=== PATIENT | female | born 1940 ===

== ENCOUNTER 2017-04-25 12:31 | Inpatient (IN) | payer MEDICAID, SELFPAY ==
[2017-04-25 12:32] VITALS: BMI 37.2
[2017-04-25] MEDS ORDERED: Albuterol-Ipratrop 3 mg / 0.5 (3 ml) UD ONE ×3 (13:27→16:13)
[2017-04-25] MEDS ORDERED: Albuterol-Ipratrop 3 mg / 0.5 (3 ml) UD INH STA (13:32)
--- NOTE | 2017-04-25 14:56 | C.PDOC ---
History Of Present Illness 76yo female, with history of COPD presents to ED with complaints of cough and shortness of breath, progressively worsening over the past 2 days. She denies any associated fever or chest pain. Time Seen by Provider: 04/25/17 14:51 Chief Complaint (Nursing): Shortness Of Breath History Per: Patient, Family History/Exam Limitations: no limitations Onset/Duration Of Symptoms: Days (2) Current Symptoms Are (Timing): Still Present Associated Symptoms: denies: Fever, Productive Cough Past Medical History Reviewed: Historical Data, Nursing Documentation, Vital Signs Vital Signs: Last Vital Signs Temp 98.4 F 04/25/17 13:26 Pulse 86 04/25/17 13:26 Resp 20 04/25/17 13:26 BP 132/81 04/25/17 13:26 Pulse Ox 95 04/25/17 18:50 - Medical History PMH: Arthritis (KNEES), COPD, Fractures (6 years ago. fx keft arm, and spine), Gastritis, HTN, Hypothyroidism, Osteoporosis, Peripheral Edema, Pneumonia Denies: Chronic Kidney Disease Surgical History: No Surg Hx - [facility] Procedures INSERTION OF INFUSION DEV INTO SUP VENA CAVA, PERC APPROACH (04/12/15) ULTRASONOGRAPHY OF RIGHT AND LEFT HEART, TRANSESOPHAGEAL (07/27/15) Family History: States: Unknown Family Hx - Social History Hx Tobacco Use: No Hx Alcohol Use: No Hx Substance Use: No - Immunization History Hx Tetanus Toxoid Vaccination: No Hx Influenza Vaccination: Yes Hx Pneumococcal Vaccination: Yes Review Of Systems Except As Marked, All Systems Reviewed And Found Negative. Constitutional: Negative for: Fever, Chills Cardiovascular: Negative for: Chest Pain Respiratory: Positive for: Shortness of Breath. Negative for: Cough, Sputum Skin: Negative for: Rash Neurological: Negative for: Weakness, Headache, Dizziness Physical Exam - Physical Exam Appears: Non-toxic Skin: Normal Color, Warm, Dry Head: Atraumatic, Normacephalic Eye(s): bilateral: Normal Inspection, PERRL, EOMI Ear(s): Bilateral: Normal Nose: Normal Oral Mucosa: Moist Throat: Normal, No Erythema, No Exudate Neck: Normal ROM, Supple Chest: Symmetrical Cardiovascular: Rhythm Regular Respiratory: No Accessory Muscle Use, No Rales, No Rhonchi, Wheezing (diffuse wheezing) Extremity: Normal ROM, No Tenderness, No Pedal Edema, No Deformity, No Swelling Neurological/Psych: Oriented x3, Normal Speech ED Course And Treatment - Laboratory Results Result Diagrams: 04/25/17 15:10 04/25/17 15:10 Lab Interpretation: Abnormal O2 Sat by Pulse Oximetry: 95 (RA) Pulse Ox Interpretation: Normal Medical Decision Making Medical Decision Making: Impression: Shortness of breath in setting of COPD Plan: -- EKG -- Labs -- Rapid Flu -- Duoneb 3ml INH -- Solumedrol 125mg IVP Re-eval: Patient continued to feel the same, wheezing mildly improved. Labs reviewed shows hyponatremia. Discussed case with attending recommends Iv fluids and admission spoke with hospitalist Dr Sagar Borja and discussed case recommended additional labs and will admit. Patient to be next for service Dr Espitia Disposition - Disposition Disposition: HOSPITALIZED Disposition Time: 18:00 Condition: STABLE - POA Present On Arrival: None - Clinical Impression Clinical Impression: COPD exacerbation, Hyponatremia - PA / [employer] / Resident Statement MD/DO has reviewed & agrees with the documentation as recorded. - Scribe Statement The provider has reviewed the documentation as recorded by the Scribe (Hannah Friend) Provider Scribe Attestation: All medical record entries made by the Scribe were at my direction and personally dictated by me. I have reviewed the chart and agree that the record accurately reflects my personal performance of the history, physical exam, medical decision making, and the department course for this patient. I have also personally directed, reviewed, and agree with the discharge instructions and disposition. Decision To Admit - Pt Status Changed To: Hospital Disposition Of: Observation - . Bed Request Type: Regular Admitting Physician: Kumar Espitia Patient Diagnosis: COPD exacerbation, Hyponatremia
[2017-04-25 15:12] LABS: BASO # 0.1 K/uL (0.0-0.2); BASO % 0.9 % (0.0-2.0); EOS % 0.6 % (0.0-4.0); LYMPH # 1.7 K/uL (1.0-4.3); LYMPH % 21.7 % (20.0-40.0); MEAN CELL VOLUME 81.6 fL (81.0-99.0); MEAN CORPUSCULAR HEMOGLOBIN 26.5 pg (27.0-31.0); MEAN CORPUSCULAR HGB CONC 32.4 g/dL (33.0-37.0); MEAN PLATELET VOLUME 8.8 fL (7.2-11.7); MONO # 1.2 K/uL (0.0-0.8); MONO % 16.3 % (0.0-10.0); NEUT # 4.7 K/uL (1.8-7.0); NEUT % 60.5 % (50.0-75.0); RBC 4.54 Mil/uL (3.80-5.20); RED CELL DISTRIBUTION WIDTH 15.4 % (11.5-14.5); WHITE BLOOD COUNT 7.7 K/uL (4.8-10.8)
[2017-04-25 15:29] LABS: ALB/GLOB RATIO 1.1 (1.0-2.1); ALBUMIN 3.6 g/dL (3.5-5.0); ALT/SGPT 39 U/L (9-52); AST/SGOT 26 U/L (14-36); BLOOD UREA NITROGEN 13 mg/dL (7-17); CALCIUM 8.1 mg/dl (8.6-10.4); GFR AFRICAN-AMERICAN > 60; GFR NON-AFRICAN AMERICAN > 60
[2017-04-25 15:36] LABS: B-TYPE NATRIURETIC PEPTIDE 586 pg/mL (0-900)
[2017-04-25] MEDS: Albuterol-Ipratrop 3 mg / 0.5 (3 ml) UD IH SCH ×3 (15:40→16:10)
--- NOTE | 2017-04-25 17:04 | RAD ---
HISTORY: SOB COMPARISON: Chest x-ray performed 10/05/15 TECHNIQUE: Chest PA and lateral FINDINGS: Examination limited by habitus. LUNGS: No focal consolidation. Please note that chest x-ray has limited sensitivity for the detection of pulmonary masses. PLEURA: No significant pleural effusion identified. No definite pneumothorax . CARDIOVASCULAR: Cardiomegaly. Ectatic aorta. OSSEOUS STRUCTURES: Osseous demineralization. Degenerative changes. Mild kyphosis. VISUALIZED UPPER ABDOMEN: Unremarkable. OTHER FINDINGS: None. IMPRESSION: No focal consolidation, significant pleural effusion, or definite pneumothorax identified. Cardiomegaly. Ectatic aorta.
[2017-04-25] MEDS ORDERED: Sodium Chloride 0.9% 1,000 ML IV ONE (17:23)
[2017-04-25] MEDS ORDERED: Sodium Chloride 0.9% 1,000 ML ONE (18:08)
--- NOTE | 2017-04-25 19:25 | CP.PCM.HP ---
<Margaux Villasenor - Last Filed: 04/26/17 06:54> History of Present Illness - History of Present Illness History of Present Illness: Medicine Note for Hospitalist Service CC: SOB HPI: 76 Female with PMHx of COPD, HTN, DM, Hypothyroid presented to the ED due to shortness of breath. History retrieved from both patient and her daughter. She started to experience coughing and wheezing for the past 2 days. Denied any fever, chills, productive cough, sore throat, body ache. Patient is compliant with her medications but she ran out of the nebulizer treatments x 1 week. Denied any sick contacts. She received duonebs x3 in the ED with solumedrol and reported much improvement. Denied fever, chills, headache, chest pain, SOB, abdominal pain, n/v/d/c, or urinary symptoms. PMH: COPD, HTN, Type 2 DM, Hypothyrodism, Arthritis, Gastritis, Osteoporosis, Peripheral Edema, Pneumonia PSHx: Right TKA (2006),Left TKA (2011), Liposuction Meds: Ventolin, Fluticasone, Metformin, Losartan, Levothyroxine, Aspirin, Calcium, Famotidine. Will obtain dosage from pharmacy. Allergies: NKDA Social Hx: Denies tobacco, alcohol, and illegal drug use. Patient currently lives with her daughter. 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 Reports large presence of second hand smoke when living in [facility]. FMHx: Noncontributory PMD: [place] Present on Admission - Present on Admission Any Indicators Present on Admission: No Past Patient History - Infectious Disease Hx of Infectious Diseases: None - Tetanus Immunizations Tetanus Immunization: Unknown - Past Medical History & Family History Past Medical History?: Yes - Past Social History Smoking Status: Never Smoked - CARDIAC Hx Hypertension: Yes Hx Peripheral Edema: Yes - PULMONARY Hx Chronic Obstructive Pulmonary Disease (COPD): Yes Hx Pneumonia: Yes - NEUROLOGICAL Hx Neurological Disorder: Yes Other/Comment: cerebral lesion after gastic surgery 'lipectomy ' many years ago in [place] - HEENT Hx HEENT Problems: Yes Hx Difficulty Chewing: Yes (tardive dyskinesia X 4 years) Other/Comment: wears glasses to read - RENAL Hx Chronic Kidney Disease: No - ENDOCRINE/METABOLIC Hx Hypothyroidism: Yes - HEMATOLOGICAL/ONCOLOGICAL Hx Blood Disorders: No Hx Blood Transfusions: No - INTEGUMENTARY Hx Dermatological Problems: No Other/Comment: surgical remaoval of subcutaneous fat after extreme weight loss - MUSCULOSKELETAL/RHEUMATOLOGICAL Hx Arthritis: Yes (KNEES) Hx Fractures: Yes (6 years ago. fx keft arm, and spine) Hx Osteoporosis: Yes - GASTROINTESTINAL Hx Gastritis: Yes - GENITOURINARY/GYNECOLOGICAL Hx Genitourinary Disorders: Yes Hx Urinary Tract Infection: Yes Other/Comment: incontinent - PSYCHIATRIC Hx Substance Use: No - SURGICAL HISTORY Hx Surgeries: Yes Hx Herniorrhaphy: Yes Hx Musculoskeletal Surgery: Yes (bilateral knee replacement) Other/Comment: renal calculi removed surgically about 8 years ago. Thyroidectomy about 5 years ago. - ANESTHESIA Hx Anesthesia: Yes Hx Anesthesia Reactions: Yes (neuro symptoms. 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.) Meds Allergies/Adverse Reactions: Allergies Allergy/AdvReac Type Severity Reaction Status Date / Time No Known Allergies Allergy Verified 04/11/15 15:28 Physical Exam - Constitutional Appears: No Acute Distress - Head Exam Head Exam: NORMAL INSPECTION, NORMOCEPHALIC - Eye Exam Eye Exam: EOMI, Normal appearance, PERRL Pupil Exam: NORMAL ACCOMODATION - ENT Exam ENT Exam: Mucous Membranes Moist, Normal Exam - Respiratory Exam Respiratory Exam: Decreased Breath Sounds, Wheezes - Cardiovascular Exam Cardiovascular Exam: Tachycardia - GI/Abdominal Exam GI & Abdominal Exam: Normal Bowel Sounds, Soft. absent: Distended, Tenderness - Extremities Exam Extremities exam: Positive for: normal inspection, pedal pulses present. Negative for: pedal edema, tenderness - Neurological Exam Neurological exam: Alert, CN II-XII Intact, Oriented x3 - Psychiatric Exam Psychiatric exam: Normal Affect, Normal Mood - Skin Skin Exam: Dry, Intact, Normal Color, Warm Results - Vital Signs Recent Vital Signs: Last Vital Signs Temp 98.4 F 04/25/17 13:26 Pulse 86 04/25/17 13:26 Resp 20 04/25/17 13:26 BP 132/81 04/25/17 13:26 Pulse Ox 95 04/25/17 18:52 - Labs Result Diagrams: 04/25/17 15:10 04/25/17 15:10 Labs: Laboratory Results - last 24 hr 04/25/17 04/25/17 04/25/17 15:10 15:10 15:14 WBC 7.7 RBC 4.54 Hgb 12.0 Hct 37.1 MCV 81.6 MCH 26.5 L MCHC 32.4 L RDW 15.4 H Plt Count 292 MPV 8.8 Neut % (Auto) 60.5 Lymph % (Auto) 21.7 [place] % (Auto) 16.3 H Eos % (Auto) 0.6 Baso % (Auto) 0.9 Neut # 4.7 Lymph # 1.7 [place] # 1.2 H Eos # 0.0 Baso # 0.1 Sodium 123 L Potassium 4.1 Chloride 86 L Carbon Dioxide 29 Anion Gap 12 BUN 13 Creatinine 0.7 Est GFR ( Amer) > 60 Est GFR (Non-Af Amer) > 60 Random Glucose 181 H Calcium 8.1 L Total Bilirubin 0.4 AST 26 ALT 39 Alkaline Phosphatase 62 NT-Pro-B Natriuret Pep 586 Total Protein 6.8 Albumin 3.6 Globulin 3.2 Albumin/Globulin Ratio 1.1 Influenza Typ A,B (EIA) Negative for flu a/b Assessment & Plan - Assessment and Plan (Free Text) Assessment: 76 Female with PMHx of COPD, HTN, DM, Hypothyroid presented to the ED due to shortness of breath. Plan: COPD Exacerbation CXR: no infiltrate, consolidation noted Negative Flu Meds: Solumedrol 40mg Q12H (will taper based on clinical exam) Duonebs Q6H PEPE, Albuterol QR3 prn Pulmicort Q12, Spiriva Q24H Hyponatremia F/U urine osm, serum osm, Na urine osm Hx DM Continue home meds: Metformin 500mg PO BID HgA1C: 7.4 Accuchecks Hx HTN Continue home meds: Cozaar 50mg PO daily Hx Hypothyroidism Continue home medications: Synthroid 125mcg PO daily TSH, T4 WNL GERD Protonix 40mg PO daily Will need to be discharged with PPI, as this can be exacerbating her COPD Prophylactic Measures GI PPX: Protonix 40mg PO daily DVT PPX: SCDs, Lovenox 40mg SC daily DW Margaux Wasserman DO, PGY-1 <Kumar Espitia P - Last Filed: 04/26/17 07:39> Results - Vital Signs Recent Vital Signs: Last Vital Signs Temp 98.5 F 04/25/17 23:15 Pulse 114 H 04/25/17 23:15 Resp 20 04/25/17 23:15 BP 113/64 04/25/17 23:15 Pulse Ox 95 04/25/17 23:15 - Labs Result Diagrams: 04/25/17 15:10 04/25/17 15:10 Labs: Laboratory Results - last 24 hr 04/25/17 04/25/17 04/25/17 15:10 15:10 15:14 WBC 7.7 RBC 4.54 Hgb 12.0 Hct 37.1 MCV 81.6 MCH 26.5 L MCHC 32.4 L RDW 15.4 H Plt Count 292 MPV 8.8 Neut % (Auto) 60.5 Lymph % (Auto) 21.7 [place] % (Auto) 16.3 H Eos % (Auto) 0.6 Baso % (Auto) 0.9 Neut # 4.7 Lymph # 1.7 [place] # 1.2 H Eos # 0.0 Baso # 0.1 Sodium 123 L Potassium 4.1 Chloride 86 L Carbon Dioxide 29 Anion Gap 12 BUN 13 Creatinine 0.7 Est GFR ( Amer) > 60 Est GFR (Non-Af Amer) > 60 Random Glucose 181 H Hemoglobin A1c Serum Osmolality Calcium 8.1 L Total Bilirubin 0.4 AST 26 ALT 39 Alkaline Phosphatase 62 NT-Pro-B Natriuret Pep 586 Total Protein 6.8 Albumin 3.6 Globulin 3.2 Albumin/Globulin Ratio 1.1 Free T4 TSH 3rd Generation Urine Osmolality Ur Random Sodium Influenza Typ A,B (EIA) Negative for flu a/b 04/25/17 04/25/17 04/25/17 20:09 20:09 20:09 WBC RBC Hgb Hct MCV MCH MCHC RDW Plt Count MPV Neut % (Auto) Lymph % (Auto) [place] % (Auto) Eos % (Auto) Baso % (Auto) Neut # Lymph # [place] # Eos # Baso # Sodium Potassium Chloride Carbon Dioxide Anion Gap BUN Creatinine Est GFR ( Amer) Est GFR (Non-Af Amer) Random Glucose Hemoglobin A1c 7.4 H Serum Osmolality Calcium Total Bilirubin AST ALT Alkaline Phosphatase NT-Pro-B Natriuret Pep Total Protein Albumin Globulin Albumin/Globulin Ratio Free T4 1.46 TSH 3rd Generation 0.49 Urine Osmolality Ur Random Sodium Influenza Typ A,B (EIA) 04/25/17 04/26/17 22:57 06:18 WBC RBC Hgb Hct MCV MCH MCHC RDW Plt Count MPV Neut % (Auto) Lymph % (Auto) [place] % (Auto) Eos % (Auto) Baso % (Auto) Neut # Lymph # [place] # Eos # Baso # Sodium Potassium Chloride Carbon Dioxide Anion Gap BUN Creatinine Est GFR ( Amer) Est GFR (Non-Af Amer) Random Glucose Hemoglobin A1c Serum Osmolality 292 Calcium Total Bilirubin AST ALT Alkaline Phosphatase NT-Pro-B Natriuret Pep Total Protein Albumin Globulin Albumin/Globulin Ratio Free T4 TSH 3rd Generation Urine Osmolality 331 Ur Random Sodium 43 Influenza Typ A,B (EIA) Attending/Attestation - Attestation I have personally seen and examined this patient.: Yes I have fully participated in the care of the patient.: Yes I have reviewed all pertinent clinical information: Yes Notes (Text): Assessment * Wheezing, reactive air way, ? etiology, no h/o smoking but secondary smoking present, also suspect acid reflex * Hyponatremia noticed with relatively higher urine osm, euvolemic suspicious of siadh again etiology not clear * TD kind of facial movements * NIDDM * Physical deconditioning due to obesity, arthritis, age, comorbidities Plan Oral, and inhaled steroids, albuterol nebs PPI, zofran Repeat sodium, tsh/cortisol level if repeat sodium still low can fluid restrict / give loop diuretic continue home meds, none suspected for siadh GI/DVT prophylaxis Confirm if patient is on any antipsycotics See orders for detail.
[2017-04-25] MEDS: Albuterol-Ipratrop 3 mg / 0.5 (3 ml) UD INH SCH (21:41)
[2017-04-25] MEDS ORDERED: Albuterol 0.042% Inhal Sol (1.25 mg/3 mL) UD INH PRN (21:50)
[2017-04-25 22:35] VITALS: RESP 20
[2017-04-26] MEDS: Albuterol-Ipratrop 3 mg / 0.5 (3 ml) UD INH SCH ×5 (02:00→19:51)
[2017-04-26] MEDS: Levothyroxine 125 MCG TAB PO SCH (06:35)
[2017-04-26 07:14] LABS: OSMOLALITY,URINE 331 mosm/kg (300-1000)
[2017-04-26] MEDS ORDERED: Fluticasone-Salmeterol 250-50mcg Diskus INH SCH (08:00)
[2017-04-26] MEDS ORDERED: Tiotropium 18 mcg Cap For Inhalation INH SCH (08:00)
[2017-04-26 08:02] LABS: BASO % 0.2 % (0.0-2.0); HEMOGLOBIN 11.7 g/dL (11.0-16.0); LYMPH # 1.1 K/uL (1.0-4.3); LYMPH % 13.8 % (20.0-40.0); MEAN CELL VOLUME 81.4 fL (81.0-99.0); MEAN CORPUSCULAR HEMOGLOBIN 27.3 pg (27.0-31.0); MEAN CORPUSCULAR HGB CONC 33.5 g/dL (33.0-37.0); MONO # 0.5 K/uL (0.0-0.8); MONO % 7.1 % (0.0-10.0); NEUT % 78.9 % (50.0-75.0); NRBC % 0.1 % (0.0-2.0); RBC 4.28 Mil/uL (3.80-5.20); RED CELL DISTRIBUTION WIDTH 15.8 % (11.5-14.5); WHITE BLOOD COUNT 7.6 K/uL (4.8-10.8)
[2017-04-26 08:22] LABS: LDL CHOLESTEROL 49 mg/dL (0-129)
[2017-04-26 08:23] LABS: ALB/GLOB RATIO 1.1 (1.0-2.1); ALBUMIN 3.5 g/dL (3.5-5.0); ALT/SGPT 28 U/L (9-52); AST/SGOT 19 U/L (14-36); BLOOD UREA NITROGEN 13 mg/dL (7-17); CALCIUM 8.4 mg/dl (8.6-10.4); GFR AFRICAN-AMERICAN > 60; GFR NON-AFRICAN AMERICAN > 60; HDL CHOLESTEROL 38 mg/dL (30-70); MAGNESIUM 1.7 mg/dL (1.6-2.3)
[2017-04-26] MEDS: MethylPREDNISolone 40 mg Vial IVP SCH ×4 (08:23→16:59)
[2017-04-26] MEDS: Pantoprazole 40 mg EC Tab PO SCH (11:11)
[2017-04-26] MEDS: Enoxaparin 40 mg Syringe SC SCH (11:12)
--- NOTE | 2017-04-26 12:00 | CP.PCM.PN ---
<Manuela Tavares OtonielNithin - Last Filed: 04/26/17 17:10> Subjective - Date & Time of Evaluation Date of Evaluation: 04/26/17 Time of Evaluation: 07:00 - Subjective Subjective: Medicine Progress Note: Patient was seen and examined at bedside in the AM. Patient stated she her breathing has improved slight. She denies chest pain, palpitations, nausea, vomiting, diarrhea or constipation. Objective - Vital Signs/Intake and Output Vital Signs (last 24 hours): Temp Pulse Resp BP Pulse Ox 98.4 F 111 H 20 105/60 95 04/26/17 07:36 04/26/17 07:36 04/26/17 07:36 04/26/17 07:36 04/26/17 07:36 Intake and Output: 04/26/17 04/26/17 06:59 18:59 Intake Total 500 Balance 500 - Medications Medications: Current Medications Albuterol Sulfate (Albuterol 0.042% Inhal Barbara (1.25mg/3ml) Ud) 1.25 mg INH RQ3 PRN PRN Reason: Wheezing Albuterol/Ipratropium (Duoneb 3 Mg/0.5 Mg (3 Ml) Ud) 3 ml INH RQ4 [facility] Aspirin (Aspirin Chewable) 81 mg PO DAILY [facility] Last Admin: 04/26/17 11:11 Dose: 81 mg Budesonide (Pulmicort Respules) 0.5 mg INH RQ12 [facility] Enoxaparin Sodium (Lovenox) 40 mg SC DAILY [facility] Last Admin: 04/26/17 11:12 Dose: 40 mg Levothyroxine Sodium (Synthroid) 125 mcg PO DAILY@0630 [facility] Last Admin: 04/26/17 06:35 Dose: 125 mcg Losartan Potassium (Cozaar) 50 mg PO DAILY [facility] Last Admin: 04/26/17 11:13 Dose: 50 mg Metformin HCl (Glucophage) 500 mg PO BID [facility] Last Admin: 04/26/17 11:11 Dose: 500 mg Methylprednisolone (Solu-Medrol) 40 mg IVP TID [facility] Pantoprazole Sodium (Protonix Ec Tab) 40 mg PO DAILY [facility] Last Admin: 04/26/17 11:11 Dose: 40 mg Tiotropium [place] (Spiriva) 18 mcg INH RQ24 [facility] - Labs Labs: 04/26/17 07:45 04/26/17 07:45 - Constitutional Appears: No Acute Distress, Chronically Ill - Head Exam Head Exam: ATRAUMATIC, NORMAL INSPECTION - Eye Exam Eye Exam: EOMI, Normal appearance - ENT Exam ENT Exam: Mucous Membranes Moist - Respiratory Exam Respiratory Exam: Clear to Ausculation Bilateral, NORMAL BREATHING PATTERN - Cardiovascular Exam Cardiovascular Exam: Tachycardia, REGULAR RHYTHM, +S1, +S2 - GI/Abdominal Exam GI & Abdominal Exam: Soft, Normal Bowel Sounds. absent: Tenderness Additional comments: obese - Extremities Exam Extremities Exam: Normal Inspection - Neurological Exam Neurological Exam: Alert, Awake, Oriented x3 - Psychiatric Exam Psychiatric exam: Normal Affect, Normal Mood - Skin Skin Exam: Normal Color, Warm Assessment and Plan - Assessment and Plan (Free Text) Assessment: 1.) COPD Exacerbation - Images * CXR: no infiltrate, consolidation noted - Negative Flu - Medications: * Solumedrol 40mg TID * Duonebs Q4H PEPE * Albuterol QR3 prn * Pulmicort Q12 * Spiriva Q24H 2.) Hyponatremia - Ns on admission 123 - (04/26/17) Na 130 - urine osm: 331; Serum osm 292, Na urine osm: 43 3.) History of DM type II - Metformin 500mg PO BID - hold - ISS - high - Hypoglycemia protocol - HgA1C: 7.4 - Accuchecks 4.) History of HTN - Continue home meds: Cozaar 50mg PO daily 5.) History of Hypothyroidism - Continue home medications: Synthroid 125mcg PO daily - TSH 0.49, T4 1.46 WNL 6.) History of GERD - Protonix 40mg PO daily - Will need to be discharged with PPI, as this can be exacerbating her COPD 7.) Prophylactic Measures - GI PPX: Protonix 40mg PO daily - DVT PPX: SCDs, Lovenox 40mg SC daily Case discussed with Dr. Danielle Tavares PGY-1 <Taco Santos - Last Filed: 04/26/17 18:33> Objective - Vital Signs/Intake and Output Vital Signs (last 24 hours): Temp Pulse Resp BP Pulse Ox 98.2 F 85 20 130/80 94 L 04/26/17 16:00 04/26/17 16:00 04/26/17 16:00 04/26/17 16:00 04/26/17 16:00 Intake and Output: 04/26/17 04/26/17 06:59 18:59 Intake Total 500 Balance 500 - Medications Medications: Current Medications Albuterol Sulfate (Albuterol 0.042% Inhal Barbara (1.25mg/3ml) Ud) 1.25 mg INH RQ3 PRN PRN Reason: Wheezing Albuterol/Ipratropium (Duoneb 3 Mg/0.5 Mg (3 Ml) Ud) 3 ml INH RQ4 [facility] Last Admin: 04/26/17 18:17 Dose: Not Given Aspirin (Aspirin Chewable) 81 mg PO DAILY [facility] Last Admin: 04/26/17 11:11 Dose: 81 mg Budesonide (Pulmicort Respules) 0.5 mg INH RQ12 [facility] Last Admin: 04/26/17 13:58 Dose: Not Given Dextrose (Glutose 15) 0 gm PO ONCE PRN; Protocol PRN Reason: Hypoglycemia Protocol Dextrose (Dextrose 50% Inj) 0 ml IV STAT PRN; Protocol PRN Reason: Hypoglycemia Protocol Enoxaparin Sodium (Lovenox) 40 mg SC DAILY [facility] Last Admin: 04/26/17 11:12 Dose: 40 mg Glucagon (Glucagen Diagnostic Kit) 0 mg IM STAT PRN; Protocol PRN Reason: Hypoglycemia Protocol Dextrose (Dextrose 5% In Water 1000 Ml) 1,000 mls @ 0 mls/hr IV .Q0M PRN; Protocol; Per Protocol PRN Reason: Hypoglycemia Protocol Insulin Human Regular (Novolin R) 0 unit SC ACHS [facility] PRN Reason: Protocol Levothyroxine Sodium (Synthroid) 125 mcg PO DAILY@0630 [facility] Last Admin: 04/26/17 06:35 Dose: 125 mcg Losartan Potassium (Cozaar) 50 mg PO DAILY [facility] Last Admin: 04/26/17 11:13 Dose: 50 mg Methylprednisolone (Solu-Medrol) 40 mg IVP TID [facility] Last Admin: 04/26/17 16:59 Dose: 40 mg Pantoprazole Sodium (Protonix Ec Tab) 40 mg PO DAILY [facility] Last Admin: 04/26/17 11:11 Dose: 40 mg Tiotropium [place] (Spiriva) 18 mcg INH RQ24 [facility] - Labs Labs: 04/26/17 07:45 04/26/17 07:45 Attending/Attestation - Attestation I have personally seen and examined this patient.: Yes I have fully participated in the care of the patient.: Yes I have reviewed all pertinent clinical information, including history, physical exam and plan: Yes Notes (Text): 04/26/17 18:33 Medical attending: Patient was seen and examined by me, reviewed the above note by center medical specialist and agree This is a patient that's known to the hospitalist service from previous admissions. She was able to stand and walk however needed assistance. At this time were to continue with Solu-Medrol as before. There was some concern from the admitting team that the patient might have SIADH given that her sodium was low initially however this morning sodium was 130. So at this time will continue to monitor the patient's Na. He also added on sliding scale insulin due to patient's history of diabetes and currently being on IV Solu-Medrol for her breathing Thank you very much, Taco Santos
[2017-04-26] MEDS: Budesonide 0.5 mg/2 ml Inhal Susp UD INH SCH ×2 (13:58→19:44)
[2017-04-26] MEDS ORDERED: Dextrose 50% SYRINGE Inj (50 ml) IV PRN (17:12)
[2017-04-26] MEDS ORDERED: Glucagon Recombinant 1 mg Inj IM PRN (17:12)
[2017-04-26] MEDS ORDERED: (Novolin R) Insulin Human Regular 100 units/ml vial SC SCH (22:00)
--- NOTE | 2017-04-26 23:06 | CARD ---
APPROVED REPORT EKG Measurement Heart [id number] <Conclusion> Sinus tachycardia Otherwise normal ECG
[2017-04-27] MEDS: Albuterol-Ipratrop 3 mg / 0.5 (3 ml) UD INH SCH ×7 (00:02→23:55)
[2017-04-27] MEDS: Levothyroxine 125 MCG TAB PO SCH (06:45)
[2017-04-27] MEDS: Budesonide 0.5 mg/2 ml Inhal Susp UD INH SCH (08:04)
[2017-04-27 08:25] LABS: BASO % 0.1 % (0.0-2.0); HEMOGLOBIN 11.8 g/dL (11.0-16.0); LYMPH # 1.3 K/uL (1.0-4.3); LYMPH % 9.9 % (20.0-40.0); MEAN CELL VOLUME 81.6 fL (81.0-99.0); MEAN CORPUSCULAR HEMOGLOBIN 26.6 pg (27.0-31.0); MEAN CORPUSCULAR HGB CONC 32.6 g/dL (33.0-37.0); MEAN PLATELET VOLUME 8.9 fL (7.2-11.7); MONO # 1.3 K/uL (0.0-0.8); MONO % 9.2 % (0.0-10.0); NEUT % 80.8 % (50.0-75.0); PLATELET COUNT 333 K/uL (130-400); RBC 4.43 Mil/uL (3.80-5.20); RED CELL DISTRIBUTION WIDTH 15.8 % (11.5-14.5)
[2017-04-27 08:37] LABS: WHITE BLOOD COUNT 13.7 K/uL (4.8-10.8)
[2017-04-27] MEDS: (Novolin R) Insulin Human Regular 100 units/ml vial SC SCH ×4 (08:49→21:43)
[2017-04-27 09:03] LABS: ALB/GLOB RATIO 1.2 (1.0-2.1); ALBUMIN 3.8 g/dL (3.5-5.0); ALT/SGPT 26 U/L (9-52); AST/SGOT 22 U/L (14-36); BLOOD UREA NITROGEN 18 mg/dL (7-17); CALCIUM 8.7 mg/dl (8.6-10.4); GFR AFRICAN-AMERICAN > 60; GFR NON-AFRICAN AMERICAN > 60; MAGNESIUM 1.7 mg/dL (1.6-2.3)
[2017-04-27] MEDS ORDERED: Influenza Vaccine 60 mcg/0.5 mL SYR (4YR UP) IM ONE (10:00)
--- NOTE | 2017-04-27 10:26 | CP.PCM.PN ---
<Manuela Tavares OtonielNithin - Last Filed: 04/27/17 10:24> Subjective - Date & Time of Evaluation Date of Evaluation: 04/27/17 Time of Evaluation: 07:00 - Subjective Subjective: Medicine Progress Note: Patient was seen and examined at bedside in the AM. Patient states she feels like her breathing has improved slightly. However patient still feels short of breath. Patient states she is eating well and denies nausea, vomiting, diarrhea or constipation. Objective - Vital Signs/Intake and Output Vital Signs (last 24 hours): Temp Pulse Resp BP Pulse Ox 98.2 F 82 20 126/79 95 04/27/17 08:40 04/27/17 08:40 04/27/17 08:40 04/27/17 08:40 04/27/17 08:40 Intake and Output: 04/27/17 04/27/17 06:59 18:59 Intake Total 120 Balance 120 - Medications Medications: Current Medications Albuterol Sulfate (Albuterol 0.042% Inhal Barbara (1.25mg/3ml) Ud) 1.25 mg INH RQ3 PRN PRN Reason: Wheezing Albuterol/Ipratropium (Duoneb 3 Mg/0.5 Mg (3 Ml) Ud) 3 ml INH RQ4 [facility] Last Admin: 04/27/17 08:04 Dose: 3 ml Aspirin (Aspirin Chewable) 81 mg PO DAILY [facility] Last Admin: 04/26/17 11:11 Dose: 81 mg Dextrose (Glutose 15) 0 gm PO ONCE PRN; Protocol PRN Reason: Hypoglycemia Protocol Dextrose (Dextrose 50% Inj) 0 ml IV STAT PRN; Protocol PRN Reason: Hypoglycemia Protocol Enoxaparin Sodium (Lovenox) 40 mg SC DAILY [facility] Last Admin: 04/26/17 11:12 Dose: 40 mg Glucagon (Glucagen Diagnostic Kit) 0 mg IM STAT PRN; Protocol PRN Reason: Hypoglycemia Protocol Dextrose (Dextrose 5% In Water 1000 Ml) 1,000 mls @ 0 mls/hr IV .Q0M PRN; Protocol; Per Protocol PRN Reason: Hypoglycemia Protocol Insulin Human Regular (Novolin R) 0 unit SC ACHS [facility] PRN Reason: Protocol Last Admin: 04/27/17 08:49 Dose: 4 unit Levothyroxine Sodium (Synthroid) 125 mcg PO DAILY@0630 [facility] Last Admin: 04/27/17 06:45 Dose: 125 mcg Losartan Potassium (Cozaar) 50 mg PO DAILY [facility] Last Admin: 04/26/17 11:13 Dose: 50 mg Methylprednisolone (Solu-Medrol) 40 mg IVP TID [facility] Last Admin: 04/26/17 16:59 Dose: 40 mg Pantoprazole Sodium (Protonix Ec Tab) 40 mg PO DAILY [facility] Last Admin: 04/26/17 11:11 Dose: 40 mg Fluticasone/Salmeterol (Advair Diskus 500/50) 1 puff INH RQ12 [facility] Tiotropium [place] (Spiriva) 18 mcg INH RQ24 [facility] - Labs Labs: 04/27/17 08:02 04/27/17 08:02 - Constitutional Appears: In Acute Distress - Head Exam Head Exam: ATRAUMATIC, NORMAL INSPECTION - Eye Exam Eye Exam: EOMI, Normal appearance - ENT Exam ENT Exam: Mucous Membranes Moist - Respiratory Exam Respiratory Exam: Wheezes, NORMAL BREATHING PATTERN. absent: Clear to Ausculation Bilateral - Cardiovascular Exam Cardiovascular Exam: REGULAR RHYTHM, +S1, +S2 - GI/Abdominal Exam GI & Abdominal Exam: Soft, Normal Bowel Sounds. absent: Tenderness Additional comments: obese - Extremities Exam Extremities Exam: absent: Pedal Edema, Tenderness - Neurological Exam Neurological Exam: Alert, Awake, Oriented x3 - Psychiatric Exam Psychiatric exam: Normal Mood Assessment and Plan - Assessment and Plan (Free Text) Assessment: 1.) COPD Exacerbation - Images * CXR: no infiltrate, consolidation noted * f/u Chest CT w/o contrast - Negative Flu - Medications: * Solumedrol 40mg TID * Duonebs Q4H [facility] * Albuterol QR3 prn * Pulmicort Q12 discontinued * Advair Q12 started 04/27/17 * Spiriva Q24H 2.) Hyponatremia - Na on admission 123 - (04/26/17) Na 130 - (04/27/17) Na 126 - urine osm: 331; Serum osm 292, Na urine osm: 43 3.) History of DM type II - Metformin 500mg PO BID - hold - ISS - high - Hypoglycemia protocol - HgA1C: 7.4 - Accuchecks 4.) History of HTN - Continue home meds: Cozaar 50mg PO daily 5.) History of Hypothyroidism - Continue home medications: Synthroid 125mcg PO daily - TSH 0.49, T4 1.46 WNL 6.) History of GERD - Protonix 40mg PO daily - Will need to be discharged with PPI, as this can be exacerbating her COPD 7.) Prophylactic Measures - GI PPX: Protonix 40mg PO daily - DVT PPX: SCDs, Lovenox 40mg SC daily - Physical Therapy Case discussed with Dr. Danielle Tavares PGY-1 <Taco Santos - Last Filed: 04/27/17 14:34> Objective - Vital Signs/Intake and Output Vital Signs (last 24 hours): Temp Pulse Resp BP Pulse Ox 98.2 F 82 20 126/79 95 04/27/17 08:40 04/27/17 08:40 04/27/17 08:40 04/27/17 08:40 04/27/17 08:40 Intake and Output: 04/27/17 04/27/17 06:59 18:59 Intake Total 120 Balance 120 - Medications Medications: Current Medications Albuterol Sulfate (Albuterol 0.042% Inhal Barbara (1.25mg/3ml) Ud) 1.25 mg INH RQ3 PRN PRN Reason: Wheezing Albuterol/Ipratropium (Duoneb 3 Mg/0.5 Mg (3 Ml) Ud) 3 ml INH RQ4 [facility] Last Admin: 04/27/17 11:15 Dose: 3 ml Aspirin (Aspirin Chewable) 81 mg PO DAILY [facility] Last Admin: 04/27/17 10:57 Dose: 81 mg Dextrose (Glutose 15) 0 gm PO ONCE PRN; Protocol PRN Reason: Hypoglycemia Protocol Dextrose (Dextrose 50% Inj) 0 ml IV STAT PRN; Protocol PRN Reason: Hypoglycemia Protocol Enoxaparin Sodium (Lovenox) 40 mg SC DAILY [facility] Last Admin: 04/27/17 10:58 Dose: 40 mg Glucagon (Glucagen Diagnostic Kit) 0 mg IM STAT PRN; Protocol PRN Reason: Hypoglycemia Protocol Dextrose (Dextrose 5% In Water 1000 Ml) 1,000 mls @ 0 mls/hr IV .Q0M PRN; Protocol; Per Protocol PRN Reason: Hypoglycemia Protocol Insulin Human Regular (Novolin R) 0 unit SC ACHS [facility] PRN Reason: Protocol Last Admin: 04/27/17 12:22 Dose: 1 unit Levothyroxine Sodium (Synthroid) 125 mcg PO DAILY@0630 [facility] Last Admin: 04/27/17 06:45 Dose: 125 mcg Losartan Potassium (Cozaar) 50 mg PO DAILY [facility] Last Admin: 04/27/17 10:57 Dose: 50 mg Methylprednisolone (Solu-Medrol) 40 mg IVP TID [facility] Last Admin: 04/27/17 14:20 Dose: 40 mg Pantoprazole Sodium (Protonix Ec Tab) 40 mg PO DAILY [facility] Last Admin: 04/27/17 10:57 Dose: 40 mg Fluticasone/Salmeterol (Advair Diskus 500/50) 1 puff INH RQ12 [facility] Tiotropium [place] (Spiriva) 18 mcg INH RQ24 [facility] - Labs Labs: 04/27/17 08:02 04/27/17 08:02 Attending/Attestation - Attestation I have personally seen and examined this patient.: Yes I have fully participated in the care of the patient.: Yes I have reviewed all pertinent clinical information, including history, physical exam and plan: Yes Notes (Text): 04/27/17 14:34 Medical attending: Patient was seen and examined by me, agrees the above note by medical sonographer. With the help of clinical nutritionist the patient was able to tell us that she only felt minimally improved and she was still having some shortness of breath as well as coughing. As mentioned before yesterday we changed her IV Solu-Medrol to be given 3 times a day instead of being twice. Were also stop the Pulmicort switch over to Advair to be given twice a day Today were negative CT scan of the chest without contrast Thank you very much, Taco Santos
[2017-04-27 10:39] LABS: ANISOCYTOSIS SLIGHT; BANDS 20 % (0-2); GIANT PLATELETS PRESENT; LARGE PLATELETS PRESENT; LYMPHOCYTE 13 % (20-40); MONOCYTE 6 % (0-10); NEUTROPHIL 59 % (50-75); PLATELET ESTIMATE NORMAL (NORMAL); REACTIVE LYMPHOCYTES 2 % (0-0); TOTAL CELLS COUNTED 100
[2017-04-27] MEDS: Pantoprazole 40 mg EC Tab PO SCH (10:57)
[2017-04-27] MEDS: MethylPREDNISolone 40 mg Vial IVP SCH ×3 (10:57→17:23)
[2017-04-27] MEDS: Enoxaparin 40 mg Syringe SC SCH (10:58)
--- NOTE | 2017-04-27 17:28 | CT ---
PROCEDURE: CT Chest without contrast HISTORY: shortness of breath and wheezing COMPARISON: None. TECHNIQUE: Contiguous axial images were obtained through the chest without intravenous contrast enhancement. Sagittal and coronal reconstructions were performed. Radiation dose (DLP): 833.15 mGy-cm. This CT exam was performed using one or more of the following dose reduction techniques: Automated exposure control, adjustment of the mA and/or kV according to patient size, and/or use of iterative reconstruction technique. FINDINGS: LUNGS: No pulmonary infiltrate. Linear scar/ atelectasis anterior right upper lobe. Minimal pleural thickening medial left lung base. No pulmonary mass identified. 5 mm calcified granuloma in the lingular segment of the left upper lobe. MEDIASTINUM: Unremarkable thoracic aorta. No aneurysm. Normal heart size. Coronary arterial calcification. Main pulmonary artery unremarkable. No vascular congestion. No lymphadenopathy. PLEURA: No pleural fluid. No pneumothorax. BONES: Stable compression deformity of the T12 and L1 vertebrae compared to 10/04/2015. UPPER ABDOMEN: Stable 3.4 cm left upper pole renal cortical cyst. Surgical clips in gallbladder fossa. . OTHER FINDINGS: None. IMPRESSION: No acute infiltrate. Minor findings as above.
[2017-04-27] MEDS: Fluticasone-Salmeterol 500-50mcg Diskus INH SCH (19:54)
[2017-04-28] MEDS: Albuterol-Ipratrop 3 mg / 0.5 (3 ml) UD INH SCH ×5 (03:20→19:21)
[2017-04-28] MEDS: Levothyroxine 125 MCG TAB PO SCH (06:28)
[2017-04-28 07:53] LABS: BASO % 0.1 % (0.0-2.0); HEMOGLOBIN 11.9 g/dL (11.0-16.0); LYMPH # 0.9 K/uL (1.0-4.3); MEAN CELL VOLUME 80.2 fL (81.0-99.0); MEAN CORPUSCULAR HEMOGLOBIN 27.6 pg (27.0-31.0); MEAN CORPUSCULAR HGB CONC 34.4 g/dL (33.0-37.0); MONO % 10.8 % (0.0-10.0); NEUT # 7.7 K/uL (1.8-7.0); NEUT % 80.1 % (50.0-75.0); PLATELET COUNT 282 K/uL (130-400); RED CELL DISTRIBUTION WIDTH 15.6 % (11.5-14.5); WHITE BLOOD COUNT 9.6 K/uL (4.8-10.8)
[2017-04-28 08:13] LABS: ALB/GLOB RATIO 1.1 (1.0-2.1); ALBUMIN 3.4 g/dL (3.5-5.0); ALT/SGPT 61 U/L (9-52); AST/SGOT 47 U/L (14-36); BLOOD UREA NITROGEN 19 mg/dL (7-17); CALCIUM 8.6 mg/dl (8.6-10.4); GFR AFRICAN-AMERICAN > 60; GFR NON-AFRICAN AMERICAN > 60; MAGNESIUM 1.8 mg/dL (1.6-2.3)
[2017-04-28] MEDS: (Novolin R) Insulin Human Regular 100 units/ml vial SC SCH ×4 (08:30→21:38)
[2017-04-28] MEDS: Fluticasone-Salmeterol 500-50mcg Diskus INH SCH ×2 (09:30→19:20)
[2017-04-28] MEDS: Pantoprazole 40 mg EC Tab PO SCH (10:36)
[2017-04-28] MEDS: MethylPREDNISolone 40 mg Vial IVP SCH ×3 (10:36→18:50)
[2017-04-28] MEDS: Enoxaparin 40 mg Syringe SC SCH (10:36)
[2017-04-28 11:29] LABS: ANISOCYTOSIS SLIGHT; BANDS 5 % (0-2); GIANT PLATELETS PRESENT; LARGE PLATELETS PRESENT; LYMPHOCYTE 8 % (20-40); MONOCYTE 8 % (0-10); NEUTROPHIL 77 % (50-75); PLATELET ESTIMATE NORMAL (NORMAL); REACTIVE LYMPHOCYTES 2 % (0-0); TOTAL CELLS COUNTED 100
[2017-04-28 11:30] LABS: HYPOCHROMIC SLIGHT; POLYCHROMIC SLIGHT; TOXIC GRANULATION PRESENT
--- NOTE | 2017-04-28 14:39 | CP.PCM.PN ---
<Manuela Tavares OtonielNithin - Last Filed: 04/28/17 14:33> Subjective - Date & Time of Evaluation Date of Evaluation: 04/28/17 Time of Evaluation: 07:00 - Subjective Subjective: Medicine Progress Note: Patient was seen and examined at bedside in the AM. Patient states she is feeling slightly better. Daughter at bedside and states she did walk on the floor with her mother. The patient states she still is coughing and feeling short of breath. Objective - Vital Signs/Intake and Output Vital Signs (last 24 hours): Temp Pulse Resp BP Pulse Ox 98 F 88 20 133/73 95 04/28/17 08:05 04/28/17 08:05 04/28/17 08:05 04/28/17 08:05 04/28/17 08:05 Intake and Output: 04/28/17 04/28/17 06:59 18:59 Intake Total 680 500 Balance 680 500 - Medications Medications: Current Medications Albuterol Sulfate (Albuterol 0.042% Inhal Barbara (1.25mg/3ml) Ud) 1.25 mg INH RQ3 PRN PRN Reason: Wheezing Albuterol/Ipratropium (Duoneb 3 Mg/0.5 Mg (3 Ml) Ud) 3 ml INH RQ4 [facility] Last Admin: 04/28/17 11:25 Dose: 3 ml Aspirin (Aspirin Chewable) 81 mg PO DAILY [facility] Last Admin: 04/28/17 10:36 Dose: 81 mg Dextrose (Glutose 15) 0 gm PO ONCE PRN; Protocol PRN Reason: Hypoglycemia Protocol Dextrose (Dextrose 50% Inj) 0 ml IV STAT PRN; Protocol PRN Reason: Hypoglycemia Protocol Enoxaparin Sodium (Lovenox) 40 mg SC DAILY [facility] Last Admin: 04/28/17 10:36 Dose: 40 mg Glucagon (Glucagen Diagnostic Kit) 0 mg IM STAT PRN; Protocol PRN Reason: Hypoglycemia Protocol Guaifenesin (Mucinex La) 600 mg PO BID [facility] Dextrose (Dextrose 5% In Water 1000 Ml) 1,000 mls @ 0 mls/hr IV .Q0M PRN; Protocol; Per Protocol PRN Reason: Hypoglycemia Protocol Insulin Human Regular (Novolin R) 0 unit SC ACHS [facility] PRN Reason: Protocol Last Admin: 04/28/17 12:15 Dose: 2 unit Levothyroxine Sodium (Synthroid) 125 mcg PO DAILY@0630 [facility] Last Admin: 04/28/17 06:28 Dose: 125 mcg Losartan Potassium (Cozaar) 50 mg PO DAILY [facility] Last Admin: 04/28/17 10:36 Dose: 50 mg Methylprednisolone (Solu-Medrol) 40 mg IVP TID [facility] Last Admin: 04/28/17 10:36 Dose: 40 mg Pantoprazole Sodium (Protonix Ec Tab) 40 mg PO DAILY [facility] Last Admin: 04/28/17 10:36 Dose: 40 mg Fluticasone/Salmeterol (Advair Diskus 500/50) 1 puff INH RQ12 [facility] Last Admin: 04/28/17 09:30 Dose: Not Given Tiotropium [place] (Spiriva) 18 mcg INH RQ24 [facility] - Labs Labs: 04/28/17 07:34 04/28/17 07:34 - Constitutional Appears: No Acute Distress - Head Exam Head Exam: ATRAUMATIC, NORMAL INSPECTION - Eye Exam Eye Exam: EOMI, Normal appearance - ENT Exam ENT Exam: Mucous Membranes Moist - Respiratory Exam Respiratory Exam: Wheezes, NORMAL BREATHING PATTERN - Cardiovascular Exam Cardiovascular Exam: REGULAR RHYTHM, +S1, +S2 - GI/Abdominal Exam GI & Abdominal Exam: Soft, Normal Bowel Sounds. absent: Tenderness - Extremities Exam Extremities Exam: Normal Inspection - Neurological Exam Neurological Exam: Alert, Awake, Oriented x3 - Psychiatric Exam Psychiatric exam: Normal Affect, Normal Mood - Skin Skin Exam: Normal Color, Warm Assessment and Plan - Assessment and Plan (Free Text) Assessment: 1.) COPD Exacerbation - Images * CXR: no infiltrate, consolidation noted * Chest CT w/o contrast: No acute infiltrate. Minor findings as above. - Negative Flu - Medications: * Solumedrol 40mg TID * Duonebs Q4H [facility] * Albuterol QR3 prn * Pulmicort Q12 discontinued * Advair Q12 started 04/27/17 * Spiriva Q24H * Mucinex 600mg po bid [facility] 2.) Hyponatremia - Na on admission 123 - (04/26/17) Na 130 - (04/27/17) Na 126 - urine osm: 331; Serum osm 292, Na urine osm: 43 3.) History of DM type II - Metformin 500mg PO BID - hold - ISS - high - Hypoglycemia protocol - HgA1C: 7.4 - Accuchecks 4.) History of HTN - Continue home meds: Cozaar 50mg PO daily 5.) History of Hypothyroidism - Continue home medications: Synthroid 125mcg PO daily - TSH 0.49, T4 1.46 WNL 6.) History of GERD - Protonix 40mg PO daily - Will need to be discharged with PPI, as this can be exacerbating her COPD 7.) Prophylactic Measures - GI PPX: Protonix 40mg PO daily - DVT PPX: SCDs, Lovenox 40mg SC daily - Physical Therapy Case discussed with Dr. Danielle Tavares PGY-1 <Taco Santos - Last Filed: 04/28/17 17:58> Objective - Vital Signs/Intake and Output Vital Signs (last 24 hours): Temp Pulse Resp BP Pulse Ox 98.4 F 87 20 113/72 97 04/28/17 16:00 04/28/17 16:34 04/28/17 16:00 04/28/17 16:00 04/28/17 16:34 Intake and Output: 04/28/17 04/28/17 06:59 18:59 Intake Total 680 500 Balance 680 500 - Medications Medications: Current Medications Albuterol Sulfate (Albuterol 0.042% Inhal Barbara (1.25mg/3ml) Ud) 1.25 mg INH RQ3 PRN PRN Reason: Wheezing Albuterol/Ipratropium (Duoneb 3 Mg/0.5 Mg (3 Ml) Ud) 3 ml INH RQ4 [facility] Last Admin: 04/28/17 16:50 Dose: 3 ml Aspirin (Aspirin Chewable) 81 mg PO DAILY [facility] Last Admin: 04/28/17 10:36 Dose: 81 mg Dextrose (Glutose 15) 0 gm PO ONCE PRN; Protocol PRN Reason: Hypoglycemia Protocol Dextrose (Dextrose 50% Inj) 0 ml IV STAT PRN; Protocol PRN Reason: Hypoglycemia Protocol Enoxaparin Sodium (Lovenox) 40 mg SC DAILY [facility] Last Admin: 04/28/17 10:36 Dose: 40 mg Glucagon (Glucagen Diagnostic Kit) 0 mg IM STAT PRN; Protocol PRN Reason: Hypoglycemia Protocol Guaifenesin (Mucinex La) 600 mg PO BID [facility] Dextrose (Dextrose 5% In Water 1000 Ml) 1,000 mls @ 0 mls/hr IV .Q0M PRN; Protocol; Per Protocol PRN Reason: Hypoglycemia Protocol Insulin Human Regular (Novolin R) 0 unit SC ACHS [facility] PRN Reason: Protocol Last Admin: 04/28/17 12:15 Dose: 2 unit Levothyroxine Sodium (Synthroid) 125 mcg PO DAILY@0630 [facility] Last Admin: 04/28/17 06:28 Dose: 125 mcg Losartan Potassium (Cozaar) 50 mg PO DAILY [facility] Last Admin: 04/28/17 10:36 Dose: 50 mg Methylprednisolone (Solu-Medrol) 40 mg IVP TID [facility] Last Admin: 04/28/17 14:00 Dose: 40 mg Pantoprazole Sodium (Protonix Ec Tab) 40 mg PO DAILY [facility] Last Admin: 04/28/17 10:36 Dose: 40 mg Fluticasone/Salmeterol (Advair Diskus 500/50) 1 puff INH RQ12 [facility] Last Admin: 04/28/17 09:30 Dose: Not Given Tiotropium [place] (Spiriva) 18 mcg INH RQ24 [facility] - Labs Labs: 04/28/17 07:34 04/28/17 07:34 Attending/Attestation - Attestation I have personally seen and examined this patient.: Yes I have fully participated in the care of the patient.: Yes I have reviewed all pertinent clinical information, including history, physical exam and plan: Yes Notes (Text): 04/28/17 17:58 Medical attending: Patient was seen and examined by me with the medical administrator. I reviewed the above note by medical administrator and agree. We member was present at bedside. The patient was okay with this and the family member also participated with the discussion and examination of the patient. The family member report that the patient does look much better than when she came in. The patient also remarks that her breathing is better as well. This being said she still has a fairly impressive cough on examination. There is also some Rales and rhonchi as well. Yesterday afternoon we got a CT scan without contrast of the lungs and this did not show any acute findings She's been able to walk and ambulate with assistance in the hallway. It's possible we could discharge the patient tomorrow depending on how the patient is feeling. thank you, Taco Santos
[2017-04-28] MEDS: guaiFENesin 600 mg ER Tab PO SCH (18:50)
[2017-04-29] MEDS: Albuterol-Ipratrop 3 mg / 0.5 (3 ml) UD INH SCH ×4 (00:05→12:31)
[2017-04-29] MEDS: Levothyroxine 125 MCG TAB PO SCH (06:01)
[2017-04-29 07:46] LABS: BASO % 0.1 % (0.0-2.0); HEMOGLOBIN 11.9 g/dL (11.0-16.0); LYMPH # 0.9 K/uL (1.0-4.3); LYMPH % 9.7 % (20.0-40.0); MEAN CELL VOLUME 80.5 fL (81.0-99.0); MEAN CORPUSCULAR HEMOGLOBIN 27.7 pg (27.0-31.0); MEAN CORPUSCULAR HGB CONC 34.4 g/dL (33.0-37.0); MEAN PLATELET VOLUME 9.2 fL (7.2-11.7); MONO # 0.9 K/uL (0.0-0.8); MONO % 10.1 % (0.0-10.0); NEUT # 7.5 K/uL (1.8-7.0); NEUT % 80.1 % (50.0-75.0); NRBC % 0.1 % (0.0-2.0); PLATELET COUNT 269 K/uL (130-400); RBC 4.28 Mil/uL (3.80-5.20); RED CELL DISTRIBUTION WIDTH 15.3 % (11.5-14.5); WHITE BLOOD COUNT 9.3 K/uL (4.8-10.8)
[2017-04-29 08:09] LABS: ALB/GLOB RATIO 1.2 (1.0-2.1); ALBUMIN 3.4 g/dL (3.5-5.0); ALT/SGPT 119 U/L (9-52); AST/SGOT 49 U/L (14-36); BLOOD UREA NITROGEN 20 mg/dL (7-17); CALCIUM 8.6 mg/dl (8.6-10.4); GFR AFRICAN-AMERICAN > 60; GFR NON-AFRICAN AMERICAN > 60; MAGNESIUM 1.8 mg/dL (1.6-2.3)
[2017-04-29] MEDS: (Novolin R) Insulin Human Regular 100 units/ml vial SC SCH ×2 (08:17→12:13)
[2017-04-29] MEDS: Fluticasone-Salmeterol 500-50mcg Diskus INH SCH (08:44)
[2017-04-29 08:47] VITALS: TEMP 97.8
[2017-04-29] MEDS: MethylPREDNISolone 40 mg Vial IVP SCH ×2 (09:51→14:05)
[2017-04-29] MEDS: Pantoprazole 40 mg EC Tab PO SCH (09:51)
[2017-04-29] MEDS: guaiFENesin 600 mg ER Tab PO SCH (09:51)
[2017-04-29] MEDS: Enoxaparin 40 mg Syringe SC SCH (09:51)
--- NOTE | 2017-04-29 11:56 | RAD ---
HISTORY: wheezing COMPARISON: 04/25/2017 FINDINGS: LUNGS: No active pulmonary disease. PLEURA: No significant pleural effusion identified, no pneumothorax apparent. CARDIOVASCULAR: Normal. OSSEOUS STRUCTURES: No significant abnormalities. VISUALIZED UPPER ABDOMEN: Normal. OTHER FINDINGS: None. IMPRESSION: No active disease.
[2017-04-29 12:56] LABS: BANDS 2 % (0-2); LYMPHOCYTE 7 % (20-40); MONOCYTE 10 % (0-10); NEUTROPHIL 81 % (50-75); PLATELET ESTIMATE NORMAL (NORMAL); TOTAL CELLS COUNTED 100
[2017-04-29 12:57] LABS: ANISOCYTOSIS SLIGHT; LARGE PLATELETS PRESENT; TOXIC GRANULATION PRESENT
--- NOTE | 2017-04-29 14:19 | CP.PCM.DIS ---
Provider - Provider Date of Admission: 04/25/17 17:59 Attending physician: Taco Santos DO Time Spent in preparation of Discharge (in minutes): 40 Hospital Course - Lab Results Lab Results: Most Recent Lab Values WBC 9.3 K/uL (4.8-10.8) 04/29/17 07:14 RBC 4.28 Mil/uL (3.80-5.20) 04/29/17 07:14 Hgb 11.9 g/dL (11.0-16.0) 04/29/17 07:14 Hct 34.5 % (34.0-47.0) 04/29/17 07:14 MCV 80.5 fL (81.0-99.0) L 04/29/17 07:14 MCH 27.7 pg (27.0-31.0) 04/29/17 07:14 MCHC 34.4 g/dL (33.0-37.0) 04/29/17 07:14 RDW 15.3 % (11.5-14.5) H 04/29/17 07:14 Plt Count 269 K/uL (130-400) 04/29/17 07:14 MPV 9.2 fL (7.2-11.7) 04/29/17 07:14 Neut % (Auto) 80.1 % (50.0-75.0) H 04/29/17 07:14 Lymph % (Auto) 9.7 % (20.0-40.0) L 04/29/17 07:14 [place] % (Auto) 10.1 % (0.0-10.0) H 04/29/17 07:14 Eos % (Auto) 0.0 % (0.0-4.0) 04/29/17 07:14 Baso % (Auto) 0.1 % (0.0-2.0) 04/29/17 07:14 Neut # 7.5 K/uL (1.8-7.0) H 04/29/17 07:14 Lymph # 0.9 K/uL (1.0-4.3) L 04/29/17 07:14 [place] # 0.9 K/uL (0.0-0.8) H 04/29/17 07:14 Eos # 0.0 K/uL (0.0-0.7) 04/29/17 07:14 Baso # 0.0 K/uL (0.0-0.2) 04/29/17 07:14 Neutrophils % (Manual) 81 % (50-75) H 04/29/17 07:14 Band Neutrophils % 2 % (0-2) 04/29/17 07:14 Lymphocytes % (Manual) 7 % (20-40) L 04/29/17 07:14 Reactive Lymphs % 2 % (0-0) H 04/28/17 07:34 Monocytes % (Manual) 10 % (0-10) 04/29/17 07:14 Toxic Granulation Present 04/29/17 07:14 Platelet Estimate Normal (NORMAL) 04/29/17 07:14 Large Platelets Present 04/29/17 07:14 Giant Platelets Present 04/28/17 07:34 Polychromasia Slight 04/28/17 07:34 Hypochromasia (manual) Slight 04/28/17 07:34 Anisocytosis (manual) Slight 04/29/17 07:14 Sodium 125 mmol/L (132-148) L 04/29/17 07:14 Potassium 4.9 mmol/L (3.6-5.2) 04/29/17 07:14 Chloride 87 mmol/L (98-107) L 04/29/17 07:14 Carbon Dioxide 30 mmol/L (22-30) 04/29/17 07:14 Anion Gap 12 (10-20) 04/29/17 07:14 BUN 20 mg/dL (7-17) H 04/29/17 07:14 Creatinine 0.8 mg/dL (0.7-1.2) 04/29/17 07:14 Est GFR ( Amer) > 60 04/29/17 07:14 Est GFR (Non-Af Amer) > 60 04/29/17 07:14 POC Glucose (mg/dL) 219 mg/dL (65-110) H 04/29/17 11:43 Random Glucose 251 mg/dL (65-105) H 04/29/17 07:14 Hemoglobin A1c 7.4 % (4.2-6.5) H 04/25/17 20:09 Serum Osmolality 292 mosm/kg (272-300) 04/25/17 22:57 Calcium 8.6 mg/dl (8.6-10.4) 04/29/17 07:14 Phosphorus 3.0 mg/dL (2.5-4.5) 04/29/17 07:14 Magnesium 1.8 mg/dL (1.6-2.3) 04/29/17 07:14 Total Bilirubin 0.3 mg/dL (0.2-1.3) 04/29/17 07:14 AST 49 U/L (14-36) H 04/29/17 07:14 ALT 119 U/L (9-52) H D 04/29/17 07:14 Alkaline Phosphatase 63 U/L (38-126) 04/29/17 07:14 NT-Pro-B Natriuret Pep 586 pg/mL (0-900) 04/25/17 15:10 Total Protein 6.2 g/dL (6.3-8.3) L 04/29/17 07:14 Albumin 3.4 g/dL (3.5-5.0) L 04/29/17 07:14 Globulin 2.8 gm/dL (2.2-3.9) 04/29/17 07:14 Albumin/Globulin Ratio 1.2 (1.0-2.1) 04/29/17 07:14 Triglycerides 55 mg/dL (0-149) D 04/26/17 07:45 Cholesterol 107 mg/dL (0-199) 04/26/17 07:45 LDL Cholesterol Direct 49 mg/dL (0-129) 04/26/17 07:45 HDL Cholesterol 38 mg/dL (30-70) 04/26/17 07:45 Free T4 1.46 ng/dL (0.78-2.19) 04/25/17 20:09 TSH 3rd Generation 0.49 mIU/L (0.46-4.68) 04/25/17 20:09 Urine Osmolality 331 mosm/kg (300-1000) 04/26/17 06:18 Ur Random Sodium 43 mmol/L 04/26/17 06:18 Influenza Typ A,B (EIA) Negative for flu a/b (NEGATIVE) 04/25/17 15:14 - Hospital Course Hospital Course: HPI: 76 Female with PMHx of COPD, HTN, DM, Hypothyroid presented to the ED due to shortness of breath. History retrieved from both patient and her daughter. She started to experience coughing and wheezing for the past 2 days. Denied any fever, chills, productive cough, sore throat, body ache. Patient is compliant with her medications but she ran out of the nebulizer treatments x 1 week. Denied any sick contacts. She received duonebs x3 in the ED with solumedrol and reported much improvement. Denied fever, chills, headache, chest pain, SOB, abdominal pain, n/v/d/c, or urinary symptoms. PMD: [place] PMH: COPD, HTN, Type 2 DM, Hypothyrodism, Arthritis, Gastritis, Osteoporosis, Peripheral Edema, Pneumonia PSHx: Right TKA (2006),Left TKA (2011), Liposuction Meds: Ventolin, Fluticasone, Metformin, Losartan, Levothyroxine, Aspirin, Calcium, Famotidine. Will obtain dosage from pharmacy. Allergies: NKDA Social Hx: Denies tobacco, alcohol, and illegal drug use. Patient currently lives with her daughter. 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 Reports large presence of second hand smoke when living in [facility]. FMHx: Noncontributory Hospital Course: Patient had a chest xray and CT of the chest which both showed no acute infiltrates. Patient was continued on home medications and started on Duonebs q4h and Advair q12h. Patient was seen by physical therapy and patient also walked with daughter around the floor. A repeat chest xray was done which showed no acute disease. Patient was seen and examined at bedside in the AM. Patient states she is feeling better. Patient denies nausea, vomiting, fever, diarrhea or constipation. Patient is stable for discharge per Dr. Santos. Patient to start new medications: - Advair - Medrol Dosepak Patient to continue home medications. Patient to follow up with Dr. Ness in 2 weeks. Please call [phone] to schedule an appointment at [facility] in one week. This is a summary of patient's hospital course, please see chart for full details. Discharge Exam - Head Exam Head Exam: ATRAUMATIC, NORMAL INSPECTION - Eye Exam Eye Exam: EOMI, Normal appearance - ENT Exam ENT Exam: Mucous Membranes Moist - Respiratory Exam Respiratory Exam: Wheezes, NORMAL BREATHING PATTERN - Cardiovascular Exam Cardiovascular Exam: REGULAR RHYTHM, +S1, +S2 - GI/Abdominal Exam GI & Abdominal Exam: Normal Bowel Sounds, Soft. absent: Tenderness - Extremities Exam Extremities exam: normal inspection - Neurological Exam Neurological exam: Alert, Oriented x3 - Psychiatric Exam Psychiatric exam: Normal Affect, Normal Mood - Skin Skin Exam: Normal Color, Warm Discharge Plan - Discharge Medications Prescriptions: Fluticasone/Salmeterol 500/50 [Advair Diskus 500/50] 1 puff INH RQ12 #1 puff Methylprednisolone [Medrol Dose Pack (21 tabs)] 1 mg PO DAILY #21 mg - Follow Up Plan Condition: STABLE Disposition: HOME/ ROUTINE Instructions: Methylprednisolone (By mouth), Fluticasone/Salmeterol (By breathing), COPD (Chronic Obstructive Pulmonary Disease) (DC) Referrals: Gely Ness MD [Staff Provider] -
[2017-04-29] MEDS ORDERED: Influenza Vaccine 60 mcg/0.5 mL SYR (4YR UP) IM ONE (16:31)
[2017-04-29 17:57] VITALS: BP 136/75; PULSE 84; O2SAT 92
== END 2017-04-29 18:45 | disposition home or self-care (01) | DRG 191 ==
LOC: C.ER 12:31 → C.9E 17:59 → C.3T 20:16
PROVIDERS: ADMIT Hospitalist; ATTEND Hospitalist
DX: J44.1 Chronic obstructive pulmonary disease with (acute) exacerbation (principal); E87.1 Hypo-osmolality and hyponatremia; M17.9 Osteoarthritis of knee, unspecified; E03.9 Hypothyroidism, unspecified; I10 Essential (primary) hypertension; M81.0 Age-related osteoporosis without current pathological fracture; G51.0 Bell's palsy; K21.9 Gastro-esophageal reflux disease without esophagitis; Z79.4 Long term (current) use of insulin

== ENCOUNTER 2017-05-04 09:49 | Inpatient (IN) | payer OTHER ==
[2017-05-04 09:49] VITALS: BMI 37.2
[2017-05-04 10:59] LABS: BASO # 0.1 K/uL (0.0-0.2); BASO % 0.9 % (0.0-2.0); EOS % 0.3 % (0.0-4.0); HEMOGLOBIN 13.4 g/dL (11.0-16.0); LYMPH # 1.1 K/uL (1.0-4.3); LYMPH % 8.3 % (20.0-40.0); MEAN CORPUSCULAR HEMOGLOBIN 27.1 pg (27.0-31.0); MEAN CORPUSCULAR HGB CONC 33.9 g/dL (33.0-37.0); MEAN PLATELET VOLUME 8.8 fL (7.2-11.7); MONO # 1.3 K/uL (0.0-0.8); MONO % 10.5 % (0.0-10.0); NEUT # 10.2 K/uL (1.8-7.0); PLATELET COUNT 299 K/uL (130-400); RBC 4.96 Mil/uL (3.80-5.20); RED CELL DISTRIBUTION WIDTH 15.7 % (11.5-14.5); WHITE BLOOD COUNT 12.7 K/uL (4.8-10.8)
[2017-05-04 11:08] LABS: ALB/GLOB RATIO 1.2 (1.0-2.1); ALBUMIN 3.5 g/dL (3.5-5.0); ALT/SGPT 34 U/L (9-52); AST/SGOT 14 U/L (14-36); BLOOD UREA NITROGEN 23 mg/dL (7-17); CALCIUM 8.7 mg/dl (8.6-10.4); GFR AFRICAN-AMERICAN > 60; GFR NON-AFRICAN AMERICAN > 60
[2017-05-04 11:20] LABS: INR 1.1; PROTHROMBIN TIME 12.1 SECONDS (9.7-12.2)
--- NOTE | 2017-05-04 11:24 | CT ---
PROCEDURE: CT HEAD WITHOUT CONTRAST. HISTORY: right eye pain, right sided CARMICHAEL COMPARISON: CT head dated 02/04/2016. TECHNIQUE: Axial computed tomography images were obtained through the head/brain without intravenous contrast. Radiation dose: Total exam DLP = 871 mGy-cm. This CT exam was performed using one or more of the following dose reduction techniques: Automated exposure control, adjustment of the mA and/or kV according to patient size, and/or use of iterative reconstruction technique. FINDINGS: HEMORRHAGE: No intracranial hemorrhage. BRAIN: No mass effect or edema. Mild atrophy. Chronic periventricular white matter microvascular ischemic changes. Bilateral basal ganglia lacunar infarctions. VENTRICLES: Unremarkable. No hydrocephalus. CALVARIUM: Unremarkable. PARANASAL SINUSES: Unremarkable as visualized. No significant inflammatory changes. MASTOID AIR CELLS: Unremarkable as visualized. No inflammatory changes. OTHER FINDINGS: None. IMPRESSION: No acute intracranial pathology.
[2017-05-04] MEDS ORDERED: Albuterol 0.083% Inhal Sol (2.5 mg/3 mL) UD IH STA (11:33)
[2017-05-04 11:39] LABS: BANDS 7 % (0-2); MONOCYTE 12 % (0-10); REACTIVE LYMPHOCYTES 1 % (0-0); TOTAL CELLS COUNTED 100
[2017-05-04] MEDS ORDERED: Tetracaine 0.5% Ophth (OR ONLY) OD ONE (11:39)
[2017-05-04 11:40] LABS: ANISOCYTOSIS SLIGHT; LYMPHOCYTE 8 % (20-40); NEUTROPHIL 72 % (50-75); OVALOCYTES SLIGHT; PLATELET ESTIMATE NORMAL (NORMAL); POIKILOCYTOSIS SLIGHT
[2017-05-04] MEDS ORDERED: Albuterol 0.083% Inhal Sol (2.5 mg/3 mL) UD ONE (11:54)
[2017-05-04] MEDS ORDERED: Tetracaine 0.5% Ophth (OR ONLY) ONE (12:10)
--- NOTE | 2017-05-04 12:24 | C.PDOC ---
History Of Present Illness 76-year-old female, presents to the emergency department with complaints of right sided headache and eye pain since 7pm last night. States it feels sharp, and constant. Denies any visual changes, rashes, fever, dizziness, sensory changes, extremity weakness, facial droop or slurred speech. She took Tylenol for pain prior to arrival with minimal relief. Time Seen by Provider: 05/04/17 10:18 Chief Complaint (Nursing): Headache History Per: Patient History/Exam Limitations: no limitations Onset/Duration Of Symptoms: Days Current Symptoms Are (Timing): Still Present Past Medical History Vital Signs: Last Vital Signs Temp 99.5 F 05/04/17 14:15 Pulse 77 05/04/17 14:15 Resp 18 05/04/17 14:15 BP 118/73 05/04/17 14:15 Pulse Ox 95 05/04/17 14:15 - Medical History PMH: Arthritis (KNEES), COPD, Fractures (6 years ago. fx keft arm, and spine), Gastritis, HTN, Hypothyroidism, Osteoporosis, Peripheral Edema, Pneumonia Denies: Chronic Kidney Disease - [facility] Procedures INSERTION OF INFUSION DEV INTO SUP VENA CAVA, PERC APPROACH (04/12/15) ULTRASONOGRAPHY OF RIGHT AND LEFT HEART, TRANSESOPHAGEAL (07/27/15) Family History: States: Unknown Family Hx - Social History Hx Tobacco Use: No Hx Alcohol Use: No Hx Substance Use: No - Immunization History Hx Tetanus Toxoid Vaccination: No Hx Influenza Vaccination: No Hx Pneumococcal Vaccination: Yes Review Of Systems Except As Marked, All Systems Reviewed And Found Negative. Constitutional: Negative for: Fever, Chills Respiratory: Negative for: Shortness of Breath Gastrointestinal: Negative for: Nausea, Vomiting Musculoskeletal: Negative for: Neck Pain, Back Pain Neurological: Positive for: Headache. Negative for: Weakness, Numbness, Dizziness Physical Exam - Physical Exam Appears: Non-toxic, No Acute Distress Skin: Warm, Dry, No Rash Head: Atraumatic, Normacephalic, Other (No palpable temporal artery or tenderness.) Eye(s): bilateral: PERRL, EOMI, Other (No scleral injection. No erythema. No pain with extraocular movements.) Nose: Normal Oral Mucosa: Moist Lips: Normal Appearing Neck: Normal ROM, Supple Chest: Symmetrical Cardiovascular: Rhythm Regular, No Murmur Gastrointestinal/Abdominal: Soft, No Tenderness Extremity: Normal ROM Neurological/Psych: Oriented x3, Normal Speech ED Course And Treatment - Laboratory Results Result Diagrams: 05/04/17 10:49 05/04/17 10:49 O2 Sat by Pulse Oximetry: 94 (RA) Pulse Ox Interpretation: Normal - CT Scan/US CT Head Other Rad Studies (CT/US): Read By Radiologist, Radiology Report Reviewed CT/US Interpretation: Accession No. : [id number]. Patient Name / ID : BRITTANY AVELAR / [id number]. Exam Date : 05/04/2017 11:14:31 ( Approved ) . Study Comment : Sex / Age : F / 76Y. Creator : Parul Diaz. Dictator : Av Levi MD. Planning Intern : Underwriting Intern : Av Levi MD. Approver2 : Report Date : 05/04/2017 11:18:23. My Comment : . PROCEDURE: CT HEAD WITHOUT CONTRAST. HISTORY: right eye pain, right sided CARMICHAEL. COMPARISON: CT head dated 02/04/2016. TECHNIQUE: Axial computed tomography images were obtained through the head/brain without intravenous contrast. Radiation dose: Total exam DLP = 871 mGy-cm. This CT exam was performed using one or more of the following dose reduction techniques: Automated exposure control, adjustment of the mA and/or kV according to patient size, and/or use of iterative reconstruction technique. FINDINGS: HEMORRHAGE: No intracranial hemorrhage. BRAIN: No mass effect or edema. Mild atrophy. Chronic periventricular white matter microvascular ischemic changes. Bilateral basal ganglia lacunar infarctions. VENTRICLES: Unremarkable. No hydrocephalus. CALVARIUM: Unremarkable. PARANASAL SINUSES: Unremarkable as visualized. No significant inflammatory changes. MASTOID AIR CELLS: Unremarkable as visualized. No inflammatory changes. OTHER FINDINGS: None. IMPRESSION: No acute intracranial pathology. CT angio CT/US Interpretation: Accession No. : [id number]. Patient Name / ID : BRITTANY AVELAR / [id number]. Exam Date : 05/04/2017 13:46:30 ( Approved ) . Study Comment : Sex / Age : F / 76Y. Creator : Nisha Sabillon MD. Dictator : Nisha Sabillon MD. Planning Intern : Underwriting Intern : Nisha Sabillon MD. Approver2 : Report Date : 05/04/2017 14:45:19. My Comment : . PROCEDURE: CTA HEAD AND NECK WITH CONTRAST. HISTORY: right eye pain, headache. COMPARISON: None available. TECHNIQUE: Initial noncontrast head CT was performed. Subsequently, CT angiogram of the head and neck were performed after the intravenous administration of 80 mL of Omnipaque 350. Contiguous 1.5mm thick images were obtained in the axial plane of the neck. 2-D coronal and sagittal MPR images were obtained. Imaging postprocessing was performed with 3-D images also obtained. A delayed contrast head CT was also obtained. This CT exam was performed using one or more of the following dose reduction techniques: Automated exposure control, adjustment of the mA and/or kV according to patient size, and/or use of iterative reconstruction technique. Contrast dose: 100 mL Visipaque. Radiation dose: Total exam DLP = 598.73 mGy -cm. FINDINGS: HEAD: Right: The intracranial internal carotid artery, and anterior and middle cerebral arteries are widely patent. Left: The intracranial internal carotid artery, and anterior and middle cerebral arteries are widely patent. Posterior circulation: The visualized intracranial vertebral arteries, basilar artery and posterior cerebral arteries are widely patent. Ther is no endoluminal filling defect to suggest thrombus. There is no intracranial saccular aneurysm. NECK: There is a three vessel aortic arch. There is no stenosis at the origins of the great vessels at the level of the aortic arch. Right Carotid: On the right, the common carotid, internal carotid and external carotid arteries are widely patent. There is no hemodynamically significant stenosis in the internal carotid artery by NASCET criteria. Left Carotid: There are coarse atherosclerotic calcifications in the carotid bulb. The common carotid, internal carotid and external carotid arteries are widely patent.There is no hemodynamically significant stenosis in the internal carotid artery by NASCET criteria. The vertebral arteries are widely patent. The vertebral artery is hypoplastic, an anatomic variant. The visualized soft tissues of the neck are normal. The visualized brain and cervical spine are within normal limits. The lung apices are clear. IMPRESSION : Normal CTA of the neck. Progress Note: CT Angio/Head and Bloodwork ordered and reviewed. Disposition - Disposition - Scribe Statement The provider has reviewed the documentation as recorded by the Scribe (Charmaine Mcfarlane) All medical record entries made by the Scribe were at my direction and personally dictated by me. I have reviewed the chart and agree that the record accurately reflects my personal performance of the history, physical exam, medical decision making, and the department course for this patient. I have also personally directed, reviewed, and agree with the discharge instructions and disposition.
[2017-05-04] MEDS ORDERED: Iodixanol 320 mg/ml 150 ml Bottle IV ONE (12:43)
[2017-05-04] MEDS ORDERED: Sodium Chloride 0.9% 500 ML IV ONE (13:39)
--- NOTE | 2017-05-04 14:23 | RAD ---
PROCEDURE: CHEST RADIOGRAPH, 1 VIEW HISTORY: WHEEZING, COUGH COMPARISON: Chest radiograph dated 04/29/2017. FINDINGS: LUNGS: Clear. PLEURA: No pneumothorax or pleural fluid seen. CARDIOVASCULAR: Atherosclerotic aortic calcifications. Cardiomediastinal silhouette stably enlarged. OSSEOUS STRUCTURES: Unchanged. VISUALIZED UPPER ABDOMEN: Normal. OTHER FINDINGS: None. IMPRESSION: No active disease.
[2017-05-04] MEDS ORDERED: Sodium Chloride 0.9% 1,000 ML ONE (14:40)
--- NOTE | 2017-05-04 14:47 | CT ---
PROCEDURE: CTA HEAD AND NECK WITH CONTRAST HISTORY: right eye pain, headache COMPARISON: None available. TECHNIQUE: Initial noncontrast head CT was performed. Subsequently, CT angiogram of the head and neck were performed after the intravenous administration of 80 mL of Omnipaque 350. Contiguous 1.5mm thick images were obtained in the axial plane of the neck. 2-D coronal and sagittal MPR images were obtained. Imaging postprocessing was performed with 3-D images also obtained. A delayed contrast head CT was also obtained. This CT exam was performed using one or more of the following dose reduction techniques: Automated exposure control, adjustment of the mA and/or kV according to patient size, and/or use of iterative reconstruction technique. Contrast dose: 100 mL Visipaque Radiation dose: Total exam DLP = 598.73 mGy-cm. FINDINGS: HEAD: Right: The intracranial internal carotid artery, and anterior and middle cerebral arteries are widely patent. Left: The intracranial internal carotid artery, and anterior and middle cerebral arteries are widely patent. Posterior circulation: The visualized intracranial vertebral arteries, basilar artery and posterior cerebral arteries are widely patent. Ther is no endoluminal filling defect to suggest thrombus. There is no intracranial saccular aneurysm. NECK: There is a three vessel aortic arch. There is no stenosis at the origins of the great vessels at the level of the aortic arch. Right Carotid: On the right, the common carotid, internal carotid and external carotid arteries are widely patent. There is no hemodynamically significant stenosis in the internal carotid artery by NASCET criteria. Left Carotid: There are coarse atherosclerotic calcifications in the carotid bulb. The common carotid, internal carotid and external carotid arteries are widely patent.There is no hemodynamically significant stenosis in the internal carotid artery by NASCET criteria. The vertebral arteries are widely patent. The vertebral artery is hypoplastic, an anatomic variant. The visualized soft tissues of the neck are normal. The visualized brain and cervical spine are within normal limits. The lung apices are clear. IMPRESSION: Normal CTA of the neck.
--- NOTE | 2017-05-04 15:05 | CP.PCM.HP ---
<Silas Lawrence - Last Filed: 05/04/17 18:14> History of Present Illness - History of Present Illness History of Present Illness: PGY-1 H&P for [address] Elam CC: Headache This is a 76 year old female with PMHx COPD, HTN, DM, Hypothyroidism, Gastritis who presents to the ED with complaint of severe throbbing headache in the right periorbital region that started suddenly at 7pm last night. Patient explained that her face felt hot. Patient admits that the pain has subsided about 30 minutes prior to encounter in the ED without additional medication. She had tried taking Tylenol early in the morning without relief. Nothing in particular seems to exacerbate or relieve the pain. Patient with dry cough during the past week. Patient was recently hospitalized one week ago for COPD exacerbation. Per the patients daughter, with whom she lives, the patient has been confused recently more than her baseline and has been experiencing increased urinary frequency. Per the daughter, patient urinates about 20 times daily and has to wear adult diapers at night. Patient denies dysuria or suprapubic pressure with urination. Patient admits to fatigue and dizziness. Denies changes in vision, blurred vision. PMHx: COPD, HTN, DM, Hypothyroidism, Gastritis PSH: Right TKA in 2006, Left TKA in 2011 Allergies: NKDA Social: denies tobacco or alcohol use, lives with daughter and ambulates with cane. Per the daughter, patient has extensive exposure of second hand smoke while she lived in [facility]. 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 [facility] before moving to the [facility] in 2013. Family Hx: Denies PMD: [facility] Home Meds: Albuterol inhaler, Metformin 500 mg PO BID, Losartan 50 mg PO daily, Synthroid 125 mcg PO daily, Breo, ASA 81 mg PO daily, Pepcid, Calcium Present on Admission - Present on Admission Any Indicators Present on Admission: No Review of Systems - Constitutional Constitutional: absent: Chills, Fever - EENT Eyes: absent: Change in Vision Ears: absent: Decreased Hearing Nose/Mouth/Throat: absent: Nasal Congestion - Cardiovascular Cardiovascular: absent: Chest Pain - Respiratory Respiratory: Cough (dry). absent: Dyspnea - Gastrointestinal Gastrointestinal: absent: Abdominal Pain, Constipation, Diarrhea, Nausea, Vomiting - Genitourinary Genitourinary: absent: Dysuria - Musculoskeletal Musculoskeletal: absent: Numbness, Tingling - Integumentary Integumentary: absent: Rash - Neurological Neurological: Dizziness, Headaches, Weakness - Psychiatric Psychiatric: absent: Anxiety - Endocrine Endocrine: Fatigue. 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 fx keft arm, and spine) Hx Osteoporosis: Yes - GASTROINTESTINAL Hx Gastritis: Yes - GENITOURINARY/GYNECOLOGICAL Hx Genitourinary Disorders: Yes Hx Urinary Tract Infection: Yes Other/Comment: incontinent - PSYCHIATRIC Hx Substance Use: No - SURGICAL HISTORY Hx Surgeries: Yes Hx Herniorrhaphy: Yes Hx Musculoskeletal Surgery: Yes (bilateral knee replacement) Other/Comment: renal calculi removed surgically about 8 years ago. Thyroidectomy about 5 years ago. - ANESTHESIA Hx Anesthesia Reactions: Yes (neuro symptoms. 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.) Meds Allergies/Adverse Reactions: Allergies Allergy/AdvReac Type Severity Reaction Status Date / Time No Known Allergies Allergy Verified 04/11/15 15:28 Physical Exam - Constitutional Appears: No Acute Distress - Head Exam Head Exam: ATRAUMATIC, NORMOCEPHALIC - Eye Exam Eye Exam: EOMI, PERRL - ENT Exam ENT Exam: Mucous Membranes Moist - Respiratory Exam Respiratory Exam: Wheezes (bilaterally in the front and back primarily in the lower lung bowen), NORMAL BREATHING PATTERN. absent: Rales, Rhonchi - Cardiovascular Exam Cardiovascular Exam: REGULAR RHYTHM, +S1, +S2 - GI/Abdominal Exam GI & Abdominal Exam: Normal Bowel Sounds, Soft. absent: Distended, Firm, Guarding, Tenderness - Extremities Exam Extremities exam: Positive for: pedal edema (non-pitting bilaterally), pedal pulses present. Negative for: tenderness - Neurological Exam Neurological exam: Alert, CN II-XII Intact, Oriented x3 - Psychiatric Exam Psychiatric exam: Normal Affect, Normal Mood - Skin Skin Exam: Dry, Intact, Normal Color, Warm Results - Vital Signs Recent Vital Signs: Last Vital Signs Temp 99.5 F 05/04/17 14:15 Pulse 77 05/04/17 14:15 Resp 18 05/04/17 14:15 BP 118/73 05/04/17 14:15 Pulse Ox 95 05/04/17 14:15 - Labs Result Diagrams: 05/04/17 10:49 05/04/17 10:49 Labs: Laboratory Results - last 24 hr 05/04/17 05/04/17 05/04/17 10:49 10:49 10:49 WBC 12.7 H RBC 4.96 Hgb 13.4 Hct 39.6 MCV 80.0 L MCH 27.1 MCHC 33.9 RDW 15.7 H Plt Count 299 MPV 8.8 Neut % (Auto) 80.0 H Lymph % (Auto) 8.3 L [place] % (Auto) 10.5 H Eos % (Auto) 0.3 Baso % (Auto) 0.9 Neut # (Auto) 10.2 H Lymph # (Auto) 1.1 [place] # (Auto) 1.3 H Eos # (Auto) 0.0 Baso # (Auto) 0.1 Neutrophils % (Manual) 72 Band Neutrophils % 7 H Lymphocytes % (Manual) 8 L Reactive Lymphs % 1 H Monocytes % (Manual) 12 H Platelet Estimate Normal Poikilocytosis (manual Slight Anisocytosis (manual) Slight Ovalocytes Slight PT 12.1 INR 1.1 APTT 28 Sodium 122 L Potassium 4.1 Chloride 84 L Carbon Dioxide 31 H Anion Gap 10 BUN 23 H Creatinine 0.8 Est GFR ( Amer) > 60 Est GFR (Non-Af Amer) > 60 POC Glucose (mg/dL) Random Glucose 186 H Calcium 8.7 Total Bilirubin 0.6 AST 14 D ALT 34 Alkaline Phosphatase 66 Total Creatine Kinase 22 L Troponin I < 0.0120 Total Protein 6.5 Albumin 3.5 Globulin 3.0 Albumin/Globulin Ratio 1.2 TSH 3rd Generation 0.93 05/04/17 12:15 WBC RBC Hgb Hct MCV MCH MCHC RDW Plt Count MPV Neut % (Auto) Lymph % (Auto) [place] % (Auto) Eos % (Auto) Baso % (Auto) Neut # (Auto) Lymph # (Auto) [place] # (Auto) Eos # (Auto) Baso # (Auto) Neutrophils % (Manual) Band Neutrophils % Lymphocytes % (Manual) Reactive Lymphs % Monocytes % (Manual) Platelet Estimate Poikilocytosis (manual Anisocytosis (manual) Ovalocytes PT INR APTT Sodium Potassium Chloride Carbon Dioxide Anion Gap BUN Creatinine Est GFR ( Amer) Est GFR (Non-Af Amer) POC Glucose (mg/dL) 174 H Random Glucose Calcium Total Bilirubin AST ALT Alkaline Phosphatase Total Creatine Kinase Troponin I Total Protein Albumin Globulin Albumin/Globulin Ratio TSH 3rd Generation Assessment & Plan - Assessment and Plan (Free Text) Plan: Headache CT head negative for acute pathologies. CTA Head/Neck negative. Vessels are widely patent. Possibility of this being due to the hyponatremia considering that patient also complaining of dizziness and fatigue Hyponatremia 122 on admission Nephrology consult Dr. Snider, help appreciated f/u serum and urine studies History of COPD Duoneb Q6 PEPE Advair 500/50 INH Q12 Spiriva 18 mcg daily History of DM Held Metformin Regular ISS Accuchecks Hypoglycemic protocol History of HTN Resume home Losartan 50 mg PO daily History of Hypothyroidism Resume home Synthroid 125 mcg PO daily Urinary Frequency f/u UA, urine cultures Prophylactic Measure Diabetic Diet Pepcid 20 mg PO BID Heparin 5000 units SC Q8 Case DW Dr. Papa Lawrence PGY-1 <Renzo Elam - Last Filed: 05/07/17 14:39> Results - Vital Signs Recent Vital Signs: Last Vital Signs Temp 98.3 F 05/07/17 07:20 Pulse 66 05/07/17 07:20 Resp 20 05/07/17 07:20 BP 136/77 05/07/17 09:38 Pulse Ox 96 05/07/17 07:20 - Labs Result Diagrams: 05/07/17 06:39 05/07/17 06:39 Labs: Laboratory Results - last 24 hr 05/06/17 05/06/17 05/07/17 16:21 21:21 06:36 WBC RBC Hgb Hct MCV MCH MCHC RDW Plt Count MPV Neut % (Auto) Lymph % (Auto) [place] % (Auto) Eos % (Auto) Baso % (Auto) Neut # (Auto) Lymph # (Auto) [place] # (Auto) Eos # (Auto) Baso # (Auto) Sodium Potassium Chloride Carbon Dioxide Anion Gap BUN Creatinine Est GFR ( Amer) Est GFR (Non-Af Amer) POC Glucose (mg/dL) 169 H 168 H 155 H Random Glucose Calcium Magnesium 05/07/17 05/07/17 05/07/17 06:39 06:39 11:27 WBC 9.9 RBC 4.36 Hgb 11.9 Hct 35.2 MCV 80.8 L MCH 27.3 MCHC 33.9 RDW 16.1 H Plt Count 270 MPV 9.0 Neut % (Auto) 64.5 Lymph % (Auto) 21.6 [place] % (Auto) 9.9 Eos % (Auto) 3.6 Baso % (Auto) 0.4 Neut # (Auto) 6.4 Lymph # (Auto) 2.1 [place] # (Auto) 1.0 H Eos # (Auto) 0.4 Baso # (Auto) 0.0 Sodium 129 L Potassium 4.4 Chloride 92 L Carbon Dioxide 32 H Anion Gap 10 BUN 12 Creatinine 0.7 Est GFR ( Amer) > 60 Est GFR (Non-Af Amer) > 60 POC Glucose (mg/dL) 171 H Random Glucose 155 H Calcium 8.4 L Magnesium 1.7 Attending/Attestation - Attestation I have personally seen and examined this patient.: Yes I have fully participated in the care of the patient.: Yes I have reviewed all pertinent clinical information: Yes Notes (Text): Patient was seen and examined with the resident History taken from the daughter. I agree with the resident's documentation of the assessment and the plan
[2017-05-04] MEDS ORDERED: (Novolin R) Insulin Human Regular 100 units/ml vial ONE (16:44)
[2017-05-04] MEDS: (Novolin R) Insulin Human Regular 100 units/ml vial SC SCH ×2 (16:44→21:48)
[2017-05-04 16:49] LABS: OSMOLALITY,URINE 450 mosm/kg (300-1000)
[2017-05-04 16:51] LABS: SQUAMOUS EPITHIAL 2 /hpf (0-5); URINE BACTERIA MANY (<OCC)
[2017-05-04 16:56] LABS: PH,URINE 6.5 (5.0-8.0); URINE BILIRUBIN NEGATIVE (NEGATIVE); URINE BLOOD NEGATIVE (NEGATIVE); URINE CLARITY HAZY (Clear); URINE COLOR YELLOW (YELLOW); URINE GLUCOSE (UA) NEGATIVE (Normal); URINE PROTEIN NEGATIVE (NEGATIVE); URINE UROBILINOGEN 0.2 mg/dL (0.2-1.0)
[2017-05-04 16:57] LABS: URINE LEUKOCYTE ESTERASE TRACE Leu/uL (Negative); URINE NITRATE POSITIVE (NEGATIVE)
[2017-05-04 20:12] LABS: BLOOD UREA NITROGEN 21 mg/dL (7-17); CALCIUM 8.5 mg/dl (8.6-10.4); GFR AFRICAN-AMERICAN > 60; GFR NON-AFRICAN AMERICAN > 60
[2017-05-04] MEDS ORDERED: Sodium Chloride 0.9% 1,000 ML IV SCH (20:45)
[2017-05-05] LABS: CREATININE, RANDOM URINE 63.5 mg/dL
[2017-05-05 00:01] LABS: SQUAMOUS EPITHIAL 1 /hpf (0-5); URINE BACTERIA FEW (<OCC)
[2017-05-05 00:04] LABS: URINE BILIRUBIN NEGATIVE (NEGATIVE); URINE BLOOD NEGATIVE (NEGATIVE); URINE CLARITY SL HAZY (Clear); URINE COLOR YELLOW (YELLOW); URINE GLUCOSE (UA) NEGATIVE (Normal); URINE NITRATE NEGATIVE (NEGATIVE); URINE PROTEIN NEGATIVE (NEGATIVE); URINE UROBILINOGEN 0.2 mg/dL (0.2-1.0)
[2017-05-05 00:05] LABS: URINE LEUKOCYTE ESTERASE TRACE Leu/uL (Negative)
[2017-05-05] MEDS: Albuterol-Ipratrop 3 mg / 0.5 (3 ml) UD INH SCH ×4 (01:03→20:46)
[2017-05-05] MEDS: Levothyroxine 125 MCG TAB PO SCH (05:32)
--- NOTE | 2017-05-05 05:51 | CON ---
DATE: LOCATION: [facility]. NEPHROLOGY CONSULTATION HISTORY OF PRESENT ILLNESS: A 76-year-old female with past medical history of hypertension, diabetes, hypothyroidism, COPD, gastritis, presented to the ED with severe throbbing right-sided headache that began yesterday evening; the patient found to have profound hyponatremia. Nephrology, therefore, being consulted. History taken mainly from the patient's daughter as the patient is not a reliable historian. The patient reportedly began having sudden onset of headache yesterday that was 10/10 in intensity at the time. The patient not using any pain meds. The patient otherwise has been having decreased appetite lately. The patient just discharged from [facility] last week for COPD exacerbation and still on tapering dose of p.o. prednisone (down to 20 mg daily currently). Shortness of breath has overall improved, but the patient still with cough; denies any nausea, vomiting, or diarrhea. The patient reportedly has had difficulty swallowing and often coughs up her food. The patient otherwise denies any dysuria, although per records has been having increased urinary frequency. The patient also has been having repeated falls over the past several months. She was able to walk as recently as a few days ago; however, gait today is very unstable. PAST MEDICAL HISTORY: As above. PAST SURGICAL HISTORY: Status post right total knee arthroplasty in 2006, left total arthroplasty in 2011. SOCIAL HISTORY: Denies smoking. FAMILY HISTORY: Denies. REVIEW OF SYSTEMS: CONSTITUTIONAL: Denies any weight loss. HEENT: Denies any recent change in vision. She has been having difficulty with swallowing. RESPIRATORY: Having cough. CARDIOVASCULAR: Denies chest pain or palpitations, intermittent leg swelling. GASTROINTESTINAL: As per HPI. GENITOURINARY: As per HPI. MUSCULOSKELETAL: Has bilateral leg pain chronically. PSYCHIATRIC: Anxiety. SKIN: No rashes. NEUROLOGIC: Has been having perioral tic going on since past couple of years; unstable gait lately. PHYSICAL EXAMINATION: VITAL SIGNS: This evening, blood pressure 142/73, heart rate 90, respirations 20, temperature 98.2, O2 sat 95% on room air. GENERAL: No distress. Able to answer questions appropriately. HEENT: Moist mucous membranes, nonicteric, no cervical lymphadenopathy. RESPIRATORY: Mild diffuse bilateral expiratory wheezes. No rales, no respiratory distress. CARDIOVASCULAR: Heart sounds S1 and S2 normal. No murmurs, no gallops, no rubs. GASTROINTESTINAL: Abdomen obese, otherwise soft, nontender, nondistended. GENITOURINARY: No obvious bladder distention. EXTREMITIES: Mild lower leg edema bilaterally. SKIN: Warm. No cyanosis. No ulcers of feet. NEUROLOGIC: Oral tic present; 4+/5 lower extremity motor strength. PSYCHIATRIC: Not agitated. LABORATORY DATA: On presentation, WBC 12.7, hemoglobin 13.4, hematocrit 39.6, platelets 299. Chemistry Panel: Sodium 122, potassium 4.1, chloride 84, bicarbonate 31, BUN 23, creatinine 0.8, glucose 186, calcium 8.7, albumin 3.5. Urine studies: Urine osmolality 450, urine sodium 61, urine potassium 19.4. UA: Specific gravity 1.005, positive nitrites, wbc 55 per high power field, many bacteria, 6 rbc's per high power field. Chest x-ray, no definite pulmonary vascular congestion noted. Echocardiogram transthoracic from February 2016 showing mild pulmonary hypertension with RV systolic pressure 30 to 40 mmHg, normal LV systolic function, left ventricular diastolic dysfunction present. ASSESSMENT AND PLAN: 1. Hyponatremia, the patient with elevated urine osmolality with elevated urine sodium, euvolemic on exam, with no improvement in hyponatremia following 500 mL normal saline bolus. The only indication of perceived intravascular volume depletion that may be driving the hyponatremia is elevated BUN compared to serum creatinine. The patient does have mild pulmonary hypertension on previous echo, which can be perceived as intravascular volume depletion and therefore drive hyponatremia, however, blood pressure has been normal. The patient also has no history of gastrointestinal losses that would suggest volume depletion. We will repeat urine lytes to look for improvement after giving IV fluid challenge of 1 L over the next 4 hours. Recommend repeat echo to asses pulmonary hypertension and right ventricle function. Keep on 1 L p.o. fluid restriction daily. Avoid NSAIDs as they can potentiate the effect of ADH and worsen hyponatremia. If the above measures are unsuccessful, we will give dose of tolvaptan 15 mg x1. 2. Hypertension. The patient currently on losartan 50 mg daily and continue the same for tomorrow. 3. Diabetes. Blood sugar is uncontrolled in the setting of being on steroids. Better glycemic control will also help correct serum sodium. Ezra Snider MD [facility] # [id number]
[2017-05-05 08:10] LABS: BASO % 0.5 % (0.0-2.0); EOS # 0.2 K/uL (0.0-0.7); EOS % 1.9 % (0.0-4.0); HEMOGLOBIN 13.3 g/dL (11.0-16.0); LYMPH # 2.2 K/uL (1.0-4.3); LYMPH % 24.6 % (20.0-40.0); MEAN CELL VOLUME 81.2 fL (81.0-99.0); MEAN CORPUSCULAR HEMOGLOBIN 27.1 pg (27.0-31.0); MEAN CORPUSCULAR HGB CONC 33.4 g/dL (33.0-37.0); MEAN PLATELET VOLUME 9.4 fL (7.2-11.7); MONO # 1.1 K/uL (0.0-0.8); MONO % 12.7 % (0.0-10.0); NEUT # 5.3 K/uL (1.8-7.0); NEUT % 60.3 % (50.0-75.0); NRBC % 0.1 % (0.0-2.0); RBC 4.9 Mil/uL (3.80-5.20); RED CELL DISTRIBUTION WIDTH 15.8 % (11.5-14.5); WHITE BLOOD COUNT 8.8 K/uL (4.8-10.8)
[2017-05-05] MEDS: (Novolin R) Insulin Human Regular 100 units/ml vial SC SCH ×4 (08:27→23:04)
[2017-05-05 08:32] LABS: BLOOD UREA NITROGEN 17 mg/dL (7-17); CALCIUM 8.3 mg/dl (8.6-10.4); GFR AFRICAN-AMERICAN > 60; GFR NON-AFRICAN AMERICAN > 60; MAGNESIUM 1.8 mg/dL (1.6-2.3); URIC ACID 4.8 mg/dL (2.2-7.5)
--- NOTE | 2017-05-05 11:45 | CP.PCM.PN ---
<Aracely Mckinney - Last Filed: 05/05/17 14:33> Subjective - Date & Time of Evaluation Date of Evaluation: 05/05/17 Time of Evaluation: 11:45 - Subjective Subjective: Medicine progress note for Dr. Elam's service Patient was seen and examined at bedside in no acute distress. Patient is awake , alert, oriented x3. Patient reports feeling a little better, but reports the same headache. Patient otherwise has no complaints. Patient denies chest pain, abdominal pain, nausea, vomiting, fevers, dizziness, dysuria, hematuria, and urinary frequency. Objective - Vital Signs/Intake and Output Vital Signs (last 24 hours): Temp Pulse Resp BP Pulse Ox 98.5 F 71 20 111/66 95 05/05/17 08:00 05/05/17 08:00 05/05/17 08:00 05/05/17 08:00 05/05/17 08:00 Intake and Output: 05/05/17 05/05/17 06:59 18:59 Intake Total 250 Balance 250 - Medications Medications: Current Medications Albuterol/Ipratropium (Duoneb 3 Mg/0.5 Mg (3 Ml) Ud) 3 ml INH RQ6 [facility] Last Admin: 05/05/17 07:10 Dose: 3 ml Aspirin (Aspirin Chewable) 81 mg PO DAILY [facility] Last Admin: 05/05/17 11:03 Dose: 81 mg Heparin Sodium (Porcine) (Heparin) 5,000 units SC Q8 [facility] Last Admin: 05/05/17 05:32 Dose: 5,000 units Insulin Human Regular (Novolin R) 0 unit SC ACHS [facility] PRN Reason: Protocol Last Admin: 05/05/17 08:27 Dose: Not Given Levothyroxine Sodium (Synthroid) 125 mcg PO DAILY@0630 [facility] Last Admin: 05/05/17 05:32 Dose: 125 mcg Losartan Potassium (Cozaar) 50 mg PO DAILY [facility] Last Admin: 05/05/17 11:03 Dose: Not Given Fluticasone/Salmeterol (Advair Diskus 500/50) 1 puff INH RQ12 [facility] Tiotropium [place] (Spiriva) 18 mcg INH RQ24 [facility] - Labs Labs: 05/05/17 07:56 05/05/17 07:56 PT 12.1 SECONDS (9.7-12.2) 05/04/17 10:49 INR 1.1 05/04/17 10:49 APTT 28 SECONDS (21-34) 05/04/17 10:49 - Constitutional Appears: No Acute Distress - Head Exam Head Exam: ATRAUMATIC, NORMOCEPHALIC - Eye Exam Eye Exam: EOMI, Normal appearance - ENT Exam ENT Exam: Mucous Membranes Moist - Respiratory Exam Respiratory Exam: Clear to Ausculation Bilateral, NORMAL BREATHING PATTERN. absent: Rales, Rhonchi, Wheezes, Respiratory Distress - Cardiovascular Exam Cardiovascular Exam: REGULAR RHYTHM, +S1, +S2 - GI/Abdominal Exam GI & Abdominal Exam: Soft, Normal Bowel Sounds. absent: Distended, Firm, Tenderness - Extremities Exam Extremities Exam: absent: Calf Tenderness, Tenderness - Neurological Exam Neurological Exam: Alert, Awake, Oriented x3 - Psychiatric Exam Psychiatric exam: Normal Affect, Normal Mood - Skin Skin Exam: Dry, Intact, Normal Color, Warm Assessment and Plan - Assessment and Plan (Free Text) Plan: Headache * CT head negative for acute pathologies. * CTA Head/Neck negative. Vessels are widely patent. * Possibility of this being due to the hyponatremia considering that patient also complaining of dizziness and fatigue Hyponatremia * 122 on admission, trending up --> 127 * Nephrology consult Dr. Snider, help appreciated * Serum studies: f/u * Urine studies: at admission, followed by fluid challenge * urine osmolality 450--> 390 * urine creatinine 63.5 * urine sodium 61--> 25 * urine potassium 19.4--> 13.9 * Cortisol AM within normal range History of COPD * Duoneb Q6 [facility] * Advair 500/50 INH Q12 * Spiriva 18 mcg daily History of DM * Held Metformin * Regular ISS * Accuchecks * Hypoglycemic protocol History of HTN * Resume home Losartan 50 mg PO daily History of Hypothyroidism * Resume home Synthroid 125 mcg PO daily Urinary Frequency * UA: trace nitrates and LE, WBC 55, RBC 6, Bacteria (many) * Repeat UA: trace, high LE, WBC 45, Bacteria (few) * Urine cultures: f/u results * ID consulted, Dr. Bruce, for UTI, Hx of multidrug resistant UTI * Started Merem 1gm IV Q12h (active since 05/05/17) Prophylactic Measure * Diabetic Diet * Pepcid 20 mg PO BID * Heparin 5000 units SC Q8 * Influenza-negative * PT/OT Discussed with Dr. Elam <Renzo Elam - Last Filed: 05/07/17 14:42> Objective - Vital Signs/Intake and Output Vital Signs (last 24 hours): Temp Pulse Resp BP Pulse Ox 98.3 F 66 20 136/77 96 05/07/17 07:20 05/07/17 07:20 05/07/17 07:20 05/07/17 09:38 05/07/17 07:20 Intake and Output: 05/07/17 05/07/17 06:59 18:59 Intake Total 420 Balance 420 - Medications Medications: Current Medications Albuterol/Ipratropium (Duoneb 3 Mg/0.5 Mg (3 Ml) Ud) 3 ml INH RQ6 [facility] Last Admin: 05/07/17 13:33 Dose: Not Given Aspirin (Aspirin Chewable) 81 mg PO DAILY [facility] Last Admin: 05/07/17 09:38 Dose: 81 mg Furosemide (Lasix) 20 mg PO DAILY [facility] Last Admin: 05/07/17 09:38 Dose: 20 mg Heparin Sodium (Porcine) (Heparin) 5,000 units SC Q8 [facility] Last Admin: 05/07/17 13:35 Dose: 5,000 units Meropenem 1 gm/ Sodium (Chloride) 100 mls @ 100 mls/hr IVPB Q12H [facility] Last Admin: 05/07/17 05:37 Dose: 100 mls/hr Insulin Human Regular (Novolin R) 0 unit SC ACHS [facility] PRN Reason: Protocol Last Admin: 05/07/17 12:19 Dose: 2 unit Levothyroxine Sodium (Synthroid) 125 mcg PO DAILY@0630 [facility] Last Admin: 05/07/17 05:37 Dose: 125 mcg Losartan Potassium (Cozaar) 50 mg PO DAILY [facility] Last Admin: 05/05/17 11:03 Dose: Not Given Fluticasone/Salmeterol (Advair Diskus 500/50) 1 puff INH RQ12 [facility] Last Admin: 05/07/17 07:16 Dose: 1 puff Sodium Chloride (Sodium Chloride Tab) 2 gm PO Q8H [facility] Last Admin: 05/07/17 12:20 Dose: 2 gm Tiotropium [place] (Spiriva) 18 mcg INH RQ24 [facility] Last Admin: 05/07/17 07:17 Dose: 18 mcg - Labs Labs: 05/07/17 06:39 05/07/17 06:39 PT 12.1 SECONDS (9.7-12.2) 05/04/17 10:49 INR 1.1 05/04/17 10:49 APTT 28 SECONDS (21-34) 05/04/17 10:49 Attending/Attestation - Attestation I have personally seen and examined this patient.: Yes I have fully participated in the care of the patient.: Yes I have reviewed all pertinent clinical information, including history, physical exam and plan: Yes Notes (Text): Seen and examined discussed with the resident Spoke to her daughter I agree with the documentation of the assessment and the plan start on Merrem for her UTI as per ID
[2017-05-05] MEDS: Fluticasone-Salmeterol 500-50mcg Diskus INH SCH ×2 (13:12→20:46)
[2017-05-05] MEDS: Tiotropium 18 mcg Cap For Inhalation INH SCH (13:13)
[2017-05-05 15:25] LABS: SQUAMOUS EPITHIAL 1 /hpf (0-5); URINE BACTERIA RARE (<OCC); WBC CLUMPS MOD /hpf
[2017-05-05 15:42] LABS: URINE BILIRUBIN NEGATIVE (NEGATIVE); URINE BLOOD TRACE-INTACT (NEGATIVE); URINE CLARITY Hazy (Clear); URINE COLOR YELLOW (YELLOW); URINE GLUCOSE (UA) NEGATIVE (Normal); URINE LEUKOCYTE ESTERASE MODERATE Leu/uL (Negative); URINE NITRATE NEGATIVE (NEGATIVE); URINE PROTEIN NEGATIVE (NEGATIVE); URINE UROBILINOGEN 0.2 mg/dL (0.2-1.0)
[2017-05-05] MEDS: Meropenem 1 GM in Sodium Chloride 0.9% 100 ML IVPB SCH (17:39)
--- NOTE | 2017-05-05 20:36 | CP.PCM.CON ---
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 ' many years ago in [place] - HEENT Hx HEENT Problems: Yes Hx Difficulty Chewing: Yes (tardive dyskinesia X 4 years) Other/Comment: wears glasses to read - RENAL Hx Chronic Kidney Disease: No - ENDOCRINE/METABOLIC Hx Hypothyroidism: Yes - HEMATOLOGICAL/ONCOLOGICAL Hx Blood Disorders: No Hx Blood Transfusions: No - INTEGUMENTARY Hx Dermatological Problems: No Other/Comment: surgical removal of subcutaneous fat after extreme weight loss - MUSCULOSKELETAL/RHEUMATOLOGICAL Hx Arthritis: Yes (KNEES, B TKR) - GASTROINTESTINAL Hx Gastrointestinal Disorders: No Hx Gastritis: Yes - GENITOURINARY/GYNECOLOGICAL Hx Genitourinary Disorders: Yes Hx Urinary Tract Infection: Yes Other/Comment: incontinent - PSYCHIATRIC Hx Psychophysiologic Disorder: No Hx Substance Use: No - SURGICAL HISTORY Hx Surgeries: Yes Hx Herniorrhaphy: Yes Hx Musculoskeletal Surgery: Yes (bilateral knee replacement) Other/Comment: renal calculi removed surgically about 8 years ago. Thyroidectomy about 5 years ago. - ANESTHESIA Hx Anesthesia: Yes Hx Anesthesia Reactions: Yes (neuro symptoms. 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.) Hx Malignant Hyperthermia: No Has any member of the family had a problem w/ anesthesia?: No Meds Allergies/Adverse Reactions: Allergies Allergy/AdvReac Type Severity Reaction Status Date / Time No Known Allergies Allergy Verified 04/11/15 15:28 - Medications Medications: Current Medications Albuterol/Ipratropium (Duoneb 3 Mg/0.5 Mg (3 Ml) Ud) 3 ml INH RQ6 [facility] Last Admin: 05/05/17 13:12 Dose: 3 ml Aspirin (Aspirin Chewable) 81 mg PO DAILY [facility] Last Admin: 05/05/17 11:03 Dose: 81 mg Heparin Sodium (Porcine) (Heparin) 5,000 units SC Q8 [facility] Last Admin: 05/05/17 13:52 Dose: 5,000 units Meropenem 1 gm/ Sodium (Chloride) 100 mls @ 100 mls/hr IVPB Q12H [facility] Last Admin: 05/05/17 17:39 Dose: 100 mls/hr Insulin Human Regular (Novolin R) 0 unit SC ACHS [facility] PRN Reason: Protocol Last Admin: 05/05/17 17:22 Dose: Not Given Levothyroxine Sodium (Synthroid) 125 mcg PO DAILY@0630 [facility] Last Admin: 05/05/17 05:32 Dose: 125 mcg Losartan Potassium (Cozaar) 50 mg PO DAILY [facility] Last Admin: 05/05/17 11:03 Dose: Not Given Fluticasone/Salmeterol (Advair Diskus 500/50) 1 puff INH RQ12 [facility] Last Admin: 05/05/17 13:12 Dose: 1 puff Tiotropium [place] (Spiriva) 18 mcg INH RQ24 [facility] Last Admin: 05/05/17 13:13 Dose: 18 mcg Results - Vital Signs Recent Vital Signs: Last Vital Signs Temp 98.6 F 05/05/17 15:13 Pulse 88 05/05/17 16:00 Resp 20 05/05/17 15:13 BP 99/66 L 05/05/17 15:13 Pulse Ox 95 05/05/17 15:13 - Labs Result Diagrams: 05/05/17 07:56 05/05/17 07:56 Labs: Laboratory Results - last 24 hr 05/04/17 05/04/17 05/04/17 21:03 23:49 23:49 WBC RBC Hgb Hct MCV MCH MCHC RDW Plt Count MPV Neut % (Auto) Lymph % (Auto) [place] % (Auto) Eos % (Auto) Baso % (Auto) Neut # (Auto) Lymph # (Auto) [place] # (Auto) Eos # (Auto) Baso # (Auto) Sodium Potassium Chloride Carbon Dioxide Anion Gap BUN Creatinine Est GFR ( Amer) Est GFR (Non-Af Amer) POC Glucose (mg/dL) 182 H Random Glucose Uric Acid Calcium Magnesium Cortisol AM Sample Urine Color Yellow Urine Clarity Sl hazy Urine pH 6.0 Ur Specific [place] 1.005 Urine Protein Negative Urine Glucose (UA) Negative Urine Ketones Negative Urine Blood Negative Urine Nitrate Negative Urine Bilirubin Negative Urine Urobilinogen 0.2 Ur Leukocyte Esterase Trace H Urine WBC (Auto) 45 H Urine RBC (Auto) 2 Urine WBC Clumps (Auto) Ur Squamous Epith Cells 1 Urine Bacteria Few H Urine Osmolality 390 Ur Random Creatinine 63.5 Ur Random Sodium 25 Ur Random Potassium 13.9 05/05/17 05/05/17 05/05/17 06:19 07:56 07:56 WBC 8.8 RBC 4.90 Hgb 13.3 Hct 39.8 MCV 81.2 MCH 27.1 MCHC 33.4 RDW 15.8 H Plt Count 271 MPV 9.4 Neut % (Auto) 60.3 Lymph % (Auto) 24.6 [place] % (Auto) 12.7 H Eos % (Auto) 1.9 Baso % (Auto) 0.5 Neut # (Auto) 5.3 Lymph # (Auto) 2.2 [place] # (Auto) 1.1 H Eos # (Auto) 0.2 Baso # (Auto) 0.0 Sodium 127 L Potassium 4.2 Chloride 94 L Carbon Dioxide 29 Anion Gap 8 L BUN 17 Creatinine 0.7 Est GFR ( Amer) > 60 Est GFR (Non-Af Amer) > 60 POC Glucose (mg/dL) 121 H Random Glucose 124 H Uric Acid 4.8 Calcium 8.3 L Magnesium 1.8 Cortisol AM Sample Urine Color Urine Clarity Urine pH Ur Specific [place] Urine Protein Urine Glucose (UA) Urine Ketones Urine Blood Urine Nitrate Urine Bilirubin Urine Urobilinogen Ur Leukocyte Esterase Urine WBC (Auto) Urine RBC (Auto) Urine WBC Clumps (Auto) Ur Squamous Epith Cells Urine Bacteria Urine Osmolality Ur Random Creatinine Ur Random Sodium Ur Random Potassium 05/05/17 05/05/17 05/05/17 07:56 12:00 14:16 WBC RBC Hgb Hct MCV MCH MCHC RDW Plt Count MPV Neut % (Auto) Lymph % (Auto) [place] % (Auto) Eos % (Auto) Baso % (Auto) Neut # (Auto) Lymph # (Auto) [place] # (Auto) Eos # (Auto) Baso # (Auto) Sodium Potassium Chloride Carbon Dioxide Anion Gap BUN Creatinine Est GFR ( Amer) Est GFR (Non-Af Amer) POC Glucose (mg/dL) 211 H Random Glucose Uric Acid Calcium Magnesium Cortisol AM Sample 13.4 Urine Color Urine Clarity Urine pH Ur Specific [place] Urine Protein Urine Glucose (UA) Urine Ketones Urine Blood Urine Nitrate Urine Bilirubin Urine Urobilinogen Ur Leukocyte Esterase Urine WBC (Auto) Urine RBC (Auto) Urine WBC Clumps (Auto) Ur Squamous Epith Cells Urine Bacteria Urine Osmolality 459 Ur Random Creatinine Ur Random Sodium Ur Random Potassium 05/05/17 05/05/17 05/05/17 14:16 16:50 18:20 WBC RBC Hgb Hct MCV MCH MCHC RDW Plt Count MPV Neut % (Auto) Lymph % (Auto) [place] % (Auto) Eos % (Auto) Baso % (Auto) Neut # (Auto) Lymph # (Auto) [place] # (Auto) Eos # (Auto) Baso # (Auto) Sodium Potassium Chloride Carbon Dioxide Anion Gap BUN Creatinine Est GFR ( Amer) Est GFR (Non-Af Amer) POC Glucose (mg/dL) 131 H Random Glucose Uric Acid Calcium Magnesium Cortisol AM Sample Urine Color Yellow Urine Clarity Hazy Urine pH 6.0 Ur Specific [place] 1.015 Urine Protein Negative Urine Glucose (UA) Negative Urine Ketones Negative Urine Blood Trace-intact Urine Nitrate Negative Urine Bilirubin Negative Urine Urobilinogen 0.2 Ur Leukocyte Esterase Moderate Urine WBC (Auto) 249 H Urine RBC (Auto) 2 Urine WBC Clumps (Auto) Mod H Ur Squamous Epith Cells 1 Urine Bacteria Rare Urine Osmolality Ur Random Creatinine Ur Random Sodium 70 Ur Random Potassium 24.7
--- NOTE | 2017-05-05 23:18 | CP.PCM.PN ---
Subjective - Date & Time of Evaluation Date of Evaluation: 05/05/17 Time of Evaluation: 23:00 - Subjective Subjective: Patient not offering any complaints of headache; tolerating diet; ambulating with assistance; not drinking too much water; Objective - Vital Signs/Intake and Output Vital Signs (last 24 hours): Temp Pulse Resp BP Pulse Ox 98.6 F 88 20 99/66 L 95 05/05/17 15:13 05/05/17 16:00 05/05/17 15:13 05/05/17 15:13 05/05/17 15:13 Intake and Output: 05/05/17 05/06/17 18:59 06:59 Intake Total 680 500 Balance 680 500 - Medications Medications: Current Medications Albuterol/Ipratropium (Duoneb 3 Mg/0.5 Mg (3 Ml) Ud) 3 ml INH RQ6 [facility] Last Admin: 05/05/17 20:46 Dose: 3 ml Aspirin (Aspirin Chewable) 81 mg PO DAILY [facility] Last Admin: 05/05/17 11:03 Dose: 81 mg Furosemide (Lasix) 20 mg PO DAILY [facility] Heparin Sodium (Porcine) (Heparin) 5,000 units SC Q8 [facility] Last Admin: 05/05/17 21:37 Dose: 5,000 units Meropenem 1 gm/ Sodium (Chloride) 100 mls @ 100 mls/hr IVPB Q12H [facility] Last Admin: 05/05/17 17:39 Dose: 100 mls/hr Insulin Human Regular (Novolin R) 0 unit SC ACHS [facility] PRN Reason: Protocol Last Admin: 05/05/17 23:04 Dose: Not Given Levothyroxine Sodium (Synthroid) 125 mcg PO DAILY@0630 [facility] Last Admin: 05/05/17 05:32 Dose: 125 mcg Losartan Potassium (Cozaar) 50 mg PO DAILY [facility] Last Admin: 05/05/17 11:03 Dose: Not Given Fluticasone/Salmeterol (Advair Diskus 500/50) 1 puff INH RQ12 [facility] Last Admin: 05/05/17 20:46 Dose: 1 puff Sodium Chloride (Sodium Chloride Tab) 2 gm PO Q8H [facility] Last Admin: 05/05/17 23:06 Dose: 2 gm Tiotropium [place] (Spiriva) 18 mcg INH RQ24 [facility] Last Admin: 05/05/17 13:13 Dose: 18 mcg - Labs Labs: 05/05/17 07:56 05/05/17 07:56 PT 12.1 SECONDS (9.7-12.2) 05/04/17 10:49 INR 1.1 05/04/17 10:49 APTT 28 SECONDS (21-34) 05/04/17 10:49 - Constitutional Appears: Non-toxic, No Acute Distress - Eye Exam Eye Exam: Normal appearance. absent: Scleral icterus - ENT Exam ENT Exam: Mucous Membranes Moist - Respiratory Exam Respiratory Exam: Clear to Ausculation Bilateral. absent: Respiratory Distress - Cardiovascular Exam Cardiovascular Exam: RRR, +S1, +S2 - GI/Abdominal Exam GI & Abdominal Exam: Soft. absent: Distended, Tenderness - Extremities Exam Additional comments: no leg edema; - Neurological Exam Neurological Exam: Alert, Awake - Psychiatric Exam Psychiatric exam: absent: Agitated - Skin Skin Exam: Warm. absent: Cyanosis Assessment and Plan (1) Hyponatremia Assessment & Plan: Improved after volume repletion with NS boluses, though urine osm still high; likely has some component of SIADH of unclear cause; will start on salt tabs 2 g q8h and lasix 20 mg daily; Status: Acute (2) Hypertension Assessment & Plan: BP low/normal; will hold losartan; Status: Chronic
[2017-05-06] MEDS: Albuterol-Ipratrop 3 mg / 0.5 (3 ml) UD INH SCH ×5 (01:37→20:08)
[2017-05-06] MEDS: Meropenem 1 GM in Sodium Chloride 0.9% 100 ML IVPB SCH ×2 (06:02→17:55)
[2017-05-06] MEDS: Levothyroxine 125 MCG TAB PO SCH (06:02)
--- NOTE | 2017-05-06 06:02 | CON ---
DATE: INFECTIOUS DISEASE CONSULT REQUESTED BY: Dr. Valentino. HISTORY OF PRESENT ILLNESS: The patient is a 76-year-old female. She has a history of COPD, hypertension, diabetes, hypothyroidism, gastritis, and she is admitted with severe headache now. She was recently here for exacerbation of COPD. She has been with dry cough in the past week but now she is feeling a little better, and the patient has been confused recently and experiencing increased frequency and urgency. She had a UTI 6 months ago, and she is diabetic. The patient's daughter is concerned if she has any UTI, urine came out with blood or pyuria; however, she denies any dysuria or suprapubic pain. She does have incontinence of urine. The daughter brought a lot of diapers there, and she is admitting to feeling fatigued and dizzy and having headaches but there are no change of vision and no localized weakness. PAST MEDICAL HISTORY: Significant for COPD, hypertension, diabetes, hypothyroidism, and gastritis. PAST SURGICAL HISTORY: Right total knee replacement and left total knee replacement. She has had both total knees. ALLERGIES: SHE IS NOT ALLERGIC TO ANY MEDICATIONS. SOCIAL HISTORY: There is no alcohol, no drug abuse. She has been exposed to smoking in the past from second hand smoking. FAMILY HISTORY: Noncontributory. MEDICATIONS: She is on albuterol, aspirin, heparin, Novolin R, Synthroid, Cozaar. We just started her on meropenem. She is on fluticasone, and she is on Spiriva, and she was on saline, they have discontinued that right now. PHYSICAL EXAMINATION: GENERAL: I find, she is awake and alert. She was sitting when I went there, her daughter was with her at her bedside. VITAL SIGNS: T-max is 98.6, pulse 80, blood pressure is 99/66, respirations are 20. HEENT: Head is atraumatic, normocephalic. Pupils are reactive to light. Tongue is moist. NECK: Supple. JVP is flat. LUNGS: Clear. No crackles or rales present. Decreased breath sound bilaterally. HEART: S1 and S2 is regular. ABDOMEN: Soft. Nontender. No suprapubic tenderness present. EXTREMITIES: No edema. LABORATORY DATA: White count is 8.8. Sodium is 127. Platelets are 271. BUN is 17, creatinine 0.7, and uric acid was 4.8, is low. UA shows , rbc 2, wbc moderate, random showed lot of urine sodium was 70 and potassium was 24.7. Flu swab was negative. PLAN: So, we will continue with meropenem for now and wait for the culture reports. Her headache may be related to hyponatremia or to urinary tract infection. De Bruce MD
--- NOTE | 2017-05-06 07:11 | CP.PCM.PN ---
<Aracely Mckinney - Last Filed: 05/06/17 12:18> Subjective - Date & Time of Evaluation Date of Evaluation: 05/06/17 Time of Evaluation: 07:11 - Subjective Subjective: Medicine progress note for Dr. Elam's service Patient was seen and examined at bedside in no acute distress. Patient is awake , alert, oriented x3. Patient reports feeling better and otherwise has no complaints. Patient denies chest pain, abdominal pain, nausea, vomiting, fevers , dizziness, dysuria, hematuria, and urinary frequency. Objective - Vital Signs/Intake and Output Vital Signs (last 24 hours): Temp Pulse Resp BP Pulse Ox 98.0 F 86 20 115/71 90 L 05/05/17 23:00 05/05/17 23:30 05/05/17 23:00 05/05/17 23:00 05/05/17 23:00 Intake and Output: 05/06/17 05/06/17 06:59 18:59 Intake Total 500 Balance 500 - Medications Medications: Current Medications Albuterol/Ipratropium (Duoneb 3 Mg/0.5 Mg (3 Ml) Ud) 3 ml INH RQ6 [facility] Last Admin: 05/06/17 01:37 Dose: 3 ml Aspirin (Aspirin Chewable) 81 mg PO DAILY [facility] Last Admin: 05/05/17 11:03 Dose: 81 mg Furosemide (Lasix) 20 mg PO DAILY [facility] Heparin Sodium (Porcine) (Heparin) 5,000 units SC Q8 [facility] Last Admin: 05/06/17 06:03 Dose: 5,000 units Meropenem 1 gm/ Sodium (Chloride) 100 mls @ 100 mls/hr IVPB Q12H [facility] Last Admin: 05/06/17 06:02 Dose: 100 mls/hr Insulin Human Regular (Novolin R) 0 unit SC ACHS [facility] PRN Reason: Protocol Last Admin: 05/05/17 23:04 Dose: Not Given Levothyroxine Sodium (Synthroid) 125 mcg PO DAILY@0630 [facility] Last Admin: 05/06/17 06:02 Dose: 125 mcg Losartan Potassium (Cozaar) 50 mg PO DAILY [facility] Last Admin: 05/05/17 11:03 Dose: Not Given Fluticasone/Salmeterol (Advair Diskus 500/50) 1 puff INH RQ12 [facility] Last Admin: 05/05/17 20:46 Dose: 1 puff Sodium Chloride (Sodium Chloride Tab) 2 gm PO Q8H [facility] Last Admin: 05/06/17 06:29 Dose: 2 gm Tiotropium [place] (Spiriva) 18 mcg INH RQ24 [facility] Last Admin: 05/05/17 13:13 Dose: 18 mcg - Labs Labs: 05/05/17 07:56 05/05/17 07:56 PT 12.1 SECONDS (9.7-12.2) 05/04/17 10:49 INR 1.1 05/04/17 10:49 APTT 28 SECONDS (21-34) 05/04/17 10:49 - Additional Findings Additional findings: - Constitutional Appears: No Acute Distress - Head Exam Head Exam: ATRAUMATIC, NORMOCEPHALIC - Eye Exam Eye Exam: EOMI, Normal appearance - ENT Exam ENT Exam: Mucous Membranes Moist - Respiratory Exam Respiratory Exam: Clear to Ausculation Bilateral, NORMAL BREATHING PATTERN. absent: Rales, Rhonchi, Wheezes, Respiratory Distress - Cardiovascular Exam Cardiovascular Exam: REGULAR RHYTHM, +S1, +S2 - GI/Abdominal Exam GI & Abdominal Exam: Soft, Normal Bowel Sounds. absent: Distended, Firm, Tenderness - Extremities Exam Extremities Exam: absent: Calf Tenderness, Tenderness - Neurological Exam Neurological Exam: Alert, Awake, Oriented x3 - Psychiatric Exam Psychiatric exam: Normal Affect, Normal Mood - Skin Skin Exam: Dry, Intact, Normal Color, Warm Assessment and Plan - Assessment and Plan (Free Text) Plan: Urinary Tract Infection * UA: trace nitrates and LE, WBC 55, RBC 6, Bacteria (many) * Repeat UA: trace, high LE, WBC 45, Bacteria (few) * Urine cultures: Ecoli/ESBL+ * ID consulted, Dr. Bruce, for UTI, Hx of multidrug resistant UTI * Continue Merem 1gm IV Q12h (active since 05/05/17) Headache * CT head negative for acute pathologies. * CTA Head/Neck negative. Vessels are widely patent. * Possibility of this being due to the hyponatremia considering that patient also complaining of dizziness and fatigue Hyponatremia * 122 on admission, trending up --> 130 * Nephrology consult Dr. Snider, help appreciated * Serum osmolality: 282 * Urine studies: at admission, followed by fluid challenge * urine osmolality 450--> 390 * urine creatinine 63.5 * urine sodium 61--> 25 * urine potassium 19.4--> 13.9 * Cortisol AM within normal range History of COPD * Duoneb Q6 [facility] * Advair 500/50 INH Q12 * Spiriva 18 mcg daily History of DM * Held Metformin * Regular ISS * Accuchecks * Hypoglycemic protocol History of HTN * Resume home Losartan 50 mg PO daily History of Hypothyroidism * Resume home Synthroid 125 mcg PO daily Prophylactic Measure * Diabetic Diet * Pepcid 20 mg PO BID * Heparin 5000 units SC Q8 * Influenza-negative * PT/OT * Contact precaution Discussed with Dr. Elam <Renzo Elam - Last Filed: 05/07/17 15:39> Objective - Vital Signs/Intake and Output Vital Signs (last 24 hours): Temp Pulse Resp BP Pulse Ox 98.3 F 66 20 136/77 96 05/07/17 07:20 05/07/17 07:20 05/07/17 07:20 05/07/17 09:38 05/07/17 07:20 Intake and Output: 05/07/17 05/07/17 06:59 18:59 Intake Total 420 Balance 420 - Medications Medications: Current Medications Albuterol/Ipratropium (Duoneb 3 Mg/0.5 Mg (3 Ml) Ud) 3 ml INH RQ6 [facility] Last Admin: 05/07/17 13:33 Dose: Not Given Aspirin (Aspirin Chewable) 81 mg PO DAILY [facility] Last Admin: 05/07/17 09:38 Dose: 81 mg Furosemide (Lasix) 20 mg PO DAILY [facility] Last Admin: 05/07/17 09:38 Dose: 20 mg Heparin Sodium (Porcine) (Heparin) 5,000 units SC Q8 [facility] Last Admin: 05/07/17 13:35 Dose: 5,000 units Meropenem 1 gm/ Sodium (Chloride) 100 mls @ 100 mls/hr IVPB Q12H [facility] Last Admin: 05/07/17 05:37 Dose: 100 mls/hr Insulin Human Regular (Novolin R) 0 unit SC ACHS [facility] PRN Reason: Protocol Last Admin: 05/07/17 12:19 Dose: 2 unit Levothyroxine Sodium (Synthroid) 125 mcg PO DAILY@0630 [facility] Last Admin: 05/07/17 05:37 Dose: 125 mcg Losartan Potassium (Cozaar) 50 mg PO DAILY [facility] Last Admin: 05/05/17 11:03 Dose: Not Given Fluticasone/Salmeterol (Advair Diskus 500/50) 1 puff INH RQ12 [facility] Last Admin: 05/07/17 07:16 Dose: 1 puff Sodium Chloride (Sodium Chloride Tab) 2 gm PO Q8H [facility] Last Admin: 05/07/17 12:20 Dose: 2 gm Tiotropium [place] (Spiriva) 18 mcg INH RQ24 [facility] Last Admin: 05/07/17 07:17 Dose: 18 mcg - Labs Labs: 05/07/17 06:39 05/07/17 06:39 PT 12.1 SECONDS (9.7-12.2) 05/04/17 10:49 INR 1.1 05/04/17 10:49 APTT 28 SECONDS (21-34) 05/04/17 10:49 Attending/Attestation - Attestation I have personally seen and examined this patient.: Yes I have fully participated in the care of the patient.: Yes I have reviewed all pertinent clinical information, including history, physical exam and plan: Yes Notes (Text): Seen and examined Discussed with the resident Monitor sodium level.nephrology consult appreciated continue Merrem PT recommend rehab. Patient has no insurance. Lives with her daughter who help her with ADL We will follow I agree with the assessment and the plan of the resident
[2017-05-06] MEDS: Fluticasone-Salmeterol 500-50mcg Diskus INH SCH ×2 (07:20→20:08)
[2017-05-06] MEDS: Tiotropium 18 mcg Cap For Inhalation INH SCH (07:20)
[2017-05-06 08:16] LABS: BASO % 0.5 % (0.0-2.0); EOS # 0.2 K/uL (0.0-0.7); EOS % 2.4 % (0.0-4.0); HEMOGLOBIN 11.8 g/dL (11.0-16.0); LYMPH # 1.4 K/uL (1.0-4.3); LYMPH % 15.4 % (20.0-40.0); MEAN CELL VOLUME 80.5 fL (81.0-99.0); MEAN CORPUSCULAR HEMOGLOBIN 27.6 pg (27.0-31.0); MEAN CORPUSCULAR HGB CONC 34.2 g/dL (33.0-37.0); MEAN PLATELET VOLUME 9.2 fL (7.2-11.7); MONO % 10.7 % (0.0-10.0); NEUT # 6.6 K/uL (1.8-7.0); RBC 4.3 Mil/uL (3.80-5.20); RED CELL DISTRIBUTION WIDTH 15.9 % (11.5-14.5); WHITE BLOOD COUNT 9.3 K/uL (4.8-10.8)
[2017-05-06 08:19] LABS: BLOOD UREA NITROGEN 14 mg/dL (7-17); CALCIUM 8.3 mg/dl (8.6-10.4); GFR AFRICAN-AMERICAN > 60; GFR NON-AFRICAN AMERICAN > 60; MAGNESIUM 1.8 mg/dL (1.6-2.3)
[2017-05-06] MEDS: (Novolin R) Insulin Human Regular 100 units/ml vial SC SCH ×4 (08:54→21:46)
[2017-05-06] MEDS ORDERED: Albuterol-Ipratrop 3 mg / 0.5 (3 ml) UD INH SCH (16:00)
--- NOTE | 2017-05-06 19:21 | CP.PCM.PN ---
Subjective - Date & Time of Evaluation Date of Evaluation: 05/06/17 Time of Evaluation: 12:00 - Subjective Subjective: Patient tolerating diet, ambulating with cane; no shortness of breath reported despite wheezing; Objective - Vital Signs/Intake and Output Vital Signs (last 24 hours): Temp Pulse Resp BP Pulse Ox 99.4 F 87 20 112/72 95 05/06/17 16:35 05/06/17 16:35 05/06/17 16:35 05/06/17 16:35 05/06/17 16:35 - Medications Medications: Current Medications Albuterol/Ipratropium (Duoneb 3 Mg/0.5 Mg (3 Ml) Ud) 3 ml INH RQ6 [facility] Last Admin: 05/06/17 13:28 Dose: 3 ml Aspirin (Aspirin Chewable) 81 mg PO DAILY [facility] Last Admin: 05/06/17 10:53 Dose: 81 mg Furosemide (Lasix) 20 mg PO DAILY [facility] Last Admin: 05/06/17 10:53 Dose: 20 mg Heparin Sodium (Porcine) (Heparin) 5,000 units SC Q8 [facility] Last Admin: 05/06/17 13:30 Dose: 5,000 units Meropenem 1 gm/ Sodium (Chloride) 100 mls @ 100 mls/hr IVPB Q12H [facility] Last Admin: 05/06/17 17:55 Dose: 100 mls/hr Insulin Human Regular (Novolin R) 0 unit SC ACHS [facility] PRN Reason: Protocol Last Admin: 05/06/17 16:55 Dose: 2 unit Levothyroxine Sodium (Synthroid) 125 mcg PO DAILY@0630 [facility] Last Admin: 05/06/17 06:02 Dose: 125 mcg Losartan Potassium (Cozaar) 50 mg PO DAILY [facility] Last Admin: 05/05/17 11:03 Dose: Not Given Fluticasone/Salmeterol (Advair Diskus 500/50) 1 puff INH RQ12 [facility] Last Admin: 05/06/17 07:20 Dose: 1 puff Sodium Chloride (Sodium Chloride Tab) 2 gm PO Q8H [facility] Last Admin: 05/06/17 13:31 Dose: 2 gm Tiotropium [place] (Spiriva) 18 mcg INH RQ24 [facility] Last Admin: 05/06/17 07:20 Dose: 18 mcg - Labs Labs: 05/06/17 07:54 05/06/17 07:54 PT 12.1 SECONDS (9.7-12.2) 05/04/17 10:49 INR 1.1 05/04/17 10:49 APTT 28 SECONDS (21-34) 05/04/17 10:49 - Constitutional Appears: Non-toxic, No Acute Distress - Eye Exam Eye Exam: Normal appearance. absent: Scleral icterus - ENT Exam ENT Exam: Mucous Membranes Moist - Respiratory Exam Respiratory Exam: Wheezes. absent: Respiratory Distress - Cardiovascular Exam Cardiovascular Exam: RRR, +S1, +S2 - GI/Abdominal Exam GI & Abdominal Exam: Soft. absent: Distended, Tenderness - Extremities Exam Additional comments: no leg edema; - Neurological Exam Neurological Exam: Alert, Awake - Psychiatric Exam Psychiatric exam: absent: Agitated - Skin Skin Exam: Warm. 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
--- NOTE | 2017-05-06 21:35 | CP.PCM.PN ---
Subjective - Date & Time of Evaluation Date of Evaluation: 05/06/17 Time of Evaluation: 06:00 - Subjective Subjective: dictated Objective - Vital Signs/Intake and Output Vital Signs (last 24 hours): Temp Pulse Resp BP Pulse Ox 99.4 F 91 H 20 112/72 95 05/06/17 16:35 05/06/17 19:47 05/06/17 16:35 05/06/17 16:35 05/06/17 16:35 Intake and Output: 05/06/17 05/07/17 18:59 06:59 Intake Total 220 Balance 220 - Medications Medications: Current Medications Albuterol/Ipratropium (Duoneb 3 Mg/0.5 Mg (3 Ml) Ud) 3 ml INH RQ6 [facility] Last Admin: 05/06/17 20:08 Dose: 3 ml Aspirin (Aspirin Chewable) 81 mg PO DAILY [facility] Last Admin: 05/06/17 10:53 Dose: 81 mg Furosemide (Lasix) 20 mg PO DAILY [facility] Last Admin: 05/06/17 10:53 Dose: 20 mg Heparin Sodium (Porcine) (Heparin) 5,000 units SC Q8 [facility] Last Admin: 05/06/17 13:30 Dose: 5,000 units Meropenem 1 gm/ Sodium (Chloride) 100 mls @ 100 mls/hr IVPB Q12H [facility] Last Admin: 05/06/17 17:55 Dose: 100 mls/hr Insulin Human Regular (Novolin R) 0 unit SC ACHS [facility] PRN Reason: Protocol Last Admin: 05/06/17 16:55 Dose: 2 unit Levothyroxine Sodium (Synthroid) 125 mcg PO DAILY@0630 [facility] Last Admin: 05/06/17 06:02 Dose: 125 mcg Losartan Potassium (Cozaar) 50 mg PO DAILY [facility] Last Admin: 05/05/17 11:03 Dose: Not Given Fluticasone/Salmeterol (Advair Diskus 500/50) 1 puff INH RQ12 [facility] Last Admin: 05/06/17 20:08 Dose: 1 puff Sodium Chloride (Sodium Chloride Tab) 2 gm PO Q8H [facility] Last Admin: 05/06/17 20:29 Dose: 2 gm Tiotropium [place] (Spiriva) 18 mcg INH RQ24 [facility] Last Admin: 05/06/17 07:20 Dose: 18 mcg - Labs Labs: 05/06/17 07:54 05/06/17 07:54 PT 12.1 SECONDS (9.7-12.2) 05/04/17 10:49 INR 1.1 05/04/17 10:49 APTT 28 SECONDS (21-34) 05/04/17 10:49
[2017-05-07] MEDS: Albuterol-Ipratrop 3 mg / 0.5 (3 ml) UD INH SCH ×4 (02:13→20:10)
[2017-05-07 02:17] VITALS: RESP 20
--- NOTE | 2017-05-07 02:49 | PN ---
DATE: SUBJECTIVE: The patient is in isolation room. She denies any headache today. She is feeling a lot better. She denies any chest pain. No shortness of breath. No abdominal pain. PHYSICAL EXAMINATION: VITAL SIGNS: Her temperature is 99.4 today, pulse is 87, blood pressure is 112/72, and respirations are 20. HEENT: Head is atraumatic, normocephalic. NECK: Supple. LUNGS: Clear. No crackles or rales present. HEART: S1 and S2 are regular. ABDOMEN: Soft, flabby, nontender. EXTREMITIES: No edema. LABORATORY DATA: White count is 9.3, her sodium is 130 today, potassium is 4.1, chloride is 94, creatinine is 0.7. Microbiology rogers, urine culture has gram-negative and gram-positive cocci on 05/05, but on 05/04 she had E. coli which was ESBL positive and it was sensitive to meropenem and she is on meropenem at this time, so we will continue that and we will follow. She did come with hyponatremia and Renal is also following. De Bruce MD
[2017-05-07] MEDS: Meropenem 1 GM in Sodium Chloride 0.9% 100 ML IVPB SCH ×2 (05:37→17:47)
[2017-05-07] MEDS: Levothyroxine 125 MCG TAB PO SCH (05:37)
[2017-05-07 07:13] LABS: BASO % 0.4 % (0.0-2.0); EOS # 0.4 K/uL (0.0-0.7); EOS % 3.6 % (0.0-4.0); HEMOGLOBIN 11.9 g/dL (11.0-16.0); LYMPH # 2.1 K/uL (1.0-4.3); LYMPH % 21.6 % (20.0-40.0); MEAN CELL VOLUME 80.8 fL (81.0-99.0); MEAN CORPUSCULAR HEMOGLOBIN 27.3 pg (27.0-31.0); MEAN CORPUSCULAR HGB CONC 33.9 g/dL (33.0-37.0); MONO % 9.9 % (0.0-10.0); NEUT # 6.4 K/uL (1.8-7.0); NEUT % 64.5 % (50.0-75.0); RBC 4.36 Mil/uL (3.80-5.20); RED CELL DISTRIBUTION WIDTH 16.1 % (11.5-14.5); WHITE BLOOD COUNT 9.9 K/uL (4.8-10.8)
[2017-05-07] MEDS: Fluticasone-Salmeterol 500-50mcg Diskus INH SCH ×2 (07:16→20:10)
[2017-05-07] MEDS: Tiotropium 18 mcg Cap For Inhalation INH SCH (07:17)
[2017-05-07] MEDS: (Novolin R) Insulin Human Regular 100 units/ml vial SC SCH ×4 (08:09→22:51)
[2017-05-07 08:11] LABS: BLOOD UREA NITROGEN 12 mg/dL (7-17); CALCIUM 8.4 mg/dl (8.6-10.4); GFR AFRICAN-AMERICAN > 60; GFR NON-AFRICAN AMERICAN > 60; MAGNESIUM 1.7 mg/dL (1.6-2.3)
[2017-05-07] MEDS ORDERED: Influenza Vaccine 60 mcg/0.5 mL SYR (4YR UP) IM ONE (10:00)
[2017-05-07] MEDS ORDERED: MethylPREDNISolone 40 mg Vial IVP ONE (10:12)
--- NOTE | 2017-05-07 14:45 | CP.PCM.PN ---
<Aracely Mckinney - Last Filed: 05/07/17 14:42> Subjective - Date & Time of Evaluation Date of Evaluation: 05/07/17 Time of Evaluation: 14:42 - Subjective Subjective: Medicine progress note for Dr. Elam's service Patient was seen and examined at bedside. Patient is awake, alert, and in no acute distress. Patient reports feeling better and otherwise has no complaints. Patient denies chest pain, abdominal pain, nausea, vomiting, fevers, dizziness, dysuria, hematuria, and urinary frequency. Objective - Vital Signs/Intake and Output Vital Signs (last 24 hours): Temp Pulse Resp BP Pulse Ox 98.3 F 66 20 136/77 96 05/07/17 07:20 05/07/17 07:20 05/07/17 07:20 05/07/17 09:38 05/07/17 07:20 Intake and Output: 05/07/17 05/07/17 06:59 18:59 Intake Total 420 Balance 420 - Medications Medications: Current Medications Albuterol/Ipratropium (Duoneb 3 Mg/0.5 Mg (3 Ml) Ud) 3 ml INH RQ6 [facility] Last Admin: 05/07/17 13:33 Dose: Not Given Aspirin (Aspirin Chewable) 81 mg PO DAILY [facility] Last Admin: 05/07/17 09:38 Dose: 81 mg Furosemide (Lasix) 20 mg PO DAILY [facility] Last Admin: 05/07/17 09:38 Dose: 20 mg Heparin Sodium (Porcine) (Heparin) 5,000 units SC Q8 [facility] Last Admin: 05/07/17 13:35 Dose: 5,000 units Meropenem 1 gm/ Sodium (Chloride) 100 mls @ 100 mls/hr IVPB Q12H [facility] Last Admin: 05/07/17 05:37 Dose: 100 mls/hr Insulin Human Regular (Novolin R) 0 unit SC ACHS [facility] PRN Reason: Protocol Last Admin: 05/07/17 12:19 Dose: 2 unit Levothyroxine Sodium (Synthroid) 125 mcg PO DAILY@0630 [facility] Last Admin: 05/07/17 05:37 Dose: 125 mcg Losartan Potassium (Cozaar) 50 mg PO DAILY [facility] Last Admin: 05/05/17 11:03 Dose: Not Given Fluticasone/Salmeterol (Advair Diskus 500/50) 1 puff INH RQ12 [facility] Last Admin: 05/07/17 07:16 Dose: 1 puff Sodium Chloride (Sodium Chloride Tab) 2 gm PO Q8H [facility] Last Admin: 05/07/17 12:20 Dose: 2 gm Tiotropium [place] (Spiriva) 18 mcg INH RQ24 [facility] Last Admin: 05/07/17 07:17 Dose: 18 mcg - Labs Labs: 05/07/17 06:39 05/07/17 06:39 PT 12.1 SECONDS (9.7-12.2) 05/04/17 10:49 INR 1.1 05/04/17 10:49 APTT 28 SECONDS (21-34) 05/04/17 10:49 - Additional Findings Additional findings: - Constitutional Appears: No Acute Distress - Head Exam Head Exam: ATRAUMATIC, NORMOCEPHALIC - Eye Exam Eye Exam: EOMI, Normal appearance - ENT Exam ENT Exam: Mucous Membranes Moist - Respiratory Exam Respiratory Exam: Wheeze, NORMAL BREATHING PATTERN. absent: Rales, Rhonchi, Respiratory Distress - Cardiovascular Exam Cardiovascular Exam: REGULAR RHYTHM, +S1, +S2 - GI/Abdominal Exam GI & Abdominal Exam: Soft, Normal Bowel Sounds. absent: Distended, Firm, Tenderness - Extremities Exam Extremities Exam: absent: Calf Tenderness, Tenderness - Neurological Exam Neurological Exam: Alert, Awake, Oriented x3 - Psychiatric Exam Psychiatric exam: Normal Affect, Normal Mood - Skin Skin Exam: Dry, Intact, Normal Color, Warm Assessment and Plan - Assessment and Plan (Free Text) Plan: Urinary Tract Infection * UA: trace nitrates and LE, WBC 55, RBC 6, Bacteria (many) * Repeat UA: trace, high LE, WBC 45, Bacteria (few) * Urine cultures: Ecoli/ESBL+ * ID consulted, Dr. Bruce, for UTI, Hx of multidrug resistant UTI * Continue Merem 1gm IV Q12h (active since 05/05/17) Headache * CT head negative for acute pathologies. * CTA Head/Neck negative. Vessels are widely patent. * Possibility of this being due to the hyponatremia considering that patient also complaining of dizziness and fatigue Hyponatremia * 122 on admission, trending up --> 129 * Nephrology consult Dr. Snider, help appreciated * Continue salt tabs * Serum osmolality: 282 * Urine studies: at admission, followed by fluid challenge * urine osmolality 450--> 390 * urine creatinine 63.5 * urine sodium 61--> 25 * urine potassium 19.4--> 13.9 * Cortisol AM within normal range * Continue to monitor History of COPD * Duoneb Q6 [facility] * Advair 500/50 INH Q12 * Spiriva 18 mcg daily History of DM * Held Metformin * Regular ISS * Accuchecks * Hypoglycemic protocol History of HTN * Resume home Losartan 50 mg PO daily History of Hypothyroidism * Resume home Synthroid 125 mcg PO daily Prophylactic Measure * Diabetic Diet * Pepcid 20 mg PO BID * Heparin 5000 units SC Q8 * Influenza-negative * PT/OT * Contact precaution Discussed with Dr. Elam <Renzo Elam - Last Filed: 05/07/17 15:41> Objective - Vital Signs/Intake and Output Vital Signs (last 24 hours): Temp Pulse Resp BP Pulse Ox 98.7 F 87 20 138/86 95 05/07/17 15:00 05/07/17 15:00 05/07/17 15:00 05/07/17 15:00 05/07/17 15:00 Intake and Output: 05/07/17 05/07/17 06:59 18:59 Intake Total 420 Balance 420 - Medications Medications: Current Medications Albuterol/Ipratropium (Duoneb 3 Mg/0.5 Mg (3 Ml) Ud) 3 ml INH RQ6 [facility] Last Admin: 05/07/17 13:33 Dose: Not Given Aspirin (Aspirin Chewable) 81 mg PO DAILY [facility] Last Admin: 05/07/17 09:38 Dose: 81 mg Famotidine (Pepcid) 20 mg PO DAILY [facility] Last Admin: 05/07/17 15:01 Dose: 20 mg Furosemide (Lasix) 20 mg PO DAILY [facility] Last Admin: 05/07/17 09:38 Dose: 20 mg Heparin Sodium (Porcine) (Heparin) 5,000 units SC Q8 [facility] Last Admin: 05/07/17 13:35 Dose: 5,000 units Meropenem 1 gm/ Sodium (Chloride) 100 mls @ 100 mls/hr IVPB Q12H [facility] Last Admin: 05/07/17 05:37 Dose: 100 mls/hr Insulin Human Regular (Novolin R) 0 unit SC ACHS [facility] PRN Reason: Protocol Last Admin: 05/07/17 12:19 Dose: 2 unit Levothyroxine Sodium (Synthroid) 125 mcg PO DAILY@0630 [facility] Last Admin: 05/07/17 05:37 Dose: 125 mcg Losartan Potassium (Cozaar) 50 mg PO DAILY [facility] Last Admin: 05/05/17 11:03 Dose: Not Given Fluticasone/Salmeterol (Advair Diskus 500/50) 1 puff INH RQ12 [facility] Last Admin: 05/07/17 07:16 Dose: 1 puff Sodium Chloride (Sodium Chloride Tab) 2 gm PO Q8H [facility] Last Admin: 05/07/17 12:20 Dose: 2 gm Tiotropium [place] (Spiriva) 18 mcg INH RQ24 [facility] Last Admin: 05/07/17 07:17 Dose: 18 mcg - Labs Labs: 05/07/17 06:39 05/07/17 06:39 PT 12.1 SECONDS (9.7-12.2) 05/04/17 10:49 INR 1.1 05/04/17 10:49 APTT 28 SECONDS (21-34) 05/04/17 10:49 Attending/Attestation - Attestation I have personally seen and examined this patient.: Yes I have fully participated in the care of the patient.: Yes I have reviewed all pertinent clinical information, including history, physical exam and plan: Yes Notes (Text): seen and examined continue merrem monitor sodium,follow nephrology PT recommend rehab. Patient has no insurance. Lives with her daughter who help her with ADL We will follow I agree with the assessment and the plan of the resident
--- NOTE | 2017-05-08 01:00 | CP.PCM.PN ---
<Manuela Tavares - Last Filed: 05/08/17 06:12> Subjective - Date & Time of Evaluation Date of Evaluation: 05/08/17 Time of Evaluation: 06:00 - Subjective Subjective: Medicine progress note for Dr. Elam's service Patient was seen and examined at bedside. Patient is awake, alert, and in no acute distress. Patient reports feeling better and otherwise has no complaints. Patient denies chest pain, abdominal pain, nausea, vomiting, fevers, dizziness, dysuria, hematuria, and urinary frequency. Objective - Vital Signs/Intake and Output Vital Signs (last 24 hours): Temp Pulse Resp BP Pulse Ox 98.1 F 105 H 20 162/83 H 95 05/08/17 00:09 05/08/17 00:09 05/08/17 00:09 05/08/17 00:09 05/08/17 00:09 - Medications Medications: Current Medications Albuterol/Ipratropium (Duoneb 3 Mg/0.5 Mg (3 Ml) Ud) 3 ml INH RQ6 [facility] Last Admin: 05/07/17 20:10 Dose: 3 ml Aspirin (Aspirin Chewable) 81 mg PO DAILY [facility] Last Admin: 05/07/17 09:38 Dose: 81 mg Famotidine (Pepcid) 20 mg PO DAILY [facility] Last Admin: 05/07/17 15:01 Dose: 20 mg Furosemide (Lasix) 20 mg PO DAILY [facility] Last Admin: 05/07/17 09:38 Dose: 20 mg Heparin Sodium (Porcine) (Heparin) 5,000 units SC Q8 [facility] Last Admin: 05/07/17 22:03 Dose: 5,000 units Meropenem 1 gm/ Sodium (Chloride) 100 mls @ 100 mls/hr IVPB Q12H [facility] Last Admin: 05/07/17 17:47 Dose: 100 mls/hr Insulin Human Regular (Novolin R) 0 unit SC ACHS [facility] PRN Reason: Protocol Last Admin: 05/07/17 22:51 Dose: Not Given Levothyroxine Sodium (Synthroid) 125 mcg PO DAILY@0630 [facility] Last Admin: 05/07/17 05:37 Dose: 125 mcg Losartan Potassium (Cozaar) 50 mg PO DAILY [facility] Last Admin: 05/05/17 11:03 Dose: Not Given Fluticasone/Salmeterol (Advair Diskus 500/50) 1 puff INH RQ12 [facility] Last Admin: 05/07/17 20:10 Dose: 1 puff Sodium Chloride (Sodium Chloride Tab) 2 gm PO Q8H [facility] Last Admin: 05/07/17 22:55 Dose: 2 gm Tiotropium [place] (Spiriva) 18 mcg INH RQ24 [facility] Last Admin: 05/07/17 07:17 Dose: 18 mcg - Labs Labs: 05/07/17 06:39 05/07/17 06:39 PT 12.1 SECONDS (9.7-12.2) 05/04/17 10:49 INR 1.1 05/04/17 10:49 APTT 28 SECONDS (21-34) 05/04/17 10:49 - Constitutional Appears: No Acute Distress - Head Exam Head Exam: ATRAUMATIC, NORMAL INSPECTION - Eye Exam Eye Exam: EOMI, Normal appearance - ENT Exam ENT Exam: Mucous Membranes Moist - Respiratory Exam Respiratory Exam: Wheezes, NORMAL BREATHING PATTERN - Cardiovascular Exam Cardiovascular Exam: REGULAR RHYTHM, +S1, +S2 - GI/Abdominal Exam GI & Abdominal Exam: Soft, Normal Bowel Sounds. absent: Tenderness - Extremities Exam Extremities Exam: Normal Inspection - Neurological Exam Neurological Exam: Alert, Awake, Oriented x3 - Psychiatric Exam Psychiatric exam: Normal Affect, Normal Mood - Skin Skin Exam: Normal Color, Warm Assessment and Plan - Assessment and Plan (Free Text) Assessment: Urinary Tract Infection * UA: trace nitrates and LE, WBC 55, RBC 6, Bacteria (many) * Repeat UA: trace, high LE, WBC 45, Bacteria (few) * Urine cultures: Ecoli/ESBL+ * ID consulted, Dr. Bruce, for UTI, Hx of multidrug resistant UTI * Continue Merem 1gm IV Q12h (active since 05/05/17) Headache * CT head negative for acute pathologies. * CTA Head/Neck negative. Vessels are widely patent. * Possibility of this being due to the hyponatremia considering that patient also complaining of dizziness and fatigue Hyponatremia * 122 on admission, trending up --> 129 * Nephrology consult Dr. Snider, help appreciated * Continue salt tabs * Serum osmolality: 282 * Urine studies: at admission, followed by fluid challenge * urine osmolality 450--> 390 * urine creatinine 63.5 * urine sodium 61--> 25 * urine potassium 19.4--> 13.9 * Cortisol AM within normal range * Continue to monitor History of COPD * Duoneb Q6 PPEE * Advair 500/50 INH Q12 * Spiriva 18 mcg daily History of DM * Held Metformin * Regular ISS * Accuchecks * Hypoglycemic protocol History of HTN * Resume home Losartan 50 mg PO daily History of Hypothyroidism * Resume home Synthroid 125 mcg PO daily Prophylactic Measure * Diabetic Diet * Pepcid 20 mg PO BID * Heparin 5000 units SC Q8 * Influenza-negative * PT/OT * Contact precaution <Renzo Elam - Last Filed: 05/08/17 20:59> Objective - Vital Signs/Intake and Output Vital Signs (last 24 hours): Temp Pulse Resp BP Pulse Ox 98.4 F 71 20 107/62 97 05/08/17 15:57 05/08/17 15:57 05/08/17 15:57 05/08/17 15:57 05/08/17 15:57 Intake and Output: 05/08/17 05/09/17 18:59 06:59 Intake Total 540 Output Total 400 Balance 140 - Medications Medications: Current Medications Albuterol/Ipratropium (Duoneb 3 Mg/0.5 Mg (3 Ml) Ud) 3 ml INH RQ6 [facility] Last Admin: 05/08/17 20:28 Dose: 3 ml Aspirin (Aspirin Chewable) 81 mg PO DAILY [facility] Last Admin: 05/08/17 09:56 Dose: 81 mg Famotidine (Pepcid) 20 mg PO DAILY [facility] Last Admin: 05/08/17 09:57 Dose: 20 mg Furosemide (Lasix) 20 mg PO DAILY [facility] Last Admin: 05/08/17 09:56 Dose: 20 mg Heparin Sodium (Porcine) (Heparin) 5,000 units SC Q8 [facility] Last Admin: 05/08/17 13:27 Dose: 5,000 units Meropenem 1 gm/ Sodium (Chloride) 100 mls @ 100 mls/hr IVPB Q12H [facility] Last Admin: 05/08/17 17:43 Dose: 100 mls/hr Insulin Human Regular (Novolin R) 0 unit SC ACHS [facility] PRN Reason: Protocol Last Admin: 05/08/17 17:30 Dose: 2 unit Levothyroxine Sodium (Synthroid) 125 mcg PO DAILY@0630 [facility] Last Admin: 05/08/17 05:29 Dose: 125 mcg Losartan Potassium (Cozaar) 50 mg PO DAILY [facility] Last Admin: 05/05/17 11:03 Dose: Not Given Metformin HCl (Glucophage) 500 mg PO BID [facility] Last Admin: 05/08/17 17:43 Dose: 500 mg Ondansetron HCl (Zofran Inj) 4 mg IVP Q6 PRN PRN Reason: Nausea/Vomiting Last Admin: 05/08/17 14:24 Dose: 4 mg Fluticasone/Salmeterol (Advair Diskus 500/50) 1 puff INH RQ12 [facility] Last Admin: 05/08/17 20:28 Dose: 1 puff Sodium Chloride (Sodium Chloride Tab) 2 gm PO Q8H [facility] Last Admin: 05/08/17 13:27 Dose: 2 gm Tiotropium [place] (Spiriva) 18 mcg INH RQ24 [facility] Last Admin: 05/07/17 07:17 Dose: 18 mcg - Labs Labs: 05/08/17 08:38 05/08/17 08:38 PT 12.1 SECONDS (9.7-12.2) 05/04/17 10:49 INR 1.1 05/04/17 10:49 APTT 28 SECONDS (21-34) 05/04/17 10:49 Attending/Attestation - Attestation I have personally seen and examined this patient.: Yes I have fully participated in the care of the patient.: Yes I have reviewed all pertinent clinical information, including history, physical exam and plan: Yes Notes (Text): Seen and examined patient has no complain,sitting on chair,her wheezing is better I agree with the documentation of the assessment and the plan continue antibiotics,monitor sodium,follow Infectious disease 05/08/17 20:59
[2017-05-08] MEDS: Albuterol-Ipratrop 3 mg / 0.5 (3 ml) UD INH SCH ×5 (01:40→20:28)
[2017-05-08] MEDS: Meropenem 1 GM in Sodium Chloride 0.9% 100 ML IVPB SCH ×2 (05:22→17:43)
[2017-05-08] MEDS: Levothyroxine 125 MCG TAB PO SCH (05:29)
[2017-05-08] MEDS: (Novolin R) Insulin Human Regular 100 units/ml vial SC SCH ×4 (08:31→21:48)
[2017-05-08] MEDS: Fluticasone-Salmeterol 500-50mcg Diskus INH SCH ×2 (08:41→20:28)
[2017-05-08 08:55] LABS: BASO % 0.3 % (0.0-2.0); EOS % 0.2 % (0.0-4.0); HEMOGLOBIN 12.1 g/dL (11.0-16.0); LYMPH # 1.4 K/uL (1.0-4.3); LYMPH % 12.1 % (20.0-40.0); MEAN CELL VOLUME 81.2 fL (81.0-99.0); MEAN CORPUSCULAR HEMOGLOBIN 27.1 pg (27.0-31.0); MEAN CORPUSCULAR HGB CONC 33.4 g/dL (33.0-37.0); MEAN PLATELET VOLUME 9.4 fL (7.2-11.7); MONO # 0.9 K/uL (0.0-0.8); MONO % 8.4 % (0.0-10.0); NEUT # 8.9 K/uL (1.8-7.0); RBC 4.46 Mil/uL (3.80-5.20); RED CELL DISTRIBUTION WIDTH 15.8 % (11.5-14.5); WHITE BLOOD COUNT 11.3 K/uL (4.8-10.8)
[2017-05-08 09:18] LABS: BLOOD UREA NITROGEN 20 mg/dL (7-17); CALCIUM 8.6 mg/dl (8.6-10.4); GFR AFRICAN-AMERICAN > 60; GFR NON-AFRICAN AMERICAN > 60; MAGNESIUM 1.8 mg/dL (1.6-2.3)
--- NOTE | 2017-05-08 22:39 | CP.PCM.PN ---
Subjective - Date & Time of Evaluation Date of Evaluation: 05/08/17 Time of Evaluation: 13:00 - Subjective Subjective: 76 yo F w/ pmh of COPD, htn, dm, hypothyroidism, admitted with hyponatremia, UTI and gain instability; Patient not ambulating much per family; still with occasional R temporal area headache; Objective - Vital Signs/Intake and Output Vital Signs (last 24 hours): Temp Pulse Resp BP Pulse Ox 98.4 F 71 20 107/62 97 05/08/17 15:57 05/08/17 15:57 05/08/17 15:57 05/08/17 15:57 05/08/17 15:57 Intake and Output: 05/08/17 05/09/17 18:59 06:59 Intake Total 540 Output Total 400 Balance 140 - Medications Medications: Current Medications Albuterol/Ipratropium (Duoneb 3 Mg/0.5 Mg (3 Ml) Ud) 3 ml INH RQ6 [facility] Last Admin: 05/08/17 20:28 Dose: 3 ml Aspirin (Aspirin Chewable) 81 mg PO DAILY [facility] Last Admin: 05/08/17 09:56 Dose: 81 mg Famotidine (Pepcid) 20 mg PO DAILY [facility] Last Admin: 05/08/17 09:57 Dose: 20 mg Furosemide (Lasix) 20 mg PO DAILY [facility] Last Admin: 05/08/17 09:56 Dose: 20 mg Heparin Sodium (Porcine) (Heparin) 5,000 units SC Q8 [facility] Last Admin: 05/08/17 21:48 Dose: 5,000 units Meropenem 1 gm/ Sodium (Chloride) 100 mls @ 100 mls/hr IVPB Q12H [facility] Last Admin: 05/08/17 17:43 Dose: 100 mls/hr Insulin Human Regular (Novolin R) 0 unit SC ACHS [facility] PRN Reason: Protocol Last Admin: 05/08/17 21:48 Dose: 4 unit Levothyroxine Sodium (Synthroid) 125 mcg PO DAILY@0630 [facility] Last Admin: 05/08/17 05:29 Dose: 125 mcg Losartan Potassium (Cozaar) 50 mg PO DAILY [facility] Last Admin: 05/05/17 11:03 Dose: Not Given Metformin HCl (Glucophage) 500 mg PO BID [facility] Last Admin: 05/08/17 17:43 Dose: 500 mg Ondansetron HCl (Zofran Inj) 4 mg IVP Q6 PRN PRN Reason: Nausea/Vomiting Last Admin: 05/08/17 14:24 Dose: 4 mg Fluticasone/Salmeterol (Advair Diskus 500/50) 1 puff INH RQ12 [facility] Last Admin: 05/08/17 20:28 Dose: 1 puff Sodium Chloride (Sodium Chloride Tab) 2 gm PO Q8H [facility] Last Admin: 05/08/17 21:51 Dose: 2 gm Tiotropium [place] (Spiriva) 18 mcg INH RQ24 [facility] Last Admin: 05/07/17 07:17 Dose: 18 mcg - Labs Labs: 05/08/17 08:38 05/08/17 08:38 PT 12.1 SECONDS (9.7-12.2) 05/04/17 10:49 INR 1.1 05/04/17 10:49 APTT 28 SECONDS (21-34) 05/04/17 10:49 - Constitutional Appears: Non-toxic, No Acute Distress - Eye Exam Eye Exam: absent: Scleral icterus - ENT Exam ENT Exam: Mucous Membranes Moist - Respiratory Exam Respiratory Exam: Clear to Ausculation Bilateral. absent: Respiratory Distress - Cardiovascular Exam Cardiovascular Exam: RRR, +S1, +S2 - GI/Abdominal Exam GI & Abdominal Exam: Soft. absent: Distended, Tenderness - Extremities Exam Additional comments: no leg edema; - Neurological Exam Neurological Exam: Alert, Awake - Psychiatric Exam Psychiatric exam: absent: Agitated - Skin Skin Exam: Warm. absent: Cyanosis Assessment and Plan (1) Hyponatremia Assessment & Plan: Stable; will continue on lasix 20 mg PO daily and salt tabs; likely some degree of SIADH although underlying etiology unclear; Status: Acute (2) Hypertension Assessment & Plan: Normotensive off home med (losartan), continue to hold; Status: Chronic
[2017-05-09] MEDS: Albuterol-Ipratrop 3 mg / 0.5 (3 ml) UD INH SCH ×4 (01:03→20:26)
[2017-05-09] MEDS: Levothyroxine 125 MCG TAB PO SCH (06:27)
[2017-05-09] MEDS: Meropenem 1 GM in Sodium Chloride 0.9% 100 ML IVPB SCH ×2 (06:28→18:58)
[2017-05-09] MEDS: Fluticasone-Salmeterol 500-50mcg Diskus INH SCH ×2 (07:18→20:28)
[2017-05-09] MEDS: Tiotropium 18 mcg Cap For Inhalation INH SCH (07:19)
[2017-05-09] MEDS: (Novolin R) Insulin Human Regular 100 units/ml vial SC SCH ×4 (07:41→23:16)
--- NOTE | 2017-05-09 07:45 | CP.PCM.PN ---
<Aracely Mckinney - Last Filed: 05/09/17 11:21> Subjective - Date & Time of Evaluation Date of Evaluation: 05/09/17 Time of Evaluation: 07:45 - Subjective Subjective: Medicine progress note for Dr. Santos's service Patient was seen and examined at bedside in no acute distress. Patient reports feeling well and has no complaints. Patient is asking when she can go home. As per nursing and patient, patient vomited once yesterday, zofran was given. Patient currently denies chest pain, abdominal pain, shortness of breath, nausea , vomiting, fevers, headaches, dysuria, constipation/diarrhea, and leg pain. Objective - Vital Signs/Intake and Output Vital Signs (last 24 hours): Temp Pulse Resp BP Pulse Ox 98.1 F 72 20 108/69 95 05/08/17 23:59 05/09/17 04:16 05/08/17 23:59 05/08/17 23:59 05/08/17 23:59 - Medications Medications: Current Medications Albuterol/Ipratropium (Duoneb 3 Mg/0.5 Mg (3 Ml) Ud) 3 ml INH RQ6 [facility] Last Admin: 05/09/17 07:18 Dose: 3 ml Aspirin (Aspirin Chewable) 81 mg PO DAILY [facility] Last Admin: 05/08/17 09:56 Dose: 81 mg Famotidine (Pepcid) 20 mg PO DAILY [facility] Last Admin: 05/08/17 09:57 Dose: 20 mg Furosemide (Lasix) 20 mg PO DAILY [facility] Last Admin: 05/08/17 09:56 Dose: 20 mg Heparin Sodium (Porcine) (Heparin) 5,000 units SC Q8 [facility] Last Admin: 05/09/17 06:27 Dose: 5,000 units Meropenem 1 gm/ Sodium (Chloride) 100 mls @ 100 mls/hr IVPB Q12H [facility] Last Admin: 05/09/17 06:28 Dose: 100 mls/hr Insulin Human Regular (Novolin R) 0 unit SC ACHS [facility] PRN Reason: Protocol Last Admin: 05/09/17 07:41 Dose: Not Given Levothyroxine Sodium (Synthroid) 125 mcg PO DAILY@0630 [facility] Last Admin: 05/09/17 06:27 Dose: 125 mcg Losartan Potassium (Cozaar) 50 mg PO DAILY [facility] Last Admin: 05/05/17 11:03 Dose: Not Given Metformin HCl (Glucophage) 500 mg PO BID [facility] Last Admin: 05/08/17 17:43 Dose: 500 mg Ondansetron HCl (Zofran Inj) 4 mg IVP Q6 PRN PRN Reason: Nausea/Vomiting Last Admin: 05/09/17 06:36 Dose: 4 mg Fluticasone/Salmeterol (Advair Diskus 500/50) 1 puff INH RQ12 [facility] Last Admin: 05/09/17 07:18 Dose: 1 puff Sodium Chloride (Sodium Chloride Tab) 2 gm PO Q8H [facility] Last Admin: 05/09/17 06:27 Dose: 2 gm Tiotropium [place] (Spiriva) 18 mcg INH RQ24 [facility] Last Admin: 05/09/17 07:19 Dose: 18 mcg - Labs Labs: 05/08/17 08:38 05/08/17 08:38 PT 12.1 SECONDS (9.7-12.2) 05/04/17 10:49 INR 1.1 05/04/17 10:49 APTT 28 SECONDS (21-34) 05/04/17 10:49 - Additional Findings Additional findings: - Constitutional Appears: No Acute Distress - Head Exam Head Exam: ATRAUMATIC, NORMAL INSPECTION - Eye Exam Eye Exam: EOMI, Normal appearance - ENT Exam ENT Exam: Mucous Membranes Moist - Respiratory Exam Respiratory Exam: Wheezes, NORMAL BREATHING PATTERN - Cardiovascular Exam Cardiovascular Exam: REGULAR RHYTHM, +S1, +S2 - GI/Abdominal Exam GI & Abdominal Exam: Soft, Normal Bowel Sounds. absent: Tenderness - Extremities Exam Extremities Exam: Normal Inspection - Neurological Exam Neurological Exam: Alert, Awake, Oriented x3 - Psychiatric Exam Psychiatric exam: Normal Affect, Normal Mood - Skin Skin Exam: Normal Color, Warm Assessment and Plan - Assessment and Plan (Free Text) Plan: Urinary Tract Infection * UA: trace nitrates and LE, WBC 55, RBC 6, Bacteria (many) * Repeat UA: trace, high LE, WBC 45, Bacteria (few) * Urine cultures: Ecoli/ESBL+, Streptococcus viridans * ID consulted, Dr. Bruce, for UTI, Hx of multidrug resistant UTI * Continue Merem 1gm IV Q12h (active since 05/05/17) * Repeat Urine cx (05/09/17): f/u results * Urinalysis: f/u results Headache * CT head negative for acute pathologies. * CTA Head/Neck negative. Vessels are widely patent. * Possibility of this being due to the hyponatremia considering that patient also complaining of dizziness and fatigue Hyponatremia * 122 on admission, trending up --> 130 * Nephrology consult Dr. Snider, help appreciated * Continue salt tabs * Serum osmolality: 282 * Urine studies: at admission, followed by fluid challenge * urine osmolality 450--> 390 * urine creatinine 63.5 * urine sodium 61--> 25 * urine potassium 19.4--> 13.9 * Cortisol AM within normal range * Continue to monitor History of COPD * Duoneb Q6 PEPE * Advair 500/50 INH Q12 * Spiriva 18 mcg daily History of DM * Held Metformin * Regular ISS * Accuchecks * Hypoglycemic protocol History of HTN * Resume home Losartan 50 mg PO daily History of Hypothyroidism * Resume home Synthroid 125 mcg PO daily Prophylactic Measure * Diabetic Diet * Pepcid 20 mg PO BID * Heparin 5000 units SC Q8 * Influenza-negative * PT/OT * Contact precaution Discussed with Dr. Santos <Taco Santos - Last Filed: 05/09/17 13:02> Objective - Vital Signs/Intake and Output Vital Signs (last 24 hours): Temp Pulse Resp BP Pulse Ox 98.5 F 72 20 107/69 96 05/09/17 09:22 05/09/17 09:22 05/09/17 09:22 05/09/17 09:57 05/09/17 09:22 - Medications Medications: Current Medications Albuterol/Ipratropium (Duoneb 3 Mg/0.5 Mg (3 Ml) Ud) 3 ml INH RQ6 [facility] Last Admin: 05/09/17 07:18 Dose: 3 ml Aspirin (Aspirin Chewable) 81 mg PO DAILY [facility] Last Admin: 05/09/17 09:54 Dose: 81 mg Famotidine (Pepcid) 20 mg PO DAILY [facility] Last Admin: 05/09/17 09:54 Dose: 20 mg Furosemide (Lasix) 20 mg PO DAILY [facility] Last Admin: 05/09/17 09:57 Dose: 20 mg Heparin Sodium (Porcine) (Heparin) 5,000 units SC Q8 [facility] Last Admin: 05/09/17 06:27 Dose: 5,000 units Meropenem 1 gm/ Sodium (Chloride) 100 mls @ 100 mls/hr IVPB Q12H [facility] Last Admin: 05/09/17 06:28 Dose: 100 mls/hr Insulin Human Regular (Novolin R) 0 unit SC ACHS [facility] PRN Reason: Protocol Last Admin: 05/09/17 11:46 Dose: Not Given Levothyroxine Sodium (Synthroid) 125 mcg PO DAILY@0630 [facility] Last Admin: 05/09/17 06:27 Dose: 125 mcg Losartan Potassium (Cozaar) 50 mg PO DAILY [facility] Last Admin: 05/05/17 11:03 Dose: Not Given Metformin HCl (Glucophage) 500 mg PO BID [facility] Last Admin: 05/09/17 09:53 Dose: 500 mg Ondansetron HCl (Zofran Inj) 4 mg IVP Q6 PRN PRN Reason: Nausea/Vomiting Last Admin: 05/09/17 06:36 Dose: 4 mg Fluticasone/Salmeterol (Advair Diskus 500/50) 1 puff INH RQ12 [facility] Last Admin: 05/09/17 07:18 Dose: 1 puff Sodium Chloride (Sodium Chloride Tab) 2 gm PO Q8H [facility] Last Admin: 05/09/17 12:24 Dose: 2 gm Tiotropium [place] (Spiriva) 18 mcg INH RQ24 [facility] Last Admin: 05/09/17 07:19 Dose: 18 mcg - Labs Labs: 05/09/17 11:37 05/09/17 11:37 PT 12.1 SECONDS (9.7-12.2) 05/04/17 10:49 INR 1.1 05/04/17 10:49 APTT 28 SECONDS (21-34) 05/04/17 10:49 Attending/Attestation - Attestation I have personally seen and examined this patient.: Yes I have fully participated in the care of the patient.: Yes I have reviewed all pertinent clinical information, including history, physical exam and plan: Yes Notes (Text): 05/09/17 13:02 Medical attending: Patient was seen and examined by me, I saw the patient with the biomedical engineering professor reviewed the above note by the resident and agree. When we came and saw the patient she was not in any acute distress. She is currently receiving IV antibiotics for the UTI that she has. Reviewed the lab work shows that she grew out Streptococcus viridans as well as ESBL Escherichia coli. She is currently on meropenem at this moment. We'll try to reach out to ID for further clarification if the patient needs additional IV antibiotics for the streptococcus viridans. Repeat a UA and urine cultures well Patient normally has a lot of breathing difficulties however this time her breathing has been stable. Nevertheless we'll continue to monitor her Thank you very much, Taco Santos
[2017-05-09 11:44] LABS: BASO # 0.1 K/uL (0.0-0.2); BASO % 1.3 % (0.0-2.0); EOS # 0.3 K/uL (0.0-0.7); EOS % 3.2 % (0.0-4.0); HEMOGLOBIN 11.7 g/dL (11.0-16.0); LYMPH # 2.3 K/uL (1.0-4.3); LYMPH % 22.9 % (20.0-40.0); MEAN CELL VOLUME 80.9 fL (81.0-99.0); MEAN CORPUSCULAR HEMOGLOBIN 27.4 pg (27.0-31.0); MEAN CORPUSCULAR HGB CONC 33.8 g/dL (33.0-37.0); MONO # 0.9 K/uL (0.0-0.8); MONO % 8.6 % (0.0-10.0); NEUT # 6.4 K/uL (1.8-7.0); RBC 4.28 Mil/uL (3.80-5.20); RED CELL DISTRIBUTION WIDTH 15.7 % (11.5-14.5)
[2017-05-09 12:34] LABS: ALB/GLOB RATIO 1.1 (1.0-2.1); ALBUMIN 3.2 g/dL (3.5-5.0); ALT/SGPT 26 U/L (9-52); AST/SGOT 14 U/L (14-36); BLOOD UREA NITROGEN 17 mg/dL (7-17); CALCIUM 8.6 mg/dl (8.6-10.4); GFR AFRICAN-AMERICAN > 60; GFR NON-AFRICAN AMERICAN > 60; MAGNESIUM 1.6 mg/dL (1.6-2.3)
[2017-05-09 14:42] LABS: SQUAMOUS EPITHIAL 1 /hpf (0-5); URINE BILIRUBIN NEGATIVE (NEGATIVE); URINE BLOOD NEGATIVE (NEGATIVE); URINE CLARITY Clear (Clear); URINE COLOR Straw (YELLOW); URINE GLUCOSE (UA) NORMAL (Normal); URINE LEUKOCYTE ESTERASE NEG Leu/uL (Negative); URINE NITRATE NEGATIVE (NEGATIVE); URINE PROTEIN NEGATIVE (NEGATIVE); URINE UROBILINOGEN NORMAL mg/dL (0.2-1.0)
[2017-05-09 16:21] VITALS: O2SAT 95
--- NOTE | 2017-05-09 20:17 | CP.PCM.PN ---
Subjective - Date & Time of Evaluation Date of Evaluation: 05/09/17 Time of Evaluation: 13:00 - Subjective Subjective: Patient tolerating diet; breathing improved; adhering to fluid restriction; Objective - Vital Signs/Intake and Output Vital Signs (last 24 hours): Temp Pulse Resp BP Pulse Ox 98.1 F 83 20 122/75 95 05/09/17 16:19 05/09/17 16:19 05/09/17 16:19 05/09/17 16:19 05/09/17 16:19 - Medications Medications: Current Medications Albuterol/Ipratropium (Duoneb 3 Mg/0.5 Mg (3 Ml) Ud) 3 ml INH RQ6 [facility] Last Admin: 05/09/17 13:05 Dose: 3 ml Aspirin (Aspirin Chewable) 81 mg PO DAILY [facility] Last Admin: 05/09/17 09:54 Dose: 81 mg Famotidine (Pepcid) 20 mg PO DAILY [facility] Last Admin: 05/09/17 09:54 Dose: 20 mg Furosemide (Lasix) 20 mg PO DAILY [facility] Last Admin: 05/09/17 09:57 Dose: 20 mg Heparin Sodium (Porcine) (Heparin) 5,000 units SC Q8 [facility] Last Admin: 05/09/17 13:32 Dose: 5,000 units Meropenem 1 gm/ Sodium (Chloride) 100 mls @ 100 mls/hr IVPB Q12H [facility] Last Admin: 05/09/17 18:58 Dose: 100 mls/hr Insulin Human Regular (Novolin R) 0 unit SC ACHS [facility] PRN Reason: Protocol Last Admin: 05/09/17 17:18 Dose: Not Given Levothyroxine Sodium (Synthroid) 125 mcg PO DAILY@0630 [facility] Last Admin: 05/09/17 06:27 Dose: 125 mcg Losartan Potassium (Cozaar) 50 mg PO DAILY [facility] Last Admin: 05/05/17 11:03 Dose: Not Given Metformin HCl (Glucophage) 500 mg PO BID [facility] Last Admin: 05/09/17 18:58 Dose: 500 mg Ondansetron HCl (Zofran Inj) 4 mg IVP Q6 PRN PRN Reason: Nausea/Vomiting Last Admin: 05/09/17 06:36 Dose: 4 mg Fluticasone/Salmeterol (Advair Diskus 500/50) 1 puff INH RQ12 [facility] Last Admin: 05/09/17 07:18 Dose: 1 puff Sodium Chloride (Sodium Chloride Tab) 2 gm PO Q8H [facility] Last Admin: 05/09/17 12:24 Dose: 2 gm Tiotropium [place] (Spiriva) 18 mcg INH RQ24 [facility] Last Admin: 05/09/17 07:19 Dose: 18 mcg - Labs Labs: 05/09/17 11:37 05/09/17 11:37 PT 12.1 SECONDS (9.7-12.2) 05/04/17 10:49 INR 1.1 05/04/17 10:49 APTT 28 SECONDS (21-34) 05/04/17 10:49 Assessment and Plan (1) Hyponatremia Assessment & Plan: Stable, continue with salt tabs and lasix 20 mg PO daily; Status: Acute (2) Hypertension Assessment & Plan: BP controlled on just diuretic, continue same; Status: Chronic
[2017-05-10] MEDS: Albuterol-Ipratrop 3 mg / 0.5 (3 ml) UD INH SCH ×4 (00:59→19:52)
[2017-05-10] MEDS: Meropenem 1 GM in Sodium Chloride 0.9% 100 ML IVPB SCH ×2 (05:32→19:26)
[2017-05-10] MEDS: Levothyroxine 125 MCG TAB PO SCH (05:32)
[2017-05-10 07:11] LABS: BASO # 0.1 K/uL (0.0-0.2); BASO % 0.8 % (0.0-2.0); EOS # 0.4 K/uL (0.0-0.7); EOS % 5.4 % (0.0-4.0); HEMOGLOBIN 11.3 g/dL (11.0-16.0); LYMPH # 2.4 K/uL (1.0-4.3); LYMPH % 30.1 % (20.0-40.0); MEAN CELL VOLUME 81.1 fL (81.0-99.0); MEAN CORPUSCULAR HEMOGLOBIN 26.5 pg (27.0-31.0); MEAN CORPUSCULAR HGB CONC 32.7 g/dL (33.0-37.0); MEAN PLATELET VOLUME 8.7 fL (7.2-11.7); MONO # 0.7 K/uL (0.0-0.8); MONO % 8.9 % (0.0-10.0); NEUT # 4.3 K/uL (1.8-7.0); NEUT % 54.8 % (50.0-75.0); NRBC % 0.1 % (0.0-2.0); RBC 4.26 Mil/uL (3.80-5.20); RED CELL DISTRIBUTION WIDTH 15.8 % (11.5-14.5); WHITE BLOOD COUNT 7.9 K/uL (4.8-10.8)
[2017-05-10] MEDS: (Novolin R) Insulin Human Regular 100 units/ml vial SC SCH ×4 (07:50→22:00)
[2017-05-10] MEDS: Fluticasone-Salmeterol 500-50mcg Diskus INH SCH ×2 (08:01→19:52)
[2017-05-10 08:12] LABS: ALT/SGPT 27 U/L (9-52); AST/SGOT 16 U/L (14-36); BLOOD UREA NITROGEN 18 mg/dL (7-17); CALCIUM 8.5 mg/dl (8.6-10.4); GFR AFRICAN-AMERICAN > 60; GFR NON-AFRICAN AMERICAN > 60
--- NOTE | 2017-05-10 10:16 | CP.PCM.PN ---
<Aracely Mckinney - Last Filed: 05/10/17 14:30> Subjective - Date & Time of Evaluation Date of Evaluation: 05/10/17 Time of Evaluation: 10:16 - Subjective Subjective: Medicine progress note for Dr. Santos's service Patient was seen and examined at bedside in no acute distress. Patient sitting comfortably in chair. Patient reports feeling well and has no complaints. Patient is still asking when she can go home. Patient currently denies chest pain, abdominal pain, shortness of breath, nausea, vomiting, fevers, headaches, dysuria, constipation/diarrhea, and leg pain. Objective - Vital Signs/Intake and Output Vital Signs (last 24 hours): Temp Pulse Resp BP Pulse Ox 98.1 F 78 20 121/76 95 05/10/17 07:20 05/10/17 08:00 05/10/17 07:20 05/10/17 09:37 05/10/17 07:20 Intake and Output: 05/10/17 05/10/17 06:59 18:59 Intake Total 50 Balance 50 - Medications Medications: Current Medications Albuterol/Ipratropium (Duoneb 3 Mg/0.5 Mg (3 Ml) Ud) 3 ml INH RQ6 [facility] Last Admin: 05/10/17 08:00 Dose: 3 ml Aspirin (Aspirin Chewable) 81 mg PO DAILY [facility] Last Admin: 05/10/17 09:38 Dose: 81 mg Famotidine (Pepcid) 20 mg PO DAILY [facility] Last Admin: 05/10/17 09:38 Dose: 20 mg Furosemide (Lasix) 20 mg PO DAILY [facility] Last Admin: 05/10/17 09:37 Dose: 20 mg Heparin Sodium (Porcine) (Heparin) 5,000 units SC Q8 [facility] Last Admin: 05/10/17 05:32 Dose: 5,000 units Meropenem 1 gm/ Sodium (Chloride) 100 mls @ 100 mls/hr IVPB Q12H [facility] Last Admin: 05/10/17 05:32 Dose: 100 mls/hr Insulin Human Regular (Novolin R) 0 unit SC ACHS [facility] PRN Reason: Protocol Last Admin: 05/10/17 07:50 Dose: Not Given Levothyroxine Sodium (Synthroid) 125 mcg PO DAILY@0630 [facility] Last Admin: 05/10/17 05:32 Dose: 125 mcg Losartan Potassium (Cozaar) 50 mg PO DAILY [facility] Last Admin: 05/05/17 11:03 Dose: Not Given Metformin HCl (Glucophage) 500 mg PO BID [facility] Last Admin: 05/10/17 09:38 Dose: 500 mg Ondansetron HCl (Zofran Inj) 4 mg IVP Q6 PRN PRN Reason: Nausea/Vomiting Last Admin: 05/09/17 06:36 Dose: 4 mg Fluticasone/Salmeterol (Advair Diskus 500/50) 1 puff INH RQ12 [facility] Last Admin: 05/10/17 08:01 Dose: 1 puff Sodium Chloride (Sodium Chloride Tab) 2 gm PO Q8H [facility] Last Admin: 05/10/17 05:33 Dose: 2 gm Tiotropium [place] (Spiriva) 18 mcg INH RQ24 [facility] Last Admin: 05/09/17 07:19 Dose: 18 mcg - Labs Labs: 05/10/17 06:52 05/10/17 06:52 PT 12.1 SECONDS (9.7-12.2) 05/04/17 10:49 INR 1.1 05/04/17 10:49 APTT 28 SECONDS (21-34) 05/04/17 10:49 - Additional Findings Additional findings: - Constitutional Appears: No Acute Distress - Head Exam Head Exam: ATRAUMATIC, NORMAL INSPECTION - Eye Exam Eye Exam: EOMI, Normal appearance - ENT Exam ENT Exam: Mucous Membranes Moist - Respiratory Exam Respiratory Exam: Wheezes, NORMAL BREATHING PATTERN - Cardiovascular Exam Cardiovascular Exam: REGULAR RHYTHM, +S1, +S2 - GI/Abdominal Exam GI & Abdominal Exam: Soft, Normal Bowel Sounds. absent: Tenderness - Extremities Exam Extremities Exam: Normal Inspection - Neurological Exam Neurological Exam: Alert, Awake, Oriented x3 - Psychiatric Exam Psychiatric exam: Normal Affect, Normal Mood - Skin Skin Exam: Normal Color, Warm Assessment and Plan - Assessment and Plan (Free Text) Plan: Urinary Tract Infection * UA: trace nitrates and LE, WBC 55, RBC 6, Bacteria (many) * Repeat UA: trace, high LE, WBC 45, Bacteria (few) * Urine cultures: Ecoli/ESBL+, Streptococcus viridans * ID consulted, Dr. Bruce, for UTI, Hx of multidrug resistant UTI * Urinalysis: negative * Continue Merem 1gm IV Q12h (active since 05/05/17--> last dose to be given on 05/11/17) * Repeat Urine cx (05/09/17): f/u results Headache * CT head negative for acute pathologies. * CTA Head/Neck negative. Vessels are widely patent. * Possibility of this being due to the hyponatremia considering that patient also complaining of dizziness and fatigue Hyponatremia * 122 on admission, trending up * Nephrology consult Dr. Snider, help appreciated * Continue salt tabs * Serum osmolality: 282 * Urine studies: at admission, followed by fluid challenge * urine osmolality 450--> 390 * urine creatinine 63.5 * urine sodium 61--> 25 * urine potassium 19.4--> 13.9 * Cortisol AM within normal range * Continue to monitor History of COPD * Duoneb Q6 [facility] * Advair 500/50 INH Q12 * Spiriva 18 mcg daily History of DM * Held Metformin * Regular ISS * Accuchecks * Hypoglycemic protocol History of HTN * Resume home Losartan 50 mg PO daily History of Hypothyroidism * Resume home Synthroid 125 mcg PO daily Prophylactic Measure * Diabetic Diet * Pepcid 20 mg PO BID * Heparin 5000 units SC Q8 * Influenza-negative * PT/OT * Contact precaution Discussed with Dr. Santos <Taco Santos - Last Filed: 05/10/17 15:27> Objective - Vital Signs/Intake and Output Vital Signs (last 24 hours): Temp Pulse Resp BP Pulse Ox 98.1 F 78 20 121/76 95 05/10/17 07:20 05/10/17 08:00 05/10/17 07:20 05/10/17 09:37 05/10/17 07:20 Intake and Output: 05/10/17 05/10/17 06:59 18:59 Intake Total 50 Balance 50 - Medications Medications: Current Medications Albuterol/Ipratropium (Duoneb 3 Mg/0.5 Mg (3 Ml) Ud) 3 ml INH RQ6 [facility] Last Admin: 05/10/17 13:47 Dose: 3 ml Aspirin (Aspirin Chewable) 81 mg PO DAILY [facility] Last Admin: 05/10/17 09:38 Dose: 81 mg Famotidine (Pepcid) 20 mg PO DAILY [facility] Last Admin: 05/10/17 09:38 Dose: 20 mg Furosemide (Lasix) 20 mg PO DAILY [facility] Last Admin: 05/10/17 09:37 Dose: 20 mg Heparin Sodium (Porcine) (Heparin) 5,000 units SC Q8 [facility] Last Admin: 05/10/17 13:29 Dose: 5,000 units Meropenem 1 gm/ Sodium (Chloride) 100 mls @ 100 mls/hr IVPB Q12H [facility] Last Admin: 05/10/17 05:32 Dose: 100 mls/hr Insulin Human Regular (Novolin R) 0 unit SC ACHS [facility] PRN Reason: Protocol Last Admin: 05/10/17 12:08 Dose: 4 unit Levothyroxine Sodium (Synthroid) 125 mcg PO DAILY@0630 [facility] Last Admin: 05/10/17 05:32 Dose: 125 mcg Losartan Potassium (Cozaar) 50 mg PO DAILY [facility] Last Admin: 05/05/17 11:03 Dose: Not Given Metformin HCl (Glucophage) 500 mg PO BID [facility] Last Admin: 05/10/17 09:38 Dose: 500 mg Ondansetron HCl (Zofran Inj) 4 mg IVP Q6 PRN PRN Reason: Nausea/Vomiting Last Admin: 05/09/17 06:36 Dose: 4 mg Fluticasone/Salmeterol (Advair Diskus 500/50) 1 puff INH RQ12 [facility] Last Admin: 05/10/17 08:01 Dose: 1 puff Sodium Chloride (Sodium Chloride Tab) 2 gm PO Q8H [facility] Last Admin: 05/10/17 12:12 Dose: 2 gm Tiotropium [place] (Spiriva) 18 mcg INH RQ24 [facility] Last Admin: 05/10/17 13:48 Dose: Not Given - Labs Labs: 05/10/17 06:52 05/10/17 06:52 PT 12.1 SECONDS (9.7-12.2) 05/04/17 10:49 INR 1.1 05/04/17 10:49 APTT 28 SECONDS (21-34) 05/04/17 10:49 Attending/Attestation - Attestation I have personally seen and examined this patient.: Yes I have fully participated in the care of the patient.: Yes I have reviewed all pertinent clinical information, including history, physical exam and plan: Yes
[2017-05-10] MEDS: Tiotropium 18 mcg Cap For Inhalation INH SCH (13:48)
--- NOTE | 2017-05-10 21:25 | CP.PCM.PN ---
Subjective - Date & Time of Evaluation Date of Evaluation: 05/10/17 Time of Evaluation: 11:40 - Subjective Subjective: Patient reports feeling well; tolerating diet; Objective - Vital Signs/Intake and Output Vital Signs (last 24 hours): Temp Pulse Resp BP Pulse Ox 98.0 F 109 H 20 123/83 95 05/10/17 16:24 05/10/17 16:24 05/10/17 16:24 05/10/17 16:24 05/10/17 16:24 Intake and Output: 05/10/17 05/11/17 18:59 06:59 Intake Total 250 Balance 250 - Medications Medications: Current Medications Albuterol/Ipratropium (Duoneb 3 Mg/0.5 Mg (3 Ml) Ud) 3 ml INH RQ6 [facility] Last Admin: 05/10/17 19:52 Dose: 3 ml Aspirin (Aspirin Chewable) 81 mg PO DAILY [facility] Last Admin: 05/10/17 09:38 Dose: 81 mg Famotidine (Pepcid) 20 mg PO DAILY [facility] Last Admin: 05/10/17 09:38 Dose: 20 mg Furosemide (Lasix) 20 mg PO DAILY [facility] Last Admin: 05/10/17 09:37 Dose: 20 mg Heparin Sodium (Porcine) (Heparin) 5,000 units SC Q8 [facility] Last Admin: 05/10/17 13:29 Dose: 5,000 units Meropenem 1 gm/ Sodium (Chloride) 100 mls @ 100 mls/hr IVPB Q12H [facility] Last Admin: 05/10/17 19:26 Dose: 100 mls/hr Insulin Human Regular (Novolin R) 0 unit SC ACHS [facility] PRN Reason: Protocol Last Admin: 05/10/17 19:19 Dose: Not Given Levothyroxine Sodium (Synthroid) 125 mcg PO DAILY@0630 [facility] Last Admin: 05/10/17 05:32 Dose: 125 mcg Losartan Potassium (Cozaar) 50 mg PO DAILY [facility] Last Admin: 05/05/17 11:03 Dose: Not Given Metformin HCl (Glucophage) 500 mg PO BID [facility] Last Admin: 05/10/17 19:26 Dose: 500 mg Ondansetron HCl (Zofran Inj) 4 mg IVP Q6 PRN PRN Reason: Nausea/Vomiting Last Admin: 05/09/17 06:36 Dose: 4 mg Fluticasone/Salmeterol (Advair Diskus 500/50) 1 puff INH RQ12 [facility] Last Admin: 05/10/17 19:52 Dose: 1 puff Sodium Chloride (Sodium Chloride Tab) 2 gm PO Q8H [facility] Last Admin: 05/10/17 12:12 Dose: 2 gm Tiotropium [place] (Spiriva) 18 mcg INH RQ24 [facility] Last Admin: 05/10/17 13:48 Dose: Not Given - Labs Labs: 05/10/17 06:52 05/10/17 06:52 PT 12.1 SECONDS (9.7-12.2) 05/04/17 10:49 INR 1.1 05/04/17 10:49 APTT 28 SECONDS (21-34) 05/04/17 10:49 - Constitutional Appears: Non-toxic, No Acute Distress - Eye Exam Eye Exam: absent: Scleral icterus - Respiratory Exam Respiratory Exam: absent: Rales, Rhonchi, Respiratory Distress - Cardiovascular Exam Cardiovascular Exam: RRR, +S1, +S2 - GI/Abdominal Exam GI & Abdominal Exam: Soft. absent: Distended, Tenderness - Extremities Exam Additional comments: trace leg edema; - Neurological Exam Neurological Exam: Alert, Awake - Psychiatric Exam Psychiatric exam: Normal Mood. absent: Agitated - Skin Skin Exam: Warm. absent: Cyanosis Assessment and Plan (1) Hyponatremia Assessment & Plan: Slightly worsened; emphasized to patient need for PO fluid restriction; continue salt tabs and lasix 20 mg PO daily; Status: Acute (2) Hypertension Assessment & Plan: BP controlled off losartan (only on lasix 20 mg daily); continue same; checking urine microalbumin and creatinine to see if ARB/ARLETTE inhibitor needed; Status: Chronic
[2017-05-11] MEDS: Albuterol-Ipratrop 3 mg / 0.5 (3 ml) UD INH SCH ×3 (02:10→13:34)
[2017-05-11] MEDS: Meropenem 1 GM in Sodium Chloride 0.9% 100 ML IVPB SCH (05:53)
[2017-05-11] MEDS: Levothyroxine 125 MCG TAB PO SCH (05:54)
[2017-05-11] MEDS: Fluticasone-Salmeterol 500-50mcg Diskus INH SCH (07:13)
[2017-05-11] MEDS: Tiotropium 18 mcg Cap For Inhalation INH SCH (07:13)
[2017-05-11 07:36] LABS: BASO # 0.1 K/uL (0.0-0.2); BASO % 0.8 % (0.0-2.0); EOS # 0.3 K/uL (0.0-0.7); EOS % 4.7 % (0.0-4.0); HEMOGLOBIN 11.3 g/dL (11.0-16.0); LYMPH % 26.7 % (20.0-40.0); MEAN CELL VOLUME 81.3 fL (81.0-99.0); MEAN CORPUSCULAR HEMOGLOBIN 27.3 pg (27.0-31.0); MEAN CORPUSCULAR HGB CONC 33.6 g/dL (33.0-37.0); MEAN PLATELET VOLUME 8.9 fL (7.2-11.7); MONO # 0.6 K/uL (0.0-0.8); MONO % 7.4 % (0.0-10.0); NEUT # 4.5 K/uL (1.8-7.0); NEUT % 60.4 % (50.0-75.0); RBC 4.13 Mil/uL (3.80-5.20); RED CELL DISTRIBUTION WIDTH 15.5 % (11.5-14.5); WHITE BLOOD COUNT 7.5 K/uL (4.8-10.8)
[2017-05-11 07:44] VITALS: BP 115/67; TEMP 98.6
[2017-05-11 08:14] LABS: ALB/GLOB RATIO 1.1 (1.0-2.1); ALBUMIN 2.9 g/dL (3.5-5.0); ALT/SGPT 24 U/L (9-52); AST/SGOT 19 U/L (14-36); BLOOD UREA NITROGEN 16 mg/dL (7-17); CALCIUM 8.5 mg/dl (8.6-10.4); GFR AFRICAN-AMERICAN > 60; GFR NON-AFRICAN AMERICAN > 60
[2017-05-11] MEDS: (Novolin R) Insulin Human Regular 100 units/ml vial SC SCH ×2 (08:25→12:45)
[2017-05-11 08:49] VITALS: PULSE 88
--- NOTE | 2017-05-11 10:05 | CP.PCM.DIS ---
<MeryAracely prado Andrew - Last Filed: 05/11/17 16:59> Provider - Provider Date of Admission: 05/06/17 15:00 Attending physician: Taco Santos DO Consults: ID: Dr. Bruce Nephrology: Dr. Snider Time Spent in preparation of Discharge (in minutes): 45 Hospital Course - Lab Results Lab Results: Micro Results 05/05/17 12:21 Blood-Venous Blood Culture - Final NO GROWTH AFTER 5 DAYS 05/05/17 12:21 Blood-Venous Gram Stain - Final TEST NOT PERFORMED 05/05/17 13:44 Blood-Venous Blood Culture - Final NO GROWTH AFTER 5 DAYS 05/05/17 13:44 Blood-Venous Gram Stain - Final TEST NOT PERFORMED 05/09/17 12:33 Urine,Clean Catch Urine Culture - Final Gram Positive Cocci 05/05/17 13:45 Urine,Clean Catch Urine Culture - Final Escherichia Coli Streptococcus Viridans 05/04/17 17:06 Urine Urine Culture - Final Escherichia Coli Most Recent Lab Values WBC 7.5 K/uL (4.8-10.8) 05/11/17 07:18 RBC 4.13 Mil/uL (3.80-5.20) 05/11/17 07:18 Hgb 11.3 g/dL (11.0-16.0) 05/11/17 07:18 Hct 33.6 % (34.0-47.0) L 05/11/17 07:18 MCV 81.3 fL (81.0-99.0) 05/11/17 07:18 MCH 27.3 pg (27.0-31.0) 05/11/17 07:18 MCHC 33.6 g/dL (33.0-37.0) 05/11/17 07:18 RDW 15.5 % (11.5-14.5) H 05/11/17 07:18 Plt Count 252 K/uL (130-400) 05/11/17 07:18 MPV 8.9 fL (7.2-11.7) 05/11/17 07:18 Neut % (Auto) 60.4 % (50.0-75.0) 05/11/17 07:18 Lymph % (Auto) 26.7 % (20.0-40.0) 05/11/17 07:18 Owen % (Auto) 7.4 % (0.0-10.0) 05/11/17 07:18 Eos % (Auto) 4.7 % (0.0-4.0) H 05/11/17 07:18 Baso % (Auto) 0.8 % (0.0-2.0) 05/11/17 07:18 Neut # (Auto) 4.5 K/uL (1.8-7.0) 05/11/17 07: Lymph # (Auto) 2.0 K/uL (1.0-4.3) 05/11/17 07:18 Owen # (Auto) 0.6 K/uL (0.0-0.8) 05/11/17: Eos # (Auto) 0.3 K/uL (0.0-0.7) 05/11/17 07: Baso # (Auto) 0.1 K/uL (0.0-0.2) 05/11/17 07:18 Neutrophils % (Manual) 72 % (50-75) 05/04/17 10:49 Band Neutrophils % 7 % (0-2) H 05/04/17 10:49 Lymphocytes % (Manual) 8 % (20-40) L 05/04/17 10:49 Reactive Lymphs % 1 % (0-0) H 05/04/17 10:49 Monocytes % (Manual) 12 % (0-10) H 05/04/17 10:49 Platelet Estimate Normal (NORMAL) 05/04/17 10:49 Poikilocytosis (manual Slight 05/04/17 10:49 Anisocytosis (manual) Slight 05/04/17 10:49 Ovalocytes Slight 05/04/17 10:49 ESR 16 mm/hr (0-20) 05/08/17 08:38 PT 12.1 SECONDS (9.7-12.2) 05/04/17 10:49 INR 1.1 05/04/17 10:49 APTT 28 SECONDS (21-34) 05/04/17 10:49 Sodium 128 mmol/L (132-148) L 05/11/17 07:18 Potassium 4.0 mmol/L (3.6-5.2) 05/11/17 07:18 Chloride 91 mmol/L (98-107) L 05/11/17 07:18 Carbon Dioxide 30 mmol/L (22-30) 05/11/17 07:18 Anion Gap 11 (10-20) 05/11/17 07:18 BUN 16 mg/dL (7-17) 05/11/17 07:18 Creatinine 0.7 mg/dL (0.7-1.2) 05/11/17 07:18 Est GFR ( Amer) > 60 05/11/17 07:18 Est GFR (Non-Af Amer) > 60 05/11/17 07:18 POC Glucose (mg/dL) 166 mg/dL (65-110) H 05/11/17 06:59 Random Glucose 173 mg/dL (65-105) H 05/11/17 07:18 Serum Osmolality 282 mosm/kg (272-300) 05/04/17 19:42 Uric Acid 4.8 mg/dL (2.2-7.5) 05/05/17 07:56 Calcium 8.5 mg/dl (8.6-10.4) L 05/11/17 07:18 Magnesium 1.6 mg/dL (1.6-2.3) 05/09/17 11:37 Total Bilirubin 0.5 mg/dL (0.2-1.3) 05/11/17 07:18 AST 19 U/L (14-36) 05/11/17 07:18 ALT 24 U/L (9-52) 05/11/17 07:18 Alkaline Phosphatase 52 U/L (38-126) 05/11/17 07:18 Total Creatine Kinase 22 U/L (30-135) L 05/04/17 10:49 Troponin I < 0.0120 ng/mL (0.00-0.120) 05/04/17 10:49 C-React Prot High Sens > 15.00 mg/L (1.00-3.00) H 05/08/17 13:25 Total Protein 5.7 g/dL (6.3-8.3) L 05/11/17 07:18 Albumin 2.9 g/dL (3.5-5.0) L 05/11/17 07:18 Globulin 2.8 gm/dL (2.2-3.9) 05/11/17 07:18 Albumin/Globulin Ratio 1.1 (1.0-2.1) 05/11/17 07:18 TSH 3rd Generation 0.93 mIU/L (0.46-4.68) 05/04/17 10:49 Cortisol AM Sample 13.4 ug/dL (4.46-22.7) 05/05/17 07:56 Urine Color Straw (YELLOW) 05/09/17 14:28 Urine Clarity Clear (Clear) 05/09/17 14:28 Urine pH 6.0 (5.0-8.0) 05/09/17 14:28 Ur Specific [place] 1.008 (1.003-1.030) 05/09/17 14:28 Urine Protein Negative mg/dL (NEGATIVE) 05/09/17 14:28 Urine Glucose (UA) Normal mg/dL (Normal) 05/09/17 14:28 Urine Ketones Negative mg/dL (NEGATIVE) 05/09/17 14:28 Urine Blood Negative (NEGATIVE) 05/09/17 14:28 Urine Nitrate Negative (NEGATIVE) 05/09/17 14:28 Urine Bilirubin Negative (NEGATIVE) 05/09/17 14:28 Urine Urobilinogen Normal mg/dL (0.2-1.0) 05/09/17 14:28 Ur Leukocyte Esterase Neg Daniella/uL (Negative) 05/09/17 14:28 Urine WBC (Auto) < 1 /hpf (0-5) 05/09/17 14:28 Urine RBC (Auto) < 1 /hpf (0-3) 05/09/17 14:28 Urine WBC Clumps (Auto) Mod /hpf (NONE) H 05/05/17 14:16 Ur Squamous Epith Cells 1 /hpf (0-5) 05/09/17 14:28 Urine Bacteria Rare (<OCC) 05/05/17 14:16 Urine Osmolality 320 mosm/kg (300-1000) 05/06/17 13:52 Ur Random Creatinine 35.9 mg/dL 05/11/17 07:25 Ur Random Sodium 97 mmol/L 05/06/17 13:52 Ur Random Potassium 17.2 mmol/L 05/06/17 13:52 Urine Microalbumin < 6.0 mg/L (0.0-16.6) 05/11/17 07:25 Urine Chloride 54 mmol/L (32-290) 05/04/17 16:33 Influenza Typ A,B (EIA) Negative for flu a/b (NEGATIVE) 05/04/17 Unknown - Hospital Course Hospital Course: CC: Headache This is a 76 year old female with PMHx COPD, HTN, DM, Hypothyroidism, Gastritis who presents to the ED with complaint of severe throbbing headache in the right periorbital region that started suddenly at 7pm last night. Patient explained that her face felt hot. Patient admits that the pain has subsided about 30 minutes prior to encounter in the ED without additional medication. She had tried taking Tylenol early in the morning without relief. Nothing in particular seems to exacerbate or relieve the pain. Patient with dry cough during the past week. Patient was recently hospitalized one week ago for COPD exacerbation. Per the patients daughter, with whom she lives, the patient has been confused recently more than her baseline and has been experiencing increased urinary frequency. Per the daughter, patient urinates about 20 times daily and has to wear adult diapers at night. Patient denies dysuria or suprapubic pressure with urination. Patient admits to fatigue and dizziness. Denies changes in vision, blurred vision. PMHx: COPD, HTN, DM, Hypothyroidism, Gastritis PSH: Right TKA in 2006, Left TKA in 2011 Allergies: NKDA Social: denies tobacco or alcohol use, lives with daughter and ambulates with cane. Per the daughter, patient has extensive exposure of second hand smoke while she lived in [facility]. 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 Family Hx: Denies PMD: [facility] Home Meds: Albuterol inhaler, Metformin 500 mg PO BID, Losartan 50 mg PO daily, Synthroid 125 mcg PO daily, Breo, ASA 81 mg PO daily, Pepcid, Calcium Hospital Course: Patient was admitted on 05/04/17 for hyponatremia and right eye pain and headache. In the ED, labs were drawn, images taken, and medications given. Patient eye pain and headache resolved shortly before arraying to the ED. Head CT was negative for acute pathologies; CTA of the head and neck was also negative, only showed widely patent vessels. On admission, sodium was found to be 122. Nephrology was consulted, Dr. Snider. Patient was found to have urinalysis and urine culture positive for infection. ID, Dr. Bruce, was consulted. Patient was treated for ESBL positive and streptococcus viridians UTI with Merrem. Patient was started on salt tablets, and serum sodium continued to improve. Patient's history of COPD, DM, HTN and hypothyroidism were monitored and managed throughout hospital course. Patient had a repeat urinalysis which was negative for infection, and a repeat urine culture, which was positive likley due to contamination of strep viridians (<10,000 colonies). Patient completed 7 days of Merrem. Patient was seen and examined at bedside. Patient has no complaints and feels well. Patient is stable for discharge to home with antibiotics (Augmentin) for one week. Patient must follow up with their PMD within 1-2 weeks of discharge. This is a brief summary of the hospital course. Please see EMR for more details. Discharge Exam - Head Exam Head Exam: ATRAUMATIC, NORMAL INSPECTION - Eye Exam Eye Exam: EOMI, Normal appearance - ENT Exam ENT Exam: Mucous Membranes Moist - Respiratory Exam Respiratory Exam: Clear to PA & Lateral, NORMAL BREATHING PATTERN, UNREMARKABLE. absent: Rales, Rhonchi, Wheezes, Respiratory Distress - Cardiovascular Exam Cardiovascular Exam: REGULAR RHYTHM, +S1, +S2 - GI/Abdominal Exam GI & Abdominal Exam: Normal Bowel Sounds, Unremarkable. absent: Distended, Firm , Rigid, Soft, Tenderness - Extremities Exam Extremities exam: normal inspection - Neurological Exam Neurological exam: Alert - Psychiatric Exam Psychiatric exam: Normal Affect, Normal Mood - Skin Skin Exam: Dry, Intact, Normal Color, Warm Discharge Plan - Discharge Medications Prescriptions: Amoxicillin/Clavulanate [Augmentin 875 MG-125 MG] 1 tab PO BID #14 tab - Follow Up Plan Condition: GOOD Disposition: HOME/ ROUTINE Instructions: Amoxicillin/Clavulanate Potassium (By mouth), Hyponatremia (DC), Hyponatremia (GEN) Additional Instructions: Patient is stable for discharge to home. Patient must continue home medications. Patient take new medication as prescribed: Augmentin 875-125mg PO BID- take 1 tablet with yogurt twice a day for 7 days. Patient must follow up with PMD within 1-2 weeks of discharge. If symptoms worsen or reoccur, patient should return to the ED. Referrals: Gely Ness MD [Staff Provider] - <Taco Santos - Last Filed: 05/12/17 12:39> Provider - Provider Date of Admission: 05/06/17 15:00 Attending physician: Taco Santos DO Hospital Course - Lab Results Lab Results: Micro Results 05/05/17 12:21 Blood-Venous Blood Culture - Final NO GROWTH AFTER 5 DAYS 05/05/17 12:21 Blood-Venous Gram Stain - Final TEST NOT PERFORMED 05/05/17 13:44 Blood-Venous Blood Culture - Final NO GROWTH AFTER 5 DAYS 05/05/17 13:44 Blood-Venous Gram Stain - Final TEST NOT PERFORMED 05/09/17 12:33 Urine,Clean Catch Urine Culture - Final Gram Positive Cocci 05/05/17 13:45 Urine,Clean Catch Urine Culture - Final Escherichia Coli Streptococcus Viridans 05/04/17 17:06 Urine Urine Culture - Final Escherichia Coli Most Recent Lab Values WBC 7.5 K/uL (4.8-10.8) 05/11/17 07:18 RBC 4.13 Mil/uL (3.80-5.20) 05/11/17 07:18 Hgb 11.3 g/dL (11.0-16.0) 05/11/17 07:18 Hct 33.6 % (34.0-47.0) L 05/11/17 07:18 MCV 81.3 fL (81.0-99.0) 05/11/17 07:18 MCH 27.3 pg (27.0-31.0) 05/11/17 07:18 MCHC 33.6 g/dL (33.0-37.0) 05/11/17 07:18 RDW 15.5 % (11.5-14.5) H 05/11/17 07:18 Plt Count 252 K/uL (130-400) 05/11/17 07:18 MPV 8.9 fL (7.2-11.7) 05/11/17 07:18 Neut % (Auto) 60.4 % (50.0-75.0) 05/11/17 07:18 Lymph % (Auto) 26.7 % (20.0-40.0) 05/11/17 07:18 Owen % (Auto) 7.4 % (0.0-10.0) 05/11/17 07:18 Eos % (Auto) 4.7 % (0.0-4.0) H 05/11/17 07:18 Baso % (Auto) 0.8 % (0.0-2.0) 05/11/17 07:18 Neut # (Auto) 4.5 K/uL (1.8-7.0) 05/11/17 07:18 Lymph # (Auto) 2.0 K/uL (1.0-4.3) 05/11/17 07:18 Owen # (Auto) 0.6 K/uL (0.0-0.8) 05/11/17 07:18 Eos # (Auto) 0.3 K/uL (0.0-0.7) 05/11/17 07:18 Baso # (Auto) 0.1 K/uL (0.0-0.2) 05/11/17 07:18 Neutrophils % (Manual) 72 % (50-75) 05/04/17 10:49 Band Neutrophils % 7 % (0-2) H 05/04/17 10:49 Lymphocytes % (Manual) 8 % (20-40) L 05/04/17 10:49 Reactive Lymphs % 1 % (0-0) H 05/04/17 10:49 Monocytes % (Manual) 12 % (0-10) H 05/04/17 10:49 Platelet Estimate Normal (NORMAL) 05/04/17 10:49 Poikilocytosis (manual Slight 05/04/17 10:49 Anisocytosis (manual) Slight 05/04/17 10:49 Ovalocytes Slight 05/04/17 10:49 ESR 16 mm/hr (0-20) 05/08/17 08:38 PT 12.1 SECONDS (9.7-12.2) 05/04/17 10:49 INR 1.1 05/04/17 10:49 APTT 28 SECONDS (21-34) 05/04/17 10:49 Sodium 128 mmol/L (132-148) L 05/11/17 07:18 Potassium 4.0 mmol/L (3.6-5.2) 05/11/17 07:18 Chloride 91 mmol/L (98-107) L 05/11/17 07:18 Carbon Dioxide 30 mmol/L (22-30) 05/11/17 07:18 Anion Gap 11 (10-20) 05/11/17 07:18 BUN 16 mg/dL (7-17) 05/11/17 07:18 Creatinine 0.7 mg/dL (0.7-1.2) 05/11/17 07:18 Est GFR ( Amer) > 60 05/11/17 07:18 Est GFR (Non-Af Amer) > 60 05/11/17 07:18 POC Glucose (mg/dL) 122 mg/dL (65-110) H 05/11/17 11:20 Random Glucose 173 mg/dL (65-105) H 05/11/17 07:18 Serum Osmolality 282 mosm/kg (272-300) 05/04/17 19:42 Uric Acid 4.8 mg/dL (2.2-7.5) 05/05/17 07:56 Calcium 8.5 mg/dl (8.6-10.4) L 05/11/17 07:18 Magnesium 1.6 mg/dL (1.6-2.3) 05/09/17 11:37 Total Bilirubin 0.5 mg/dL (0.2-1.3) 05/11/17 07:18 AST 19 U/L (14-36) 05/11/17 07:18 ALT 24 U/L (9-52) 05/11/17 07:18 Alkaline Phosphatase 52 U/L (38-126) 05/11/17 07:18 Total Creatine Kinase 22 U/L (30-135) L 05/04/17 10:49 Troponin I < 0.0120 ng/mL (0.00-0.120) 05/04/17 10:49 C-React Prot High Sens > 15.00 mg/L (1.00-3.00) H 05/08/17 13:25 Total Protein 5.7 g/dL (6.3-8.3) L 05/11/17 07:18 Albumin 2.9 g/dL (3.5-5.0) L 05/11/17 07:18 Globulin 2.8 gm/dL (2.2-3.9) 05/11/17 07:18 Albumin/Globulin Ratio 1.1 (1.0-2.1) 05/11/17 07:18 TSH 3rd Generation 0.93 mIU/L (0.46-4.68) 05/04/17 10:49 Cortisol AM Sample 13.4 ug/dL (4.46-22.7) 05/05/17 07:56 Urine Color Straw (YELLOW) 05/09/17 14:28 Urine Clarity Clear (Clear) 05/09/17 14:28 Urine pH 6.0 (5.0-8.0) 05/09/17 14:28 Ur Specific [place] 1.008 (1.003-1.030) 05/09/17 14:28 Urine Protein Negative mg/dL (NEGATIVE) 05/09/17 14:28 Urine Glucose (UA) Normal mg/dL (Normal) 05/09/17 14:28 Urine Ketones Negative mg/dL (NEGATIVE) 05/09/17 14:28 Urine Blood Negative (NEGATIVE) 05/09/17 14:28 Urine Nitrate Negative (NEGATIVE) 05/09/17 14: Urine Bilirubin Negative (NEGATIVE) 05/09/17 14:28 Urine Urobilinogen Normal mg/dL (0.2-1.0) 05/09/17 14:28 Ur Leukocyte Esterase Neg Daniella/uL (Negative) 05/09/17 14:28 Urine WBC (Auto) < 1 /hpf (0-5) 05/09/17 14:28 Urine RBC (Auto) < 1 /hpf (0-3) 05/09/17 14:28 Urine WBC Clumps (Auto) Mod /hpf (NONE) H 05/05/17 14:16 Ur Squamous Epith Cells 1 /hpf (0-5) 05/09/17 14:28 Urine Bacteria Rare (<OCC) 05/05/17 14:16 Urine Osmolality 206 mosm/kg (300-1000) L 05/11/17 13:27 Ur Random Creatinine 35.9 mg/dL 05/11/17 07:25 Ur Random Sodium 51 mmol/L 05/11/17 13:27 Ur Random Potassium 15.9 mmol/L 05/11/17 13:27 Urine Microalbumin < 6.0 mg/L (0.0-16.6) 05/11/17 07:25 Urine Chloride 54 mmol/L (32-290) 05/04/17 16:33 Influenza Typ A,B (EIA) Negative for flu a/b (NEGATIVE) 05/04/17 Unknown Attending/Attestation - Attestation I have personally seen and examined this patient.: Yes I have fully participated in the care of the patient.: Yes I have reviewed all pertinent clinical information, including history, physical exam and plan: Yes Notes (Text): 05/12/17 12:39 Medical attending: Patient was seen and examined by me, we saw together the patient with the medical affairs director. I reviewed the above note by medical affairs director and agree Patient had a repeat urine culture done which showed that the he is POD coli had completely resolved. There is still a little bit of gram-positive infection but was less than 10,000 colony-forming units. Will let the patient be discharged today she'll need to take antibiotics for several more days. She explained to us that she's not having any abdominal pain, and she was no longer having any dysuria Usually one patient is here it's more respiratory difficulties however this time she has not had any difficulties breathing during this hospitalization. thank you Taco Santos
--- NOTE | 2017-05-11 20:49 | CP.PCM.PN ---
Objective - Vital Signs/Intake and Output Vital Signs (last 24 hours): Temp Pulse Resp BP Pulse Ox 98.6 F 88 20 115/67 95 05/11/17 07:20 05/11/17 07:30 05/11/17 07:20 05/11/17 09:00 05/11/17 07:20 Intake and Output: 05/11/17 05/12/17 18:59 06:59 Output Total 600 Balance -600 - Labs Labs: 05/11/17 07:18 05/11/17 07:18 PT 12.1 SECONDS (9.7-12.2) 05/04/17 10:49 INR 1.1 05/04/17 10:49 APTT 28 SECONDS (21-34) 05/04/17 10:49 Assessment and Plan (1) Hyponatremia Status: Acute (2) Hypertension Status: Chronic
== END 2017-05-11 15:00 | disposition home or self-care (01) | DRG 296 ==
LOC: C.ER 09:49 → C.9E 13:39 → C.6T 14:30 → C.9E 14:36 → C.5S 18:45 → OBSVTOIN 05-06 15:00
PROVIDERS: ADMIT Hospitalist; ATTEND Hospitalist
DX: E87.1 Hypo-osmolality and hyponatremia (principal); R32 Unspecified urinary incontinence; E86.9 Volume depletion, unspecified; E11.9 Type 2 diabetes mellitus without complications; R13.10 Dysphagia, unspecified; J44.9 Chronic obstructive pulmonary disease, unspecified; N39.0 Urinary tract infection, site not specified; E03.9 Hypothyroidism, unspecified; I10 Essential (primary) hypertension; R29.6 Repeated falls; Z79.84 Long term (current) use of oral hypoglycemic drugs; Z91.81 History of falling; Z68.39 Body mass index [BMI] 39.0-39.9, adult

== ENCOUNTER 2017-10-19 08:25 | Observation (INO) | payer SELFPAY ==
[2017-10-19 08:28] VITALS: BMI 39.6
[2017-10-19] MEDS ORDERED: Albuterol-Ipratrop 3 mg / 0.5 (3 ml) UD ONE (08:46)
[2017-10-19] MEDS ORDERED: Albuterol-Ipratrop 3 mg / 0.5 (3 ml) UD INH STA ×2 (08:50→13:47)
[2017-10-19 09:19] LABS: BASO # 0.1 K/uL (0.0-0.2); EOS # 0.6 K/uL (0.0-0.7); EOS % 5.8 % (0.0-4.0); LYMPH % 21.2 % (20.0-40.0); MEAN CELL VOLUME 79.6 fL (81.0-99.0); MEAN CORPUSCULAR HEMOGLOBIN 26.5 pg (27.0-31.0); MEAN CORPUSCULAR HGB CONC 33.3 g/dL (33.0-37.0); MEAN PLATELET VOLUME 8.9 fL (7.2-11.7); MONO # 0.8 K/uL (0.0-0.8); MONO % 8.5 % (0.0-10.0); NEUT # 6.1 K/uL (1.8-7.0); NEUT % 63.5 % (50.0-75.0); RBC 4.52 Mil/uL (3.80-5.20); RED CELL DISTRIBUTION WIDTH 15.2 % (11.5-14.5); WHITE BLOOD COUNT 9.7 K/uL (4.8-10.8)
--- NOTE | 2017-10-19 09:48 | C.PDOC ---
History Of Present Illness 77yo female, with history of COPD, comes to ER with complaints of shortness of breath for the past couple days. She reports associated productive cough with clear phlegm. Patient denies any associated chest pain, fever, chills, vomiting , and offers no other complaints. Time Seen by Provider: 10/19/17 08:38 Chief Complaint (Nursing): Shortness Of Breath History Per: Patient History/Exam Limitations: no limitations Onset/Duration Of Symptoms: Days Current Symptoms Are (Timing): Still Present Associated Symptoms: Productive Cough. denies: Fever, Chills, Sweating, Chest Pain, Bloody Cough, Heart Racing, Leg/Calf Pain, Ankle/Leg Swelling, Dizziness, Light-headedness, Anxiety, Tingling In Hands Or Face, Musle Spasms In Hands Or Feet Past Medical History Reviewed: Historical Data, Nursing Documentation, Vital Signs Vital Signs: Last Vital Signs Temp 98.8 F 10/19/17 08:28 Pulse 98 H 10/19/17 11:11 Resp 17 10/19/17 11:11 BP 119/65 10/19/17 11:11 Pulse Ox 93 L 10/19/17 11:43 - Medical History PMH: Arthritis (KNEES), COPD, Fractures (6 years ago. fx keft arm, and spine), Gastritis, HTN, Hypothyroidism, Osteoporosis, Parkinson's Disease, Peripheral Edema, Pneumonia Denies: Chronic Kidney Disease Surgical History: Cholecystectomy - [facility] Procedures INSERTION OF INFUSION DEV INTO SUP VENA CAVA, PERC APPROACH (04/12/15) ULTRASONOGRAPHY OF RIGHT AND LEFT HEART, TRANSESOPHAGEAL (07/27/15) Family History: States: No Known Family Hx, Unknown Family Hx - Social History Hx Tobacco Use: No Hx Alcohol Use: No Hx Substance Use: No - Immunization History Hx Tetanus Toxoid Vaccination: No Hx Influenza Vaccination: No Hx Pneumococcal Vaccination: Yes Review Of Systems Except As Marked, All Systems Reviewed And Found Negative. Constitutional: Negative for: Fever, Chills Cardiovascular: Negative for: Chest Pain Respiratory: Positive for: Cough, Shortness of Breath, Sputum Gastrointestinal: Negative for: Vomiting Neurological: Negative for: Weakness Physical Exam - Physical Exam Appears: Non-toxic Skin: Normal Color, Warm, Dry Head: Atraumatic, Normacephalic Eye(s): bilateral: Normal Inspection Neck: Normal ROM, Supple Chest: Symmetrical Cardiovascular: Rhythm Regular Respiratory: No Accessory Muscle Use, No Rales, Rhonchi, Wheezing Gastrointestinal/Abdominal: Normal Exam, Soft, No Tenderness Extremity: Normal ROM, No Pedal Edema Neurological/Psych: Oriented x3 ED Course And Treatment - Laboratory Results Result Diagrams: 10/19/17 09:06 10/19/17 09:06 ECG: Interpreted By Me, Viewed By Me ECG Rhythm: Sinus Rhythm Interpretation Of ECG: Normal intervals, normal axis. No ST/T wave changes Rate From EC O2 Sat by Pulse Oximetry: 93 (RA) - Other Rad CXR X-Ray: Viewed By Me, Read By Radiologist Interpretation: FINDINGS: LUNGS: Clear. PLEURA: No pneumothorax or pleural fluid seen. CARDIOVASCULAR: Normal. OSSEOUS STRUCTURES: No significant abnormalities. VISUALIZED UPPER ABDOMEN: Normal. OTHER FINDINGS: None. IMPRESSION: No active disease. Medical Decision Making Medical Decision Making: Impression: COPD exacerbation Plan: -- CXR -- Labs -- Urinalysis -- Solumedrol 125mg IVP -- Duoneb 3ml INH copd/uti- patient with ongoing symptoms. Discussed with hospitalist and will admit to tele observation. Patient informed of work up and results. Disposition Discussed With Dr.: Renzo Elam Doctor Will See Patient In The: Hospital Counseled Patient/Family Regarding: Studies Performed, Diagnosis - Disposition Disposition: HOSPITALIZED Disposition Time: 12:17 Condition: FAIR Forms: [facility] (Khmer) - Clinical Impression Clinical Impression: COPD exacerbation, UTI (urinary tract infection) - Scribe Statement The provider has reviewed the documentation as recorded by the Bettina Friend Provider Attestation: All medical record entries made by the Bettina were at my direction and personally dictated by me. I have reviewed the chart and agree that the record accurately reflects my personal performance of the history, physical exam, medical decision making, and the department course for this patient. I have also personally directed, reviewed, and agree with the discharge instructions and disposition.
[2017-10-19 09:56] LABS: ALB/GLOB RATIO 1.3 (1.0-2.1); ALBUMIN 3.7 g/dL (3.5-5.0); ALT/SGPT 20 U/L (9-52); AST/SGOT 21 U/L (14-36); B-TYPE NATRIURETIC PEPTIDE 105 pg/mL (0-900); BLOOD UREA NITROGEN 14 mg/dL (7-17); CALCIUM 8.8 mg/dl (8.6-10.4); GFR AFRICAN-AMERICAN > 60; GFR NON-AFRICAN AMERICAN > 60
--- NOTE | 2017-10-19 11:23 | RAD ---
Date of service: 10/19/2017 PROCEDURE: CHEST RADIOGRAPH, 1 VIEW HISTORY: SOB COMPARISON: 05/04/2017 FINDINGS: LUNGS: Clear. PLEURA: No pneumothorax or pleural fluid seen. CARDIOVASCULAR: Normal. OSSEOUS STRUCTURES: No significant abnormalities. VISUALIZED UPPER ABDOMEN: Normal. OTHER FINDINGS: None. IMPRESSION: No active disease.
[2017-10-19 11:52] LABS: SQUAMOUS EPITHIAL 1 /hpf (0-5); URINE BACTERIA FEW (<OCC); URINE BILIRUBIN NEGATIVE (NEGATIVE); URINE BLOOD NEGATIVE (NEGATIVE); URINE CLARITY Hazy (Clear); URINE COLOR Yellow (YELLOW); URINE GLUCOSE (UA) NORMAL (Normal); URINE LEUKOCYTE ESTERASE 2+ Leu/uL (Negative); URINE PROTEIN NEGATIVE (NEGATIVE); URINE UROBILINOGEN NORMAL mg/dL (0.2-1.0)
[2017-10-19] MEDS ORDERED: Azithromycin 500 MG in Sodium Chloride 0.9% 250 ML IVPB STA (12:14)
[2017-10-19] MEDS ORDERED: cefTRIAXone IV 1 gm in Dextros 50 ML IVPB ONE (13:10)
[2017-10-19] MEDS ORDERED: Glucagon Recombinant 1 mg Inj IM PRN (14:48)
[2017-10-19] MEDS ORDERED: Dextrose 50% SYRINGE Inj (50 ml) IV PRN (14:48)
--- NOTE | 2017-10-19 15:15 | CP.PCM.HP ---
<Shar Sarmiento - Last Filed: 10/19/17 20:36> History of Present Illness - History of Present Illness History of Present Illness: CC "shortness of breath, cough" HPI: Patient is a 77 year old female with past medical history of COPD , diabetes, hypertension, hypothyroidism, GERD who presents for shortness of breath and cough productive of white sputum that began yesterday, as per daughter Gricelda. Patient was reportedly feeling tired and weak 2 days ago as well. As per patient, she has had similar symptoms in the past which is typical of COPD exacerbation. She states her symptoms typically improve when she is able to expectorate and worsens when she lies down. She admits she coughed a lot last night, however was eventually able to sleep. Admits to associated chest pain when she coughs, denies chest pain at rest. She denies using oxygen at home, or using CPAP at home. She ambulates with a cane, wears adult diapers, however is able to walk to the bathroom as well. As per daughter, she changes her diapers 4 times a day, and 2 times at night. She admits to history of bilateral leg pain, but attributes to neuropathy. Uses hearing aides. States her appetite has been slightly decreased. She denies fevers, chills, diaphoresis , headaches, lightheadedness, dizziness, sore throat, dysphagia, changes in vision, palpitations, abdominal pain, nausea, vomiting, diarrhea, constipation , no blood in urine or stool, dysuria, urinary frequency, back pain, rash, bruising, bleeding, recent travel, recent sickness, sick contacts, weight changes. Code status: full code PMD: [facility] Health care proxy: Gricelda Felix [phone] PMH: COPD, diabetes, hypertension, GERD, hypothyroidism PSH: Bilateral total knee replacements, cholecystectomy, tummy tuck Social hx: denies history of tobacco, alcohol or illicit drug use. Lives with daughter and granddaughter in apartment. She has no pets, does not live in a carpeted area. Has hearing aides Family hx: Mother had breast cancer - in her 80s. Meds: Metformin 500mg BID, Losartan 50mg PO daily, Levothyroxine 125mcg, Ventolin twice a day in AM and PM, Breo in AM, Aspirin 81mg PO daily, Pepcid 20mg PO daily, Calcium Allergies: NKDA Present on Admission - Present on Admission Any Indicators Present on Admission: No Review of Systems - Constitutional Constitutional: Weakness. absent: Chills, Fever, Headache - EENT Eyes: absent: Blurred Vision, Change in Vision, Pain Ears: Abnormal Hearing (Hearing aides) Nose/Mouth/Throat: absent: Sore Throat - Cardiovascular Cardiovascular: Dyspnea. absent: Chest Pain at Rest, Diaphoresis, Palpitations - Respiratory Respiratory: Cough, Dyspnea. absent: Hemoptysis, Stridor - Gastrointestinal Gastrointestinal: absent: Abdominal Pain, Constipation, Diarrhea, Nausea, Vomiting - Genitourinary Genitourinary: Urinary Incontinence. absent: Dysuria, Flank Pain, Hematuria - Musculoskeletal Musculoskeletal: absent: Back Pain, Numbness, Stiffness, Tingling - Neurological Neurological: Abnormal Hearing. absent: Dizziness, Headaches Past Patient History - Infectious Disease Hx of Infectious Diseases: None - Tetanus Immunizations Tetanus Immunization: Unknown - Past Medical History & Family History Past Medical History?: Yes - Past Social History Smoking Status: Never Smoked - CARDIAC Hx Hypertension: Yes Hx Peripheral Edema: Yes - PULMONARY Hx Chronic Obstructive Pulmonary Disease (COPD): Yes Hx Pneumonia: Yes - NEUROLOGICAL Hx Parkinson's Disease: Yes - HEENT Hx HEENT Problems: Yes Hx Difficulty Chewing: Yes (tardive dyskinesia X 4 years) Other/Comment: wears glasses to read - RENAL Hx Chronic Kidney Disease: No - ENDOCRINE/METABOLIC Hx Hypothyroidism: Yes - HEMATOLOGICAL/ONCOLOGICAL Hx Blood Disorders: No Hx Blood Transfusions: No - INTEGUMENTARY Hx Dermatological Problems: No Other/Comment: surgical removal of subcutaneous fat after extreme weight loss - MUSCULOSKELETAL/RHEUMATOLOGICAL Hx Arthritis: Yes (KNEES) Hx Fractures: Yes (6 years ago. fx keft arm, and spine) Hx Osteoporosis: Yes - GASTROINTESTINAL Hx Gastritis: Yes - GENITOURINARY/GYNECOLOGICAL Hx Genitourinary Disorders: Yes Hx Urinary Tract Infection: Yes Other/Comment: incontinent - PSYCHIATRIC Hx Substance Use: No - SURGICAL HISTORY Hx Cholecystectomy: Yes - ANESTHESIA Hx Anesthesia: Yes Hx Anesthesia Reactions: Yes (neuro symptoms. 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.) Hx Malignant Hyperthermia: No Meds Allergies/Adverse Reactions: Allergies Allergy/AdvReac Type Severity Reaction Status Date / Time No Known Allergies Allergy Verified 10/19/17 08:27 Physical Exam - Constitutional Appears: Well, No Acute Distress - Head Exam Head Exam: ATRAUMATIC, NORMOCEPHALIC - Eye Exam Eye Exam: EOMI, PERRL - ENT Exam ENT Exam: Mucous Membranes Dry - Respiratory Exam Respiratory Exam: Decreased Breath Sounds, Wheezes (Poor air exchange throughout lungs). absent: Rales, Rhonchi, Stridor - Cardiovascular Exam Cardiovascular Exam: REGULAR RHYTHM, +S1, +S2. absent: JVD - GI/Abdominal Exam GI & Abdominal Exam: Normal Bowel Sounds, Soft (horizontal surgical scar on lower abdomen). absent: Distended, Firm, Guarding, Hernia Additional comments: Horizontal lower abdominal scar - Extremities Exam Extremities exam: Positive for: normal capillary refill, pedal edema (mild lymphedema. no pitting edema noted. ), tenderness (to anterior shins bilaterally. ), pedal pulses present Additional comments: Bilateral vertical surgical scar on knees, consistent with history of total knee replacement - Back Exam Back exam: absent: CVA tenderness (L), CVA tenderness (R), rash noted - Neurological Exam Neurological exam: Alert, CN II-XII Intact (Hearing aides ), Oriented x3 Results - Vital Signs Recent Vital Signs: Last Vital Signs Temp 98.8 F 10/19/17 08:28 Pulse 98 H 10/19/17 11:11 Resp 17 10/19/17 11:11 BP 119/65 10/19/17 11:11 Pulse Ox 93 L 10/19/17 12:18 - Labs Result Diagrams: 10/19/17 09:06 10/19/17 09:06 Labs: Laboratory Results - last 24 hr 10/19/17 10/19/17 10/19/17 09:06 09:06 11:37 WBC 9.7 RBC 4.52 Hgb 12.0 Hct 36.0 MCV 79.6 L MCH 26.5 L MCHC 33.3 RDW 15.2 H Plt Count 272 MPV 8.9 Neut % (Auto) 63.5 Lymph % (Auto) 21.2 [place] % (Auto) 8.5 Eos % (Auto) 5.8 H Baso % (Auto) 1.0 Neut # (Auto) 6.1 Lymph # (Auto) 2.0 [place] # (Auto) 0.8 Eos # (Auto) 0.6 Baso # (Auto) 0.1 Sodium 130 L Potassium 4.6 Chloride 92 L Carbon Dioxide 27 Anion Gap 16 BUN 14 Creatinine 0.7 Est GFR ( Amer) > 60 Est GFR (Non-Af Amer) > 60 Random Glucose 131 H Calcium 8.8 Magnesium 1.8 Total Bilirubin 0.5 AST 21 ALT 20 Alkaline Phosphatase 59 Troponin I < 0.0120 NT-Pro-B Natriuret Pep 105 Total Protein 6.7 Albumin 3.7 Globulin 2.9 Albumin/Globulin Ratio 1.3 Urine Color Yellow Urine Clarity Hazy Urine pH 5.0 Ur Specific [place] 1.009 Urine Protein Negative Urine Glucose (UA) Normal Urine Ketones Negative Urine Blood Negative Urine Nitrate Positive H Urine Bilirubin Negative Urine Urobilinogen Normal Ur Leukocyte Esterase 2+ H Urine WBC (Auto) 31 H Urine RBC (Auto) 1 Ur Squamous Epith Cells 1 Urine Bacteria Few H Assessment & Plan (1) COPD with exacerbation Status: Acute - Assessment and Plan (Free Text) Plan: Assessment/plan 1. Shortness of breath COPD exacerbation with bronchitis * In ED: patient received Duonebx1, Solumedrol 125mg IVP, Ceftriaxone 1g IV, and Azithromycin 500mg IV * Duonebs 3ml INH Q6 PRN SOB * Advair 250/50 1 puff inhaled Q12 hours * Solumedrol 40mg IV Q8 * Azithromycin 500mg IV Q daily * 10/19/17 CXR: no acute disease * 10/19/17: EKG NSR [address]-T changes. * Follow up on legionella, mycoplasma, strep pneumonia * Follow up on D-dimer; if positive, consider CT angio 2. Abnormal UA * History of urinary incontinence * Asymptomatic bacteruria, positive for nitrates, 2+ leuk esterase, WBC 31 * Not treating for UTI since patient is asymptomatic 3. Hyponatremia * Likely hypovolemic, dehydrated * Na 130 * Follow up on serum osmolarity, urine osmolarity, urine Na 4. History of diabetes * Metformin 500mg PO BID * Accuchecks QAC/HS * Hypoglycemic protocol * ASA 81mg PO daily * Follow up on A1c, lipid panel 5. Lower extremity edema, nonpitting * Follow up on venous doppler to rule out DVT 6. Hx of hypertension * Continue with Cozaar 50mg PO daily * ASA 81mg PO daily 7. Hx of hypothyroidism * Levothyroxine 125mcg PO daily 8. Hx of osteoporosis * Oscal 500mg PO daily 9. Prophylaxis * Lovenox 40mg SC daily * Protonix 40mg PO daily * Heart healthy diet, 2g Na, low carb * PT/OT evaluation * Fall precautions LILIANA Robledo Case discussed with Dr. Valentino <Lena Valentino V - Last Filed: 10/20/17 23:10> Results - Vital Signs Recent Vital Signs: Last Vital Signs Temp 98.1 F 10/20/17 07:30 Pulse 104 H 10/20/17 07:30 Resp 20 10/20/17 07:30 BP 131/79 10/20/17 07:30 Pulse Ox 96 10/20/17 07:30 - Labs Result Diagrams: 10/20/17 06:20 10/20/17 06:20 Labs: Laboratory Results - last 24 hr 10/19/17 10/19/17 10/19/17 12:18 16:53 21:26 WBC RBC Hgb Hct MCV MCH MCHC RDW Plt Count MPV Neut % (Auto) Lymph % (Auto) [place] % (Auto) Eos % (Auto) Baso % (Auto) Neut # (Auto) Lymph # (Auto) [place] # (Auto) Eos # (Auto) Baso # (Auto) Neutrophils % (Manual) Band Neutrophils % Lymphocytes % (Manual) Monocytes % (Manual) Toxic Granulation Platelet Estimate Anisocytosis (manual) Ovalocytes Sodium Potassium Chloride Carbon Dioxide Anion Gap BUN Creatinine Est GFR ( Amer) Est GFR (Non-Af Amer) POC Glucose (mg/dL) 233 H 181 H Random Glucose Hemoglobin A1c Calcium Phosphorus Magnesium Total Bilirubin AST ALT Alkaline Phosphatase Total Protein Albumin Globulin Albumin/Globulin Ratio Triglycerides Cholesterol LDL Cholesterol Direct HDL Cholesterol 25-OH Vitamin D Total Free T4 TSH 3rd Generation Urine Color Urine Clarity Urine pH Ur Specific [place] Urine Protein Urine Glucose (UA) Urine Ketones Urine Blood Urine Nitrate Urine Bilirubin Urine Urobilinogen Ur Leukocyte Esterase Urine WBC (Auto) Urine RBC (Auto) Ur Squamous Epith Cells Urine Bacteria Ur L.pneumophila Ag S. pneumoniae Antigen Negative 10/19/17 10/20/17 10/20/17 21:32 06:20 06:20 WBC 11.1 H RBC 4.44 Hgb 11.7 Hct 35.7 MCV 80.3 L MCH 26.3 L MCHC 32.7 L RDW 15.2 H Plt Count 271 MPV 8.9 Neut % (Auto) 90.1 H Lymph % (Auto) 7.0 L [place] % (Auto) 2.5 Eos % (Auto) 0.1 Baso % (Auto) 0.3 Neut # (Auto) 10.0 H Lymph # (Auto) 0.8 L [place] # (Auto) 0.3 Eos # (Auto) 0.0 Baso # (Auto) 0.0 Neutrophils % (Manual) 85 H Band Neutrophils % 9 H Lymphocytes % (Manual) 3 L Monocytes % (Manual) 3 Toxic Granulation Present Platelet Estimate Normal Anisocytosis (manual) Slight Ovalocytes Slight Sodium 131 L Potassium 4.6 Chloride 94 L Carbon Dioxide 28 Anion Gap 13 BUN 18 H Creatinine 0.7 Est GFR ( Amer) > 60 Est GFR (Non-Af Amer) > 60 POC Glucose (mg/dL) Random Glucose 229 H Hemoglobin A1c Calcium 8.7 Phosphorus 3.7 Magnesium 1.9 Total Bilirubin 0.3 AST 15 ALT 24 Alkaline Phosphatase 63 Total Protein 6.7 Albumin 3.9 Globulin 2.8 Albumin/Globulin Ratio 1.4 Triglycerides 62 Cholesterol 115 LDL Cholesterol Direct 59 HDL Cholesterol 36 25-OH Vitamin D Total Free T4 TSH 3rd Generation 0.21 L Urine Color Urine Clarity Urine pH Ur Specific [place] Urine Protein Urine Glucose (UA) Urine Ketones Urine Blood Urine Nitrate Urine Bilirubin Urine Urobilinogen Ur Leukocyte Esterase Urine WBC (Auto) Urine RBC (Auto) Ur Squamous Epith Cells Urine Bacteria Ur L.pneumophila Ag Negative S. pneumoniae Antigen 10/20/17 10/20/17 10/20/17 06:20 06:20 06:20 WBC RBC Hgb Hct MCV MCH MCHC RDW Plt Count MPV Neut % (Auto) Lymph % (Auto) [place] % (Auto) Eos % (Auto) Baso % (Auto) Neut # (Auto) Lymph # (Auto) [place] # (Auto) Eos # (Auto) Baso # (Auto) Neutrophils % (Manual) Band Neutrophils % Lymphocytes % (Manual) Monocytes % (Manual) Toxic Granulation Platelet Estimate Anisocytosis (manual) Ovalocytes Sodium Potassium Chloride Carbon Dioxide Anion Gap BUN Creatinine Est GFR ( Amer) Est GFR (Non-Af Amer) POC Glucose (mg/dL) Random Glucose Hemoglobin A1c 7.2 H Calcium Phosphorus Magnesium Total Bilirubin AST ALT Alkaline Phosphatase Total Protein Albumin Globulin Albumin/Globulin Ratio Triglycerides Cholesterol LDL Cholesterol Direct HDL Cholesterol 25-OH Vitamin D Total 29.6 L Free T4 1.38 TSH 3rd Generation Urine Color Urine Clarity Urine pH Ur Specific [place] Urine Protein Urine Glucose (UA) Urine Ketones Urine Blood Urine Nitrate Urine Bilirubin Urine Urobilinogen Ur Leukocyte Esterase Urine WBC (Auto) Urine RBC (Auto) Ur Squamous Epith Cells Urine Bacteria Ur L.pneumophila Ag S. pneumoniae Antigen 10/20/17 10/20/17 10/20/17 06:21 06:45 11:52 WBC RBC Hgb Hct MCV MCH MCHC RDW Plt Count MPV Neut % (Auto) Lymph % (Auto) [place] % (Auto) Eos % (Auto) Baso % (Auto) Neut # (Auto) Lymph # (Auto) [place] # (Auto) Eos # (Auto) Baso # (Auto) Neutrophils % (Manual) Band Neutrophils % Lymphocytes % (Manual) Monocytes % (Manual) Toxic Granulation Platelet Estimate Anisocytosis (manual) Ovalocytes Sodium Potassium Chloride Carbon Dioxide Anion Gap BUN Creatinine Est GFR ( Amer) Est GFR (Non-Af Amer) POC Glucose (mg/dL) 239 H 288 H Random Glucose Hemoglobin A1c Calcium Phosphorus Magnesium Total Bilirubin AST ALT Alkaline Phosphatase Total Protein Albumin Globulin Albumin/Globulin Ratio Triglycerides Cholesterol LDL Cholesterol Direct HDL Cholesterol 25-OH Vitamin D Total Free T4 TSH 3rd Generation Urine Color Yellow Urine Clarity Clear Urine pH 6.0 Ur Specific [place] 1.012 Urine Protein Negative Urine Glucose (UA) Normal Urine Ketones Negative Urine Blood Negative Urine Nitrate Negative Urine Bilirubin Negative Urine Urobilinogen Normal Ur Leukocyte Esterase Neg Urine WBC (Auto) < 1 Urine RBC (Auto) < 1 Ur Squamous Epith Cells < 1 Urine Bacteria Rare Ur L.pneumophila Ag S. pneumoniae Antigen Attending/Attestation - Attestation I have personally seen and examined this patient.: Yes I have fully participated in the care of the patient.: Yes I have reviewed all pertinent clinical information: Yes Notes (Text): This is late computer entry for 10/19/17. Patient seen, examined and case discussed with day-time resident. Patient seen in [facility] Bed 2 in the Emergency Room with daughter at bedside. Admitting orders, assessment and plan discussed with the resident at time of admission. Assessment/Plan 1. Shortness of breath COPD exacerbation with bronchitis * In ED: patient received Duonebx1, Solumedrol 125mg IVP, Ceftriaxone 1g IV, and Azithromycin 500mg IV * Duonebs 3ml INH Q6 PRN SOB * Advair 250/50 1 puff inhaled Q12 hours * Solumedrol 40mg IV Q8 * Azithromycin 500mg IV Q daily * 10/19/17 CXR: no acute disease * 10/19/17: EKG NSR [address]-T changes. * Follow up on legionella, mycoplasma, strep pneumonia * Follow up on D-dimer; if positive, consider CT angio 2. Abnormal UA Asymptomatic Bacturia * History of urinary incontinence; patient wears diapers at home * Patient's urine sample not clean catch. * Asymptomatic bacteruria, positive for nitrates, 2+ leuk esterase, WBC 31 * Not treating for UTI since patient is asymptomatic 3. Hyponatremia * Likely hypovolemic, dehydrated * Na 130 * Follow up on serum osmolarity, urine osmolarity, urine Na 4. History of diabetes * Metformin 500mg PO BID * Accuchecks QAC/HS * Hypoglycemic protocol * ASA 81mg PO daily * Follow up on A1c, lipid panel 5. Lower extremity edema, nonpitting * Follow up on venous doppler to rule out DVT 6. Hx of hypertension * Continue with Cozaar 50mg PO daily * ASA 81mg PO daily 7. Hx of hypothyroidism * Levothyroxine 125mcg PO daily 8. Hx of osteoporosis * Oscal 500mg PO daily 9. Prophylaxis * Lovenox 40mg SC daily * Protonix 40mg PO daily * Heart healthy diet, 2g Na, low carb * PT/OT evaluation * Fall precautions
[2017-10-19 16:07] VITALS: RESP 20
[2017-10-19] MEDS ORDERED: Iodixanol 320 MG/ML 100 ML BOTTLE IV ONE (21:52)
[2017-10-19] MEDS: MethylPREDNISolone 40 mg Vial IV SCH (21:56)
[2017-10-19 22:20] LABS: OSMOLALITY,URINE 334 mosm/kg (300-1000)
[2017-10-19] MEDS: Fluticasone-Salmeterol 250-50mcg Diskus INH SCH (23:55)
[2017-10-20] MEDS ORDERED: Albuterol-Ipratrop 3 mg / 0.5 (3 ml) UD INH STA (01:20)
[2017-10-20 04:53] VITALS: TEMP 98.1
[2017-10-20] MEDS: MethylPREDNISolone 40 mg Vial IV SCH (05:24)
[2017-10-20 06:30] LABS: BASO % 0.3 % (0.0-2.0); EOS % 0.1 % (0.0-4.0); HEMOGLOBIN 11.7 g/dL (11.0-16.0); LYMPH # 0.8 K/uL (1.0-4.3); MEAN CELL VOLUME 80.3 fL (81.0-99.0); MEAN CORPUSCULAR HEMOGLOBIN 26.3 pg (27.0-31.0); MEAN CORPUSCULAR HGB CONC 32.7 g/dL (33.0-37.0); MEAN PLATELET VOLUME 8.9 fL (7.2-11.7); MONO # 0.3 K/uL (0.0-0.8); MONO % 2.5 % (0.0-10.0); NEUT % 90.1 % (50.0-75.0); PLATELET COUNT 271 K/uL (130-400); RBC 4.44 Mil/uL (3.80-5.20); RED CELL DISTRIBUTION WIDTH 15.2 % (11.5-14.5); WHITE BLOOD COUNT 11.1 K/uL (4.8-10.8)
[2017-10-20] MEDS ORDERED: Levothyroxine 125 MCG TAB PO SCH (06:30)
[2017-10-20 06:49] LABS: ALB/GLOB RATIO 1.4 (1.0-2.1); ALBUMIN 3.9 g/dL (3.5-5.0); ALT/SGPT 24 U/L (9-52); AST/SGOT 15 U/L (14-36); BLOOD UREA NITROGEN 18 mg/dL (7-17); CALCIUM 8.7 mg/dl (8.6-10.4); GFR AFRICAN-AMERICAN > 60; GFR NON-AFRICAN AMERICAN > 60; HDL CHOLESTEROL 36 mg/dL (30-70)
[2017-10-20 06:56] LABS: LDL CHOLESTEROL 59 mg/dL (0-129)
[2017-10-20 07:11] LABS: SQUAMOUS EPITHIAL < 1 /hpf (0-5); URINE BACTERIA RARE (<OCC); URINE BILIRUBIN NEGATIVE (NEGATIVE); URINE BLOOD NEGATIVE (NEGATIVE); URINE CLARITY Clear (Clear); URINE COLOR Yellow (YELLOW); URINE GLUCOSE (UA) NORMAL (Normal); URINE LEUKOCYTE ESTERASE NEG Leu/uL (Negative); URINE PROTEIN NEGATIVE (NEGATIVE); URINE UROBILINOGEN NORMAL mg/dL (0.2-1.0)
[2017-10-20] MEDS: Fluticasone-Salmeterol 250-50mcg Diskus INH SCH (07:20)
[2017-10-20 08:56] VITALS: BP 131/79; PULSE 104; O2SAT 96
[2017-10-20 09:21] LABS: BANDS 9 % (0-2); LYMPHOCYTE 3 % (20-40); MONOCYTE 3 % (0-10); NEUTROPHIL 85 % (50-75); TOTAL CELLS COUNTED 100
[2017-10-20 09:22] LABS: ANISOCYTOSIS SLIGHT; OVALOCYTES SLIGHT; PLATELET ESTIMATE NORMAL (NORMAL)
[2017-10-20 09:23] LABS: TOXIC GRANULATION PRESENT
[2017-10-20] MEDS ORDERED: Azithromycin 500 MG in Sodium Chloride 0.9% 250 ML IVPB SCH (10:00)
[2017-10-20] MEDS ORDERED: Enoxaparin 40 mg Syringe SC SCH (10:00)
--- NOTE | 2017-10-20 10:04 | CP.PCM.PN ---
Subjective - Date & Time of Evaluation Date of Evaluation: 10/20/17 Time of Evaluation: 10:04 Objective - Vital Signs/Intake and Output Vital Signs (last 24 hours): Temp Pulse Resp BP Pulse Ox 98.1 F 104 H 20 131/79 96 10/20/17 07:30 10/20/17 07:30 10/20/17 07:30 10/20/17 07:30 10/20/17 07:30 - Medications Medications: Current Medications Aspirin (Aspirin Chewable) 81 mg PO DAILY [facility] Last Admin: 10/20/17 09:22 Dose: 81 mg Calcium Carbonate (Oscal) 500 mg PO DAILY [facility] Last Admin: 10/20/17 09:22 Dose: 500 mg Dextrose (Dextrose 50% Inj) 0 ml IV STAT PRN; Protocol PRN Reason: Hypoglycemia Protocol Dextrose (Glutose 15) 0 gm PO ONCE PRN; Protocol PRN Reason: Hypoglycemia Protocol Enoxaparin Sodium (Lovenox) 40 mg SC DAILY [facility] Last Admin: 10/20/17 09:22 Dose: 40 mg Glucagon (Glucagen Diagnostic Kit) 0 mg IM STAT PRN; Protocol PRN Reason: Hypoglycemia Protocol Dextrose (Dextrose 5% In Water 1000 Ml) 1,000 mls @ 0 mls/hr IV .Q0M PRN; Protocol; Per Protocol PRN Reason: Hypoglycemia Protocol Azithromycin 500 mg/ Sodium (Chloride) 250 mls @ 250 mls/hr IVPB DAILY [facility] PRN Reason: Protocol Last Admin: 10/20/17 09:21 Dose: 250 mls/hr Levothyroxine Sodium (Synthroid) 125 mcg PO DAILY@0630 [facility] Last Admin: 10/20/17 06:18 Dose: 125 mcg Losartan Potassium (Cozaar) 50 mg PO DAILY [facility] Last Admin: 10/20/17 09:22 Dose: 50 mg Metformin HCl (Glucophage) 500 mg PO BID [facility] Last Admin: 10/20/17 09:22 Dose: 500 mg Methylprednisolone (Solu-Medrol) 40 mg IV Q8 [facility] Last Admin: 10/20/17 05:24 Dose: 40 mg Fluticasone/Salmeterol (Advair Diskus 250/50) 1 puff INH RQ12 [facility] Last Admin: 10/20/17 07:20 Dose: 1 puff - Labs Labs: 10/20/17 06:20 10/20/17 06:20 Assessment and Plan (1) COPD with exacerbation Status: Acute
[2017-10-20] MEDS ORDERED: Sodium Chloride 0.9% 1,000 ML IV SCH (10:15)
[2017-10-20] MEDS ORDERED: guaiFENesin 600 mg ER Tab PO SCH (10:15)
[2017-10-20] MEDS ORDERED: MethylPREDNISolone 40 mg Vial IV SCH (11:10)
[2017-10-20 11:31] LABS: STREP PNEUMONIAE NEGATIVE (NEGATIVE)
--- NOTE | 2017-10-20 11:33 | CARD ---
APPROVED REPORT Date of service: 10/19/2017 EKG Measurement Heart [id number] <Conclusion> Normal sinus rhythm Normal ECG
--- NOTE | 2017-10-20 13:28 | CT ---
Date of service: 10/19/2017 PROCEDURE: CT Chest with contrast (Pulmonary Angiogram) HISTORY: tachycardia, SOB, elevated d dimer COMPARISON: None available. TECHNIQUE: Axial computed tomography images were obtained of the chest in the pulmonary arterial phase of enhancement. Coronal and sagittal reformatted images were created and reviewed. Intravenous contrast dose: 100 cc Visipaque 320 Radiation dose: Total exam DLP = 462.30 mGy-cm. This CT exam was performed using one or more of the following dose reduction techniques: Automated exposure control, adjustment of the mA and/or kV according to patient size, and/or use of iterative reconstruction technique. FINDINGS: PULMONARY ARTERIES: Evaluation for pulmonary embolism is suboptimal due to missed bolus. Allowing for this, no large central pulmonary embolism. AORTA: No aortic dissection. No thoracic aortic aneurysm. LUNGS: There is patchy ground-glass attenuation in the lungs. No nodule, mass or pulmonary consolidation. PLEURAL SPACES: No effusion or pneumothorax. HEART: There is mild cardiomegaly. No significant pericardial effusion. LYMPH NODES: Subcentimeter mediastinal lymph nodes are likely reactive in etiology. BONES, CHEST WALL: Severe degenerative osteoarthrosis in the glenohumeral joints. Multilevel degenerative changes in the spine. No fracture or destructive lesion OTHER FINDINGS: There is a moderate sliding hiatal hernia. IMPRESSION: Suboptimal examination for evaluation of pulmonary embolism due to missed bolus. Allowing for this, no large central pulmonary embolism. Patchy ground-glass attenuation in the lungs may represent nonspecific infection/inflammation or mild alveolar pulmonary edema. Mild cardiomegaly. Moderate sliding hiatal hernia. A preliminary report was provided by [facility].
--- NOTE | 2017-10-20 16:48 | CP.PCM.DIS ---
<Lena Valentino V - Last Filed: 10/20/17 23:10> Provider - Provider Date of Admission: 10/19/17 12:18 Attending physician: Lena Valentino DO Primary care physician: [facility] Time Spent in preparation of Discharge (in minutes): 31 Hospital Course - Lab Results Lab Results: Micro Results 10/19/17 16:37 Blood Blood Culture - Preliminary NO GROWTH AFTER 24 HOURS 10/19/17 16:37 Blood Blood Culture - Preliminary NO GROWTH AFTER 24 HOURS Most Recent Lab Values WBC 11.1 K/uL (4.8-10.8) H 10/20/17 06:20 RBC 4.44 Mil/uL (3.80-5.20) 10/20/17 06:20 Hgb 11.7 g/dL (11.0-16.0) 10/20/17 06:20 Hct 35.7 % (34.0-47.0) 10/20/17 06:20 MCV 80.3 fL (81.0-99.0) L 10/20/17 06:20 MCH 26.3 pg (27.0-31.0) L 10/20/17 06:20 MCHC 32.7 g/dL (33.0-37.0) L 10/20/17 06:20 RDW 15.2 % (11.5-14.5) H 10/20/17 06:20 Plt Count 271 K/uL (130-400) 10/20/17 06:20 MPV 8.9 fL (7.2-11.7) 10/20/17 06:20 Neut % (Auto) 90.1 % (50.0-75.0) H 10/20/17 06:20 Lymph % (Auto) 7.0 % (20.0-40.0) L 10/20/17 06:20 Dare % (Auto) 2.5 % (0.0-10.0) 10/20/17 06:20 Eos % (Auto) 0.1 % (0.0-4.0) 10/20/17 06:20 Baso % (Auto) 0.3 % (0.0-2.0) 10/20/17 06:20 Neut # (Auto) 10.0 K/uL (1.8-7.0) H 10/20/17 06:20 Lymph # (Auto) 0.8 K/uL (1.0-4.3) L 10/20/17 06:20 Dare # (Auto) 0.3 K/uL (0.0-0.8) 10/20/17 06:20 Eos # (Auto) 0.0 K/uL (0.0-0.7) 10/20/17 06:20 Baso # (Auto) 0.0 K/uL (0.0-0.2) 10/20/17 06:20 Neutrophils % (Manual) 85 % (50-75) H 10/20/17 06:20 Band Neutrophils % 9 % (0-2) H 10/20/17 06:20 Lymphocytes % (Manual) 3 % (20-40) L 10/20/17 06:20 Monocytes % (Manual) 3 % (0-10) 10/20/17 06:20 Toxic Granulation Present 10/20/17 06:20 Platelet Estimate Normal (NORMAL) 10/20/17 06:20 Anisocytosis (manual) Slight 10/20/17 06:20 Ovalocytes Slight 10/20/17 06:20 D-Dimer, Quantitative 326 ng/mlDDU (0-243) H 10/19/17 18:06 Sodium 131 mmol/L (132-148) L 10/20/17 06:20 Potassium 4.6 mmol/L (3.6-5.2) 10/20/17 06:20 Chloride 94 mmol/L (98-107) L 10/20/17 06:20 Carbon Dioxide 28 mmol/L (22-30) 10/20/17 06:20 Anion Gap 13 (10-20) 10/20/17 06:20 BUN 18 mg/dL (7-17) H 10/20/17 06:20 Creatinine 0.7 mg/dL (0.7-1.2) 10/20/17 06:20 Est GFR ( Amer) > 60 10/20/17 06:20 Est GFR (Non-Af Amer) > 60 10/20/17 06:20 POC Glucose (mg/dL) 288 mg/dL (65-110) H 10/20/17 11:52 Random Glucose 229 mg/dL (65-105) H 10/20/17 06:20 Hemoglobin A1c 7.2 % (4.2-6.5) H 10/20/17 06:20 Serum Osmolality 284 mosm/kg (272-300) 10/19/17 18:12 Calcium 8.7 mg/dl (8.6-10.4) 10/20/17 06:20 Phosphorus 3.7 mg/dL (2.5-4.5) 10/20/17 06:20 Magnesium 1.9 mg/dL (1.6-2.3) 10/20/17 06:20 Total Bilirubin 0.3 mg/dL (0.2-1.3) 10/20/17 06:20 AST 15 U/L (14-36) 10/20/17 06:20 ALT 24 U/L (9-52) 10/20/17 06:20 Alkaline Phosphatase 63 U/L (38-126) 10/20/17 06:20 Troponin I < 0.0120 ng/mL (0.00-0.120) 10/19/17 09:06 NT-Pro-B Natriuret Pep 105 pg/mL (0-900) 10/19/17 09:06 Total Protein 6.7 g/dL (6.3-8.3) 10/20/17 06:20 Albumin 3.9 g/dL (3.5-5.0) 10/20/17 06:20 Globulin 2.8 gm/dL (2.2-3.9) 10/20/17 06:20 Albumin/Globulin Ratio 1.4 (1.0-2.1) 10/20/17 06:20 Triglycerides 62 mg/dL (0-149) 10/20/17 06:20 Cholesterol 115 mg/dL (0-199) 10/20/17 06:20 LDL Cholesterol Direct 59 mg/dL (0-129) 10/20/17 06:20 HDL Cholesterol 36 mg/dL (30-70) 10/20/17 06:20 25-OH Vitamin D Total 29.6 NG/ML (30.0-100.0) L 10/20/17 06:20 Free T4 1.38 ng/dL (0.78-2.19) 10/20/17 06:20 TSH 3rd Generation 0.21 mIU/L (0.46-4.68) L 10/20/17 06:20 Urine Color Yellow (YELLOW) 10/20/17 06:45 Urine Clarity Clear (Clear) 10/20/17 06:45 Urine pH 6.0 (5.0-8.0) 10/20/17 06:45 Ur Specific [place] 1.012 (1.003-1.030) 10/20/17 06:45 Urine Protein Negative mg/dL (NEGATIVE) 10/20/17 06:45 Urine Glucose (UA) Normal mg/dL (Normal) 10/20/17 06:45 Urine Ketones Negative mg/dL (NEGATIVE) 10/20/17 06:45 Urine Blood Negative (NEGATIVE) 10/20/17 06:45 Urine Nitrate Negative (NEGATIVE) 10/20/17 06:45 Urine Bilirubin Negative (NEGATIVE) 10/20/17 06:45 Urine Urobilinogen Normal mg/dL (0.2-1.0) 10/20/17 06:45 Ur Leukocyte Esterase Neg Daniella/uL (Negative) 10/20/17 06:45 Urine WBC (Auto) < 1 /hpf (0-5) 10/20/17 06:45 Urine RBC (Auto) < 1 /hpf (0-3) 10/20/17 06:45 Ur Squamous Epith Cells < 1 /hpf (0-5) 10/20/17 06:45 Urine Bacteria Rare (<OCC) 10/20/17 06:45 Urine Osmolality 334 mosm/kg (300-1000) 10/19/17 21:32 Ur Random Sodium 34 mmol/L 10/19/17 21:32 Ur L.pneumophila Ag Negative (NEGATIVE) 10/19/17 21:32 Mycoplasma pneumon IgM Negative (NEGATIVE) 10/19/17 18:06 S. pneumoniae Antigen Negative (NEGATIVE) 10/19/17 12:18 Discharge Plan - Discharge Medications Prescriptions: Albuterol HFA [Ventolin HFA 90 mcg/actuation (8 g)] 2 puff IH Q4 PRN 30 Days #1 inhaler PRN Reason: Shortness Of Breath Benzonatate [Tessalon Perles] 100 mg PO TID 30 Days sgl Famotidine [Pepcid] 20 mg PO DAILY 3 Days #3 tab Fluticasone/Vilanterol [Breo Ellipta 100-25 Mcg INH] 1 each IH DAILY 30 Days #1 blst.w.dev guaiFENesin [Mucinex LA] 600 mg PO BID 30 Days tab Guaifenesin [Mucinex] 600 mg PO BID 30 Days #60 tab.er.12h Moxifloxacin [Avelox] 400 mg PO DAILY 3 Days #3 tab predniSONE [predniSONE Tab] 20 mg PO DAILY 3 Days #3 tab - Follow Up Plan Condition: STABLE Disposition: HOME/ ROUTINE Instructions: Moxifloxacin (Systemic), Exacerbation of COPD (DC), Albuterol, Benzonatate, Fluticasone and Vilanterol, Famotidine, Guaifenesin, Prednisone, Urinary Tract Infection in Women (DC) Additional Instructions: Patient instructed to follow up at [facility] in 1 to 2 weeks. Patient is recommended to follow up at the Clinic for referral to Pulmonology for outpatient pulmonary function tests. Patient instructed to return to ER in the events that her symptoms recur or worsen. Patient was provided with the following scripts: Avelox 400mg 1 tab by mouth once daily for 3 days Albuterol HFA 2 puffs Q4 as needed for shortness of breath Breo/Ellipta 100/25 use once daily Pepcid 20mg by mouth once daily for 3 days Prednisone 20mg by mouth once daily for 3 days Tessalon Perles 100mg by mouth three times daily Mucinex 600mg by mouth twice daily Attending/Attestation - Attestation I have personally seen and examined this patient.: Yes I have fully participated in the care of the patient.: Yes I have reviewed all pertinent clinical information, including history, physical exam and plan: Yes Notes (Text): Patient seen, examined and case discussed with day-time resident. Patient seen this morning. Patient sitting upright. Patient reports she is breathing better; reports cough is less. Patient had a CT Angio completed overnight given elevated d-dimer. Ct angio ruled out for PE. Official report available in EMR. Prelim read of venous dopplers are negative. Prescriptions: 1) Albuterol HFA 2 puff inhaled Q4H PRN shortness of breathe 2) Aspirin 81mg PO daily 3) Tessalon Perles 100mg PO TID 4) Pepcid 20mg PO daily 5) Mucinex 600mg PO BID 6) Avelox 400mg PO daily for 3 more days. 7) Prednisone 20mg PO daily for 3 days. Patient to resume home medications: 1) Breo Ellptia, Metformin, 3) Cozaar, 4) Aspirin. Patient recommended to follow-up in the [facility], wherein she is already established patient. Patient recommended to follow-up for pulmonary referral since she has not seen a pulm for outpatient PFTS in light of her COPD. This is a summary of patient's hospitalization. Please refer for EMR for full detail of record. Discharge Diagnoses: 1. Shortness of breath--Stable COPD exacerbation with bronchitis--Stable * In ED: patient received Duonebx1, Solumedrol 125mg IVP, Ceftriaxone 1g IV, and Azithromycin 500mg IV * Duonebs 3ml INH Q6 PRN SOB * Advair 250/50 1 puff inhaled Q12 hours * Solumedrol 40mg IV Q8 * Azithromycin 500mg IV Q daily * 10/19/17 CXR: no acute disease * 10/19/17: EKG NSR [address]-T changes. * Legionella: negative, mycoplasma: negative, strep pneumonia: negative * D-dimer +-->Ct angio ruled out PE and prelim read of venous dopplers negative for DVT 2. Abnormal UA Asymptomatic Bacturia * History of urinary incontinence; patient wears diapers at home * Patient's urine sample not clean catch. * Asymptomatic bacteruria, positive for nitrates, 2+ leuk esterase, WBC 31 * Not treating for UTI since patient is asymptomatic 3. Hyponatremia--Stable * Likely hypovolemic, dehydrated * Improved * Follow up on serum osmolarity, urine osmolarity, urine Na 4. History of diabetes--Stable * Metformin 500mg PO BID * Accuchecks QAC/HS * Hypoglycemic protocol * ASA 81mg PO daily * Hgba1c: 7.2 * Continue with Cozaar 50mg PO daily * Continue ASA 81mg PO daily 5. Lower extremity edema, nonpitting--Chronic * Prelim: negative 6. Hx of hypertension--Chronic * Continue with Cozaar 50mg PO daily * ASA 81mg PO daily 7. Hx of hypothyroidism Chronic * Levothyroxine 125mcg PO daily * Repeat TSH as outpatient 8. Hx of osteoporosis * Continue Oscal 500mg PO daily 9. Prophylaxis * Lovenox 40mg SC daily * Protonix 40mg PO daily * Heart healthy diet, 2g Na, low carb * PT/OT evaluation * Fall precautions <Shar Sarmiento - Last Filed: 10/21/17 00:02> Provider - Provider Date of Admission: 10/19/17 12:18 Attending physician: Lena Valentino DO Diagnosis - Discharge Diagnosis (1) COPD with exacerbation Status: Acute Hospital Course - Lab Results Lab Results: Micro Results 10/19/17 16:37 Blood Blood Culture - Preliminary NO GROWTH AFTER 24 HOURS 10/19/17 16:37 Blood Blood Culture - Preliminary NO GROWTH AFTER 24 HOURS Most Recent Lab Values WBC 11.1 K/uL (4.8-10.8) H 10/20/17 06:20 RBC 4.44 Mil/uL (3.80-5.20) 10/20/17 06:20 Hgb 11.7 g/dL (11.0-16.0) 10/20/17 06:20 Hct 35.7 % (34.0-47.0) 10/20/17 06:20 MCV 80.3 fL (81.0-99.0) L 10/20/17 06:20 MCH 26.3 pg (27.0-31.0) L 10/20/17 06:20 MCHC 32.7 g/dL (33.0-37.0) L 10/20/17 06:20 RDW 15.2 % (11.5-14.5) H 10/20/17 06:20 Plt Count 271 K/uL (130-400) 10/20/17 06:20 MPV 8.9 fL (7.2-11.7) 10/20/17 06:20 Neut % (Auto) 90.1 % (50.0-75.0) H 10/20/17 06:20 Lymph % (Auto) 7.0 % (20.0-40.0) L 10/20/17 06:20 Dare % (Auto) 2.5 % (0.0-10.0) 10/20/17 06:20 Eos % (Auto) 0.1 % (0.0-4.0) 10/20/17 06:20 Baso % (Auto) 0.3 % (0.0-2.0) 10/20/17 06:20 Neut # (Auto) 10.0 K/uL (1.8-7.0) H 10/20/17 06:20 Lymph # (Auto) 0.8 K/uL (1.0-4.3) L 10/20/17 06:20 Dare # (Auto) 0.3 K/uL (0.0-0.8) 10/20/17 06:20 Eos # (Auto) 0.0 K/uL (0.0-0.7) 10/20/17 06:20 Baso # (Auto) 0.0 K/uL (0.0-0.2) 10/20/17 06:20 Neutrophils % (Manual) 85 % (50-75) H 10/20/17 06:20 Band Neutrophils % 9 % (0-2) H 10/20/17 06:20 Lymphocytes % (Manual) 3 % (20-40) L 10/20/17 06:20 Monocytes % (Manual) 3 % (0-10) 10/20/17 06:20 Toxic Granulation Present 10/20/17 06:20 Platelet Estimate Normal (NORMAL) 10/20/17 06:20 Anisocytosis (manual) Slight 10/20/17 06:20 Ovalocytes Slight 10/20/17 06:20 D-Dimer, Quantitative 326 ng/mlDDU (0-243) H 10/19/17 18:06 Sodium 131 mmol/L (132-148) L 10/20/17 06:20 Potassium 4.6 mmol/L (3.6-5.2) 10/20/17 06:20 Chloride 94 mmol/L (98-107) L 10/20/17 06:20 Carbon Dioxide 28 mmol/L (22-30) 10/20/17 06:20 Anion Gap 13 (10-20) 10/20/17 06:20 BUN 18 mg/dL (7-17) H 10/20/17 06:20 Creatinine 0.7 mg/dL (0.7-1.2) 10/20/17 06:20 Est GFR ( Amer) > 60 10/20/17 06:20 Est GFR (Non-Af Amer) > 60 10/20/17 06:20 POC Glucose (mg/dL) 288 mg/dL (65-110) H 10/20/17 11:52 Random Glucose 229 mg/dL (65-105) H 10/20/17 06:20 Hemoglobin A1c 7.2 % (4.2-6.5) H 10/20/17 06:20 Serum Osmolality 284 mosm/kg (272-300) 10/19/17 18:12 Calcium 8.7 mg/dl (8.6-10.4) 10/20/17 06:20 Phosphorus 3.7 mg/dL (2.5-4.5) 10/20/17 06:20 Magnesium 1.9 mg/dL (1.6-2.3) 10/20/17 06:20 Total Bilirubin 0.3 mg/dL (0.2-1.3) 10/20/17 06:20 AST 15 U/L (14-36) 10/20/17 06:20 ALT 24 U/L (9-52) 10/20/17 06:20 Alkaline Phosphatase 63 U/L (38-126) 10/20/17 06:20 Troponin I < 0.0120 ng/mL (0.00-0.120) 10/19/17 09:06 NT-Pro-B Natriuret Pep 105 pg/mL (0-900) 10/19/17 09:06 Total Protein 6.7 g/dL (6.3-8.3) 10/20/17 06:20 Albumin 3.9 g/dL (3.5-5.0) 10/20/17 06:20 Globulin 2.8 gm/dL (2.2-3.9) 10/20/17 06:20 Albumin/Globulin Ratio 1.4 (1.0-2.1) 10/20/17 06:20 Triglycerides 62 mg/dL (0-149) 10/20/17 06:20 Cholesterol 115 mg/dL (0-199) 10/20/17 06:20 LDL Cholesterol Direct 59 mg/dL (0-129) 10/20/17 06:20 HDL Cholesterol 36 mg/dL (30-70) 10/20/17 06:20 25-OH Vitamin D Total 29.6 NG/ML (30.0-100.0) L 10/20/17 06:20 Free T4 1.38 ng/dL (0.78-2.19) 10/20/17 06:20 TSH 3rd Generation 0.21 mIU/L (0.46-4.68) L 10/20/17 06:20 Urine Color Yellow (YELLOW) 10/20/17 06:45 Urine Clarity Clear (Clear) 10/20/17 06:45 Urine pH 6.0 (5.0-8.0) 10/20/17 06:45 Ur Specific [place] 1.012 (1.003-1.030) 10/20/17 06:45 Urine Protein Negative mg/dL (NEGATIVE) 10/20/17 06:45 Urine Glucose (UA) Normal mg/dL (Normal) 10/20/17 06:45 Urine Ketones Negative mg/dL (NEGATIVE) 10/20/17 06:45 Urine Blood Negative (NEGATIVE) 10/20/17 06:45 Urine Nitrate Negative (NEGATIVE) 10/20/17 06:45 Urine Bilirubin Negative (NEGATIVE) 10/20/17 06:45 Urine Urobilinogen Normal mg/dL (0.2-1.0) 10/20/17 06:45 Ur Leukocyte Esterase Neg Daniella/uL (Negative) 10/20/17 06:45 Urine WBC (Auto) < 1 /hpf (0-5) 10/20/17 06:45 Urine RBC (Auto) < 1 /hpf (0-3) 10/20/17 06:45 Ur Squamous Epith Cells < 1 /hpf (0-5) 10/20/17 06:45 Urine Bacteria Rare (<OCC) 10/20/17 06:45 Urine Osmolality 334 mosm/kg (300-1000) 10/19/17 21:32 Ur Random Sodium 34 mmol/L 10/19/17 21:32 Ur L.pneumophila Ag Negative (NEGATIVE) 10/19/17 21:32 Mycoplasma pneumon IgM Negative (NEGATIVE) 10/19/17 18:06 S. pneumoniae Antigen Negative (NEGATIVE) 10/19/17 12:18 - Hospital Course Hospital Course: On admission CC "shortness of breath, cough" HPI: Patient is a 77 year old female with past medical history of COPD , diabetes, hypertension, hypothyroidism, GERD who presents for shortness of breath and cough productive of white sputum that began yesterday, as per daughter Gricelda. Patient was reportedly feeling tired and weak 2 days ago as well. As per patient, she has had similar symptoms in the past which is typical of COPD exacerbation. She states her symptoms typically improve when she is able to expectorate and worsens when she lies down. She admits she coughed a lot last night, however was eventually able to sleep. Admits to associated chest pain when she coughs, denies chest pain at rest. She denies using oxygen at home, or using CPAP at home. She ambulates with a cane, wears adult diapers, however is able to walk to the bathroom as well. As per daughter, she changes her diapers 4 times a day, and 2 times at night. She admits to history of bilateral leg pain, but attributes to neuropathy. Uses hearing aides. States her appetite has been slightly decreased. She denies fevers, chills, diaphoresis , headaches, lightheadedness, dizziness, sore throat, dysphagia, changes in vision, palpitations, abdominal pain, nausea, vomiting, diarrhea, constipation , no blood in urine or stool, dysuria, urinary frequency, back pain, rash, bruising, bleeding, recent travel, recent sickness, sick contacts, weight changes. Hospital course Patient was admitted for shortness of breath and COPD exacerbation with bronchitis. Patient was treated with Duonebs, Advair, Solumedrol, Azithromycin, Tessalon Perles with improvement of her symptoms. Legionella, mycoplasma and strep pneumonia antigens were negative. D-dimer was found to be elevated at 326 , dopplers and CT chest were ordered to rule out the presence of DVT or pulmonary embolus. Patient's sodium was found to be low at 130, serum osmolarity , urine osmolality and random urine sodium were ordered. Serum osmolarity was found to be within normal limits. Patient's initial urinalysis revealed bacteruria, however patient remained asymptomatic throughout hospitalization. Patient's other home medications were continued during hospitalization. Patient was medically cleared for discharge with plan to follow up with PMD in 1 to 2 weeks. Images: 10/19/17 CXR: no acute disease Venous doppler: no evidence of venous thrombosis Chest CT: Suboptimal examination for evaluation of pulmonary embolism due to missed bolus. Allowing for this, no large central pulmonary embolism. Patchy ground-glass attenuation in the lungs may represent nonspecific infection /inflammation or mild alveolar pulmonary edema. Mild cardiomegaly. Moderate sliding hiatal hernia. A preliminary report was provided by [facility] services. Discharge summary: Patient instructed to follow up at [facility] in 1 to 2 weeks. Patient is recommended to follow up at the Clinic for referral to Pulmonology for outpatient pulmonary function tests. Patient instructed to return to ER in the events that her symptoms recur or worsen. Patient was provided with the following scripts: Avelox 400mg 1 tab by mouth once daily for 3 days Albuterol HFA 2 puffs Q4 as needed for shortness of breath Breo/Ellipta 100/25 use once daily Pepcid 20mg by mouth once daily for 3 days Prednisone 20mg by mouth once daily for 3 days Tessalon Perles 100mg by mouth three times daily Mucinex 600mg by mouth twice daily Discharge Exam - Head Exam Head Exam: ATRAUMATIC, NORMOCEPHALIC - Eye Exam Eye Exam: EOMI - ENT Exam ENT Exam: Mucous Membranes Moist Additional comments: Hearing aides - Neck Exam Neck exam: Full Rom - Respiratory Exam Respiratory Exam: absent: Accessory Muscle Use, Chest Wall Tenderness, Rales, Rhonchi, Respiratory Distress Additional comments: Good air movement throughout lungs. Mild wheezes noted. - Cardiovascular Exam Cardiovascular Exam: REGULAR RHYTHM, +S1, +S2 - GI/Abdominal Exam GI & Abdominal Exam: Normal Bowel Sounds, Soft. absent: Distended, Firm, Guarding, Tenderness Additional comments: Lower abdominal horizontal scar - Extremities Exam Extremities exam: calf tenderness, pedal edema (mild lymphedema), pedal pulses present Additional comments: bilateral anterior adams tenderness, no calf tenderness bilaterally vertical surgical scars on knees bilaterally - Back Exam Back exam: absent: CVA tenderness (L), CVA tenderness (R) - Neurological Exam Neurological exam: Alert, Oriented x3 Additional comments: Hearing aides - Skin Skin Exam: Dry, Intact, Warm
--- NOTE | 2017-10-21 06:21 | CARD ---
APPROVED REPORT Date of service: 10/20/2017 EXAM: Two-dimensional and M-mode echocardiogram with Doppler and color Doppler. INDICATION Dyspnea COPD RISK FACTORS Hypertension Diabetes 2D DIMENSIONS IVSd1.1 (0.7-1.1cm)LVDd3.0 (3.9-5.9cm) PWd0.9 (0.7-1.1cm)LVDs2.1 (2.5-4.0cm) FS (%) 29.8 %LVEF (%)58.5 (>50%) M-Mode DIMENSIONS Left Atrium (MM)3.47 (2.5-4.0cm)IVSd1.18 (0.7-1.1cm) Aortic Root3.26 (2.2-3.7cm)LVDd4.03 (4.0-5.6cm) Aortic Cusp Exc.1.85 (1.5-2.0cm)PWd0.97 (0.7-1.1cm) FS (%) 34 %LVDs2.67 (2.0-3.8cm) LVEF (%)63 (>50%) Mitral Valve MV E Bgnpyxny12.7cm/sMV A Sheftfjg546.5cm/sE/A ratio0.8 TDI E/Lateral E'0.0E/Medial E'0.0 Tricuspid Valve TR Peak Ahezoyis046nt/sTR Peak Gr.[id number] LEFT VENTRICLE The left ventricle is normal size. There is normal left ventricular wall thickness. Left ventricle systolic function is normal. The Ejection Fraction is 55-60%. There is normal LV segmental wall motion. Tissue Doppler imaging reveals abnormal left ventricular diastolic dysfunction. RIGHT VENTRICLE The right ventricle is normal size. There is normal right ventricular wall thickness. The right ventricular systolic function is normal. ATRIA The left atrium size is normal. The right atrium size is normal. The interatrial septum is intact with no evidence for an atrial septal defect. AORTIC VALVE The aortic valve is normal in structure. No aortic regurgitation is present. There is no aortic valvular stenosis. There is no aortic valvular vegetation. MITRAL VALVE The mitral valve is normal in structure. There is no evidence of mitral valve prolapse. There is no mitral valve stenosis. There is no mitral valve regurgitation noted. TRICUSPID VALVE The tricuspid valve is normal in structure. There is mild tricuspid regurgitation. Right ventricular systolic pressure is estimated at 40-50 mmHg. There is mild-moderate pulmonary hypertension. PULMONIC VALVE The pulmonic valve is not well visualized. There is mild pulmonic valvular regurgitation. GREAT VESSELS The aortic root is normal in size. PERICARDIAL EFFUSION There is no significant pericardial effusion. <Conclusion> Left ventricle systolic function is normal. The Ejection Fraction is 55-60%. Diastolic dysfunction. No aortic regurgitation is present. There is no mitral valve regurgitation noted. There is mild tricuspid regurgitation. There is mild-moderate pulmonary hypertension. There is mild pulmonic valvular regurgitation.
--- NOTE | 2017-10-21 11:50 | VASCLAB ---
Date of service: 10/19/2017 PROCEDURE: Lower Extremity Venous Duplex Exam. HISTORY: lower extremity pain PRIORS: None. TECHNIQUE: Bilateral common femoral, femoral, popliteal and posterior tibial, peroneal and great saphenous veins were evaluated. Flow was assessed with color Doppler, compressibility, assessment of phasic flow and augmentation response. Report prepared by Garrick Botello, BS, RVT FINDINGS: RIGHT: 1. Common Femoral Vein: 1.1. Compressibility - Fully compressible: Thrombus - None : Flow - Phasic: Augmentation -Normal: Reflux - None. 2. Femoral Vein: 2.1. Compressibility - Fully compressible: Thrombus - None : Flow - Phasic: Augmentation -Normal: Reflux - None. 3. Popliteal Vein: 3.1. Compressibility - Fully compressible: Thrombus - None : Flow - Phasic: Augmentation -Normal: Reflux - Severe. 4. Posterior Tibial Vein: 4.1. Compressibility - Fully compressible: Thrombus - None: Flow - Phasic: Augmentation -Normal: Reflux - None. 5. Peroneal Vein: 5.1. Compressibility - Fully compressible: Thrombus - None: Flow - Phasic: Augmentation -Normal: Reflux - None. 6. Great Saphenous Vein: 6.1. Compressibility - Fully compressible: Thrombus - None: Flow - Phasic: Augmentation - Normal: Reflux - None. LEFT: 1. Common Femoral Vein: 1.1. Compressibility - Fully compressible: Thrombus - None: Flow - Phasic: Augmentation -Normal: Reflux - None. 2. Femoral Vein: 2.1. Compressibility - Fully compressible: Thrombus - None: Flow - Phasic: Augmentation -Normal: Reflux - None. 3. Popliteal Vein: 3.1. Compressibility - Fully compressible: Thrombus - None : Flow - Phasic: Augmentation -Normal: Reflux - None. 4. Posterior Tibial Vein: 4.1. Compressibility - Fully compressible: Thrombus - None: Flow - Phasic: Augmentation -Normal: Reflux - None. 5. Peroneal Vein: 5.1. Compressibility - Fully compressible: Thrombus - None: Flow - Phasic: Augmentation -Normal: Reflux - None. 6. Great Saphenous Vein: 6.1. Compressibility - Fully compressible: Thrombus - None: Flow - Phasic: Augmentation - Normal: Reflux - None. OTHER FINDINGS: Right: None significant. Left: None significant. IMPRESSION: Right: No evidence of deep or superficial vein thrombosis of the right lower extremity. Severe valvular incompetence of the right popliteal vein. Left: No evidence of deep or superficial vein thrombosis of the left lower extremity. Normal valve function noted of the left side.
== END 2017-10-20 15:00 | disposition home or self-care (01) ==
LOC: C.ER 08:25 → C.9E 12:18 → C.6T 15:53
PROVIDERS: ADMIT Hospitalist; ATTEND Hospitalist
DX: J44.1 Chronic obstructive pulmonary disease with (acute) exacerbation (principal); E86.0 Dehydration; E86.1 Hypovolemia; E87.1 Hypo-osmolality and hyponatremia; G20 Parkinson's disease; E11.9 Type 2 diabetes mellitus without complications; I11.9 Hypertensive heart disease without heart failure
CPT/HCPCS: 36415; 71045; 71275; 80053; 80061; 81001; 82306; 82948; 83036; 83735; 83880; 83930; 83935; 84100; 84300; 84439; 84443; 84484; 85025; 85378; 86403; 86738; 87040; 87449; 93005; 93306; 93970; 94640; 96365; 96374; 97116; 97162; 97166; 97530; 99285; G0378; G8978; G8979; G8987; G8988; J0456; J0696; J1650; J2920; J2930; J7030; J7050; Q9967

== ENCOUNTER 2018-01-11 09:53 | Emergency (ER) | payer OTHER ==
[2018-01-11 09:53] VITALS: BMI 39.6
[2018-01-11 10:11] VITALS: BP 143/80; PULSE 85; RESP 18; TEMP 98.4; O2SAT 96
--- NOTE | 2018-01-11 10:52 | C.PDOC ---
History Of Present Illness 50 year old female presents to the ED with her daughter for evaluation of dysuria for the last 2 weeks. Per daughter patient was diagnosed and treated for a UTI and given unknown 10 day course antibiotics that were finished 7 days ago with no improvement. Patient reports persistent dysuria and increased burning when urinating. Denies abdominal pain, fever, vomiting, nausea, and any other associated symptoms. Time Seen by Provider: 01/11/18 10:14 Chief Complaint (Nursing): Female Genitourinary History Per: Patient, Family (daughter) History/Exam Limitations: no limitations Onset/Duration Of Symptoms: Days Current Symptoms Are (Timing): Still Present Past Medical History Reviewed: Historical Data, Nursing Documentation, Vital Signs Vital Signs: Last Vital Signs Temp 98.4 F 01/11/18 10:06 Pulse 85 01/11/18 10:06 Resp 18 01/11/18 10:06 BP 143/80 01/11/18 10:06 Pulse Ox 96 01/11/18 10:06 - Medical History PMH: Arthritis, COPD, Fractures (6 years ago. fx keft arm, and spine), Gastritis, HTN, Hypothyroidism, Osteoporosis, Parkinson's Disease, Peripheral Edema, Pneumonia Denies: Chronic Kidney Disease Surgical History: Cholecystectomy - [facility] Procedures INSERTION OF INFUSION DEV INTO SUP VENA CAVA, PERC APPROACH (04/12/15) ULTRASONOGRAPHY OF RIGHT AND LEFT HEART, TRANSESOPHAGEAL (07/27/15) Family History: States: Unknown Family Hx - Social History Hx Tobacco Use: No Hx Alcohol Use: No Hx Substance Use: No - Immunization History Hx Tetanus Toxoid Vaccination: No Hx Influenza Vaccination: No Hx Pneumococcal Vaccination: Yes Review Of Systems Except As Marked, All Systems Reviewed And Found Negative. Constitutional: Negative for: Fever, Chills Gastrointestinal: Negative for: Nausea, Vomiting, Abdominal Pain Genitourinary: Positive for: Dysuria, Other (burning with urination. ) Physical Exam - Physical Exam Appears: Non-toxic, No Acute Distress Skin: Normal Color, Warm, Dry Head: Atraumatic, Normacephalic Eye(s): bilateral: Normal Inspection Nose: Normal Oral Mucosa: Moist Neck: Normal ROM, Supple Chest: Symmetrical, No Deformity Cardiovascular: Rhythm Regular, No Murmur Respiratory: Normal Breath Sounds, No Rales, No Rhonchi, No Wheezing Gastrointestinal/Abdominal: Normal Exam, Soft, No Tenderness Neurological/Psych: Oriented x3, Normal Speech Gait: Steady ED Course And Treatment - Laboratory Results Lab Interpretation: Abnormal (+UTI noted on UA) O2 Sat by Pulse Oximetry: 96 (RA) Pulse Ox Interpretation: Normal Medical Decision Making Medical Decision Making: Plan: --Urinalysis Progress/Update: Patient stable for discharge home. Prescribed Macrobid for UTI. Advised daughter to speak with PMD, if she has already failed Macrobid then they can prescribe a new antibiotic (as daughter does not remember which abx patient was on). Urine culture sent and is pending. Disposition - Disposition Disposition: HOME/ ROUTINE Disposition Time: 11:45 Condition: GOOD Additional Instructions: ROSIO ESTRADA, thank you for letting us take care of you today. Your provider was Eli Jensen MD and you were treated for URINATING PAIN. The emergency medical care you received today was directed at your acute symptoms. If you were prescribed any medication, please fill it and take as directed. It may take several days for your symptoms to resolve. Return to the Emergency Department if your symptoms worsen, do not improve, or if you have any other problems. Please contact your doctor or call one of the physicians/clinics you have been referred to that are listed on the Patient Visit Information form that is included in your discharge packet. Bring any paperwork you were given at discharge with you along with any medications you are taking to your follow up visit. Our treatment cannot replace ongoing medical care by a primary care provider outside of the emergency department. Thank you for allowing the [facility] team to be part of your care today. If you had an X-Ray or CT scan: A Radiologist will review the ED reading if any change in treatment is needed we will contact you. If you had a blood, urine, or wound culture: It will take several days for the results, if any change in treatment is needed we will contact you. If you had an STI test: It will take 48 hours for the results. Please call after 1 week if you have not heard back. Prescriptions: Nitrofurantoin Macrocrystals [Macrobid] 100 mg PO BID #14 cap Instructions: Urinary Tract Infection, Adult (DC) Forms: T-System (Amharic) Print Language: SWEDISH - Clinical Impression Clinical Impression: UTI (urinary tract infection) - Scribe Statement The provider has reviewed the documentation as recorded by the Scribe (Angelina West) Provider Attestation: All medical record entries made by the Scribe were at my direction and per sonally dictated by me. I have reviewed the chart and agree that the record accurately reflects my personal performance of the history, physical exam, medical decision making, and the department course for this patient. I have also personally directed, reviewed, and agree with the discharge instructions and disposition.
[2018-01-11 11:24] LABS: SQUAMOUS EPITHIAL 1 /hpf (0-5); URINE BACTERIA MANY (<OCC); URINE BILIRUBIN NEGATIVE (NEGATIVE); URINE BLOOD NEGATIVE (NEGATIVE); URINE CLARITY Hazy (Clear); URINE COLOR Yellow (YELLOW); URINE GLUCOSE (UA) NORMAL (Normal); URINE LEUKOCYTE ESTERASE 3+ Leu/uL (Negative); URINE PROTEIN NEGATIVE (NEGATIVE); URINE UROBILINOGEN NORMAL mg/dL (0.2-1.0); WBC CLUMPS RARE /hpf
== END 2018-01-11 11:57 | disposition home or self-care (01) ==
LOC: C.ER 09:53
DX: N39.0 Urinary tract infection, site not specified (principal)

== ENCOUNTER 2018-04-18 08:49 | Inpatient (IN) | payer MEDICAID, SELFPAY ==
[2018-04-18 08:49] VITALS: BMI 39.6
[2018-04-18] MEDS ORDERED: Sodium Chloride 0.9% 1,000 ML IV ONE ×2 (09:28→11:57)
[2018-04-18] MEDS ORDERED: Albuterol-Ipratrop 3 mg / 0.5 (3 ml) UD ONE ×2 (09:37→10:08)
[2018-04-18] MEDS: Albuterol-Ipratrop 3 mg / 0.5 (3 ml) UD IH SCH ×3 (09:45→10:15)
--- NOTE | 2018-04-18 09:58 | C.PDOC ---
History Of Present Illness 77 y/o female with a PMHx of COPD, states this morning she woke up feeling feverish with body aches and fatigue. As per daughter patient was refusing to get out of bed. Patient has also been coughing for the last 2 days and feeling S OB. Patient did receive a flu vaccine this season per daughter. Otherwise patient denies any chest pain, nausea, vomiting, diarrhea, dizziness, or urinary symptoms. Temp is 100.4 on arrival. Time Seen by Provider: 04/18/18 09:21 Chief Complaint (Nursing): Shortness Of Breath History Per: Patient History/Exam Limitations: no limitations Onset/Duration Of Symptoms: Hrs Current Symptoms Are (Timing): Still Present Past Medical History Reviewed: Historical Data, Nursing Documentation, Vital Signs Vital Signs: Last Vital Signs Temp 101.3 F H 04/18/18 09:18 Pulse 118 H 04/18/18 08:57 Resp 24 04/18/18 08:57 BP 106/78 04/18/18 08:57 Pulse Ox 89 L 04/18/18 08:57 - Medical History PMH: Arthritis, COPD, Fractures (6 years ago. fx keft arm, and spine), Gastritis, HTN, Hypothyroidism, Osteoporosis, Parkinson's Disease, Peripheral Edema, Pneumonia Denies: Chronic Kidney Disease Surgical History: Cholecystectomy - [facility] Procedures INSERTION OF INFUSION DEV INTO SUP VENA CAVA, PERC APPROACH (04/12/15) ULTRASONOGRAPHY OF RIGHT AND LEFT HEART, TRANSESOPHAGEAL (07/27/15) Family History: States: Unknown Family Hx - Social History Hx Tobacco Use: No Hx Alcohol Use: No Hx Substance Use: No - Immunization History Hx Tetanus Toxoid Vaccination: No Hx Influenza Vaccination: No Hx Pneumococcal Vaccination: Yes Review Of Systems Except As Marked, All Systems Reviewed And Found Negative. Constitutional: Positive for: Fever, Malaise, Other (Body aches) Eyes: Negative for: Vision Change Cardiovascular: Negative for: Chest Pain, Palpitations Respiratory: Positive for: Cough, Shortness of Breath Gastrointestinal: Negative for: Nausea, Vomiting, Diarrhea Genitourinary: Negative for: Dysuria, Frequency, Incontinence Neurological: Negative for: Dizziness Physical Exam - Physical Exam Appears: Non-toxic, No Acute Distress, Other (Febrile and hypoxic on arrival, o bese female) Skin: Warm, Dry, No Rash Head: Atraumatic, Normacephalic Eye(s): bilateral: Normal Inspection Nose: Normal Oral Mucosa: Dry Lips: Normal Appearing Neck: Normal ROM Chest: Symmetrical Cardiovascular: Rhythm Regular (and Tachycardic), No Murmur Respiratory: No Decreased Breath Sounds, No Rales, Rhonchi (diffuse), Wheezing (diffuse) Gastrointestinal/Abdominal: Bowel Sounds (active), Soft, No Tenderness, No Guard ing Extremity: Bilateral: Atraumatic, Normal Color And Temperature, Other (mild pedal edema) Pulses: Left Dorsalis Pedis: Normal, Right Dorsalis Pedis: Normal Neurological/Psych: Oriented x3, Other (Patient hypoxic but still able to speak in full sentences) ED Course And Treatment - Laboratory Results Result Diagrams: 04/18/18 09:55 04/18/18 09:55 Lab Interpretation: Abnormal ECG: Interpreted By Me, Viewed By Me ECG Rhythm: Sinus Tachycardia ECG Interpretation: No Changes From Prior Rate From EC O2 Sat by Pulse Oximetry: 89 (on room air) Pulse Ox Interpretation: Abnormal Medical Decision Making Medical Decision Making: Impression: Fever, Bodyaches, Cough Differential diagnosis includes but is not limited to: Sepsis, pneumonitis, urinary tract infection, influenza, or viral syndrome Plan: -VBG -CMP, CBC, cardiac enzymes, coags -UA, Urine culture -Blood culture -Flu swab -Chest x-ray -EKG -975 mg PO tylenol -125 mg IV solu-medrol -3 ml INH duoneb -IV fluids infusing Progress/Updates: Labs reviewed: WBC 13.9k. Lactate 1. 1015 Code Sepsis initiated. [address] Parrish for admission and she accepted. Disposition - Disposition Disposition: HOSPITALIZED Disposition Time: 10:55 Condition: FAIR - Clinical Impression Clinical Impression: COPD exacerbation, Pneumonia, Sepsis - PA / REIMBURSEMENT COORDINATOR / Resident Statement MD/DO has reviewed & agrees with the documentation as recorded. - Scribe Statement The provider has reviewed the documentation as recorded by the Scribe Tory Schulz All medical record entries made by the Scribe were at my direction and personally dictated by me. I have reviewed the chart and agree that the record accurately reflects my personal performance of the history, physical exam, medical decision making, and the department course for this patient. I have also personally directed, reviewed, and agree with the discharge instructions and disposition. Decision To Admit - Pt Status Changed To: Hospital Disposition Of: Observation - . Bed Request Type: Telemetry Admitting Physician: Renzo Elam Patient Diagnosis: COPD exacerbation, Pneumonia, Sepsis
[2018-04-18 10:05] LABS: VENOUS BLOOD GAS BASE EXCESS 3.5 mmol/L (0.0-2.0); VENOUS BLOOD GAS PCO2 47 mmHg (40-60); VENOUS BLOOD GAS PO2 52 mm/Hg (30-55)
[2018-04-18] MEDS ORDERED: Sodium Chloride 0.9% 2,000 ML ONE (10:08)
[2018-04-18 10:09] LABS: BASO # 0.1 K/uL (0.0-0.2); BASO % 0.7 % (0.0-2.0); EOS # 0.1 K/uL (0.0-0.7); EOS % 0.5 % (0.0-4.0); HEMOGLOBIN 12.9 g/dL (11.0-16.0); LYMPH # 1.5 K/uL (1.0-4.3); MEAN CELL VOLUME 81.6 fL (81.0-99.0); MEAN CORPUSCULAR HEMOGLOBIN 27.3 pg (27.0-31.0); MEAN CORPUSCULAR HGB CONC 33.4 g/dL (33.0-37.0); MEAN PLATELET VOLUME 9.4 fL (7.2-11.7); MONO # 1.3 K/uL (0.0-0.8); NEUT % 78.8 % (50.0-75.0); RBC 4.72 Mil/uL (3.80-5.20); RED CELL DISTRIBUTION WIDTH 16.1 % (11.5-14.5)
[2018-04-18 10:11] LABS: WHITE BLOOD COUNT 13.9 K/uL (4.8-10.8)
[2018-04-18] MEDS ORDERED: Cefepime IV 2 gm in Dextrose 2 GM/100 ML BAG IVPB STA (10:16)
[2018-04-18 10:21] LABS: INR 1.2; PROTHROMBIN TIME 12.8 SECONDS (9.7-12.2)
[2018-04-18 10:23] LABS: ALB/GLOB RATIO 1.4 (1.0-2.1); ALBUMIN 4.1 g/dL (3.5-5.0); ALT/SGPT 21 U/L (9-52); AST/SGOT 34 U/L (14-36); BLOOD UREA NITROGEN 22 mg/dL (7-17); CALCIUM 8.6 mg/dl (8.6-10.4); GFR NON-AFRICAN AMERICAN > 60
[2018-04-18 10:34] LABS: B-TYPE NATRIURETIC PEPTIDE 226 pg/mL (0-900)
[2018-04-18 11:06] LABS: SQUAMOUS EPITHIAL 1 /hpf (0-5); URINE BACTERIA MANY (<OCC); URINE BILIRUBIN NEGATIVE (NEGATIVE); URINE BLOOD 2+ (NEGATIVE); URINE CLARITY Clear (Clear); URINE COLOR Yellow (YELLOW); URINE GLUCOSE (UA) NORMAL (Normal); URINE LEUKOCYTE ESTERASE 1+ Leu/uL (Negative); URINE PROTEIN NEGATIVE (NEGATIVE); URINE UROBILINOGEN NORMAL mg/dL (0.2-1.0)
--- NOTE | 2018-04-18 11:18 | RAD ---
Date of service: 04/18/2018 HISTORY: Sepsis Patient COMPARISON: 10/19/2017 FINDINGS: LUNGS: The extrinsic leads obscure optimal evaluation at the right lung base-patchy infiltrates right lung base cannot be excluded. Mild pulmonary venous congestion appearance accentuated-current study less exposed. PLEURA: No significant pleural effusion identified,; a minimal left pleural effusion is possible not necessarily an interval change. No pneumothorax apparent. CARDIOVASCULAR: There is presence of aortic atherosclerotic calcification on x-ray. Mild cardiomegaly probable mild pulmonary venous congestion OSSEOUS STRUCTURES: Bilateral shoulder arthrosis left greater than right old fracture deformity here inferred VISUALIZED UPPER ABDOMEN: Normal. OTHER FINDINGS: None. IMPRESSION: Limited exam given the obscuring leads overlying the right lung base where a possible underlying patchy right basal infiltrate may be present. Consider follow-up imaging with greater inspiration and without extrinsic monitoring obscuring lung Mild cardiomegaly and mild pulmonary venous congestion both similar in appearance Other findings as above.
[2018-04-18 12:37] LABS: VENOUS BLOOD GAS BASE EXCESS -0.2 mmol/L (0.0-2.0); VENOUS BLOOD GAS PCO2 50 mmHg (40-60); VENOUS BLOOD GAS PO2 42 mm/Hg (30-55); VENOUS BLOOD PH 7.33 (7.32-7.43)
[2018-04-18] MEDS ORDERED: Dextrose 50% SYRINGE Inj (50 ml) IV PRN ×2 (12:52→12:53)
[2018-04-18] MEDS ORDERED: Glucagon Recombinant 1 mg Inj IM PRN ×2 (12:52→12:53)
[2018-04-18] MEDS ORDERED: Sodium Chloride 0.9% 1,000 ML IV SCH ×2 (13:00→19:12)
--- NOTE | 2018-04-18 13:03 | CP.PCM.HP ---
<Alta Sims - Last Filed: 04/18/18 15:05> History of Present Illness - History of Present Illness History of Present Illness: Medicine History and Physical for Dr. Elam HPI: 77 y/o female with PMHx of COPD, HTN, hypothyroidism, DM and gastritis presents to the ED with fever (tmax in ED 101.3 rectal), generalized weakness, cough and fever. Admitted for PNA one other time 15 years ago at her [place] in [facility]. Patient states she was unable to get out of bed this morning. Baseline walks with a walker but feels physically weak. Also with increased cough. Denies chest pain, palpitations, SOB, nausea, vomiting. Per daughter at bedside, patient only had a small sip of coffee this morning. Daughter states been losing appetite. Denies sick contacts or recent travels. Code sepsis called this morning. 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 Moved to the [place] years ago. Lives w/ daughter. Denies EtOH, tob and illicit drug use now and in the past. Meds: famotidine, losartan, metformin, levothyroxine, ASA, ventolin twice a day, breo once a day All: NKDA Present on Admission - Present on Admission Any Indicators Present on Admission: Yes Past Patient History - Infectious Disease Hx of Infectious Diseases: None - Tetanus Immunizations Tetanus Immunization: Unknown - Past Medical History & Family History Past Medical History?: Yes - Past Social History Smoking Status: Never Smoked - CARDIAC Hx Hypertension: Yes Hx Peripheral Edema: Yes - PULMONARY Hx Chronic Obstructive Pulmonary Disease (COPD): Yes Hx Pneumonia: Yes - NEUROLOGICAL Hx Parkinson's Disease: Yes - HEENT Hx HEENT Problems: Yes Hx Difficulty Chewing: Yes (tardive dyskinesia X 4 years) Other/Comment: wears glasses to read - RENAL Hx Chronic Kidney Disease: No - ENDOCRINE/METABOLIC Hx Hypothyroidism: Yes - HEMATOLOGICAL/ONCOLOGICAL Hx Blood Disorders: No Hx Blood Transfusions: No - INTEGUMENTARY Hx Dermatological Problems: No Other/Comment: surgical removal of subcutaneous fat after extreme weight loss - MUSCULOSKELETAL/RHEUMATOLOGICAL Hx Arthritis: Yes Hx Fractures: Yes (6 years ago. fx keft arm, and spine) Hx Osteoporosis: Yes - GASTROINTESTINAL Hx Gastritis: Yes - GENITOURINARY/GYNECOLOGICAL Hx Genitourinary Disorders: Yes Hx Urinary Tract Infection: Yes Other/Comment: incontinent - PSYCHIATRIC Hx Substance Use: No - SURGICAL HISTORY Hx Cholecystectomy: Yes - ANESTHESIA Hx Anesthesia: Yes Hx Anesthesia Reactions: Yes (neuro symptoms. 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.) Hx Malignant Hyperthermia: No Meds Allergies/Adverse Reactions: Allergies Allergy/AdvReac Type Severity Reaction Status Date / Time No Known Allergies Allergy Verified 01/11/18 10:11 Physical Exam - Constitutional Appears: Well - Head Exam Head Exam: ATRAUMATIC, NORMAL INSPECTION - Eye Exam Eye Exam: EOMI, Normal appearance - ENT Exam ENT Exam: Normal Exam - Neck Exam Neck exam: Positive for: Normal Inspection - Respiratory Exam Respiratory Exam: Rhonchi, Wheezes - Cardiovascular Exam Cardiovascular Exam: Tachycardia - GI/Abdominal Exam GI & Abdominal Exam: Normal Bowel Sounds, Soft - Extremities Exam Additional comments: cool extremities, pulse present peripherally - Neurological Exam Neurological exam: Alert, Oriented x3 - Psychiatric Exam Psychiatric exam: Normal Affect, Normal Mood - Skin Skin Exam: Dry, Intact, Normal Color, Warm Results - Vital Signs Recent Vital Signs: Last Vital Signs Temp 98.8 F 04/18/18 12:08 Pulse 101 H 04/18/18 12:27 Resp 16 04/18/18 12:27 BP 98/48 L 04/18/18 12:27 Pulse Ox 99 04/18/18 12:27 - Labs Result Diagrams: 04/18/18 09:55 04/18/18 09:55 Labs: Laboratory Results - last 24 hr 04/18/18 04/18/18 04/18/18 09:55 09:55 09:55 WBC 13.9 H D RBC 4.72 Hgb 12.9 Hct 38.5 MCV 81.6 MCH 27.3 MCHC 33.4 RDW 16.1 H Plt Count 235 MPV 9.4 Neut % (Auto) 78.8 H Lymph % (Auto) 11.0 L Hanson % (Auto) 9.0 Eos % (Auto) 0.5 Baso % (Auto) 0.7 Neut # (Auto) 11.0 H Lymph # (Auto) 1.5 Hanson # (Auto) 1.3 H Eos # (Auto) 0.1 Baso # (Auto) 0.1 PT 12.8 H INR 1.2 APTT 36 H pO2 VBG pH VBG pCO2 VBG HCO3 VBG Total CO2 VBG O2 Sat (Calc) VBG Base Excess VBG Potassium A-a O2 Difference Glucose Lactate FiO2 Sodium 131 L Potassium 4.8 Chloride 96 L Carbon Dioxide 26 Anion Gap 14 BUN 22 H Creatinine 0.7 Est GFR ( Amer) > 60 Est GFR (Non-Af Amer) > 60 Random Glucose 150 H D Calcium 8.6 Phosphorus 4.1 Magnesium 1.7 Total Bilirubin 0.6 AST 34 ALT 21 Alkaline Phosphatase 66 Troponin I < 0.0120 NT-Pro-B Natriuret Pep 226 Total Protein 7.1 Albumin 4.1 Globulin 2.9 Albumin/Globulin Ratio 1.4 Venous Blood Potassium Urine Color Urine Clarity Urine pH Ur Specific [place] Urine Protein Urine Glucose (UA) Urine Ketones Urine Blood Urine Nitrate Urine Bilirubin Urine Urobilinogen Ur Leukocyte Esterase Urine WBC (Auto) Urine RBC (Auto) Ur Squamous Epith Cells Urine Bacteria Influenza Typ A,B (EIA) 04/18/18 04/18/18 04/18/18 09:55 10:00 10:52 WBC RBC Hgb Hct MCV MCH MCHC RDW Plt Count MPV Neut % (Auto) Lymph % (Auto) Hanson % (Auto) Eos % (Auto) Baso % (Auto) Neut # (Auto) Lymph # (Auto) Hanson # (Auto) Eos # (Auto) Baso # (Auto) PT INR APTT pO2 52 VBG pH 7.40 VBG pCO2 47 VBG HCO3 27.4 VBG Total CO2 30.5 H VBG O2 Sat (Calc) 90.2 H VBG Base Excess 3.5 H VBG Potassium 4.1 A-a O2 Difference 39.0 Glucose 145 H Lactate 1.0 FiO2 21.0 Sodium 134.0 Potassium Chloride 101.0 Carbon Dioxide Anion Gap BUN Creatinine Est GFR ( Amer) Est GFR (Non-Af Amer) Random Glucose Calcium Phosphorus Magnesium Total Bilirubin AST ALT Alkaline Phosphatase Troponin I NT-Pro-B Natriuret Pep Total Protein Albumin Globulin Albumin/Globulin Ratio Venous Blood Potassium 4.1 Urine Color Yellow Urine Clarity Clear Urine pH 5.0 Ur Specific [place] 1.013 Urine Protein Negative Urine Glucose (UA) Normal Urine Ketones Negative Urine Blood 2+ H Urine Nitrate Positive H Urine Bilirubin Negative Urine Urobilinogen Normal Ur Leukocyte Esterase 1+ H Urine WBC (Auto) 7 H Urine RBC (Auto) 12 H Ur Squamous Epith Cells 1 Urine Bacteria Many H Influenza Typ A,B (EIA) Negative for flu a/b 04/18/18 12:30 WBC RBC Hgb Hct MCV MCH MCHC RDW Plt Count MPV Neut % (Auto) Lymph % (Auto) Hanson % (Auto) Eos % (Auto) Baso % (Auto) Neut # (Auto) Lymph # (Auto) Hanson # (Auto) Eos # (Auto) Baso # (Auto) PT INR APTT pO2 42 VBG pH 7.33 VBG pCO2 50 VBG HCO3 24.1 VBG Total CO2 27.9 VBG O2 Sat (Calc) 80.0 H VBG Base Excess -0.2 L VBG Potassium 3.6 A-a O2 Difference Glucose 229 H Lactate 1.3 FiO2 Sodium 135.0 Potassium Chloride 101.0 Carbon Dioxide Anion Gap BUN Creatinine Est GFR ( Amer) Est GFR (Non-Af Amer) Random Glucose Calcium Phosphorus Magnesium Total Bilirubin AST ALT Alkaline Phosphatase Troponin I NT-Pro-B Natriuret Pep Total Protein Albumin Globulin Albumin/Globulin Ratio Venous Blood Potassium 3.6 Urine Color Urine Clarity Urine pH Ur Specific [place] Urine Protein Urine Glucose (UA) Urine Ketones Urine Blood Urine Nitrate Urine Bilirubin Urine Urobilinogen Ur Leukocyte Esterase Urine WBC (Auto) Urine RBC (Auto) Ur Squamous Epith Cells Urine Bacteria Influenza Typ A,B (EIA) Assessment & Plan - Assessment and Plan (Free Text) Assessment: 77 y/o female with PMHx of COPD, HTN, hypothyroidism, DM and gastritis presents to the ED with fever, generalized weakness, cough and fever. Admitted to med surg overnight for treatment of PNA. PNA/sepsis -leukocytosis 13.9 on admission, Tmax at 101.3 (rectal), repeat wnl. Patient seen with SBP 90s on monitor. P118 and RR 22. Patient meets all SIRS criteria, source of infection likely 2/2 PNA. CXR: -ED: 3L NS total, then mIVF at 150 ml/h, tylenol, cefepime 2g, ordered vanco 1g x 1 -cefepime and azithromycin IV start 04/18, day of admission -s/p code sepsis in the ED approx 10am 04/18. Dr. Muniz, ID, consulted. Recs appreciated. COPD -given solumedrol 125 mg x 1 in ED. Patient and daughter denies ever smoking but significant secondhand smoking for 20 years, no more exposure for 10 years. Tamica ent diagnosed 10 years ago. less likely CHF exacerbation. EF wnl Mar 2018 and no s/sx of fluid overload. -hold home breo and ventolin -duonebs PRN -spO2 > 92%, NC at 2L PRN -incentive spirometer Hypothyroid -continue with home med levothyroxine HTN -hold home losartan DM -hold home metformin -ISS -hypoglycemia protocol Gastritis -continue with home famotidine ASCVD -continue with home aspirin -HHD DVT ppx: heparin 5000 units sq q12h, SCD GI ppx: home famotidine case d/w Dr. Papa Sims PGY1 <Renzo Elam - Last Filed: 04/21/18 15:39> Results - Vital Signs Recent Vital Signs: Last Vital Signs Temp 98.5 F 04/21/18 07:49 Pulse 71 04/21/18 07:49 Resp 20 04/21/18 07:49 BP 132/70 04/21/18 07:49 Pulse Ox 97 04/21/18 07:49 - Labs Result Diagrams: 04/21/18 07:54 04/21/18 07:54 Labs: Laboratory Results - last 24 hr 04/19/18 04/20/18 04/20/18 08:47 16:26 21:13 WBC RBC Hgb Hct MCV MCH MCHC RDW Plt Count MPV Neut % (Auto) Lymph % (Auto) Hanson % (Auto) Eos % (Auto) Baso % (Auto) Neut # (Auto) Lymph # (Auto) Hanson # (Auto) Eos # (Auto) Baso # (Auto) Sodium Potassium Chloride Carbon Dioxide Anion Gap BUN Creatinine Est GFR ( Amer) Est GFR (Non-Af Amer) POC Glucose (mg/dL) 306 H 222 H Random Glucose Calcium Phosphorus Magnesium Total Bilirubin AST ALT Alkaline Phosphatase Total Protein Albumin Globulin Albumin/Globulin Ratio Ur L.pneumophila Ag Negative 04/21/18 04/21/18 04/21/18 06:55 07:54 07:54 WBC 7.8 RBC 4.02 Hgb 10.7 L Hct 33.1 L MCV 82.4 MCH 26.7 L MCHC 32.4 L RDW 16.5 H Plt Count 204 MPV 9.4 Neut % (Auto) 62.9 Lymph % (Auto) 25.1 Hanson % (Auto) 10.4 H Eos % (Auto) 1.0 Baso % (Auto) 0.6 Neut # (Auto) 4.9 Lymph # (Auto) 1.9 Hanson # (Auto) 0.8 Eos # (Auto) 0.1 Baso # (Auto) 0.0 Sodium 136 Potassium 5.0 Chloride 100 Carbon Dioxide 30 Anion Gap 11 BUN 21 H Creatinine 0.8 Est GFR ( Amer) > 60 Est GFR (Non-Af Amer) > 60 POC Glucose (mg/dL) 164 H Random Glucose 140 H Calcium 7.9 L Phosphorus 3.4 Magnesium 1.8 Total Bilirubin 0.5 AST 25 ALT 31 Alkaline Phosphatase 51 Total Protein 6.1 L Albumin 3.4 L Globulin 2.7 Albumin/Globulin Ratio 1.2 Ur L.pneumophila Ag 04/21/18 11:21 WBC RBC Hgb Hct MCV MCH MCHC RDW Plt Count MPV Neut % (Auto) Lymph % (Auto) Hanson % (Auto) Eos % (Auto) Baso % (Auto) Neut # (Auto) Lymph # (Auto) Hanson # (Auto) Eos # (Auto) Baso # (Auto) Sodium Potassium Chloride Carbon Dioxide Anion Gap BUN Creatinine Est GFR ( Amer) Est GFR (Non-Af Amer) POC Glucose (mg/dL) 199 H Random Glucose Calcium Phosphorus Magnesium Total Bilirubin AST ALT Alkaline Phosphatase Total Protein Albumin Globulin Albumin/Globulin Ratio Ur L.pneumophila Ag Attending/Attestation - Attestation I have personally seen and examined this patient.: Yes I have fully participated in the care of the patient.: Yes I have reviewed all pertinent clinical information: Yes Notes (Text): Seen and examined by me with the resident. patient has cough,and wheezing Has pneumonia with possible sepsis continue solumedrol and antibiotics assessment and the plan discussed with the lauri hess. we will follow cultures continue synthroid,hold BP meds
--- NOTE | 2018-04-18 13:12 | PCM.SEPTIC ---
<Ruthie Rivers - Last Filed: 04/18/18 14:10> Sepsis Progress Note - Reassessment Type Date of Evaluation: 04/18/18 Time of Evaluation: 13:32 Reassessment Type: Non-invasive reassessment - Non Invasive Reassessment Were the most recent vital sign reviewed: Yes Vital Sign (Latest): Temp Pulse Resp BP Pulse Ox 98.8 F 101 H 16 98/48 L 89 L 04/18/18 12:08 04/18/18 12:27 04/18/18 12:27 04/18/18 12:27 04/18/18 13:05 Cardiovascular: Yes: Regular Rate, Rhythm, Tachycardia Respiratory: Yes: Decreased Breath Sounds, Rales. No: Accessory Muscle Use, Respiratory Distress Capillary Refill: Normal (Less than 2 sec) Skin: Normal Color, Warm <Renzo Elam - Last Filed: 04/21/18 15:39> Sepsis Progress Note - Non Invasive Reassessment Vital Sign (Latest): Temp Pulse Resp BP Pulse Ox 98.5 F 71 20 132/70 97 04/21/18 07:49 04/21/18 07:49 04/21/18 07:49 04/21/18 07:49 04/21/18 07:49
[2018-04-18] MEDS ORDERED: Vancomycin 1 GM 1 GM/250 ML BAG IVPB ONE (13:18)
[2018-04-18] MEDS ORDERED: Sodium Chloride 0.9% 1,000 ML ONE (14:42)
[2018-04-18] MEDS ORDERED: Albuterol-Ipratrop 3 mg / 0.5 (3 ml) UD INH PRN (15:14)
[2018-04-18] MEDS ORDERED: Azithromycin 500mg/250ML NS 500 MG/250 ML BAG IVPB ONE (15:30)
[2018-04-18] MEDS: Azithromycin 500 MG in Sodium Chloride 0.9% 250 ML IVPB SCH (15:49)
[2018-04-18] MEDS: (Novolin R) Insulin Human Regular 100 units/ml vial SC SCH ×2 (16:07→22:05)
[2018-04-18] MEDS ORDERED: (Novolin R) Insulin Human Regular 100 units/ml vial ONE (16:09)
[2018-04-18 16:12] LABS: VENOUS BLOOD GAS BASE EXCESS -0.2 mmol/L (0.0-2.0); VENOUS BLOOD GAS PCO2 50 mmHg (40-60); VENOUS BLOOD GAS PO2 42 mm/Hg (30-55); VENOUS BLOOD PH 7.33 (7.32-7.43)
[2018-04-18 18:11] LABS: ALB/GLOB RATIO 1.2 (1.0-2.1); ALBUMIN 3.2 g/dL (3.5-5.0); ALT/SGPT 26 U/L (9-52); AST/SGOT 31 U/L (14-36); BLOOD UREA NITROGEN 19 mg/dL (7-17); CALCIUM 7.2 mg/dl (8.6-10.4); GFR NON-AFRICAN AMERICAN > 60
[2018-04-18] MEDS: Cefepime IV 2 gm in Dextrose 2 GM/100 ML BAG IVPB SCH (18:37)
[2018-04-19] MEDS: Cefepime IV 2 gm in Dextrose 2 GM/100 ML BAG IVPB SCH ×3 (00:47→18:30)
[2018-04-19] MEDS: Levothyroxine 25 MCG TAB PO SCH (05:54)
[2018-04-19 06:50] LABS: BASO # 0.1 K/uL (0.0-0.2); BASO % 0.5 % (0.0-2.0); EOS % 0.3 % (0.0-4.0); LYMPH # 1.9 K/uL (1.0-4.3); LYMPH % 19.1 % (20.0-40.0); MEAN CELL VOLUME 83.7 fL (81.0-99.0); MEAN CORPUSCULAR HEMOGLOBIN 26.7 pg (27.0-31.0); MEAN CORPUSCULAR HGB CONC 31.9 g/dL (33.0-37.0); MONO # 0.8 K/uL (0.0-0.8); MONO % 8.5 % (0.0-10.0); NEUT # 7.1 K/uL (1.8-7.0); NEUT % 71.6 % (50.0-75.0); RBC 4.14 Mil/uL (3.80-5.20); RED CELL DISTRIBUTION WIDTH 16.4 % (11.5-14.5); WHITE BLOOD COUNT 9.9 K/uL (4.8-10.8)
[2018-04-19] MEDS: (Novolin R) Insulin Human Regular 100 units/ml vial SC SCH ×4 (06:54→21:53)
--- NOTE | 2018-04-19 07:05 | CP.PCM.PN ---
<Alta Sims - Last Filed: 04/19/18 10:24> Subjective - Date & Time of Evaluation Date of Evaluation: 04/19/18 Time of Evaluation: 07:05 - Subjective Subjective: Medicine Progress Note for Dr. Elam Patient seen and examined at bedside this morning. Patient states she is still SOB but overall feels better than yesterday when she was in the ED. She feels constipated since she has not had a BM for 2 days. Earlier wanted to go to the bathroom but required nursing assistance. Patient's brother came to visit. Bedside commode now offered, but patient still without BM. Otherwise denies chest pain, nausea, vomiting, diarrhea, fever, chills. Objective - Vital Signs/Intake and Output Vital Signs (last 24 hours): Temp Pulse Resp BP Pulse Ox 98.2 F 83 20 141/71 97 04/19/18 00:00 04/19/18 00:00 04/19/18 00:00 04/19/18 00:00 04/19/18 00:00 - Medications Medications: Current Medications Acetaminophen (Tylenol 325mg Tab) 650 mg PO Q6 PRN PRN Reason: pain+fever Albuterol/Ipratropium (Duoneb 3 Mg/0.5 Mg (3 Ml) Ud) 3 ml INH RQ4 PRN PRN Reason: Cough and congestion Last Admin: 04/18/18 22:18 Dose: 3 ml Aspirin (Ecotrin) 81 mg PO DAILY [facility] Dextrose (Dextrose 50% Inj) 0 ml IV STAT PRN; Protocol PRN Reason: Hypoglycemia Protocol Dextrose (Dextrose 50% Inj) 0 ml IV STAT PRN; Protocol PRN Reason: Hypoglycemia Protocol Dextrose (Glutose 15) 0 gm PO ONCE PRN; Protocol PRN Reason: Hypoglycemia Protocol Famotidine (Pepcid) 20 mg PO DAILY [facility] Last Admin: 04/18/18 15:01 Dose: 20 mg Glucagon (Glucagen Diagnostic Kit) 0 mg IM STAT PRN; Protocol PRN Reason: Hypoglycemia Protocol Heparin Sodium (Porcine) (Heparin) 5,000 units SC Q12 [facility] Last Admin: 04/18/18 22:10 Dose: 5,000 units Dextrose (Dextrose 5% In Water 1000 Ml) 1,000 mls @ 0 mls/hr IV .Q0M PRN; Protocol PRN Reason: Hypoglycemia Protocol Cefepime HCl (Maxipime Iv 2 Gm Premix) 2 gm in 100 mls @ 100 mls/hr IVPB Q8H [facility]; Protocol Stop: 04/23/18 16:01 Last Admin: 04/19/18 00:47 Dose: 100 mls/hr Azithromycin 500 mg/ Sodium (Chloride) 250 mls @ 250 mls/hr IVPB Q24H [facility]; Protocol Last Admin: 04/18/18 15:49 Dose: 250 mls/hr Sodium Chloride (Sodium Chloride 0.9%) 1,000 mls @ 100 mls/hr IV .Q10H [facility] Insulin Human Regular (Novolin R) 0 unit SC ACHS [facility]; Protocol Last Admin: 04/19/18 06:54 Dose: Not Given Levothyroxine Sodium (Synthroid) 25 mcg PO DAILY@0630 [facility] Last Admin: 04/19/18 05:54 Dose: 25 mcg Methylprednisolone (Solu-Medrol) 40 mg IV DAILY [facility] - Labs Labs: 04/19/18 06:21 04/18/18 17:00 PT 12.8 SECONDS (9.7-12.2) H 04/18/18 09:55 INR 1.2 04/18/18 09:55 APTT 36 SECONDS (21-34) H 04/18/18 09:55 - Constitutional Appears: Well (sitting straight in bedside commode in NAD, obese woman) - Head Exam Head Exam: ATRAUMATIC, NORMAL INSPECTION, NORMOCEPHALIC - Eye Exam Eye Exam: EOMI, Normal appearance - ENT Exam ENT Exam: Normal Exam - Neck Exam Neck Exam: Normal Inspection - Respiratory Exam Respiratory Exam: Rhonchi, Wheezes - Cardiovascular Exam Cardiovascular Exam: REGULAR RHYTHM - GI/Abdominal Exam GI & Abdominal Exam: Rigid, Normal Bowel Sounds. absent: Tenderness - Extremities Exam Additional comments: peripheral pulses strong and intact - Neurological Exam Neurological Exam: Alert, Awake, Oriented x3 - Psychiatric Exam Psychiatric exam: Normal Affect, Normal Mood - Skin Skin Exam: Dry, Intact, Normal Color, Warm Assessment and Plan - Assessment and Plan (Free Text) Assessment: 77 y/o female with PMHx of COPD, HTN, hypothyroidism, DM and gastritis presents to the ED with fever, generalized weakness, cough and fever. Admitted to for PNA on 04/18. PNA/sepsis -leukocytosis 13.9 on admission, Tmax at 101.3 (rectal), repeat wnl. Patient seen with SBP 90s on monitor. P118 and RR 22. Patient met all SIRS criteria, source of infection likely 2/2 PNA. Now improved clinically with VS wnl. -s/p code sepsis in the ED approx 10am 04/18. Dr. Muniz, ID, consulted. Recs appreciated. -mIVF at 150 ml/h -cefepime and azithromycin IV started 04/18, day of admission COPD -given solumedrol 125 mg x 1 in ED. Patient and daughter denies ever smoking but significant secondhand smoking for 20 years, no more exposure for 10 years. Patient diagnosed 10 years ago. less likely CHF exacerbation. EF wnl Mar 2018 and no s/sx of fluid overload. -hold home breo and ventolin -duonebs PRN changed to standing q4h 04/19 -spO2 > 92%, NC at 2L PRN -incentive spirometer Constipation -start w/ colace and miralax, monitor Hypothyroid -continue with home med levothyroxine HTN -hold home losartan DM -hold home metformin -ISS -hypoglycemia protocol Gastritis -continue with home famotidine ASCVD -continue with home aspirin -HHD DVT ppx: heparin 5000 units sq q12h, SCD GI ppx: home famotidine case d/w Dr. Papa Sims PGY1 <Renzo Elam - Last Filed: 04/21/18 15:36> Objective - Vital Signs/Intake and Output Vital Signs (last 24 hours): Temp Pulse Resp BP Pulse Ox 98.5 F 71 20 132/70 97 04/21/18 07:49 04/21/18 07:49 04/21/18 07:49 04/21/18 07:49 04/21/18 07:49 Intake and Output: 04/21/18 04/21/18 06:59 18:59 Intake Total 1200 800 Output Total 1200 Balance 1200 -400 - Medications Medications: Current Medications Acetaminophen (Tylenol 325mg Tab) 650 mg PO Q6 PRN PRN Reason: pain+fever Acetylcysteine (Acetylcysteine 20%) 4 ml INH RQ6 [facility] Last Admin: 04/21/18 07:50 Dose: 4 ml Albuterol/Ipratropium (Duoneb 3 Mg/0.5 Mg (3 Ml) Ud) 3 ml INH RQ4 [facility] Last Admin: 04/21/18 07:50 Dose: 3 ml Aspirin (Ecotrin) 81 mg PO DAILY [facility] Last Admin: 04/21/18 10:33 Dose: 81 mg Dextrose (Dextrose 50% Inj) 0 ml IV STAT PRN; Protocol PRN Reason: Hypoglycemia Protocol Dextrose (Dextrose 50% Inj) 0 ml IV STAT PRN; Protocol PRN Reason: Hypoglycemia Protocol Dextrose (Glutose 15) 0 gm PO ONCE PRN; Protocol PRN Reason: Hypoglycemia Protocol Docusate Sodium (Colace) 100 mg PO BID [facility] Last Admin: 04/21/18 10:36 Dose: Not Given Famotidine (Pepcid) 20 mg PO DAILY [facility] Last Admin: 04/21/18 10:33 Dose: 20 mg Glucagon (Glucagen Diagnostic Kit) 0 mg IM STAT PRN; Protocol PRN Reason: Hypoglycemia Protocol Heparin Sodium (Porcine) (Heparin) 5,000 units SC Q12 [facility] Last Admin: 04/21/18 10:33 Dose: 5,000 units Cefepime HCl (Maxipime Iv 2 Gm Premix) 2 gm in 100 mls @ 100 mls/hr IVPB Q8H [facility]; Protocol Stop: 04/23/18 16:01 Last Admin: 04/21/18 08:07 Dose: 100 mls/hr Azithromycin 500 mg/ Sodium (Chloride) 250 mls @ 250 mls/hr IVPB Q24H [facility]; Protocol Last Admin: 04/20/18 16:00 Dose: 250 mls/hr Sodium Chloride (Sodium Chloride 0.9%) 1,000 mls @ 100 mls/hr IV .Q10H [facility] Last Admin: 04/21/18 07:00 Dose: Not Given Insulin Human Regular (Novolin R) 0 unit SC ACHS [facility]; Protocol Last Admin: 04/21/18 11:40 Dose: 2 u Levothyroxine Sodium (Synthroid) 25 mcg PO DAILY@0630 [facility] Last Admin: 04/21/18 06:52 Dose: 25 mcg Methylprednisolone (Solu-Medrol) 40 mg IV DAILY [facility] Last Admin: 04/21/18 10:33 Dose: 40 mg Polyethylene Glycol (Miralax) 17 gm PO DAILY [facility] Last Admin: 04/21/18 10:36 Dose: Not Given - Labs Labs: 04/21/18 07:54 04/21/18 07:54 PT 12.8 SECONDS (9.7-12.2) H 04/18/18 09:55 INR 1.2 04/18/18 09:55 APTT 36 SECONDS (21-34) H 04/18/18 09:55 Attending/Attestation - Attestation I have personally seen and examined this patient.: Yes I have fully participated in the care of the patient.: Yes I have reviewed all pertinent clinical information, including history, physical exam and plan: Yes Notes (Text): seen and examined with the resident Pneumonia has cough and wheezing,continue antibiotics and solumedrol PT evaluation continue neb treatment spoke to brother at bedside
[2018-04-19] MEDS: MethylPREDNISolone 40 mg Vial IV SCH (10:34)
[2018-04-19] MEDS: POLYETHYLENE GLYCOL 3350 17 GM/Dose PACKET PO SCH (10:58)
[2018-04-19 12:06] LABS: ALB/GLOB RATIO 1.2 (1.0-2.1); ALBUMIN 3.1 g/dL (3.5-5.0); ALT/SGPT 32 U/L (9-52); AST/SGOT 35 U/L (14-36); BLOOD UREA NITROGEN 23 mg/dL (7-17); CALCIUM 7.6 mg/dl (8.6-10.4); GFR NON-AFRICAN AMERICAN > 60
[2018-04-19] MEDS: Sodium Chloride 0.9% 1,000 ML IV SCH (14:25)
--- NOTE | 2018-04-19 15:21 | CARD ---
APPROVED REPORT Date of service: 04/18/2018 EKG Measurement Heart [id number] <Conclusion> Sinus tachycardia Nonspecific ST abnormality Abnormal ECG
--- NOTE | 2018-04-19 16:26 | CP.PCM.CON ---
History of Present Illness - History of Present Illness History of Present Illness: 77 y/o female with a PMHx of COPD, admitted with fever cough and SOB with white sputum Denies headache , LOC, chest pain or abd pain Symptoms came on suddenly + Cough with white sputum and mild wheezing - Medical History PMH: Arthritis, COPD, Fractures (6 years ago. fx keft arm, and spine), Gastritis, HTN, Hypothyroidism, Osteoporosis, Parkinson's Disease, Peripheral Edema, Pneumonia Denies: Chronic Kidney Disease Surgical History: Cholecystectomy - [facility] Procedures INSERTION OF INFUSION DEV INTO SUP VENA CAVA, PERC APPROACH (04/12/15) ULTRASONOGRAPHY OF RIGHT AND LEFT HEART, TRANSESOPHAGEAL (07/27/15) Review of Systems - Review of Systems All systems: reviewed and no additional remarkable complaints except - Constitutional Constitutional: As Per HPI, Chills, Fever - EENT Eyes: absent: As Per HPI, Blind Spots, Blurred Vision, Change in Vision, Decreased Night Vision, Diplopia, Discharge, Dry Eye, Exophthalmos, Floaters, Irritation, Itchy Eyes, Loss of Peripheral Vision, Pain, Photophobia, Requires Corrective Lenses, Sees Flashes, Spots in Vision, Tunnel Vision, Other Visual Disturbances, Loss of Vision, Other Ears: absent: As Per HPI, Decreased Hearing, Ear Discharge, Ear Pain, Tinnitus, Abnormal Hearing, Disequilibrium, Dizziness, Other Nose/Mouth/Throat: absent: As Per HPI, Epistaxis, Nasal Congestion, Nasal Discharge, Nasal Obstruction, Nasal Trauma, Nose Pain, Post Nasal Drip, Sinus Pain, Sinus Pressure, Bleeding Gums, Change in Voice, Dental Pain, Dry Mouth, Dysphagia, Halitosis, Hoarsness, Lip Swelling, Mouth Lesions, Mouth Pain, Odynophagia, Sore Throat, Throat Swelling, Tongue Swelling, Facial Pain, Neck Pain, Neck Mass, Other - Breasts Breasts: absent: As Per HPI, Change in Shape, Mass, Pain, Nipple Discharge, Nipple Inversion, Skin Changes, Swelling, Other - Cardiovascular Cardiovascular: absent: As Per HPI, Acrocyanosis, Chest Pain, Chest Pain at Rest, Chest Pain with Activity, Claudication, Diaphoresis, Dyspnea, Dyspnea on Exertion, Edema, Irregular Heart Rhythm, Pain Radiating to Arm/Neck/Jaw, Leg Edema, Leg Ulcers, Lightheadedness, Orthopnea, Palpitations, Paroxysmal Nocturnal Dyspnea, Pedal Edema, Radiating Pain, Rapid Heart Rate, Slow Heart Rate, Syncope, Other - Respiratory Respiratory: As Per HPI, Cough, Dyspnea. absent: Hemoptysis - Gastrointestinal Gastrointestinal: absent: As Per HPI, Abdominal Pain, Belching, Bloating, Change in Bowel Habits, Change in Stool Character, Coffee Ground Emesis, Constipation, Cramping, Diarrhea, Dyspepsia, Dysphagia, Early Satiety, Excessive Flatus, Fecal Incontinence, Heartburn, Hematemesis, Hematochezia, Loose Stools, Melena, Nausea, Odynophagia, Temesmus, Vomiting, Other - Genitourinary Genitourinary: absent: As Per HPI, Change in Urinary Stream, Difficulty Urinating, Dysuria, Flank Pain, Hematuria, Pyuria, Nocturia, Urinary Incontinence, Urinary Frequency, Urinary Hesitance, Urinary Urgency, Voiding Freq/Small Amts, Freq UTI, Hx Renal/Bladder Calculi, Hx /Renal Surgery, Bladder Distension, Other - Reproductive: Female Reproductive:Female: absent: As Per HPI, Amenorrhea, Amenorrhea/ Control, Currently Menstual, Cycle <21 Days, Cycle >35 Days, Cycle Variable, Menses 1-7 Days, Menses >/= 8 Days, Menses Variable, Cycle > 4 Weeks Between, No Menses for 6 Months, Heavy Menses, Light Menses, Normal Menses, Spotting Between Cycles, S/P Hysterectomy, Menopausal, Post Menopausal, Premenarche, Abnormal Vaginal Bleeding, Dysmenorrhea, Dyspareunia, Genital Lesions, Genital Pruritis, Pelvic Pain, Prolapse Symptoms, Sexual Dysfunction, Vaginal Discharge, Vaginal Dryness, Vaginal Odor, Vaginal Pruritis, Other - Menstruation Menstruation: absent: As Per HPI, Amenorrhea, Amenorrhea/ Control, Currently Menstual, Cycle <21 Days, Cycle >35 Days, Cycle Variable, Menses 1-7 Days, Menses >/= 8 Days, Menses Variable, Cycle > 4 Weeks Between, No Menses for 6 Months, Heavy Menses, Light Menses, Normal Menses, Spotting Between Cycles, S/P Hysterectomy, Menopausal, Post Menopausal, Premenarche, Abnormal Vaginal Bleeding, Dysmenorrhea, Other - Musculoskeletal Musculoskeletal: absent: As Per HPI, Abnormal Gait, Arthralgias, Atrophy, Back Pain, Deformity, Joint Swelling, Limited Range of Motion, Loss of Height, Muscle Cramps, Muscle Weakness, Myalgias, Neck Pain, Numbness, Radiating Pain into Limb, Stiffness, Tingling, Other - Integumentary Integumentary: absent: As Per HPI, Acne, Alopecia, Bleeding Lesions, Change in Hair, Change in Nails, Change in Pigmentation, Changing Lesions, Dry Skin, Erythema, Furuncle, Hirsutism, Lesions, New Lesions, Non-Healing Lesions, Pierre tosensitivity, Pruritus, Rash, Skin Pain, Skin Ulcer, Sores, Striae, Swelling, Unusual Bruising, Wounds, Jaundice, Other - Neurological Neurological: absent: As Per HPI, Abnormal Gait, Abnormal Hearing, Abnormal Movements, Abnormal Speech, Behavioral Changes, Burning Sensations, Confusion, Convulsions, Disequilibrium, Dizziness, Numbness, Focal Weakness, Frequent Falls, Headaches, Lack of Coordination, Loss of Vision, Memory Loss, Paresthesias, Radicular Pain, Restless Legs, Sensory Deficit, Syncope, Tingling, Tremor, Vertigo, Weakness, Other Visual Disturbances, Other - Psychiatric Psychiatric: absent: As Per HPI, Abnormal Sleep Pattern, Anhedonia, Anxiety, Auditory Hallucinations, Behavioral Changes, Change in Appetite, Change in Libido, Confusion, Depression, Difficulty Concentrating, Hallucinations, Homicid al Ideation, Hopelessness, Irritability, Memory Loss, Mood Swings, Panic Attacks, Paranoia, Suicidal Ideation, Visual Hallucinations, Tactile Hallucinations, Other - Endocrine Endocrine: absent: As Per HPI, Change in Body Appearance, Change in Libido, Cold Intolorance, Deepening of Voice, Excessive Sweating, Fatigue, Flushing, Heat Intolorance, Increase in Ring/Shoe/Hat Size, Palpitations, Polydipsia, Polyphagia, Polyuria, Other - Hematologic/Lymphatic Hematologic: absent: As Per HPI, Easy Bleeding, Easy Bruising, Lymphadenopathy, Other Past Patient History - Infectious Disease Hx of Infectious Diseases: None - Tetanus Immunizations Tetanus Immunization: Unknown - Past Medical History & Family History Past Medical History?: Yes - Past Social History Smoking Status: Never Smoked - CARDIAC Hx Hypertension: Yes Hx Peripheral Edema: Yes - PULMONARY Hx Chronic Obstructive Pulmonary Disease (COPD): Yes Hx Pneumonia: Yes - NEUROLOGICAL Hx Parkinson's Disease: Yes - HEENT Hx HEENT Problems: Yes Hx Difficulty Chewing: Yes (tardive dyskinesia X 4 years) Other/Comment: wears glasses to read - RENAL Hx Chronic Kidney Disease: No - ENDOCRINE/METABOLIC Hx Hypothyroidism: Yes - HEMATOLOGICAL/ONCOLOGICAL Hx Blood Disorders: No Hx Blood Transfusions: No - INTEGUMENTARY Hx Dermatological Problems: No Other/Comment: surgical removal of subcutaneous fat after extreme weight loss - MUSCULOSKELETAL/RHEUMATOLOGICAL Hx Arthritis: Yes Hx Falls: No Hx Fractures: Yes (6 years ago. fx keft arm, and spine) Hx Osteoporosis: Yes - GASTROINTESTINAL Hx Gastritis: Yes - GENITOURINARY/GYNECOLOGICAL Hx Genitourinary Disorders: Yes Hx Urinary Tract Infection: Yes Other/Comment: incontinent - PSYCHIATRIC Hx Substance Use: No - SURGICAL HISTORY Hx Cholecystectomy: Yes - ANESTHESIA Hx Anesthesia: Yes Hx Anesthesia Reactions: Yes (neuro symptoms. 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.) Hx Malignant Hyperthermia: No Meds Allergies/Adverse Reactions: Allergies Allergy/AdvReac Type Severity Reaction Status Date / Time No Known Allergies Allergy Verified 01/11/18 10:11 - Medications Medications: Current Medications Acetaminophen (Tylenol 325mg Tab) 650 mg PO Q6 PRN PRN Reason: pain+fever Albuterol/Ipratropium (Duoneb 3 Mg/0.5 Mg (3 Ml) Ud) 3 ml INH RQ4 [facility] Aspirin (Ecotrin) 81 mg PO DAILY [facility] Last Admin: 04/19/18 10:34 Dose: 81 mg Dextrose (Dextrose 50% Inj) 0 ml IV STAT PRN; Protocol PRN Reason: Hypoglycemia Protocol Dextrose (Dextrose 50% Inj) 0 ml IV STAT PRN; Protocol PRN Reason: Hypoglycemia Protocol Dextrose (Glutose 15) 0 gm PO ONCE PRN; Protocol PRN Reason: Hypoglycemia Protocol Docusate Sodium (Colace) 100 mg PO BID [facility] Last Admin: 04/19/18 10:58 Dose: 100 mg Famotidine (Pepcid) 20 mg PO DAILY [facility] Last Admin: 04/19/18 10:45 Dose: 20 mg Glucagon (Glucagen Diagnostic Kit) 0 mg IM STAT PRN; Protocol PRN Reason: Hypoglycemia Protocol Heparin Sodium (Porcine) (Heparin) 5,000 units SC Q12 [facility] Last Admin: 04/19/18 10:57 Dose: 5,000 units Dextrose (Dextrose 5% In Water 1000 Ml) 1,000 mls @ 0 mls/hr IV .Q0M PRN; Protocol PRN Reason: Hypoglycemia Protocol Cefepime HCl (Maxipime Iv 2 Gm Premix) 2 gm in 100 mls @ 100 mls/hr IVPB Q8H [facility]; Protocol Stop: 04/23/18 16:01 Last Admin: 04/19/18 09:00 Dose: Not Given Azithromycin 500 mg/ Sodium (Chloride) 250 mls @ 250 mls/hr IVPB Q24H [facility]; Protocol Last Admin: 04/18/18 15:49 Dose: 250 mls/hr Sodium Chloride (Sodium Chloride 0.9%) 1,000 mls @ 100 mls/hr IV .Q10H [facility] Last Admin: 04/19/18 14:25 Dose: 100 mls/hr Insulin Human Regular (Novolin R) 0 unit SC ACHS [facility]; Protocol Last Admin: 04/19/18 12:30 Dose: 2 unit Levothyroxine Sodium (Synthroid) 25 mcg PO DAILY@0630 [facility] Last Admin: 04/19/18 05:54 Dose: 25 mcg Methylprednisolone (Solu-Medrol) 40 mg IV DAILY [facility] Last Admin: 04/19/18 10:34 Dose: 40 mg Polyethylene Glycol (Miralax) 17 gm PO DAILY [facility] Last Admin: 04/19/18 10:58 Dose: 17 gm Physical Exam - Constitutional Appears: Non-toxic, No Acute Distress, Chronically Ill - Head Exam Head Exam: ATRAUMATIC, NORMAL INSPECTION, NORMOCEPHALIC - Eye Exam Eye Exam: PERRL. absent: Scleral icterus - ENT Exam ENT Exam: Mucous Membranes Dry, Normal External Ear Exam, Normal Oropharynx - Neck Exam Neck exam: Negative for: Lymphadenopathy - Respiratory Exam Respiratory Exam: Decreased Breath Sounds, Prolonged Expiratory Phase, Rhonchi, Wheezes - Cardiovascular Exam Cardiovascular Exam: Tachycardia, REGULAR RHYTHM, +S1, +S2 - GI/Abdominal Exam GI & Abdominal Exam: Diminished Bowel Sounds, Distended, Soft. absent: Tenderness - Rectal Exam Rectal Exam: Deferred - Exam Exam: NORMAL INSPECTION - Extremities Exam Extremities exam: Positive for: pedal pulses present. Negative for: calf tend erness, joint swelling, pedal edema, tenderness - Back Exam Back exam: absent: CVA tenderness (L), CVA tenderness (R), paraspinal tenderness - Neurological Exam Neurological exam: Alert, CN II-XII Intact, Oriented x3, Reflexes Normal - Psychiatric Exam Psychiatric exam: Depressed - Skin Skin Exam: Dry, Intact Results - Vital Signs Recent Vital Signs: Last Vital Signs Temp 98.2 F 04/19/18 15:00 Pulse 70 04/19/18 15:00 Resp 18 04/19/18 15:00 BP 122/68 04/19/18 15:00 Pulse Ox 97 04/19/18 15:00 - Labs Result Diagrams: 04/19/18 06:21 04/19/18 06:21 Labs: Laboratory Results - last 24 hr 04/18/18 04/18/18 04/19/18 17:00 21:19 06:21 WBC 9.9 RBC 4.14 Hgb 11.0 Hct 34.6 MCV 83.7 D MCH 26.7 L MCHC 31.9 L RDW 16.4 H Plt Count 206 MPV 10.0 Neut % (Auto) 71.6 Lymph % (Auto) 19.1 L [place] % (Auto) 8.5 Eos % (Auto) 0.3 Baso % (Auto) 0.5 Neut # (Auto) 7.1 H Lymph # (Auto) 1.9 [place] # (Auto) 0.8 Eos # (Auto) 0.0 Baso # (Auto) 0.1 Sodium 136 Potassium 4.5 Chloride 104 Carbon Dioxide 23 Anion Gap 14 BUN 19 H Creatinine 0.8 Est GFR ( Amer) > 60 Est GFR (Non-Af Amer) > 60 POC Glucose (mg/dL) 191 H Random Glucose 296 H D Calcium 7.2 L Phosphorus Magnesium Total Bilirubin 0.3 AST 31 ALT 26 Alkaline Phosphatase 57 Total Protein 5.8 L Albumin 3.2 L D Globulin 2.6 Albumin/Globulin Ratio 1.2 04/19/18 04/19/18 04/19/18 06:21 06:45 11:24 WBC RBC Hgb Hct MCV MCH MCHC RDW Plt Count MPV Neut % (Auto) Lymph % (Auto) [place] % (Auto) Eos % (Auto) Baso % (Auto) Neut # (Auto) Lymph # (Auto) [place] # (Auto) Eos # (Auto) Baso # (Auto) Sodium 137 Potassium 4.6 Chloride 107 Carbon Dioxide 25 Anion Gap 9 L BUN 23 H Creatinine 0.7 Est GFR ( Amer) > 60 Est GFR (Non-Af Amer) > 60 POC Glucose (mg/dL) 134 H 171 H Random Glucose 136 H D Calcium 7.6 L Phosphorus 3.5 Magnesium 2.1 Total Bilirubin 0.4 AST 35 ALT 32 Alkaline Phosphatase 55 Total Protein 5.7 L Albumin 3.1 L Globulin 2.7 Albumin/Globulin Ratio 1.2 Assessment & Plan (1) COPD with exacerbation Status: Acute (2) Pneumonia Status: Acute (3) Sepsis Status: Acute - Assessment and Plan (Free Text) Assessment: exac COPD/ pneuumonia in a frail 77 yo female with multple problems rapid onset and white sputum suggest viral or atypical etiology ? await cultures agreew with empiric IV antibioitics
[2018-04-19] MEDS: Azithromycin 500 MG in Sodium Chloride 0.9% 250 ML IVPB SCH (16:29)
[2018-04-19] MEDS: Albuterol-Ipratrop 3 mg / 0.5 (3 ml) UD INH SCH (16:43)
[2018-04-20] MEDS: Albuterol-Ipratrop 3 mg / 0.5 (3 ml) UD INH SCH ×5 (00:01→21:34)
[2018-04-20] MEDS: Cefepime IV 2 gm in Dextrose 2 GM/100 ML BAG IVPB SCH ×3 (00:55→17:44)
[2018-04-20] MEDS: Levothyroxine 25 MCG TAB PO SCH (05:54)
[2018-04-20 07:29] LABS: BASO % 0.5 % (0.0-2.0); EOS % 0.3 % (0.0-4.0); HEMOGLOBIN 10.8 g/dL (11.0-16.0); LYMPH # 1.7 K/uL (1.0-4.3); LYMPH % 19.3 % (20.0-40.0); MEAN CELL VOLUME 83.3 fL (81.0-99.0); MEAN CORPUSCULAR HEMOGLOBIN 27.1 pg (27.0-31.0); MEAN CORPUSCULAR HGB CONC 32.6 g/dL (33.0-37.0); MONO # 0.8 K/uL (0.0-0.8); MONO % 8.6 % (0.0-10.0); NEUT # 6.4 K/uL (1.8-7.0); NEUT % 71.3 % (50.0-75.0); RED CELL DISTRIBUTION WIDTH 16.3 % (11.5-14.5)
[2018-04-20] MEDS: (Novolin R) Insulin Human Regular 100 units/ml vial SC SCH ×4 (07:59→21:40)
[2018-04-20 08:19] LABS: ALB/GLOB RATIO 1.2 (1.0-2.1); ALBUMIN 3.3 g/dL (3.5-5.0); ALT/SGPT 27 U/L (9-52); AST/SGOT 24 U/L (14-36); BLOOD UREA NITROGEN 20 mg/dL (7-17); CALCIUM 7.9 mg/dl (8.6-10.4); GFR NON-AFRICAN AMERICAN > 60
[2018-04-20] MEDS: MethylPREDNISolone 40 mg Vial IV SCH (09:37)
[2018-04-20] MEDS: Sodium Chloride 0.9% 1,000 ML IV SCH ×3 (09:40→20:00)
[2018-04-20] MEDS: POLYETHYLENE GLYCOL 3350 17 GM/Dose PACKET PO SCH (09:45)
--- NOTE | 2018-04-20 10:15 | CP.PCM.PN ---
<Alta Sims - Last Filed: 04/20/18 14:46> Subjective - Date & Time of Evaluation Date of Evaluation: 04/20/18 Time of Evaluation: 10:11 - Subjective Subjective: Medicine Progress Note for Dr. Elam Patient seen and examined at bedside by daughter. Patient states she feels better overall. She had a good BM, but still with some cough and shortness of breath. Denies nausea, vomiting, diarrhea, fevers, chills. Patient able to eat all of her breakfast. Per RN wheezing and congestion persists. She would like medicine team to possibly change medications since current regimen not working. Objective - Vital Signs/Intake and Output Vital Signs (last 24 hours): Temp Pulse Resp BP Pulse Ox 98.9 F 71 21 144/84 96 04/20/18 08:41 04/20/18 08:41 04/20/18 08:41 04/20/18 08:41 04/20/18 08:41 - Medications Medications: Current Medications Acetaminophen (Tylenol 325mg Tab) 650 mg PO Q6 PRN PRN Reason: pain+fever Albuterol/Ipratropium (Duoneb 3 Mg/0.5 Mg (3 Ml) Ud) 3 ml INH RQ4 [facility] Last Admin: 04/20/18 07:45 Dose: 3 ml Aspirin (Ecotrin) 81 mg PO DAILY [facility] Last Admin: 04/20/18 09:37 Dose: 81 mg Dextrose (Dextrose 50% Inj) 0 ml IV STAT PRN; Protocol PRN Reason: Hypoglycemia Protocol Dextrose (Dextrose 50% Inj) 0 ml IV STAT PRN; Protocol PRN Reason: Hypoglycemia Protocol Dextrose (Glutose 15) 0 gm PO ONCE PRN; Protocol PRN Reason: Hypoglycemia Protocol Docusate Sodium (Colace) 100 mg PO BID [facility] Last Admin: 04/20/18 09:37 Dose: 100 mg Famotidine (Pepcid) 20 mg PO DAILY [facility] Last Admin: 04/20/18 09:37 Dose: 20 mg Glucagon (Glucagen Diagnostic Kit) 0 mg IM STAT PRN; Protocol PRN Reason: Hypoglycemia Protocol Heparin Sodium (Porcine) (Heparin) 5,000 units SC Q12 [facility] Last Admin: 04/20/18 09:37 Dose: 5,000 units Dextrose (Dextrose 5% In Water 1000 Ml) 1,000 mls @ 0 mls/hr IV .Q0M PRN; Protocol PRN Reason: Hypoglycemia Protocol Cefepime HCl (Maxipime Iv 2 Gm Premix) 2 gm in 100 mls @ 100 mls/hr IVPB Q8H [facility]; Protocol Stop: 04/23/18 16:01 Last Admin: 04/20/18 07:36 Dose: 100 mls/hr Azithromycin 500 mg/ Sodium (Chloride) 250 mls @ 250 mls/hr IVPB Q24H [facility]; Protocol Last Admin: 04/19/18 16:29 Dose: 250 mls/hr Sodium Chloride (Sodium Chloride 0.9%) 1,000 mls @ 100 mls/hr IV .Q10H [facility] Last Admin: 04/20/18 09:40 Dose: 100 mls/hr Insulin Human Regular (Novolin R) 0 unit SC ACHS [facility]; Protocol Last Admin: 04/20/18 07:59 Dose: Not Given Levothyroxine Sodium (Synthroid) 25 mcg PO DAILY@0630 [facility] Last Admin: 04/20/18 05:54 Dose: 25 mcg Methylprednisolone (Solu-Medrol) 40 mg IV DAILY [facility] Last Admin: 04/20/18 09:37 Dose: 40 mg Polyethylene Glycol (Miralax) 17 gm PO DAILY [facility] Last Admin: 04/20/18 09:45 Dose: Not Given - Labs Labs: 04/20/18 07:04 04/20/18 07:04 PT 12.8 SECONDS (9.7-12.2) H 04/18/18 09:55 INR 1.2 04/18/18 09:55 APTT 36 SECONDS (21-34) H 04/18/18 09:55 - Constitutional Appears: Well, Non-toxic - Head Exam Head Exam: ATRAUMATIC, NORMAL INSPECTION, NORMOCEPHALIC - Eye Exam Eye Exam: Normal appearance - Neck Exam Neck Exam: Normal Inspection - Respiratory Exam Respiratory Exam: Rhonchi (throughout all lung bowen), Wheezes - Cardiovascular Exam Cardiovascular Exam: REGULAR RHYTHM - GI/Abdominal Exam GI & Abdominal Exam: Soft, Normal Bowel Sounds - Extremities Exam Extremities Exam: Normal Inspection. absent: Pedal Edema - Neurological Exam Neurological Exam: Alert, Awake, Oriented x3 - Psychiatric Exam Psychiatric exam: Normal Affect, Normal Mood - Skin Skin Exam: Dry, Intact, Normal Color, Warm Assessment and Plan - Assessment and Plan (Free Text) Assessment: 77 y/o female with PMHx of COPD, HTN, hypothyroidism, DM and gastritis presents to the ED with fever, generalized weakness, cough and fever. Admitted to for PNA on 04/18. PNA/sepsis -leukocytosis 13.9 on admission, Tmax at 101.3 (rectal), repeat wnl. Patient seen with SBP 90s on monitor. P118 and RR 22. Patient met all SIRS criteria, source of infection likely 2/2 PNA. Now improved clinically with VS wnl. -s/p code sepsis in the ED approx 10am 04/18. Dr. Muniz, ID, consulted. Recs appreciated. -mIVF at 150 ml/h -cefepime and azithromycin IV started 04/18, day of admission Bacteremia -04/18 blood culture grew gram pos cocci -> gave one time dose of vanco 1.5g x 1. -reached out to Dr. Muniz about lab results. He is aware. Pending recommendations. Asymptomatic UTI -patient denies urinary sx, but initial urinalysis positive and urine culture grew positive day 2 of culture -04/18 urine culture grew klebsiella -> sensitive to cefepime. Will continue with cefepime for PNA to also treat the UTI COPD -given solumedrol 125 mg x 1 in ED. Patient and daughter denies ever smoking but significant secondhand smoking for 20 years, no more exposure for 10 years. Patient diagnosed 10 years ago. less likely CHF exacerbation. EF wnl Mar 2018 and no s/sx of fluid overload. -hold home breo and ventolin -duonebs PRN changed to standing q4h 04/19 -spO2 > 92%, NC at 2L PRN -incentive spirometer Constipation -colace and miralax, monitor -continue with current bowel regimen as pt reports BMs Hypothyroid -continue with home med levothyroxine HTN -hold home losartan DM -hold home metformin -ISS -hypoglycemia protocol Gastritis -continue with home famotidine ASCVD -continue with home aspirin -HHD DVT ppx: heparin 5000 units sq q12h, SCD GI ppx: home famotidine case d/w Dr. Papa Sims PGY1 <Renzo Elam - Last Filed: 04/21/18 15:34> Objective - Vital Signs/Intake and Output Vital Signs (last 24 hours): Temp Pulse Resp BP Pulse Ox 98.5 F 71 20 132/70 97 04/21/18 07:49 04/21/18 07:49 04/21/18 07:49 04/21/18 07:49 04/21/18 07:49 Intake and Output: 04/21/18 04/21/18 06:59 18:59 Intake Total 1200 800 Output Total 1200 Balance 1200 -400 - Medications Medications: Current Medications Acetaminophen (Tylenol 325mg Tab) 650 mg PO Q6 PRN PRN Reason: pain+fever Acetylcysteine (Acetylcysteine 20%) 4 ml INH RQ6 [facility] Last Admin: 04/21/18 07:50 Dose: 4 ml Albuterol/Ipratropium (Duoneb 3 Mg/0.5 Mg (3 Ml) Ud) 3 ml INH RQ4 [facility] Last Admin: 04/21/18 07:50 Dose: 3 ml Aspirin (Ecotrin) 81 mg PO DAILY [facility] Last Admin: 04/21/18 10:33 Dose: 81 mg Dextrose (Dextrose 50% Inj) 0 ml IV STAT PRN; Protocol PRN Reason: Hypoglycemia Protocol Dextrose (Dextrose 50% Inj) 0 ml IV STAT PRN; Protocol PRN Reason: Hypoglycemia Protocol Dextrose (Glutose 15) 0 gm PO ONCE PRN; Protocol PRN Reason: Hypoglycemia Protocol Docusate Sodium (Colace) 100 mg PO BID [facility] Last Admin: 04/21/18 10:36 Dose: Not Given Famotidine (Pepcid) 20 mg PO DAILY [facility] Last Admin: 04/21/18 10:33 Dose: 20 mg Glucagon (Glucagen Diagnostic Kit) 0 mg IM STAT PRN; Protocol PRN Reason: Hypoglycemia Protocol Heparin Sodium (Porcine) (Heparin) 5,000 units SC Q12 [facility] Last Admin: 04/21/18 10:33 Dose: 5,000 units Cefepime HCl (Maxipime Iv 2 Gm Premix) 2 gm in 100 mls @ 100 mls/hr IVPB Q8H [facility]; Protocol Stop: 04/23/18 16:01 Last Admin: 04/21/18 08:07 Dose: 100 mls/hr Azithromycin 500 mg/ Sodium (Chloride) 250 mls @ 250 mls/hr IVPB Q24H [facility]; Protocol Last Admin: 04/20/18 16:00 Dose: 250 mls/hr Sodium Chloride (Sodium Chloride 0.9%) 1,000 mls @ 100 mls/hr IV .Q10H [facility] Last Admin: 04/21/18 07:00 Dose: Not Given Insulin Human Regular (Novolin R) 0 unit SC ACHS [facility]; Protocol Last Admin: 04/21/18 11:40 Dose: 2 u Levothyroxine Sodium (Synthroid) 25 mcg PO DAILY@0630 [facility] Last Admin: 04/21/18 06:52 Dose: 25 mcg Methylprednisolone (Solu-Medrol) 40 mg IV DAILY [facility] Last Admin: 04/21/18 10:33 Dose: 40 mg Polyethylene Glycol (Miralax) 17 gm PO DAILY [facility] Last Admin: 04/21/18 10:36 Dose: Not Given - Labs Labs: 04/21/18 07:54 04/21/18 07:54 PT 12.8 SECONDS (9.7-12.2) H 04/18/18 09:55 INR 1.2 04/18/18 09:55 APTT 36 SECONDS (21-34) H 04/18/18 09:55 Attending/Attestation - Attestation I have personally seen and examined this patient.: Yes I have fully participated in the care of the patient.: Yes I have reviewed all pertinent clinical information, including history, physical exam and plan: Yes Notes (Text): Patient looks little better. has wheezing no fever, community acquired pneumonia , Deconditioning continue cefepime and zithromax rehab is recommending rehab we will see how is she doing tomorrow.Ig wheezing inproves possible discharge
[2018-04-20] MEDS ORDERED: Vancomycin 1.5 GM in Sodium Chloride 0.9% 500 ML IVPB ONE (12:00)
[2018-04-20] MEDS: Acetylcysteine 20% Inhal Soln (4ml) INH SCH ×2 (15:36→21:34)
[2018-04-20] MEDS: Azithromycin 500 MG in Sodium Chloride 0.9% 250 ML IVPB SCH (16:00)
--- NOTE | 2018-04-20 19:26 | CP.PCM.PN ---
Subjective - Date & Time of Evaluation Date of Evaluation: 04/20/18 Time of Evaluation: 08:00 - Subjective Subjective: 77 y/o female with a PMHx of COPD, admitted with fever cough and SOB with white sputum with RLL infiltrate on CXR started on empiric IV antibiotics Urine c/s + gram neg sensitive to Cefepime but denies UTI symptoms patient is weak but says her cough and SOB are less She denies chills or fever She is awake and alert Objective - Vital Signs/Intake and Output Vital Signs (last 24 hours): Temp Pulse Resp BP Pulse Ox 98.9 F 70 18 139/81 96 04/20/18 15:00 04/20/18 15:00 04/20/18 15:00 04/20/18 15:00 04/20/18 15:00 - Medications Medications: Current Medications Acetaminophen (Tylenol 325mg Tab) 650 mg PO Q6 PRN PRN Reason: pain+fever Acetylcysteine (Acetylcysteine 20%) 4 ml INH RQ6 [facility] Last Admin: 04/20/18 15:36 Dose: Not Given Albuterol/Ipratropium (Duoneb 3 Mg/0.5 Mg (3 Ml) Ud) 3 ml INH RQ4 [facility] Last Admin: 04/20/18 11:30 Dose: 3 ml Aspirin (Ecotrin) 81 mg PO DAILY [facility] Last Admin: 04/20/18 09:37 Dose: 81 mg Dextrose (Dextrose 50% Inj) 0 ml IV STAT PRN; Protocol PRN Reason: Hypoglycemia Protocol Dextrose (Dextrose 50% Inj) 0 ml IV STAT PRN; Protocol PRN Reason: Hypoglycemia Protocol Dextrose (Glutose 15) 0 gm PO ONCE PRN; Protocol PRN Reason: Hypoglycemia Protocol Docusate Sodium (Colace) 100 mg PO BID [facility] Last Admin: 04/20/18 17:44 Dose: 100 mg Famotidine (Pepcid) 20 mg PO DAILY [facility] Last Admin: 04/20/18 09:37 Dose: 20 mg Glucagon (Glucagen Diagnostic Kit) 0 mg IM STAT PRN; Protocol PRN Reason: Hypoglycemia Protocol Heparin Sodium (Porcine) (Heparin) 5,000 units SC Q12 [facility] Last Admin: 04/20/18 09:37 Dose: 5,000 units Dextrose (Dextrose 5% In Water 1000 Ml) 1,000 mls @ 0 mls/hr IV .Q0M PRN; Protocol PRN Reason: Hypoglycemia Protocol Cefepime HCl (Maxipime Iv 2 Gm Premix) 2 gm in 100 mls @ 100 mls/hr IVPB Q8H [facility]; Protocol Stop: 04/23/18 16:01 Last Admin: 04/20/18 17:44 Dose: 100 mls/hr Azithromycin 500 mg/ Sodium (Chloride) 250 mls @ 250 mls/hr IVPB Q24H [facility]; Protocol Last Admin: 04/20/18 16:00 Dose: 250 mls/hr Sodium Chloride (Sodium Chloride 0.9%) 1,000 mls @ 100 mls/hr IV .Q10H [facility] Last Admin: 04/20/18 09:40 Dose: 100 mls/hr Insulin Human Regular (Novolin R) 0 unit SC ACHS [facility]; Protocol Last Admin: 04/20/18 17:45 Dose: 8 u Levothyroxine Sodium (Synthroid) 25 mcg PO DAILY@0630 [facility] Last Admin: 04/20/18 05:54 Dose: 25 mcg Methylprednisolone (Solu-Medrol) 40 mg IV DAILY [facility] Last Admin: 04/20/18 09:37 Dose: 40 mg Polyethylene Glycol (Miralax) 17 gm PO DAILY [facility] Last Admin: 04/20/18 09:45 Dose: Not Given - Labs Labs: 04/20/18 07:04 04/20/18 07:04 PT 12.8 SECONDS (9.7-12.2) H 04/18/18 09:55 INR 1.2 04/18/18 09:55 APTT 36 SECONDS (21-34) H 04/18/18 09:55 - Constitutional Appears: Non-toxic, Chronically Ill - Head Exam Head Exam: NORMOCEPHALIC - Eye Exam Eye Exam: absent: Scleral icterus - ENT Exam ENT Exam: Mucous Membranes Dry - Neck Exam Neck Exam: absent: Lymphadenopathy - Respiratory Exam Respiratory Exam: Decreased Breath Sounds, Rhonchi - Cardiovascular Exam Cardiovascular Exam: REGULAR RHYTHM, +S1, +S2 - GI/Abdominal Exam GI & Abdominal Exam: Distended, Soft - Rectal Exam Rectal Exam: Deferred - Exam Exam: NORMAL INSPECTION - Extremities Exam Extremities Exam: Pedal Edema - Back Exam Back Exam: absent: CVA tenderness (L), CVA tenderness (R) - Neurological Exam Neurological Exam: Alert, Awake, Oriented x3 - Psychiatric Exam Psychiatric exam: Depressed - Skin Skin Exam: Dry Assessment and Plan (1) COPD with exacerbation Status: Acute (2) Pneumonia Status: Acute (3) Sepsis Status: Acute - Assessment and Plan (Free Text) Assessment: 77 y/o female with a PMHx of COPD, admitted with fever cough and SOB with white sputum with RLL infiltrate on CXR started on empiric IV antibiotics Urine c/s + gram neg sensitive to Cefepime but denies UTI symptoms patient is weak but says her cough and SOB are less She denies chills or fever She is awake and alert cont empiric rx for CAP including Zmax/ Cefepime PT?OT eval for deconditioning follow up CXR
[2018-04-21] MEDS: Cefepime IV 2 gm in Dextrose 2 GM/100 ML BAG IVPB SCH ×3 (01:00→17:00)
[2018-04-21] MEDS: Albuterol-Ipratrop 3 mg / 0.5 (3 ml) UD INH SCH ×7 (01:10→23:59)
[2018-04-21] MEDS: Acetylcysteine 20% Inhal Soln (4ml) INH SCH ×4 (02:59→19:42)
[2018-04-21] MEDS: Levothyroxine 25 MCG TAB PO SCH (06:52)
[2018-04-21] MEDS: Sodium Chloride 0.9% 1,000 ML IV SCH ×2 (07:00→17:54)
--- NOTE | 2018-04-21 07:11 | CP.PCM.PN ---
<Ruthie Rivers - Last Filed: 04/21/18 19:13> Subjective - Date & Time of Evaluation Date of Evaluation: 04/21/18 Time of Evaluation: 07:11 - Subjective Subjective: PGY-1 Ruthie Rivers D.O. Medicine progress note for Dr. 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 Patient reports feeling better. Still complaining of SOB and phlegm production. She is also complaining of b/l leg pain. She has not been able to ambulate since being hospitalized- she utilizes a cane at home. Objective - Vital Signs/Intake and Output Vital Signs (last 24 hours): Temp Pulse Resp BP Pulse Ox 97.8 F 84 20 131/82 97 04/20/18 23:25 04/21/18 04:00 04/20/18 23:25 04/20/18 23:25 04/20/18 23:25 Intake and Output: 04/21/18 04/21/18 06:59 18:59 Intake Total 1200 Balance 1200 - Medications Medications: Current Medications Acetaminophen (Tylenol 325mg Tab) 650 mg PO Q6 PRN PRN Reason: pain+fever Acetylcysteine (Acetylcysteine 20%) [address] [facility] Last Admin: 04/21/18 02:59 Dose: Not Given Albuterol/Ipratropium (Duoneb 3 Mg/0.5 Mg (3 Ml) Ud) [address] [facility] Last Admin: 04/21/18 02:59 Dose: 3 ml Aspirin (Ecotrin) [address] [facility] Last Admin: 04/20/18 09:37 Dose: 81 mg Dextrose (Dextrose 50% Inj) 0 ml IV STAT PRN; Protocol PRN Reason: Hypoglycemia Protocol Dextrose (Dextrose 50% Inj) 0 ml IV STAT PRN; Protocol PRN Reason: Hypoglycemia Protocol Dextrose (Glutose 15) 0 gm PO ONCE PRN; Protocol PRN Reason: Hypoglycemia Protocol Docusate Sodium (Colace) [address] [facility] Last Admin: 04/20/18 17:44 Dose: 100 mg Famotidine (Pepcid) [address] [facility] Last Admin: 04/20/18 09:37 Dose: 20 mg Glucagon (Glucagen Diagnostic Kit) 0 mg IM STAT PRN; Protocol PRN Reason: Hypoglycemia Protocol Heparin Sodium (Porcine) (Heparin) 5,000 units SC Q12 [facility] Last Admin: 04/20/18 22:28 Dose: 5,000 units Dextrose (Dextrose 5% In Water 1000 Ml) 1,000 mls @ 0 mls/hr IV .Q0M [facility]; Protocol PRN Reason: Hypoglycemia Protocol Cefepime HCl (Maxipime Iv 2 Gm Premix) 2 gm in 100 mls @ 100 mls/hr IVPB Q8H [facility]; Protocol Stop: 04/23/18 16:01 Last Admin: 04/21/18 01:00 Dose: 100 mls/hr Azithromycin 500 mg/ Sodium (Chloride) 250 mls @ 250 mls/hr IVPB Q24H [facility]; Protocol Last Admin: 04/20/18 16:00 Dose: 250 mls/hr Sodium Chloride (Sodium Chloride 0.9%) 1,000 mls @ 100 mls/hr IV .Q10H [facility] Last Admin: 04/21/18 07:00 Dose: Not Given Insulin Human Regular (Novolin R) [address] [facility]; Protocol Last Admin: 04/20/18 21:40 Dose: Not Given Levothyroxine Sodium (Synthroid) 25 mcg PO DAILY@0630 [facility] Last Admin: 04/21/18 06:52 Dose: 25 mcg Methylprednisolone (Solu-Medrol) [address] [facility] Last Admin: 04/20/18 09:37 Dose: 40 mg Polyethylene Glycol (Miralax) [address] [facility] Last Admin: 04/20/18 09:45 Dose: Not Given - Labs Labs: 04/20/18 07:04 04/20/18 07:04 PT 12.8 SECONDS (9.7-12.2) H 04/18/18 09:55 INR 1.2 04/18/18 09:55 APTT 36 SECONDS (21-34) H 04/18/18 09:55 - Constitutional Appears: Non-toxic, No Acute Distress - Head Exam Head Exam: ATRAUMATIC, NORMAL INSPECTION - Eye Exam Eye Exam: EOMI, Normal appearance - ENT Exam ENT Exam: Mucous Membranes Moist - Neck Exam Neck Exam: Normal Inspection - Respiratory Exam Respiratory Exam: Rhonchi (upper airway), NORMAL BREATHING PATTERN. absent: Wheezes, Respiratory Distress Additional comments: NC 3L - Cardiovascular Exam Cardiovascular Exam: REGULAR RHYTHM, +S1, +S2 - GI/Abdominal Exam GI & Abdominal Exam: Soft. absent: Distended, Tenderness Additional comments: obese - Extremities Exam Extremities Exam: Pedal Edema (1+ b/l), Tenderness (b/l) - Neurological Exam Neurological Exam: Alert, Awake, CN II-XII Intact, Oriented x3. absent: Normal Gait - Psychiatric Exam Psychiatric exam: Normal Affect, Normal Mood - Skin Skin Exam: Dry, Normal Color, Warm Assessment and Plan - Assessment and Plan (Free Text) Assessment: Patient is a 77 yo female with a history of COPD, HTN, hypothyroidism, and T2DM who presented for cough and fever. Code sepsis called. Patient found to have PNA. Pending GISSELLE placement. Plan: Sepsis 2/2 Pneumonia - Code sepsis - Most recent fever 101.3 on 04/18 - Leukocytosis resolved - Flu, Legionella negative - f/u Mycoplasma - NS @ 100 - Solumedrol 40 mg IV daily - Cefepime 2 g IV Q8H- started 04/18 - Azithromycin 500 mg IV daily- started 04/18 - Acetylcysteine Q6H - Duoneb Q4H - ID consulted (Mangia) Bilateral leg pain - Patient immobile since admission - f/u LE Dopplers Bacteremia- suspect contamination - BCx (04/18): 1/ positive for GPC - f/u repeat BCx from 04/21 - Vancomycin 1.5 g IV x1 on 04/21 - ID consulted (Cristy) Asymptomatic bacteriuria - UA: blood 2+, nitrate pos, LE 1+, WBC 7, RBC 12, neftali many - UCx: Klebsiella pneumoniae - f/u repeat UA and UCx - Cefepime 2 g IV Q8H- started 04/18 Chronic obstructive pulmonary disease - Solumedrol 125 mg x 1 in ED. Patient and daughter deny ever smoking but significant secondhand smoking for 20 years, no more exposure for 10 years. Patient diagnosed 10 years ago. Less likely CHF exacerbation as EF wnl Mar 2018 and no s/sx of fluid overload. 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 Elam. <Renzo Elam - Last Filed: 04/22/18 17:37> Objective - Vital Signs/Intake and Output Vital Signs (last 24 hours): Temp Pulse Resp BP Pulse Ox 99 F 70 20 152/84 H 95 04/22/18 15:00 04/22/18 15:00 04/22/18 15:00 04/22/18 15:00 04/22/18 15:00 Intake and Output: 04/22/18 04/22/18 06:59 18:59 Intake Total 1100 Output Total 1100 Balance 0 - Medications Medications: Current Medications Acetaminophen (Tylenol 325mg Tab) 650 mg PO Q6 PRN PRN Reason: pain+fever Acetylcysteine (Acetylcysteine 20%) 4 ml INH RQ6 [facility] Last Admin: 04/22/18 13:25 Dose: 4 ml Albuterol/Ipratropium (Duoneb 3 Mg/0.5 Mg (3 Ml) Ud) 3 ml INH RQ4 [facility] Last Admin: 04/22/18 13:25 Dose: 3 ml Aspirin (Ecotrin) [address] [facility] Last Admin: 04/22/18 11:03 Dose: 81 mg Dextrose (Dextrose 50% Inj) 0 ml IV STAT PRN; Protocol PRN Reason: Hypoglycemia Protocol Dextrose (Dextrose 50% Inj) 0 ml IV STAT PRN; Protocol PRN Reason: Hypoglycemia Protocol Dextrose (Glutose 15) 0 gm PO ONCE PRN; Protocol PRN Reason: Hypoglycemia Protocol Docusate Sodium (Colace) [address] [facility] Last Admin: 04/22/18 11:03 Dose: 100 mg Famotidine (Pepcid) [address] [facility] Last Admin: 04/22/18 11:03 Dose: 20 mg Glucagon (Glucagen Diagnostic Kit) 0 mg IM STAT PRN; Protocol PRN Reason: Hypoglycemia Protocol Heparin Sodium (Porcine) (Heparin) 5,[address] [facility] Last Admin: 04/22/18 11:02 Dose: 5,000 units Cefepime HCl (Maxipime Iv 2 Gm Premix) 2 gm in 100 mls @ 100 mls/hr IVPB Q8H [facility]; Protocol Stop: 04/23/18 16:01 Last Admin: 04/22/18 16:19 Dose: 100 mls/hr Azithromycin 500 mg/ Sodium (Chloride) 250 mls @ 250 mls/hr IVPB Q24H [facility]; Protocol Last Admin: 04/22/18 16:56 Dose: 250 mls/hr Insulin Human Regular (Novolin R) 0 unit SC ACHS [facility]; Protocol Last Admin: 04/22/18 16:55 Dose: 6 u Levothyroxine Sodium (Synthroid) 25 mcg PO DAILY@0630 [facility] Last Admin: 04/22/18 06:09 Dose: 25 mcg Methylprednisolone (Solu-Medrol) 40 mg IV DAILY [facility] Last Admin: 04/22/18 11:02 Dose: 40 mg Polyethylene Glycol (Miralax) [address] [facility] Last Admin: 04/22/18 11:03 Dose: 17 gm - Labs Labs: 04/22/18 07:30 04/22/18 07:30 PT 12.8 SECONDS (9.7-12.2) H 04/18/18 09:55 INR 1.2 04/18/18 09:55 APTT 36 SECONDS (21-34) H 04/18/18 09:55 Attending/Attestation - Attestation I have personally seen and examined this patient.: Yes I have fully participated in the care of the patient.: Yes I have reviewed all pertinent clinical information, including history, physical exam and plan: Yes Notes (Text): Improving slowly,C/O COUGH 'Has rhonchi 1.Pneumonia AND SEPSIS .BACTEREMIA LIKELY CONTAMINATION 2.ASYMPTOMATIC uti 3.COPD/ACUTE EXACERBATION-sob ,WHEEZING AND COUGH
[2018-04-21 08:06] LABS: BASO % 0.6 % (0.0-2.0); EOS # 0.1 K/uL (0.0-0.7); HEMOGLOBIN 10.7 g/dL (11.0-16.0); LYMPH # 1.9 K/uL (1.0-4.3); LYMPH % 25.1 % (20.0-40.0); MEAN CELL VOLUME 82.4 fL (81.0-99.0); MEAN CORPUSCULAR HEMOGLOBIN 26.7 pg (27.0-31.0); MEAN CORPUSCULAR HGB CONC 32.4 g/dL (33.0-37.0); MEAN PLATELET VOLUME 9.4 fL (7.2-11.7); MONO # 0.8 K/uL (0.0-0.8); MONO % 10.4 % (0.0-10.0); NEUT # 4.9 K/uL (1.8-7.0); NEUT % 62.9 % (50.0-75.0); NRBC % 0.2 % (0.0-2.0); RBC 4.02 Mil/uL (3.80-5.20); RED CELL DISTRIBUTION WIDTH 16.5 % (11.5-14.5); WHITE BLOOD COUNT 7.8 K/uL (4.8-10.8)
[2018-04-21] MEDS: (Novolin R) Insulin Human Regular 100 units/ml vial SC SCH ×4 (08:06→21:20)
[2018-04-21 08:23] LABS: ALB/GLOB RATIO 1.2 (1.0-2.1); ALBUMIN 3.4 g/dL (3.5-5.0); ALT/SGPT 31 U/L (9-52); AST/SGOT 25 U/L (14-36); BLOOD UREA NITROGEN 21 mg/dL (7-17); CALCIUM 7.9 mg/dl (8.6-10.4); GFR NON-AFRICAN AMERICAN > 60
[2018-04-21] MEDS: MethylPREDNISolone 40 mg Vial IV SCH (10:33)
[2018-04-21] MEDS: POLYETHYLENE GLYCOL 3350 17 GM/Dose PACKET PO SCH (10:36)
[2018-04-21] MEDS: Azithromycin 500 MG in Sodium Chloride 0.9% 250 ML IVPB SCH (17:00)
--- NOTE | 2018-04-21 17:02 | CP.PCM.PN ---
Subjective - Date & Time of Evaluation Date of Evaluation: 04/21/18 Time of Evaluation: 09:00 - Subjective Subjective: awake and alert no fever less cough Objective - Vital Signs/Intake and Output Vital Signs (last 24 hours): Temp Pulse Resp BP Pulse Ox 98.5 F 71 20 132/70 97 04/21/18 07:49 04/21/18 07:49 04/21/18 07:49 04/21/18 07:49 04/21/18 07:49 Intake and Output: 04/21/18 04/21/18 06:59 18:59 Intake Total 1200 800 Output Total 1200 Balance 1200 -400 - Medications Medications: Current Medications Acetaminophen (Tylenol 325mg Tab) 650 mg PO Q6 PRN PRN Reason: pain+fever Acetylcysteine (Acetylcysteine 20%) 4 ml INH RQ6 [facility] Last Admin: 04/21/18 13:50 Dose: 4 ml Albuterol/Ipratropium (Duoneb 3 Mg/0.5 Mg (3 Ml) Ud) 3 ml INH RQ4 [facility] Last Admin: 04/21/18 16:31 Dose: 3 ml Aspirin (Ecotrin) 81 mg PO DAILY [facility] Last Admin: 04/21/18 10:33 Dose: 81 mg Dextrose (Dextrose 50% Inj) 0 ml IV STAT PRN; Protocol PRN Reason: Hypoglycemia Protocol Dextrose (Dextrose 50% Inj) 0 ml IV STAT PRN; Protocol PRN Reason: Hypoglycemia Protocol Dextrose (Glutose 15) 0 gm PO ONCE PRN; Protocol PRN Reason: Hypoglycemia Protocol Docusate Sodium (Colace) 100 mg PO BID [facility] Last Admin: 04/21/18 10:36 Dose: Not Given Famotidine (Pepcid) 20 mg PO DAILY [facility] Last Admin: 04/21/18 10:33 Dose: 20 mg Glucagon (Glucagen Diagnostic Kit) 0 mg IM STAT PRN; Protocol PRN Reason: Hypoglycemia Protocol Heparin Sodium (Porcine) (Heparin) 5,000 units SC Q12 [facility] Last Admin: 04/21/18 10:33 Dose: 5,000 units Cefepime HCl (Maxipime Iv 2 Gm Premix) 2 gm in 100 mls @ 100 mls/hr IVPB Q8H [facility]; Protocol Stop: 04/23/18 16:01 Last Admin: 04/21/18 08:07 Dose: 100 mls/hr Azithromycin 500 mg/ Sodium (Chloride) 250 mls @ 250 mls/hr IVPB Q24H [facility]; Protocol Last Admin: 04/20/18 16:00 Dose: 250 mls/hr Sodium Chloride (Sodium Chloride 0.9%) 1,000 mls @ 100 mls/hr IV .Q10H [facility] Last Admin: 04/21/18 07:00 Dose: Not Given Insulin Human Regular (Novolin R) 0 unit SC ACHS [facility]; Protocol Last Admin: 04/21/18 11:40 Dose: 2 u Levothyroxine Sodium (Synthroid) 25 mcg PO DAILY@0630 [facility] Last Admin: 04/21/18 06:52 Dose: 25 mcg Methylprednisolone (Solu-Medrol) 40 mg IV DAILY [facility] Last Admin: 04/21/18 10:33 Dose: 40 mg Polyethylene Glycol (Miralax) 17 gm PO DAILY [facility] Last Admin: 04/21/18 10:36 Dose: Not Given - Labs Labs: 04/21/18 07:54 04/21/18 07:54 PT 12.8 SECONDS (9.7-12.2) H 04/18/18 09:55 INR 1.2 04/18/18 09:55 APTT 36 SECONDS (21-34) H 04/18/18 09:55 - Constitutional Appears: Non-toxic, Chronically Ill - Head Exam Head Exam: NORMOCEPHALIC - Eye Exam Eye Exam: absent: Scleral icterus - ENT Exam ENT Exam: Mucous Membranes Dry - Neck Exam Neck Exam: absent: Lymphadenopathy - Respiratory Exam Respiratory Exam: Decreased Breath Sounds - Cardiovascular Exam Cardiovascular Exam: REGULAR RHYTHM - GI/Abdominal Exam GI & Abdominal Exam: Distended - Rectal Exam Rectal Exam: Deferred - Exam Exam: NORMAL INSPECTION - Extremities Exam Extremities Exam: Pedal Edema - Back Exam Back Exam: absent: CVA tenderness (L), CVA tenderness (R) - Neurological Exam Neurological Exam: Alert, Awake, CN II-XII Intact, Oriented x3 - Psychiatric Exam Psychiatric exam: Normal Mood - Skin Skin Exam: Dry Assessment and Plan (1) COPD with exacerbation Status: Acute (2) Pneumonia Status: Acute (3) Sepsis Status: Acute - Assessment and Plan (Free Text) Assessment: improving on IV rx for pneumonia cont rx for 7 days
[2018-04-22 00:02] LABS: URINE COLOR STRAW (YELLOW)
[2018-04-22 00:03] LABS: URINE BILIRUBIN NEGATIVE (NEGATIVE); URINE BLOOD NEGATIVE (NEGATIVE); URINE CLARITY CLEAR (Clear); URINE GLUCOSE (UA) NEGATIVE (Normal); URINE PROTEIN NEGATIVE (NEGATIVE)
[2018-04-22] MEDS: Cefepime IV 2 gm in Dextrose 2 GM/100 ML BAG IVPB SCH ×3 (00:03→16:19)
[2018-04-22 00:04] LABS: SQUAMOUS EPITHIAL 1 /hpf (0-5); URINE BACTERIA RARE (<OCC); URINE LEUKOCYTE ESTERASE NEG Leu/uL (Negative); URINE UROBILINOGEN NORMAL mg/dL (0.2-1.0)
[2018-04-22] MEDS: Albuterol-Ipratrop 3 mg / 0.5 (3 ml) UD INH SCH ×4 (03:20→19:44)
[2018-04-22] MEDS: Acetylcysteine 20% Inhal Soln (4ml) INH SCH ×3 (03:20→13:25)
[2018-04-22] MEDS: Levothyroxine 25 MCG TAB PO SCH (06:09)
[2018-04-22 07:56] LABS: BASO % 0.4 % (0.0-2.0); EOS # 0.1 K/uL (0.0-0.7); EOS % 0.8 % (0.0-4.0); HEMOGLOBIN 10.8 g/dL (11.0-16.0); LYMPH # 2.3 K/uL (1.0-4.3); LYMPH % 28.4 % (20.0-40.0); MEAN CELL VOLUME 82.5 fL (81.0-99.0); MEAN CORPUSCULAR HEMOGLOBIN 26.5 pg (27.0-31.0); MEAN CORPUSCULAR HGB CONC 32.1 g/dL (33.0-37.0); MEAN PLATELET VOLUME 9.5 fL (7.2-11.7); MONO # 0.8 K/uL (0.0-0.8); MONO % 9.8 % (0.0-10.0); NEUT % 60.6 % (50.0-75.0); RBC 4.06 Mil/uL (3.80-5.20); RED CELL DISTRIBUTION WIDTH 16.3 % (11.5-14.5); WHITE BLOOD COUNT 8.2 K/uL (4.8-10.8)
[2018-04-22] MEDS: (Novolin R) Insulin Human Regular 100 units/ml vial SC SCH ×4 (08:00→21:36)
[2018-04-22 08:09] LABS: ALB/GLOB RATIO 1.3 (1.0-2.1); ALBUMIN 3.4 g/dL (3.5-5.0); ALT/SGPT 47 U/L (9-52); AST/SGOT 20 U/L (14-36); BLOOD UREA NITROGEN 16 mg/dL (7-17); CALCIUM 8.4 mg/dl (8.6-10.4); GFR NON-AFRICAN AMERICAN > 60
[2018-04-22] MEDS: MethylPREDNISolone 40 mg Vial IV SCH (11:02)
[2018-04-22] MEDS: POLYETHYLENE GLYCOL 3350 17 GM/Dose PACKET PO SCH (11:03)
[2018-04-22] MEDS: Azithromycin 500 MG in Sodium Chloride 0.9% 250 ML IVPB SCH (16:56)
--- NOTE | 2018-04-22 17:03 | CP.PCM.PN ---
<Alban John - Last Filed: 04/22/18 17:00> Subjective - Date & Time of Evaluation Date of Evaluation: 04/22/18 Time of Evaluation: 08:10 - Subjective Subjective: Progress Note for Dr. Elam Patient seen and examined at bedside. No acute events overnight. Patient has been passing urine and BM without complaints. Her lower extremity pain is improving as well. Objective - Vital Signs/Intake and Output Vital Signs (last 24 hours): Temp Pulse Resp BP Pulse Ox 98.7 F 63 20 129/71 99 04/22/18 07:45 04/22/18 07:45 04/22/18 07:45 04/22/18 07:45 04/22/18 07:45 Intake and Output: 04/22/18 04/22/18 06:59 18:59 Intake Total 1100 Output Total 1100 Balance 0 - Medications Medications: Current Medications Acetaminophen (Tylenol 325mg Tab) 650 mg PO Q6 PRN PRN Reason: pain+fever Acetylcysteine (Acetylcysteine 20%) 4 ml INH RQ6 [facility] Last Admin: 04/22/18 13:25 Dose: 4 ml Albuterol/Ipratropium (Duoneb 3 Mg/0.5 Mg (3 Ml) Ud) 3 ml INH RQ4 [facility] Last Admin: 04/22/18 13:25 Dose: 3 ml Aspirin (Ecotrin) 81 mg PO DAILY [facility] Last Admin: 04/22/18 11:03 Dose: 81 mg Dextrose (Dextrose 50% Inj) 0 ml IV STAT PRN; Protocol PRN Reason: Hypoglycemia Protocol Dextrose (Dextrose 50% Inj) 0 ml IV STAT PRN; Protocol PRN Reason: Hypoglycemia Protocol Dextrose (Glutose 15) 0 gm PO ONCE PRN; Protocol PRN Reason: Hypoglycemia Protocol Docusate Sodium (Colace) 100 mg PO BID [facility] Last Admin: 04/22/18 11:03 Dose: 100 mg Famotidine (Pepcid) 20 mg PO DAILY [facility] Last Admin: 04/22/18 11:03 Dose: 20 mg Glucagon (Glucagen Diagnostic Kit) 0 mg IM STAT PRN; Protocol PRN Reason: Hypoglycemia Protocol Heparin Sodium (Porcine) (Heparin) 5,000 units SC Q12 [facility] Last Admin: 04/22/18 11:02 Dose: 5,000 units Cefepime HCl (Maxipime Iv 2 Gm Premix) 2 gm in 100 mls @ 100 mls/hr IVPB Q8H [facility]; Protocol Stop: 04/23/18 16:01 Last Admin: 04/22/18 16:19 Dose: 100 mls/hr Azithromycin 500 mg/ Sodium (Chloride) 250 mls @ 250 mls/hr IVPB Q24H [facility]; Protocol Last Admin: 04/22/18 16:56 Dose: 250 mls/hr Insulin Human Regular (Novolin R) 0 unit SC ACHS [facility]; Protocol Last Admin: 04/22/18 16:55 Dose: 6 u Levothyroxine Sodium (Synthroid) 25 mcg PO DAILY@0630 [facility] Last Admin: 04/22/18 06:09 Dose: 25 mcg Methylprednisolone (Solu-Medrol) 40 mg IV DAILY [facility] Last Admin: 04/22/18 11:02 Dose: 40 mg Polyethylene Glycol (Miralax) 17 gm PO DAILY [facility] Last Admin: 04/22/18 11:03 Dose: 17 gm - Labs Labs: 04/22/18 07:30 04/22/18 07:30 PT 12.8 SECONDS (9.7-12.2) H 04/18/18 09:55 INR 1.2 04/18/18 09:55 APTT 36 SECONDS (21-34) H 04/18/18 09:55 - Additional Findings Additional findings: - Constitutional Appears: Non-toxic, No Acute Distress - Head Exam Head Exam: ATRAUMATIC, NORMAL INSPECTION - Eye Exam Eye Exam: EOMI, Normal appearance - ENT Exam ENT Exam: Mucous Membranes Moist - Neck Exam Neck Exam: Normal Inspection - Respiratory Exam Respiratory Exam: Rhonchi (upper airway), NORMAL BREATHING PATTERN. absent: Wheezes, Respiratory Distress Additional comments: - Cardiovascular Exam Cardiovascular Exam: REGULAR RHYTHM, +S1, +S2 - GI/Abdominal Exam GI & Abdominal Exam: Soft. absent: Distended, Tenderness Additional comments: obese - Extremities Exam Extremities Exam: Pedal Edema (1+ b/l), Tenderness (b/l) - Neurological Exam Neurological Exam: Alert, Awake, CN II-XII Intact, Oriented x3. absent: Normal Gait - Psychiatric Exam Psychiatric exam: Normal Affect, Normal Mood - Skin Skin Exam: Dry, Normal Color, Warm Assessment and Plan - Assessment and Plan (Free Text) Assessment: Sepsis 2/2 Pneumonia - Improving, afebrile, leukocytosis resolved - Most recent fever 101.3 on 04/18 - Flu, Legionella negative - f/u Mycoplasma - NS @ 100 - Solumedrol 40 mg IV daily - Cefepime 2 g IV Q8H- started 04/18 - Azithromycin 500 mg IV daily- started 04/18 - Acetylcysteine Q6H - Duoneb Q4H - ID consulted (Mangia) Bilateral leg pain - Patient can now ambulate with assistance - f/u LE Dopplers Bacteremia- suspect contamination - BCx (04/18): 04/05 positive for GPC - f/u repeat BCx from 04/21 - Vancomycin 1.5 g IV x1 on 04/21 - ID consulted (Mangia) Asymptomatic bacteriuria - UA: blood 2+, nitrate pos, LE 1+, WBC 7, RBC 12, neftali many - UCx: Klebsiella pneumoniae - Repeat UA shows 4 RBC - f/u repeat UCx - Cefepime 2 g IV Q8H- started 04/18 Chronic obstructive pulmonary disease - Solumedrol 125 mg x 1 in ED. Patient and daughter deny ever smoking but s ignificant secondhand smoking for 20 years, no more exposure for 10 years. Patient diagnosed 10 years ago. Less likely CHF exacerbation as EF wnl Mar 2018 and no s/sx of fluid overload. - Incentive spirometer - Acetylcysteine Q6H - Duoneb Q4H Constipation - Colace 100 mg PO BID - Miralax 17 g PO daily Hypothyroidism - Levothyroxine 25 mg PO daily Hypertension - Vitals Q8H Type 2 diabetes mellitus - ISS - Hypoglycemia protocol Atherosclerotic cardiovascular disease - ASA 81 mg PO daily - Heart healthy diet Ppx: VTE: Heparin 5000 units sq Q12H, SCDs GI: Pepcid 20 PO daily PTOT- rec GIS[facility]LE Dispo: Pending G[facility] placement Case discussed with attending, Dr. Elam. <Renzo Elam - Last Filed: 04/22/18 17:34> Objective - Vital Signs/Intake and Output Vital Signs (last 24 hours): Temp Pulse Resp BP Pulse Ox 98.7 F 63 20 129/71 99 04/22/18 07:45 04/22/18 07:45 04/22/18 07:45 04/22/18 07:45 04/22/18 07:45 Intake and Output: 04/22/18 04/22/18 06:59 18:59 Intake Total 1100 Output Total 1100 Balance 0 - Medications Medications: Current Medications Acetaminophen (Tylenol 325mg Tab) 650 mg PO Q6 PRN PRN Reason: pain+fever Acetylcysteine (Acetylcysteine 20%) 4 ml INH RQ6 [facility] Last Admin: 04/22/18 13:25 Dose: 4 ml Albuterol/Ipratropium (Duoneb 3 Mg/0.5 Mg (3 Ml) Ud) 3 ml INH RQ4 [facility] Last Admin: 04/22/18 13:25 Dose: 3 ml Aspirin (Ecotrin) 81 mg PO DAILY [facility] Last Admin: 04/22/18 11:03 Dose: 81 mg Dextrose (Dextrose 50% Inj) 0 ml IV STAT PRN; Protocol PRN Reason: Hypoglycemia Protocol Dextrose (Dextrose 50% Inj) 0 ml IV STAT PRN; Protocol PRN Reason: Hypoglycemia Protocol Dextrose (Glutose 15) 0 gm PO ONCE PRN; Protocol PRN Reason: Hypoglycemia Protocol Docusate Sodium (Colace) 100 mg PO BID [facility] Last Admin: 04/22/18 11:03 Dose: 100 mg Famotidine (Pepcid) 20 mg PO DAILY [facility] Last Admin: 04/22/18 11:03 Dose: 20 mg Glucagon (Glucagen Diagnostic Kit) 0 mg IM STAT PRN; Protocol PRN Reason: Hypoglycemia Protocol Heparin Sodium (Porcine) (Heparin) 5,000 units SC Q12 [facility] Last Admin: 04/22/18 11:02 Dose: 5,000 units Cefepime HCl (Maxipime Iv 2 Gm Premix) 2 gm in 100 mls @ 100 mls/hr IVPB Q8H [facility]; Protocol Stop: 04/23/18 16:01 Last Admin: 04/22/18 16:19 Dose: 100 mls/hr Azithromycin 500 mg/ Sodium (Chloride) 250 mls @ 250 mls/hr IVPB Q24H [facility]; Protocol Last Admin: 04/22/18 16:56 Dose: 250 mls/hr Insulin Human Regular (Novolin R) 0 unit SC ACHS [facility]; Protocol Last Admin: 04/22/18 16:55 Dose: 6 u Levothyroxine Sodium (Synthroid) 25 mcg PO DAILY@0630 [facility] Last Admin: 04/22/18 06:09 Dose: 25 mcg Methylprednisolone (Solu-Medrol) 40 mg IV DAILY [facility] Last Admin: 04/22/18 11:02 Dose: 40 mg Polyethylene Glycol (Miralax) 17 gm PO DAILY [facility] Last Admin: 04/22/18 11:03 Dose: 17 gm - Labs Labs: 04/22/18 07:30 04/22/18 07:30 PT 12.8 SECONDS (9.7-12.2) H 04/18/18 09:55 INR 1.2 04/18/18 09:55 APTT 36 SECONDS (21-34) H 04/18/18 09:55 Attending/Attestation - Attestation I have personally seen and examined this patient.: Yes I have fully participated in the care of the patient.: Yes I have reviewed all pertinent clinical information, including history, physical exam and plan: Yes Notes (Text): seen and examined ,No complain,She was c/o leg pain yesterday. both leg was tender to touch.pending doppler study. no redness,no signs of cellulitis urine klepsiella. blood grew peptostreptococcus likely contamination continue cefepime and zithromax,her cough and wheezing is better today pending discharge to rehab,follow doppler study before discharge. possible d/c on tuesday to rehab
[2018-04-23] MEDS ORDERED: Cefepime IV 2 gm in Dextrose 2 GM/100 ML BAG IVPB SCH
[2018-04-23] MEDS: Cefepime IV 2 gm in Dextrose 2 GM/100 ML BAG IVPB SCH ×3 (00:47→16:05)
[2018-04-23] MEDS: Albuterol-Ipratrop 3 mg / 0.5 (3 ml) UD INH SCH ×5 (00:59→17:25)
--- NOTE | 2018-04-23 04:52 | CP.PCM.PN ---
<Alta Sims - Last Filed: 04/23/18 04:53> Subjective - Date & Time of Evaluation Date of Evaluation: 04/23/18 Time of Evaluation: 04:50 - Subjective Subjective: Progress Note for Dr. Papa Azevedo RN called because patient still c/o wheezing despite duoneb treatments. Patient states wheezing is less than yesterday but still present, as well as cough. Patient denies chest pain, nausea, vomiting, abdominal pain. Objective - Vital Signs/Intake and Output Vital Signs (last 24 hours): Temp Pulse Resp BP Pulse Ox 98.5 F 80 20 148/78 96 04/22/18 23:45 04/23/18 04:28 04/23/18 04:28 04/23/18 04:28 04/23/18 04:28 Intake and Output: 04/22/18 04/23/18 18:59 06:59 Intake Total 1100 500 Output Total 1100 Balance 0 500 - Medications Medications: Current Medications Acetaminophen (Tylenol 325mg Tab) 650 mg PO Q6 PRN PRN Reason: pain+fever Albuterol/Ipratropium (Duoneb 3 Mg/0.5 Mg (3 Ml) Ud) 3 ml INH RQ4 [facility] Last Admin: 04/23/18 00:59 Dose: 3 ml Aspirin (Ecotrin) 81 mg PO DAILY [facility] Last Admin: 04/22/18 11:03 Dose: 81 mg Dextrose (Dextrose 50% Inj) 0 ml IV STAT PRN; Protocol PRN Reason: Hypoglycemia Protocol Dextrose (Dextrose 50% Inj) 0 ml IV STAT PRN; Protocol PRN Reason: Hypoglycemia Protocol Dextrose (Glutose 15) 0 gm PO ONCE PRN; Protocol PRN Reason: Hypoglycemia Protocol Docusate Sodium (Colace) 100 mg PO BID [facility] Last Admin: 04/22/18 17:49 Dose: 100 mg Famotidine (Pepcid) 20 mg PO DAILY [facility] Last Admin: 04/22/18 11:03 Dose: 20 mg Glucagon (Glucagen Diagnostic Kit) 0 mg IM STAT PRN; Protocol PRN Reason: Hypoglycemia Protocol Heparin Sodium (Porcine) (Heparin) 5,000 units SC Q12 [facility] Last Admin: 04/22/18 21:37 Dose: 5,000 units Cefepime HCl (Maxipime Iv 2 Gm Premix) 2 gm in 100 mls @ 100 mls/hr IVPB Q8H [facility] ; Protocol Stop: 04/23/18 16:01 Last Admin: 04/23/18 00:47 Dose: Not Given Azithromycin 500 mg/ Sodium (Chloride) 250 mls @ 250 mls/hr IVPB Q24H [facility]; Protocol Last Admin: 04/22/18 16:56 Dose: 250 mls/hr Insulin Human Regular (Novolin R) 0 unit SC ACHS [facility]; Protocol Last Admin: 04/22/18 21:36 Dose: Not Given Levothyroxine Sodium (Synthroid) 25 mcg PO DAILY@0630 [facility] Last Admin: 04/22/18 06:09 Dose: 25 mcg Methylprednisolone (Solu-Medrol) 40 mg IV BID [facility] Polyethylene Glycol (Miralax) 17 gm PO DAILY [facility] Last Admin: 04/22/18 11:03 Dose: 17 gm - Labs Labs: 04/22/18 07:30 04/22/18 07:30 PT 12.8 SECONDS (9.7-12.2) H 04/18/18 09:55 INR 1.2 04/18/18 09:55 APTT 36 SECONDS (21-34) H 04/18/18 09:55 - Constitutional Appears: Well, Non-toxic - Head Exam Head Exam: ATRAUMATIC, NORMAL INSPECTION, NORMOCEPHALIC - Eye Exam Eye Exam: Normal appearance - Respiratory Exam Respiratory Exam: Wheezes - Cardiovascular Exam Cardiovascular Exam: REGULAR RHYTHM - GI/Abdominal Exam GI & Abdominal Exam: Soft, Normal Bowel Sounds - Neurological Exam Neurological Exam: Alert, Awake - Psychiatric Exam Psychiatric exam: Normal Affect, Normal Mood - Skin Skin Exam: Dry, Intact, Normal Color, Warm Assessment and Plan - Assessment and Plan (Free Text) Assessment: 77 y/o female w/ PMHx of COPD, HTN, hypothyroidism PNA - VSS so sepsis resolved. Improving, afebrile, leukocytosis resolved - Flu, Legionella negative - f/u Mycoplasma - NS @ 100 - Solumedrol 40 mg IV daily -> changed to q12 due to persistent wheezing s/p lasix 20 mg IV and CXR on 04/22 (compared to admission greater congestion). Consider stronger diuresis, bumex, and repeat CXR if no clinical improvement persists. - Cefepime 2 g IV Q8H- started 04/18 - Azithromycin 500 mg IV daily- started 04/18 - Acetylcysteine Q6H -> d/darlene due to bronchospasmic effects - Duoneb Q4H - ID consulted (Mangia) Bilateral leg pain - Patient can now ambulate with assistance - f/u LE Dopplers Bacteremia- suspect contamination - BCx (04/18): 1/2 positive for GPC - repeat BCx from 04/21 - negative - Vancomycin 1.5 g IV x1 on 04/21 - ID consulted (Mangia) Asymptomatic bacteriuria - UA: blood 2+, nitrate pos, LE 1+, WBC 7, RBC 12, neftali many - UCx: Klebsiella pneumoniae - Repeat UA shows 4 RBC - f/u repeat UCx - Cefepime 2 g IV Q8H- started 04/18 Chronic obstructive pulmonary disease - Solumedrol 125 mg x 1 in ED. Patient and daughter deny ever smoking but sig nificant secondhand smoking for 20 years, no more exposure for 10 years. Patient diagnosed 10 years ago. Less likely CHF exacerbation as EF wnl Mar 2018 and no s/sx of fluid overload. - Incentive spirometer - Duoneb Q4H Constipation - Colace 100 mg PO BID - Miralax 17 g PO daily Hypothyroidism - Levothyroxine 25 mg PO daily Hypertension - Vitals Q8H Type 2 diabetes mellitus - ISS - Hypoglycemia protocol Atherosclerotic cardiovascular disease - ASA 81 mg PO daily - Heart healthy diet Ppx: VTE: Heparin 5000 units sq Q12H, SCDs GI: Pepcid 20 PO daily PTOT- rec G[facility] Dispo: Pending GISSELLE placement <Renzo Elam - Last Filed: 04/25/18 11:33> Objective - Vital Signs/Intake and Output Vital Signs (last 24 hours): Temp Pulse Resp BP Pulse Ox 98.8 F 63 20 145/86 97 04/25/18 08:00 04/25/18 08:00 04/25/18 08:00 04/25/18 08:00 04/25/18 08:00 Intake and Output: 04/25/18 04/25/18 06:59 18:59 Intake Total 0 Balance 0 - Medications Medications: Current Medications Acetaminophen (Tylenol 325mg Tab) 650 mg PO Q6 PRN PRN Reason: pain+fever Albuterol/Ipratropium (Duoneb 3 Mg/0.5 Mg (3 Ml) Ud) 3 ml INH RQ4 [facility] Last Admin: 04/25/18 07:45 Dose: 3 ml Aspirin (Ecotrin) 81 mg PO DAILY [facility] Last Admin: 04/25/18 10:39 Dose: 81 mg Dextrose (Dextrose 50% Inj) 0 ml IV STAT PRN; Protocol PRN Reason: Hypoglycemia Protocol Dextrose (Dextrose 50% Inj) 0 ml IV STAT PRN; Protocol PRN Reason: Hypoglycemia Protocol Dextrose (Glutose 15) 0 gm PO ONCE PRN; Protocol PRN Reason: Hypoglycemia Protocol Docusate Sodium (Colace) 100 mg PO BID [facility] Last Admin: 04/25/18 10:39 Dose: 100 mg Famotidine (Pepcid) 20 mg PO DAILY [facility] Last Admin: 04/25/18 10:39 Dose: 20 mg Glucagon (Glucagen Diagnostic Kit) 0 mg IM STAT PRN; Protocol PRN Reason: Hypoglycemia Protocol Azithromycin 500 mg/ Sodium (Chloride) 250 mls @ 250 mls/hr IVPB DAILY [facility]; Protocol Stop: 04/25/18 18:58 Last Admin: 04/25/18 10:38 Dose: 250 mls/hr Cefepime HCl (Maxipime Iv 2 Gm Premix) 2 gm in 100 mls @ 200 mls/hr IVPB Q8H [facility]; Protocol Stop: 04/29/18 00:01 Last Admin: 04/25/18 08:34 Dose: 200 mls/hr Insulin Human Regular (Novolin R) 0 unit SC ACHS [facility]; Protocol Last Admin: 04/25/18 08:29 Dose: 2 u Levothyroxine Sodium (Synthroid) 25 mcg PO DAILY@0630 [facility] Last Admin: 04/25/18 06:36 Dose: 25 mcg Methylprednisolone (Solu-Medrol) 40 mg IV BID [facility] Last Admin: 04/25/18 10:39 Dose: 40 mg Polyethylene Glycol (Miralax) 17 gm PO DAILY [facility] Last Admin: 04/25/18 10:39 Dose: 17 gm - Labs Labs: 04/25/18 06:36 04/25/18 06:36 PT 12.8 SECONDS (9.7-12.2) H 04/18/18 09:55 INR 1.2 04/18/18 09:55 APTT 36 SECONDS (21-34) H 04/18/18 09:55 Attending/Attestation - Attestation I have personally seen and examined this patient.: Yes I have fully participated in the care of the patient.: Yes I have reviewed all pertinent clinical information, including history, physical exam and plan: Yes Notes (Text): Seen and examined and the patient has mild wheezing not sob on examination lungs with diffuse bilateral wheeze mild leg tenderness follow venous doppler report continue antibiotics and steroid d/c to rehab once wheezing improves a
[2018-04-23] MEDS: Acetylcysteine 20% Inhal Soln (4ml) INH SCH (05:04)
[2018-04-23] MEDS: Levothyroxine 25 MCG TAB PO SCH (05:38)
[2018-04-23] MEDS: (Novolin R) Insulin Human Regular 100 units/ml vial SC SCH ×4 (08:14→21:32)
[2018-04-23 08:21] LABS: BASO % 0.5 % (0.0-2.0); EOS # 0.1 K/uL (0.0-0.7); EOS % 1.6 % (0.0-4.0); HEMOGLOBIN 11.6 g/dL (11.0-16.0); LYMPH # 2.9 K/uL (1.0-4.3); LYMPH % 32.4 % (20.0-40.0); MEAN CELL VOLUME 82.2 fL (81.0-99.0); MEAN CORPUSCULAR HEMOGLOBIN 26.7 pg (27.0-31.0); MEAN CORPUSCULAR HGB CONC 32.4 g/dL (33.0-37.0); MEAN PLATELET VOLUME 9.6 fL (7.2-11.7); MONO # 0.9 K/uL (0.0-0.8); MONO % 10.6 % (0.0-10.0); NEUT # 4.8 K/uL (1.8-7.0); NEUT % 54.9 % (50.0-75.0); RBC 4.36 Mil/uL (3.80-5.20); RED CELL DISTRIBUTION WIDTH 15.8 % (11.5-14.5); WHITE BLOOD COUNT 8.8 K/uL (4.8-10.8)
[2018-04-23 08:39] LABS: ALB/GLOB RATIO 1.3 (1.0-2.1); ALBUMIN 3.6 g/dL (3.5-5.0); ALT/SGPT 64 U/L (9-52); AST/SGOT 30 U/L (14-36); BLOOD UREA NITROGEN 23 mg/dL (7-17); CALCIUM 8.6 mg/dl (8.6-10.4); GFR NON-AFRICAN AMERICAN > 60
--- NOTE | 2018-04-23 09:15 | RAD ---
Date of service: 04/22/2018 HISTORY: wheezing COMPARISON: Comparison chest dated 04/18/2018 comparison also made with CTA chest 10/19/2017. FINDINGS: LUNGS: Mild bibasilar atelectasis. The interstitial markings are also increased and coarsened with a few scattered peribronchial cuffing changes. Rule out sequela of reactive/inflammatory airway disease or viral illness. PLEURA: No significant pleural effusion identified, no pneumothorax apparent. CARDIOVASCULAR: No aortic atherosclerotic calcification present. Heart is enlarged. No pulmonary vascular congestion. OSSEOUS STRUCTURES: No significant abnormalities. VISUALIZED UPPER ABDOMEN: Normal. OTHER FINDINGS: None. IMPRESSION: Mild bibasilar atelectasis. The interstitial markings are also increased and coarsened with a few scattered peribronchial cuffing changes. Rule out sequela of reactive/inflammatory airway disease or viral illness.
[2018-04-23] MEDS: POLYETHYLENE GLYCOL 3350 17 GM/Dose PACKET PO SCH ×2 (10:06→10:11)
[2018-04-23] MEDS: MethylPREDNISolone 40 mg Vial IV SCH ×2 (10:06→17:12)
--- NOTE | 2018-04-23 16:45 | CP.PCM.PN ---
Subjective - Date & Time of Evaluation Date of Evaluation: 04/23/18 Time of Evaluation: 08:00 - Subjective Subjective: wheezing less denies fever Objective - Vital Signs/Intake and Output Vital Signs (last 24 hours): Temp Pulse Resp BP Pulse Ox 97.9 F 71 20 121/74 97 04/23/18 07:52 04/23/18 07:52 04/23/18 07:52 04/23/18 07:52 04/23/18 07:52 Intake and Output: 04/23/18 04/23/18 06:59 18:59 Intake Total 500 Balance 500 - Medications Medications: Current Medications Acetaminophen (Tylenol 325mg Tab) 650 mg PO Q6 PRN PRN Reason: pain+fever Albuterol/Ipratropium (Duoneb 3 Mg/0.5 Mg (3 Ml) Ud) 3 ml INH RQ4 [facility] Last Admin: 04/23/18 11:32 Dose: 3 ml Aspirin (Ecotrin) 81 mg PO DAILY [facility] Last Admin: 04/23/18 10:05 Dose: 81 mg Dextrose (Dextrose 50% Inj) 0 ml IV STAT PRN; Protocol PRN Reason: Hypoglycemia Protocol Dextrose (Dextrose 50% Inj) 0 ml IV STAT PRN; Protocol PRN Reason: Hypoglycemia Protocol Dextrose (Glutose 15) 0 gm PO ONCE PRN; Protocol PRN Reason: Hypoglycemia Protocol Docusate Sodium (Colace) 100 mg PO BID [facility] Last Admin: 04/23/18 10:05 Dose: 100 mg Famotidine (Pepcid) 20 mg PO DAILY [facility] Last Admin: 04/23/18 10:06 Dose: 20 mg Glucagon (Glucagen Diagnostic Kit) 0 mg IM STAT PRN; Protocol PRN Reason: Hypoglycemia Protocol Heparin Sodium (Porcine) (Heparin) 5,000 units SC Q12 [facility] Last Admin: 04/23/18 10:06 Dose: 5,000 units Insulin Human Regular (Novolin R) 0 unit SC ACHS [facility]; Protocol Last Admin: 04/23/18 13:03 Dose: 4 u Levothyroxine Sodium (Synthroid) 25 mcg PO DAILY@0630 [facility] Last Admin: 04/23/18 05:38 Dose: 25 mcg Methylprednisolone (Solu-Medrol) 40 mg IV BID [facility] Last Admin: 04/23/18 10:06 Dose: 40 mg Polyethylene Glycol (Miralax) 17 gm PO DAILY [facility] Last Admin: 04/23/18 10:11 Dose: Not Given - Labs Labs: 04/23/18 07:56 04/23/18 07:56 PT 12.8 SECONDS (9.7-12.2) H 04/18/18 09:55 INR 1.2 04/18/18 09:55 APTT 36 SECONDS (21-34) H 04/18/18 09:55 - Constitutional Appears: Non-toxic, Chronically Ill - Head Exam Head Exam: NORMOCEPHALIC - Eye Exam Eye Exam: absent: Scleral icterus - ENT Exam ENT Exam: Mucous Membranes Dry - Neck Exam Neck Exam: absent: Lymphadenopathy - Respiratory Exam Respiratory Exam: Decreased Breath Sounds, Prolonged Expiratory Phase, Wheezes - Cardiovascular Exam Cardiovascular Exam: REGULAR RHYTHM - GI/Abdominal Exam GI & Abdominal Exam: Distended, Soft - Rectal Exam Rectal Exam: Deferred - Exam Exam: NORMAL INSPECTION - Extremities Exam Extremities Exam: Pedal Edema - Back Exam Back Exam: absent: CVA tenderness (L), CVA tenderness (R) - Neurological Exam Neurological Exam: Alert, Awake, Oriented x3 Assessment and Plan (1) COPD with exacerbation Status: Acute (2) Pneumonia Status: Acute (3) Sepsis Status: Acute - Assessment and Plan (Free Text) Assessment: cont rx/ bronchodilators
[2018-04-23] MEDS: Azithromycin 500 MG in Sodium Chloride 0.9% 250 ML IVPB SCH (17:13)
[2018-04-24] MEDS: Cefepime IV 2 gm in Dextrose 2 GM/100 ML BAG IVPB SCH ×3 (00:08→16:06)
[2018-04-24] MEDS: Albuterol-Ipratrop 3 mg / 0.5 (3 ml) UD INH SCH ×5 (00:46→18:10)
[2018-04-24] MEDS: Levothyroxine 25 MCG TAB PO SCH (06:47)
--- NOTE | 2018-04-24 07:23 | CP.PCM.PN ---
Subjective - Date & Time of Evaluation Date of Evaluation: 04/24/18 Time of Evaluation: 07:23 - Subjective Subjective: Medicine Progress Note for Dr. Ceballos Patient seen and examined at bedside this morning. Still with audible wheeze by bedside and cough. Otherwise 12 pt ROS negative Objective - Vital Signs/Intake and Output Vital Signs (last 24 hours): Temp Pulse Resp BP Pulse Ox 98.0 F 68 20 137/79 98 04/23/18 11:30 04/23/18 11:30 04/23/18 11:30 04/23/18 11:30 04/23/18 11:30 Intake and Output: 04/24/18 04/24/18 06:59 18:59 Intake Total 300 Output Total 600 Balance -300 - Medications Medications: Current Medications Acetaminophen (Tylenol 325mg Tab) 650 mg PO Q6 PRN PRN Reason: pain+fever Albuterol/Ipratropium (Duoneb 3 Mg/0.5 Mg (3 Ml) Ud) 3 ml INH RQ4 [facility] Last Admin: 04/24/18 00:46 Dose: 3 ml Aspirin (Ecotrin) 81 mg PO DAILY [facility] Last Admin: 04/23/18 10:05 Dose: 81 mg Dextrose (Dextrose 50% Inj) 0 ml IV STAT PRN; Protocol PRN Reason: Hypoglycemia Protocol Dextrose (Dextrose 50% Inj) 0 ml IV STAT PRN; Protocol PRN Reason: Hypoglycemia Protocol Dextrose (Glutose 15) 0 gm PO ONCE PRN; Protocol PRN Reason: Hypoglycemia Protocol Docusate Sodium (Colace) 100 mg PO BID [facility] Last Admin: 04/23/18 17:14 Dose: 100 mg Famotidine (Pepcid) 20 mg PO DAILY [facility] Last Admin: 04/23/18 10:06 Dose: 20 mg Glucagon (Glucagen Diagnostic Kit) 0 mg IM STAT PRN; Protocol PRN Reason: Hypoglycemia Protocol Heparin Sodium (Porcine) (Heparin) 5,000 units SC Q12 [facility] Last Admin: 04/23/18 21:33 Dose: 5,000 units Azithromycin 500 mg/ Sodium (Chloride) 250 mls @ 250 mls/hr IVPB DAILY [facility]; Protocol Stop: 04/25/18 18:58 Cefepime HCl (Maxipime Iv 2 Gm Premix) 2 gm in 100 mls @ 200 mls/hr IVPB Q8H [facility]; Protocol Stop: 04/29/18 00:01 Last Admin: 04/24/18 07:03 Dose: 200 mls/hr Insulin Human Regular (Novolin R) 0 unit SC ACHS [facility]; Protocol Last Admin: 04/23/18 21:32 Dose: 3 u Levothyroxine Sodium (Synthroid) 25 mcg PO DAILY@0630 [facility] Last Admin: 04/24/18 06:47 Dose: 25 mcg Methylprednisolone (Solu-Medrol) 40 mg IV BID [facility] Last Admin: 04/23/18 17:12 Dose: 40 mg Polyethylene Glycol (Miralax) 17 gm PO DAILY [facility] Last Admin: 04/23/18 10:11 Dose: Not Given - Labs Labs: 04/23/18 07:56 04/23/18 07:56 PT 12.8 SECONDS (9.7-12.2) H 04/18/18 09:55 INR 1.2 04/18/18 09:55 APTT 36 SECONDS (21-34) H 04/18/18 09:55 - Constitutional Appears: Well, Non-toxic - Head Exam Head Exam: ATRAUMATIC, NORMAL INSPECTION - Eye Exam Eye Exam: EOMI, Normal appearance - Neck Exam Neck Exam: Normal Inspection - Respiratory Exam Respiratory Exam: Wheezes, NORMAL BREATHING PATTERN - GI/Abdominal Exam GI & Abdominal Exam: Soft, Normal Bowel Sounds - Back Exam Back Exam: NORMAL INSPECTION - Neurological Exam Neurological Exam: Alert, Awake - Psychiatric Exam Psychiatric exam: Normal Affect, Normal Mood - Skin Skin Exam: Dry, Intact, Normal Color, Warm Assessment and Plan - Assessment and Plan (Free Text) Assessment: 77 y/o female w/ PMHx of COPD, HTN, hypothyroidism. PNA - VSS so sepsis resolved. Improving, afebrile, leukocytosis resolved - Flu, Legionella negative - f/u Mycoplasma - NS @ 100 - Solumedrol 40 mg q12 s/p lasix 20 mg IV and CXR on 04/22 (compared to admission greater congestion). Consider stronger diuresis, bumex, and repeat CXR if no clinical improvement persists. - Cefepime 2 g IV Q8H- started 04/18 - Azithromycin 500 mg IV daily- started 04/18 - Acetylcysteine Q6H -> d/darlene due to bronchospasmic effects - Duoneb Q4H - ID consulted (Mangia) Bilateral leg pain - Patient can now ambulate with assistance - f/u LE Dopplers Bacteremia- suspect contamination - BCx (04/18): 1/2 positive for GPC - repeat BCx from 04/21 - negative - Vancomycin 1.5 g IV x1 on 04/21 - ID consulted (Cristy) Asymptomatic bacteriuria - UA: blood 2+, nitrate pos, LE 1+, WBC 7, RBC 12, neftali many - UCx: Klebsiella pneumoniae - Repeat UA shows 4 RBC - f/u repeat UCx - Cefepime 2 g IV Q8H- started 04/18 Chronic obstructive pulmonary disease - Solumedrol 125 mg x 1 in ED. Patient and daughter deny ever smoking but significant secondhand smoking for 20 years, no more exposure for 10 years. Patient diagnosed 10 years ago. Less likely CHF exacerbation as EF wnl Mar 2018 and no s/sx of fluid overload. - Incentive spirometer - Duoneb Q4H Constipation - Colace 100 mg PO BID - Miralax 17 g PO daily Hypothyroidism - Levothyroxine 25 mg PO daily Hypertension - Vitals Q8H Type 2 diabetes mellitus - ISS - Hypoglycemia protocol Atherosclerotic cardiovascular disease - ASA 81 mg PO daily - Heart healthy diet Ppx: VTE: Heparin 5000 units sq Q12H, SCDs GI: Pepcid 20 PO daily PTOT- rec [facility] dispo: pt cannot d/c to [facility] due to lack of insurance. She will need to fully recover in the hospital before d/c home.
[2018-04-24] MEDS: (Novolin R) Insulin Human Regular 100 units/ml vial SC SCH ×4 (07:24→21:39)
[2018-04-24 07:25] LABS: BASO % 0.3 % (0.0-2.0); EOS % 0.2 % (0.0-4.0); HEMOGLOBIN 11.5 g/dL (11.0-16.0); LYMPH # 2.4 K/uL (1.0-4.3); LYMPH % 24.1 % (20.0-40.0); MEAN CELL VOLUME 81.9 fL (81.0-99.0); MEAN CORPUSCULAR HEMOGLOBIN 26.2 pg (27.0-31.0); MEAN CORPUSCULAR HGB CONC 32.1 g/dL (33.0-37.0); MEAN PLATELET VOLUME 9.7 fL (7.2-11.7); MONO # 0.9 K/uL (0.0-0.8); NEUT # 6.6 K/uL (1.8-7.0); NEUT % 66.4 % (50.0-75.0); NRBC % 0.1 % (0.0-2.0); RBC 4.38 Mil/uL (3.80-5.20); RED CELL DISTRIBUTION WIDTH 15.9 % (11.5-14.5)
[2018-04-24 07:35] LABS: ALB/GLOB RATIO 1.3 (1.0-2.1); ALBUMIN 3.8 g/dL (3.5-5.0); ALT/SGPT 58 U/L (9-52); AST/SGOT 31 U/L (14-36); BLOOD UREA NITROGEN 24 mg/dL (7-17); CALCIUM 8.8 mg/dl (8.6-10.4); GFR NON-AFRICAN AMERICAN > 60
[2018-04-24] MEDS: MethylPREDNISolone 40 mg Vial IV SCH ×2 (10:25→17:24)
[2018-04-24] MEDS: Azithromycin 500 MG in Sodium Chloride 0.9% 250 ML IVPB SCH (10:27)
[2018-04-24] MEDS: POLYETHYLENE GLYCOL 3350 17 GM/Dose PACKET PO SCH (10:30)
--- NOTE | 2018-04-24 11:40 | VASCLAB ---
Date of service: 04/22/2018 PROCEDURE: Lower Extremity Venous Duplex Exam. HISTORY: r/o dvt PRIORS: None. TECHNIQUE: Bilateral common femoral, femoral, popliteal and posterior tibial, peroneal and great saphenous veins were evaluated. Flow was assessed with color Doppler, compressibility, assessment of phasic flow and augmentation response. Report prepared by Silva Churchill S FINDINGS: RIGHT: 1. Common Femoral Vein: 1.1. Compressibility - Fully compressible: Thrombus - None : Flow - Phasic: Augmentation -Normal: Reflux - None. 2. Femoral Vein: 2.1. Compressibility - Fully compressible: Thrombus - None : Flow - Phasic: Augmentation -Normal: Reflux - None. 3. Popliteal Vein: 3.1. Compressibility - Fully compressible: Thrombus - None : Flow - Phasic: Augmentation -Normal: Reflux - None. 4. Posterior Tibial Vein: 4.1. Compressibility - Fully compressible: Thrombus - None: Flow - Phasic: Augmentation -Normal: Reflux - None. 5. Peroneal Vein: 5.1. Compressibility - N/A: Thrombus - N/A: Flow - N/A: Augmentation -N/A: Reflux - N/A. 6. Great Saphenous Vein: 6.1. Compressibility - Fully compressible: Thrombus - None: Flow - Phasic: Augmentation - Normal: Reflux - None. LEFT: 1. Common Femoral Vein: 1.1. Compressibility - Fully compressible: Thrombus - None: Flow - Phasic: Augmentation -Normal: Reflux - None. 2. Femoral Vein: 2.1. Compressibility - Fully compressible: Thrombus - None: Flow - Phasic: Augmentation -Normal: Reflux - None. 3. Popliteal Vein: 3.1. Compressibility - Fully compressible: Thrombus - None : Flow - Phasic: Augmentation -Normal: Reflux - None. 4. Posterior Tibial Vein: 4.1. Compressibility - Fully compressible: Thrombus - None: Flow - Phasic: Augmentation -Normal: Reflux - None. 5. Peroneal Vein: 5.1. Compressibility - N/A: Thrombus - N/A: Flow - N/A: Augmentation -N/A: Reflux - N/A. 6. Great Saphenous Vein: 6.1. Compressibility - Fully compressible: Thrombus - None: Flow - Phasic: Augmentation - Normal: Reflux - None. OTHER FINDINGS: Right: The peroneal veins were not visualized due to swelling. Left: The peroneal veins were not visualized due to swelling. IMPRESSION: Right: No evidence of deep or superficial vein thrombosis in those veins visualized of the right lower extremity. Normal valve function noted of the right side. Left: No evidence of deep or superficial vein thrombosis in those veins visualized of the left lower extremity. Normal valve function noted of the left side.
--- NOTE | 2018-04-24 13:43 | CP.PCM.DIS ---
Provider - Provider Date of Admission: 04/20/18 10:52 Attending physician: Taco Santos DO Consults: 04/18/18 14:45 Infectious Disease Consult Routine Comment: Consulting Provider: Garrick Muniz Consulting Physician: Garrick Muniz Reason for Consult: s/p code sepsis 04/18/18 16:55 Inpatient [facility] [employer] [facility] Core Measures Referral Routine Comment: Physician Instructions: Reason For Exam: hx copd; c/o of sob Social Work Referral Routine Comment: hx copd; c/o of sob Physician Instructions: Reason For Exam: hx copd; c/o of sob 04/24/18 13:09 Floor Winder [Case Management Referral] Routine Comment: Physician Instructions: Reason For Exam: dc to [facility] 04/24 - please inform family Reason for Referral: Discharge Planning Time Spent in preparation of Discharge (in minutes): 45 Hospital Course - Lab Results Lab Results: Micro Results 04/21/18 17:50 Blood-Venous Blood Culture - Preliminary NO GROWTH AFTER 48 HOURS 04/21/18 17:57 Blood-Venous Blood Culture - Preliminary NO GROWTH AFTER 48 HOURS 04/18/18 09:50 Blood Blood Culture - Final NO GROWTH AFTER 5 DAYS 04/18/18 09:50 Blood Gram Stain - Final TEST NOT PERFORMED 04/21/18 21:49 Urine,Catheterized Urine Culture - Final No Growth (<1,000 CFU/ML) 04/18/18 09:30 Blood Blood Culture - Final Peptostreptococcus Species 04/18/18 09:30 Blood Gram Stain - Final 04/18/18 10:52 Urine,Catheterized Urine Culture - Final Klebsiella Pneumoniae Ssp Pneu Most Recent Lab Values WBC 10.0 K/uL (4.8-10.8) 04/24/18 06:59 RBC 4.38 Mil/uL (3.80-5.20) 04/24/18 06:59 Hgb 11.5 g/dL (11.0-16.0) 04/24/18 06:59 Hct 35.9 % (34.0-47.0) 04/24/18 06:59 MCV 81.9 fL (81.0-99.0) 04/24/18 06:59 MCH 26.2 pg (27.0-31.0) L 04/24/18 06:59 MCHC 32.1 g/dL (33.0-37.0) L 04/24/18 06:59 RDW 15.9 % (11.5-14.5) H 04/24/18 06:59 Plt Count 240 K/uL (130-400) 04/24/18 06:59 MPV 9.7 fL (7.2-11.7) 04/24/18 06:59 Neut % (Auto) 66.4 % (50.0-75.0) 04/24/18 06:59 Lymph % (Auto) 24.1 % (20.0-40.0) 04/24/18 06:59 Mchenry % (Auto) 9.0 % (0.0-10.0) 04/24/18 06:59 Eos % (Auto) 0.2 % (0.0-4.0) 04/24/18 06:59 Baso % (Auto) 0.3 % (0.0-2.0) 04/24/18 06:59 Neut # (Auto) 6.6 K/uL (1.8-7.0) 04/24/18 06:59 Lymph # (Auto) 2.4 K/uL (1.0-4.3) 04/24/18 06:59 Mchenry # (Auto) 0.9 K/uL (0.0-0.8) H 04/24/18 06:59 Eos # (Auto) 0.0 K/uL (0.0-0.7) 04/24/18 06:59 Baso # (Auto) 0.0 K/uL (0.0-0.2) 04/24/18 06:59 PT 12.8 SECONDS (9.7-12.2) H 04/18/18 09:55 INR 1.2 04/18/18 09:55 APTT 36 SECONDS (21-34) H 04/18/18 09:55 pO2 42 mm/Hg (30-55) 04/18/18 16:00 VBG pH 7.33 (7.32-7.43) 04/18/18 16:00 VBG pCO2 50 mmHg (40-60) 04/18/18 16:00 VBG HCO3 24.1 mmol/L 04/18/18 16:00 VBG Total CO2 27.9 mmol/L (22-28) 04/18/18 16:00 VBG O2 Sat (Calc) 81.2 % (40-65) H 04/18/18 16:00 VBG Base Excess -0.2 mmol/L (0.0-2.0) L 04/18/18 16:00 VBG Potassium 4.8 mmol/L (3.6-5.2) 04/18/18 16:00 A-a O2 Difference 39.0 mm/Hg 04/18/18 10:00 Sodium 135.0 mmol/l (132-148) 04/18/18 16:00 Chloride 104.0 mmol/L (98-107) 04/18/18 16:00 Glucose 297 mg/dl (65-105) H 04/18/18 16:00 Lactate 2.9 mmol/L (0.7-2.1) H 04/18/18 16:00 FiO2 21.0 % 04/18/18 10:00 Sodium 134 mmol/L (132-148) 04/24/18 06:59 Potassium 4.2 mmol/L (3.6-5.2) 04/24/18 06:59 Chloride 94 mmol/L (98-107) L 04/24/18 06:59 Carbon Dioxide 34 mmol/L (22-30) H 04/24/18 06:59 Anion Gap 10 (10-20) 04/24/18 06:59 BUN 24 mg/dL (7-17) H 04/24/18 06:59 Creatinine 0.7 mg/dL (0.7-1.2) 04/24/18 06:59 Est GFR ( Amer) > 60 04/24/18 06:59 Est GFR (Non-Af Amer) > 60 04/24/18 06:59 POC Glucose (mg/dL) 259 mg/dL (65-110) H 04/24/18 12:08 Random Glucose 138 mg/dL (65-105) H 04/24/18 06:59 Calcium 8.8 mg/dl (8.6-10.4) 04/24/18 06:59 Phosphorus 3.9 mg/dL (2.5-4.5) 04/24/18 06:59 Magnesium 2.0 mg/dL (1.6-2.3) 04/24/18 06:59 Total Bilirubin 0.4 mg/dL (0.2-1.3) 04/24/18 06:59 AST 31 U/L (14-36) 04/24/18 06:59 ALT 58 U/L (9-52) H 04/24/18 06:59 Alkaline Phosphatase 63 U/L (38-126) 04/24/18 06:59 Troponin I < 0.0120 ng/mL (0.00-0.120) 04/18/18 09:55 NT-Pro-B Natriuret Pep 226 pg/mL (0-900) 04/18/18 09:55 Total Protein 6.6 g/dL (6.3-8.3) 04/24/18 06:59 Albumin 3.8 g/dL (3.5-5.0) 04/24/18 06:59 Globulin 2.8 gm/dL (2.2-3.9) 04/24/18 06:59 Albumin/Globulin Ratio 1.3 (1.0-2.1) 04/24/18 06:59 Venous Blood Potassium 4.8 mmol/L (3.6-5.2) 04/18/18 16:00 Urine Color Straw (YELLOW) 04/21/18 21:49 Urine Clarity Clear (Clear) 04/21/18 21:49 Urine pH 6.0 (5.0-8.0) 04/21/18 21:49 Ur Specific Commiskey 1.009 (1.003-1.030) 04/21/18 21:49 Urine Protein Negative mg/dL (NEGATIVE) 04/21/18 21:49 Urine Glucose (UA) Negative mg/dL (Normal) 04/21/18 21:49 Urine Ketones Negative mg/dL (NEGATIVE) 04/21/18 21:49 Urine Blood Negative (NEGATIVE) 04/21/18 21:49 Urine Nitrate Negative (NEGATIVE) 04/21/18 21:49 Urine Bilirubin Negative (NEGATIVE) 04/21/18 21:49 Urine Urobilinogen Normal mg/dL (0.2-1.0) 04/21/18 21:49 Ur Leukocyte Esterase Neg Daniella/uL (Negative) 04/21/18 21:49 Urine WBC (Auto) 2 /hpf (0-5) 04/21/18 21:49 Urine RBC (Auto) 4 /hpf (0-3) H 04/21/18 21:49 Ur Squamous Epith Cells 1 /hpf (0-5) 04/21/18 21:49 Urine Bacteria Rare (<OCC) 04/21/18 21:49 Influenza Typ A,B (EIA) Negative for flu a/b (NEGATIVE) 04/18/18 09:55 Ur L.pneumophila Ag Negative (NEGATIVE) 04/19/18 08:47 Mycoplasma pneumon IgG 1.63 (<=0.90) H 04/19/18 22:20 Mycoplasma pneumon IgM 66 U/mL (<770) 04/19/18 22:20 - Hospital Course Hospital Course: On admission: On discharge: Additional Instructions: Patient is to be discharged home. Subacute rehabilitation was recommended but due to lack of insurance patient will need to be monitored closely at home. Patient is to set up primary care at [facility] and hospitalization follow up within 1 week of discharge Patient will need to setup referral to see a peer specialist Please call during week day to make an appointment [phone] Patient will take medication as prescribed azithromycin 500 mg once daily for 3 days aspirin 81 mg daily levothyroxine 25 mcg daily famotidine 20 mg daily Medrol dose pack metformin 500 mg twice a day breo ellipta 1 inhalation daily colace 100 mg by mouth daily miralax 17 grams daily Go to the nearest ED if symptoms worsen or persist Discharge Exam - Head Exam Head Exam: NORMOCEPHALIC Discharge Plan - Discharge Medications Prescriptions: Azithromycin 500 mg PO DAILY #3 tablet Famotidine [Pepcid] 20 mg PO DAILY 3 Days #3 tab Fluticasone/Vilanterol [Breo Ellipta 100-25 Mcg INH] 1 each IH DAILY 30 Days #1 blst.w.dev Losartan [Cozaar] 50 mg PO DAILY #30 tab metFORMIN [glucOPHAGE] 500 mg PO BID #60 tab Methylprednisolone [Medrol Dose Pack (21 tabs)] 4 mg PO DAILY #21 mg - Follow Up Plan Condition: FAIR Disposition: HOME/ ROUTINE Instructions: Heart Healthy Diet, Azithromycin (Systemic), Pneumonia, Adult (DC), Sepsis, Adult (DC), Exacerbation of COPD (DC), Cefepime Additional Instructions: Patient is to be discharged home. Subacute rehabilitation was recommended but due to lack of insurance patient will need to be monitored closely at home. Patient is to set up primary care at [facility] and hospitalization follow up within 1 week of discharge Patient will need to setup referral to see a peer specialist Please call during week day to make an appointment [phone] Patient will take medication as prescribed azithromycin 500 mg once daily for 3 days aspirin 81 mg daily levothyroxine 25 mcg daily famotidine 20 mg daily Medrol dose pack breo ellipta 1 inhalation daily colace 100 mg by mouth daily miralax 17 grams daily Go to the nearest ED if symptoms worsen or persist
[2018-04-25] MEDS: Albuterol-Ipratrop 3 mg / 0.5 (3 ml) UD INH SCH ×6 (00:25→20:55)
[2018-04-25] MEDS: Cefepime IV 2 gm in Dextrose 2 GM/100 ML BAG IVPB SCH ×4 (02:45→23:38)
[2018-04-25] MEDS: Levothyroxine 25 MCG TAB PO SCH (06:36)
[2018-04-25 06:46] LABS: BASO % 0.2 % (0.0-2.0); EOS % 0.1 % (0.0-4.0); HEMOGLOBIN 12.1 g/dL (11.0-16.0); LYMPH # 1.7 K/uL (1.0-4.3); MEAN CELL VOLUME 81.8 fL (81.0-99.0); MEAN CORPUSCULAR HEMOGLOBIN 26.6 pg (27.0-31.0); MEAN CORPUSCULAR HGB CONC 32.6 g/dL (33.0-37.0); MEAN PLATELET VOLUME 9.5 fL (7.2-11.7); MONO # 0.9 K/uL (0.0-0.8); MONO % 9.9 % (0.0-10.0); NEUT # 6.5 K/uL (1.8-7.0); NEUT % 70.8 % (50.0-75.0); RBC 4.55 Mil/uL (3.80-5.20); RED CELL DISTRIBUTION WIDTH 16.2 % (11.5-14.5); WHITE BLOOD COUNT 9.2 K/uL (4.8-10.8)
[2018-04-25 07:14] LABS: ALB/GLOB RATIO 1.5 (1.0-2.1); ALBUMIN 3.9 g/dL (3.5-5.0); ALT/SGPT 62 U/L (9-52); AST/SGOT 25 U/L (14-36); BLOOD UREA NITROGEN 24 mg/dL (7-17); CALCIUM 8.8 mg/dl (8.6-10.4); GFR NON-AFRICAN AMERICAN > 60
[2018-04-25] MEDS: (Novolin R) Insulin Human Regular 100 units/ml vial SC SCH ×4 (08:29→21:51)
[2018-04-25] MEDS: Azithromycin 500 MG in Sodium Chloride 0.9% 250 ML IVPB SCH (10:38)
[2018-04-25] MEDS: MethylPREDNISolone 40 mg Vial IV SCH ×2 (10:39→17:21)
[2018-04-25] MEDS: POLYETHYLENE GLYCOL 3350 17 GM/Dose PACKET PO SCH (10:39)
--- NOTE | 2018-04-25 15:32 | CP.PCM.PN ---
Subjective - Date & Time of Evaluation Date of Evaluation: 04/25/18 Time of Evaluation: 15:29 - Subjective Subjective: Progress Note for Dr. Ceballos Patient seen and examined at bedside. Patient continues to say she is getting better, still with cough and some wheeze. Otherwise 12 point ROS negative. Patient wants to go home. Objective - Vital Signs/Intake and Output Vital Signs (last 24 hours): Temp Pulse Resp BP Pulse Ox 98.8 F 63 20 145/86 97 04/25/18 08:00 04/25/18 08:00 04/25/18 08:00 04/25/18 08:00 04/25/18 08:00 Intake and Output: 04/25/18 04/25/18 06:59 18:59 Intake Total 0 Balance 0 - Medications Medications: Current Medications Acetaminophen (Tylenol 325mg Tab) 650 mg PO Q6 PRN PRN Reason: pain+fever Albuterol/Ipratropium (Duoneb 3 Mg/0.5 Mg (3 Ml) Ud) 3 ml INH RQ4 [facility] Last Admin: 04/25/18 11:35 Dose: 3 ml Aspirin (Ecotrin) 81 mg PO DAILY [facility] Last Admin: 04/25/18 10:39 Dose: 81 mg Dextrose (Dextrose 50% Inj) 0 ml IV STAT PRN; Protocol PRN Reason: Hypoglycemia Protocol Dextrose (Dextrose 50% Inj) 0 ml IV STAT PRN; Protocol PRN Reason: Hypoglycemia Protocol Dextrose (Glutose 15) 0 gm PO ONCE PRN; Protocol PRN Reason: Hypoglycemia Protocol Docusate Sodium (Colace) 100 mg PO BID [facility] Last Admin: 04/25/18 10:39 Dose: 100 mg Famotidine (Pepcid) 20 mg PO DAILY [facility] Last Admin: 04/25/18 10:39 Dose: 20 mg Glucagon (Glucagen Diagnostic Kit) 0 mg IM STAT PRN; Protocol PRN Reason: Hypoglycemia Protocol Azithromycin 500 mg/ Sodium (Chloride) 250 mls @ 250 mls/hr IVPB DAILY [facility]; Protocol Stop: 04/25/18 18:58 Last Admin: 04/25/18 10:38 Dose: 250 mls/hr Cefepime HCl (Maxipime Iv 2 Gm Premix) 2 gm in 100 mls @ 200 mls/hr IVPB Q8H [facility]; Protocol Stop: 04/29/18 00:01 Last Admin: 04/25/18 08:34 Dose: 200 mls/hr Insulin Human Regular (Novolin R) 0 unit SC ACHS [facility]; Protocol Last Admin: 04/25/18 12:47 Dose: 6 u Levothyroxine Sodium (Synthroid) 25 mcg PO DAILY@0630 [facility] Last Admin: 04/25/18 06:36 Dose: 25 mcg Methylprednisolone (Solu-Medrol) 40 mg IV BID [facility] Last Admin: 04/25/18 10:39 Dose: 40 mg Polyethylene Glycol (Miralax) 17 gm PO DAILY [facility] Last Admin: 04/25/18 10:39 Dose: 17 gm - Labs Labs: 04/25/18 06:36 04/25/18 06:36 PT 12.8 SECONDS (9.7-12.2) H 04/18/18 09:55 INR 1.2 04/18/18 09:55 APTT 36 SECONDS (21-34) H 04/18/18 09:55 - Constitutional Appears: Well, Non-toxic - Eye Exam Eye Exam: EOMI, Normal appearance - ENT Exam ENT Exam: Mucous Membranes Moist, Normal Exam - Neck Exam Neck Exam: Normal Inspection - Respiratory Exam Respiratory Exam: Rhonchi, Wheezes - GI/Abdominal Exam GI & Abdominal Exam: Soft, Normal Bowel Sounds - Neurological Exam Neurological Exam: Alert, Awake - Psychiatric Exam Psychiatric exam: Normal Affect, Normal Mood - Skin Skin Exam: Dry, Intact, Normal Color, Warm Assessment and Plan - Assessment and Plan (Free Text) Assessment: 77 y/o female w/ PMHx of COPD, HTN, hypothyroidism. PNA - VSS so sepsis resolved. Improving, afebrile, leukocytosis resolved - Flu, Legionella negative - f/u Mycoplasma - NS @ 100 - Solumedrol 40 mg q12 s/p lasix 20 mg IV and CXR on 04/22 (compared to admission greater congestion). Consider stronger diuresis, bumex, and repeat CXR if no clinical improvement persists. - Cefepime 2 g IV Q8H- started 04/18 -> d/c 04/25 - Azithromycin 500 mg IV daily- started 04/18 -> d/c 04/25 - Duoneb Q4H - ID consulted (Mangia) Bilateral leg pain - Patient can now ambulate with assistance - f/u LE Dopplers Bacteremia- suspect contamination - BCx (04/18): 1/2 positive for GPC - repeat BCx from 04/21 - negative - Vancomycin 1.5 g IV x1 on 04/21 - ID consulted (Cristy) Asymptomatic bacteriuria - UA: blood 2+, nitrate pos, LE 1+, WBC 7, RBC 12, neftali many - UCx: Klebsiella pneumoniae - Repeat UA shows 4 RBC - f/u repeat UCx - Cefepime 2 g IV Q8H- started 04/18 -> d/c 04/25 Chronic obstructive pulmonary disease - Solumedrol 125 mg x 1 in ED. Patient and daughter deny ever smoking but significant secondhand smoking for 20 years, no more exposure for 10 years. Pat ient diagnosed 10 years ago. Less likely CHF exacerbation as EF wnl Mar 2018 and no s/sx of fluid overload. - Incentive spirometer - Duoneb Q4H Constipation - Colace 100 mg PO BID - Miralax 17 g PO daily Hypothyroidism - Levothyroxine 25 mg PO daily Hypertension - Vitals Q8H Type 2 diabetes mellitus - ISS - Hypoglycemia protocol Atherosclerotic cardiovascular disease - ASA 81 mg PO daily - Heart healthy diet Ppx: VTE: Heparin 5000 units sq Q12H, SCDs GI: Pepcid 20 PO daily PTOT- rec [facility] dispo: pt cannot d/c to [facility] due to lack of insurance. She will need to fully recover in the hospital before d/c home. Pt finished abx 04/25, can likely d/c after if still clinical improvement
[2018-04-26] MEDS: Albuterol-Ipratrop 3 mg / 0.5 (3 ml) UD INH SCH ×4 (00:13→12:00)
[2018-04-26] MEDS: Levothyroxine 25 MCG TAB PO SCH (05:38)
[2018-04-26 07:26] LABS: BASO % 0.3 % (0.0-2.0); EOS % 0.2 % (0.0-4.0); HEMOGLOBIN 11.9 g/dL (11.0-16.0); LYMPH # 2.1 K/uL (1.0-4.3); LYMPH % 20.3 % (20.0-40.0); MEAN CELL VOLUME 82.4 fL (81.0-99.0); MEAN CORPUSCULAR HEMOGLOBIN 26.5 pg (27.0-31.0); MEAN CORPUSCULAR HGB CONC 32.1 g/dL (33.0-37.0); MEAN PLATELET VOLUME 9.4 fL (7.2-11.7); MONO # 1.2 K/uL (0.0-0.8); MONO % 11.4 % (0.0-10.0); NEUT # 7.1 K/uL (1.8-7.0); NEUT % 67.8 % (50.0-75.0); RBC 4.5 Mil/uL (3.80-5.20); RED CELL DISTRIBUTION WIDTH 15.9 % (11.5-14.5); WHITE BLOOD COUNT 10.5 K/uL (4.8-10.8)
[2018-04-26 07:38] LABS: ALB/GLOB RATIO 1.4 (1.0-2.1); ALBUMIN 3.8 g/dL (3.5-5.0); ALT/SGPT 55 U/L (9-52); AST/SGOT 23 U/L (14-36); BLOOD UREA NITROGEN 25 mg/dL (7-17); CALCIUM 8.8 mg/dl (8.6-10.4); GFR NON-AFRICAN AMERICAN > 60
[2018-04-26] MEDS: (Novolin R) Insulin Human Regular 100 units/ml vial SC SCH ×4 (08:28→21:17)
[2018-04-26] MEDS: Cefepime IV 2 gm in Dextrose 2 GM/100 ML BAG IVPB SCH ×3 (08:35→23:53)
[2018-04-26] MEDS: POLYETHYLENE GLYCOL 3350 17 GM/Dose PACKET PO SCH (09:05)
[2018-04-26] MEDS: MethylPREDNISolone 40 mg Vial IV SCH ×2 (09:05→17:06)
[2018-04-26] MEDS ORDERED: Acetylcysteine 20% Inhal Soln (4ml) INH ONE (14:45)
--- NOTE | 2018-04-26 15:55 | CP.PCM.PN ---
Subjective - Date & Time of Evaluation Date of Evaluation: 04/26/18 Time of Evaluation: 15:51 - Subjective Subjective: Progress Note for Dr. Ceballos Patient seen and examined at bedside. She was OOB to chair. Patient keeps on saying she feels better daily. She complains of bilateral leg pain that has been going on for a few years that hurts with rest and improves with ambulation. She doesn't know whether or not it is bone vs. muscle. Patient denies chest pain, SOB, nausea, vomiting, diarrhea, constipation. Objective - Vital Signs/Intake and Output Vital Signs (last 24 hours): Temp Pulse Resp BP Pulse Ox 98.8 F 72 20 146/86 95 04/26/18 08:00 04/26/18 08:00 04/26/18 08:00 04/26/18 08:00 04/26/18 08:00 Intake and Output: 04/26/18 04/26/18 06:59 18:59 Intake Total 500 Balance 500 - Medications Medications: Current Medications Acetaminophen (Tylenol 325mg Tab) 650 mg PO Q6 PRN PRN Reason: pain+fever Albuterol/Ipratropium (Duoneb 3 Mg/0.5 Mg (3 Ml) Ud) 3 ml INH RQ4 [facility] Last Admin: 04/26/18 07:30 Dose: 3 ml Aspirin (Ecotrin) 81 mg PO DAILY [facility] Last Admin: 04/26/18 09:05 Dose: 81 mg Dextrose (Dextrose 50% Inj) 0 ml IV STAT PRN; Protocol PRN Reason: Hypoglycemia Protocol Dextrose (Dextrose 50% Inj) 0 ml IV STAT PRN; Protocol PRN Reason: Hypoglycemia Protocol Dextrose (Glutose 15) 0 gm PO ONCE PRN; Protocol PRN Reason: Hypoglycemia Protocol Docusate Sodium (Colace) 100 mg PO BID [facility] Last Admin: 04/26/18 09:05 Dose: 100 mg Famotidine (Pepcid) 20 mg PO DAILY [facility] Last Admin: 04/26/18 09:05 Dose: 20 mg Glucagon (Glucagen Diagnostic Kit) 0 mg IM STAT PRN; Protocol PRN Reason: Hypoglycemia Protocol Cefepime HCl (Maxipime Iv 2 Gm Premix) 2 gm in 100 mls @ 200 mls/hr IVPB Q8H [facility]; Protocol Stop: 04/29/18 00:01 Last Admin: 04/26/18 08:35 Dose: 200 mls/hr Insulin Human Regular (Novolin R) 0 unit SC ACHS [facility]; Protocol Last Admin: 04/26/18 12:24 Dose: 4 u Levothyroxine Sodium (Synthroid) 25 mcg PO DAILY@0630 [facility] Last Admin: 04/26/18 05:38 Dose: 25 mcg Methylprednisolone (Solu-Medrol) 40 mg IV BID [facility] Last Admin: 04/26/18 09:05 Dose: 40 mg Polyethylene Glycol (Miralax) 17 gm PO DAILY [facility] Last Admin: 04/26/18 09:05 Dose: 17 gm - Labs Labs: 04/26/18 07:09 04/26/18 07:09 PT 12.8 SECONDS (9.7-12.2) H 04/18/18 09:55 INR 1.2 04/18/18 09:55 APTT 36 SECONDS (21-34) H 04/18/18 09:55 - Constitutional Appears: Well, Non-toxic - Head Exam Head Exam: ATRAUMATIC, NORMAL INSPECTION, NORMOCEPHALIC - Eye Exam Eye Exam: EOMI, Normal appearance - Neck Exam Neck Exam: Normal Inspection - Respiratory Exam Respiratory Exam: Rhonchi, Wheezes - Cardiovascular Exam Cardiovascular Exam: REGULAR RHYTHM - GI/Abdominal Exam GI & Abdominal Exam: Soft, Normal Bowel Sounds - Rectal Exam Rectal Exam: NORMAL INSPECTION - Extremities Exam Extremities Exam: Normal Inspection (tender to palpation anterior and posterior tibialis upon superficial palpation. spider veins.) Assessment and Plan - Assessment and Plan (Free Text) Assessment: 77 y/o female w/ PMHx of COPD, HTN, hypothyroidism. PNA - VSS so sepsis resolved. Improving, afebrile, leukocytosis resolved - Flu, Legionella negative - f/u Mycoplasma - NS @ 100 - Solumedrol 40 mg q12 -s/p lasix 20 mg IV and CXR on 04/22 (compared to admission greater congestion). Consider stronger diuresis, bumex, and repeat CXR if no clinical improvement persists. - s/p 7 day course of Cefepime 2 g IV Q8H and azith 500 mg daily - started 04/18 -> d/c 04/25 - Duoneb Q4H - ID consulted (Cristy), rec'd 7 day course abx Chronic obstructive pulmonary disease - Solumedrol 125 mg x 1 in ED. Patient and daughter deny ever smoking but significant secondhand smoking for 20 years, no more exposure for 10 years. Patient diagnosed 10 years ago. Less likely CHF exacerbation as EF wnl Mar 2018 and no s/sx of fluid overload. - Incentive spirometer - Duoneb Q4H Bacteremia- resolved - BCx (04/18): 1/2 positive for GPC - repeat BCx from 04/21 - negative - Vancomycin 1.5 g IV x1 on 04/21 - ID consulted (Cristy), suspected contamination Asymptomatic bacteriuria - resolved - UA: blood 2+, nitrate pos, LE 1+, WBC 7, RBC 12, neftali many - UCx: Klebsiella pneumoniae - Repeat UA shows 4 RBC - f/u repeat UCx negative Constipation - Colace 100 mg PO BID - Miralax 17 g PO daily Hypothyroidism - Levothyroxine 25 mg PO daily Hypertension - Vitals Q8H Type 2 diabetes mellitus - ISS - Hypoglycemia protocol Atherosclerotic cardiovascular disease - ASA 81 mg PO daily - Heart healthy diet Ppx: VTE: Heparin 5000 units sq Q12H, SCDs GI: Pepcid 20 PO daily PTOT- rec [place], however lack of insurance will not permit
--- NOTE | 2018-04-26 18:43 | CP.PCM.PN ---
Subjective - Date & Time of Evaluation Date of Evaluation: 04/26/18 Time of Evaluation: 10:00 - Subjective Subjective: improving less cough- non productive no sob or chest pain Objective - Vital Signs/Intake and Output Vital Signs (last 24 hours): Temp Pulse Resp BP Pulse Ox 98.8 F 72 20 146/86 95 04/26/18 08:00 04/26/18 08:00 04/26/18 08:00 04/26/18 08:00 04/26/18 08:00 Intake and Output: 04/26/18 04/26/18 06:59 18:59 Intake Total 500 Balance 500 - Medications Medications: Current Medications Acetaminophen (Tylenol 325mg Tab) 650 mg PO Q6 PRN PRN Reason: pain+fever Albuterol/Ipratropium (Duoneb 3 Mg/0.5 Mg (3 Ml) Ud) 3 ml INH RQ4 [facility] Last Admin: 04/26/18 12:00 Dose: 3 ml Aspirin (Ecotrin) 81 mg PO DAILY [facility] Last Admin: 04/26/18 09:05 Dose: 81 mg Dextrose (Dextrose 50% Inj) 0 ml IV STAT PRN; Protocol PRN Reason: Hypoglycemia Protocol Dextrose (Dextrose 50% Inj) 0 ml IV STAT PRN; Protocol PRN Reason: Hypoglycemia Protocol Dextrose (Glutose 15) 0 gm PO ONCE PRN; Protocol PRN Reason: Hypoglycemia Protocol Docusate Sodium (Colace) 100 mg PO BID [facility] Last Admin: 04/26/18 17:06 Dose: 100 mg Famotidine (Pepcid) 20 mg PO DAILY [facility] Last Admin: 04/26/18 09:05 Dose: 20 mg Glucagon (Glucagen Diagnostic Kit) 0 mg IM STAT PRN; Protocol PRN Reason: Hypoglycemia Protocol Cefepime HCl (Maxipime Iv 2 Gm Premix) 2 gm in 100 mls @ 200 mls/hr IVPB Q8H [facility]; Protocol Stop: 04/29/18 00:01 Last Admin: 04/26/18 16:28 Dose: 200 mls/hr Insulin Human Regular (Novolin R) 0 unit SC [facility]; Protocol Last Admin: 04/26/18 17:07 Dose: 366 u Levothyroxine Sodium (Synthroid) 25 mcg PO DAILY@0630 [facility] Last Admin: 04/26/18 05:38 Dose: 25 mcg Methylprednisolone (Solu-Medrol) 40 mg IV BID [facility] Last Admin: 04/26/18 17:06 Dose: 40 mg Polyethylene Glycol (Miralax) 17 gm PO DAILY [facility] Last Admin: 04/26/18 09:05 Dose: 17 gm - Labs Labs: 04/26/18 07:09 04/26/18 07:09 PT 12.8 SECONDS (9.7-12.2) H 04/18/18 09:55 INR 1.2 04/18/18 09:55 APTT 36 SECONDS (21-34) H 04/18/18 09:55 - Constitutional Appears: Non-toxic, Chronically Ill - Head Exam Head Exam: NORMOCEPHALIC - Eye Exam Eye Exam: absent: Scleral icterus - ENT Exam ENT Exam: Mucous Membranes Dry - Neck Exam Neck Exam: absent: Lymphadenopathy - Respiratory Exam Respiratory Exam: Decreased Breath Sounds - Cardiovascular Exam Cardiovascular Exam: REGULAR RHYTHM - GI/Abdominal Exam GI & Abdominal Exam: Distended, Soft - Rectal Exam Rectal Exam: Deferred - Exam Exam: NORMAL INSPECTION - Extremities Exam Extremities Exam: Pedal Edema - Back Exam Back Exam: absent: CVA tenderness (L), CVA tenderness (R) Assessment and Plan (1) COPD with exacerbation Status: Acute (2) Pneumonia Status: Acute (3) Sepsis Status: Acute - Assessment and Plan (Free Text) Assessment: ok to d/c cefepime day 9-10 observe for fever
[2018-04-27] MEDS: Albuterol-Ipratrop 3 mg / 0.5 (3 ml) UD INH SCH ×6 (00:33→19:45)
[2018-04-27] MEDS: Levothyroxine 25 MCG TAB PO SCH (05:34)
[2018-04-27 07:56] LABS: BASO # 0.1 K/uL (0.0-0.2); BASO % 1.2 % (0.0-2.0); EOS % 0.3 % (0.0-4.0); HEMOGLOBIN 11.9 g/dL (11.0-16.0); LYMPH % 27.9 % (20.0-40.0); MEAN CELL VOLUME 82.4 fL (81.0-99.0); MEAN CORPUSCULAR HEMOGLOBIN 25.9 pg (27.0-31.0); MEAN CORPUSCULAR HGB CONC 31.4 g/dL (33.0-37.0); MEAN PLATELET VOLUME 9.7 fL (7.2-11.7); MONO # 1.1 K/uL (0.0-0.8); MONO % 10.8 % (0.0-10.0); NEUT # 6.3 K/uL (1.8-7.0); NEUT % 59.8 % (50.0-75.0); NRBC % 0.1 % (0.0-2.0); RBC 4.59 Mil/uL (3.80-5.20); RED CELL DISTRIBUTION WIDTH 15.8 % (11.5-14.5); WHITE BLOOD COUNT 10.6 K/uL (4.8-10.8)
[2018-04-27 08:09] LABS: ALB/GLOB RATIO 1.4 (1.0-2.1); ALBUMIN 3.8 g/dL (3.5-5.0); ALT/SGPT 47 U/L (9-52); AST/SGOT 32 U/L (14-36); BLOOD UREA NITROGEN 25 mg/dL (7-17); CALCIUM 8.6 mg/dl (8.6-10.4); GFR NON-AFRICAN AMERICAN > 60
[2018-04-27] MEDS: Cefepime IV 2 gm in Dextrose 2 GM/100 ML BAG IVPB SCH (08:44)
[2018-04-27] MEDS: (Novolin R) Insulin Human Regular 100 units/ml vial SC SCH ×4 (08:44→22:03)
[2018-04-27] MEDS: MethylPREDNISolone 40 mg Vial IV SCH (10:04)
[2018-04-27] MEDS: POLYETHYLENE GLYCOL 3350 17 GM/Dose PACKET PO SCH (10:06)
--- NOTE | 2018-04-27 21:42 | CP.PCM.PN ---
<Alta Sims - Last Filed: 04/27/18 21:44> Subjective - Date & Time of Evaluation Date of Evaluation: 04/27/18 Time of Evaluation: 21:34 - Subjective Subjective: Medicine Progress Note Patient seen and examined at bedside this morning. Patient states that she is doing well, less wheezing, less SOB. Cough per patient is no longer a major problem, also confirmed that with clinical partner who has been observing her for a few hours already. She wants to know when she is able to go home. Patient denies chest pain, palpitations, nausea, vomiting, diarrhea. Objective - Vital Signs/Intake and Output Vital Signs (last 24 hours): Temp Pulse Resp BP Pulse Ox 98.0 F 89 18 119/76 92 L 04/27/18 16:35 04/27/18 16:35 04/27/18 16:35 04/27/18 16:35 04/27/18 16:35 - Medications Medications: Current Medications Acetaminophen (Tylenol 325mg Tab) 650 mg PO Q6 PRN PRN Reason: pain+fever Albuterol/Ipratropium (Duoneb 3 Mg/0.5 Mg (3 Ml) Ud) 3 ml INH RQ4 [facility] Last Admin: 04/27/18 11:35 Dose: 3 ml Aspirin (Ecotrin) 81 mg PO DAILY [facility] Last Admin: 04/27/18 10:04 Dose: 81 mg Dextrose (Dextrose 50% Inj) 0 ml IV STAT PRN; Protocol PRN Reason: Hypoglycemia Protocol Dextrose (Dextrose 50% Inj) 0 ml IV STAT PRN; Protocol PRN Reason: Hypoglycemia Protocol Dextrose (Glutose 15) 0 gm PO ONCE PRN; Protocol PRN Reason: Hypoglycemia Protocol Docusate Sodium (Colace) 100 mg PO BID [facility] Last Admin: 04/27/18 17:47 Dose: 100 mg Famotidine (Pepcid) 20 mg PO DAILY [facility] Last Admin: 04/27/18 10:04 Dose: 20 mg Glucagon (Glucagen Diagnostic Kit) 0 mg IM STAT PRN; Protocol PRN Reason: Hypoglycemia Protocol Heparin Sodium (Porcine) (Heparin) 5,000 units SC Q12 [facility] Last Admin: 04/27/18 10:06 Dose: 5,000 units Insulin Human Regular (Novolin R) 0 unit SC ACHS [facility]; Protocol Last Admin: 04/27/18 17:47 Dose: 8 u Levothyroxine Sodium (Synthroid) 25 mcg PO DAILY@0630 [facility] Last Admin: 04/27/18 05:34 Dose: 25 mcg Polyethylene Glycol (Miralax) 17 gm PO DAILY [facility] Last Admin: 04/27/18 10:06 Dose: 17 gm Prednisone (Prednisone Tab) 40 mg PO Q12 [facility] - Labs Labs: 04/27/18 07:49 04/27/18 07:49 PT 12.8 SECONDS (9.7-12.2) H 04/18/18 09:55 INR 1.2 04/18/18 09:55 APTT 36 SECONDS (21-34) H 04/18/18 09:55 - Constitutional Appears: Well, Non-toxic - Head Exam Head Exam: ATRAUMATIC, NORMAL INSPECTION - Eye Exam Eye Exam: EOMI, Normal appearance - ENT Exam ENT Exam: Normal Exam - Neck Exam Neck Exam: Normal Inspection - Respiratory Exam Respiratory Exam: Wheezes (bilateral inspiratory and expiratory scattered wheezing, moderate) - Cardiovascular Exam Cardiovascular Exam: REGULAR RHYTHM - GI/Abdominal Exam GI & Abdominal Exam: Soft, Normal Bowel Sounds - Extremities Exam Extremities Exam: Normal Capillary Refill, Normal Inspection - Neurological Exam Neurological Exam: Alert, Awake - Psychiatric Exam Psychiatric exam: Normal Affect, Normal Mood - Skin Skin Exam: Dry, Intact, Normal Color, Warm Assessment and Plan - Assessment and Plan (Free Text) Assessment: 77 y/o female w/ PMHx of COPD, HTN, hypothyroidism. Admitted due to sepsis 2/2 PNA, which has resolved. However patient actively being treated for COPD now, still here because of lack of insurance to send to rehab facility/obtain home oxygen. Chronic obstructive pulmonary disease - Less likely CHF exacerbation as EF wnl Mar 2018 and no s/sx of fluid overload. Solumedrol 125 mg x 1 in ED. - Solumedrol 40 mg q12 - Incentive spirometer - Duoneb Q4H - 04/27 Physical Therapy: oxygen desaturated to 88% with post activity on room air. Pulse oximeter read prior 91%. With those findings, home oxygen requirement needed. - Patient also w/o insurance so will not be able to go home with oxygen unless $300/week paid per SW. Consulted Dr. Mane, pulmonology concrete paving machine operator, for further recommendations. Sepsis 2/2 PNA - resolved - VSS, sepsis resolved. Likely 2/2 PNA; CXR on admission 04/18: right lung patchy per report. Afebrile since admission, leukocytosis resolved. - Mycoplasma+ - Flu, Legionella negative -s/p lasix 20 mg IV and CXR on 04/22 (compared to admission greater congestion). Consider stronger diuresis, bumex, and repeat CXR if no clinical improvement persists. - s/p 1 week course of Cefepime 2 g IV Q8H, azithromycin 500 mg also DCed - Duoneb Q4H - ID consulted (Mangia) Bacteremia - resolved - BCx (04/18): 1 positive for GPC - repeat BCx from 04/21 - negative - Vancomycin 1.5 g IV x1 on 04/21 - ID consulted (Mangia), suspected contamination Asymptomatic bacteriuria - resolved - UA: blood 2+, nitrate pos, LE 1+, WBC 7, RBC 12, neftali many - UCx: Klebsiella pneumoniae - Repeat UA shows 4 RBC - f/u repeat UCx negative Constipation - Colace 100 mg PO BID - Miralax 17 g PO daily Hypothyroidism - Levothyroxine 25 mg PO daily Hypertension - Vitals Q8H - currently not on HTN medications Type 2 diabetes mellitus - ISS - Hypoglycemia protocol Atherosclerotic cardiovascular disease - ASA 81 mg PO daily - Heart healthy diet Ppx: VTE: Heparin 5000 units sq Q12H, SCDs GI: Pepcid 20 PO daily PT: rec d/c home w/ services <Javier Herrera - Last Filed: 05/02/18 21:51> Objective - Vital Signs/Intake and Output Vital Signs (last 24 hours): Temp Pulse Resp BP Pulse Ox 99.2 F 82 20 112/67 94 L 05/02/18 10:44 05/02/18 10:44 05/02/18 10:44 05/02/18 10:44 05/02/18 10:44 - Labs Labs: 05/02/18 08:28 05/02/18 08:28 PT 12.8 SECONDS (9.7-12.2) H 04/18/18 09:55 INR 1.2 04/18/18 09:55 APTT 36 SECONDS (21-34) H 04/18/18 09:55 Attending/Attestation - Attestation I have personally seen and examined this patient.: Yes I have fully participated in the care of the patient.: Yes I have reviewed all pertinent clinical information, including history, physical exam and plan: Yes Notes (Text): 05/02/18 21:47 Acute on chronic hypoxic respiratory failure COPD PNA HTN DM 77 y/o female w/ PMHx of COPD, HTN, hypothyroidism. Admitted due to sepsis 2/2 PNA, which has resolved. Pt still requiring supplemental oxygen at rest will consult pulm c/w steroids and duo nebs c/w synthroid c/w BP meds with holding parameters
[2018-04-28] MEDS: Albuterol-Ipratrop 3 mg / 0.5 (3 ml) UD INH SCH ×6 (01:13→21:15)
[2018-04-28] MEDS: Levothyroxine 25 MCG TAB PO SCH (06:19)
[2018-04-28 07:48] LABS: BASO % 0.3 % (0.0-2.0); HEMOGLOBIN 12.5 g/dL (11.0-16.0); LYMPH # 1.1 K/uL (1.0-4.3); LYMPH % 10.2 % (20.0-40.0); MEAN CELL VOLUME 82.2 fL (81.0-99.0); MEAN CORPUSCULAR HEMOGLOBIN 26.4 pg (27.0-31.0); MEAN CORPUSCULAR HGB CONC 32.2 g/dL (33.0-37.0); MEAN PLATELET VOLUME 9.7 fL (7.2-11.7); MONO # 0.4 K/uL (0.0-0.8); MONO % 3.7 % (0.0-10.0); NEUT # 9.1 K/uL (1.8-7.0); NEUT % 85.8 % (50.0-75.0); RBC 4.74 Mil/uL (3.80-5.20); RED CELL DISTRIBUTION WIDTH 16.1 % (11.5-14.5); WHITE BLOOD COUNT 10.7 K/uL (4.8-10.8)
[2018-04-28 08:05] LABS: ALB/GLOB RATIO 1.5 (1.0-2.1); ALBUMIN 3.9 g/dL (3.5-5.0); ALT/SGPT 48 U/L (9-52); AST/SGOT 22 U/L (14-36); BLOOD UREA NITROGEN 26 mg/dL (7-17); CALCIUM 8.7 mg/dl (8.6-10.4); GFR NON-AFRICAN AMERICAN > 60
[2018-04-28] MEDS: (Novolin R) Insulin Human Regular 100 units/ml vial SC SCH ×4 (08:55→21:56)
[2018-04-28] MEDS: POLYETHYLENE GLYCOL 3350 17 GM/Dose PACKET PO SCH (10:06)
--- NOTE | 2018-04-28 14:59 | CP.PCM.PN ---
<Alta Sims - Last Filed: 04/28/18 14:56> Subjective - Date & Time of Evaluation Date of Evaluation: 04/28/18 Time of Evaluation: 14:56 - Subjective Subjective: Medicine Progress Note Patient seen and examined at bedside this morning. Patient states she is doing well. She wonders when she can go home. Still working on social work to find a way to get home oxygen given lack of insurance. Patient denies cough, chest pain, SOB, nausea, vomiting, diarrhea. Objective - Vital Signs/Intake and Output Vital Signs (last 24 hours): Temp Pulse Resp BP Pulse Ox 98.2 F 74 20 121/76 98 04/28/18 07:54 04/28/18 07:54 04/28/18 07:54 04/28/18 07:54 04/27/18 23:58 Intake and Output: 04/28/18 04/28/18 06:59 18:59 Intake Total 250 Balance 250 - Medications Medications: Current Medications Acetaminophen (Tylenol 325mg Tab) 650 mg PO Q6 PRN PRN Reason: pain+fever Albuterol/Ipratropium (Duoneb 3 Mg/0.5 Mg (3 Ml) Ud) 3 ml INH RQ4 [facility] Last Admin: 04/28/18 11:45 Dose: 3 ml Aspirin (Ecotrin) 81 mg PO DAILY [facility] Last Admin: 04/28/18 10:06 Dose: 81 mg Dextrose (Dextrose 50% Inj) 0 ml IV STAT PRN; Protocol PRN Reason: Hypoglycemia Protocol Dextrose (Dextrose 50% Inj) 0 ml IV STAT PRN; Protocol PRN Reason: Hypoglycemia Protocol Dextrose (Glutose 15) 0 gm PO ONCE PRN; Protocol PRN Reason: Hypoglycemia Protocol Docusate Sodium (Colace) 100 mg PO BID [facility] Last Admin: 04/28/18 10:06 Dose: 100 mg Famotidine (Pepcid) 20 mg PO DAILY [facility] Last Admin: 04/28/18 10:06 Dose: 20 mg Glucagon (Glucagen Diagnostic Kit) 0 mg IM STAT PRN; Protocol PRN Reason: Hypoglycemia Protocol Heparin Sodium (Porcine) (Heparin) 5,000 units SC Q12 [facility] Last Admin: 04/28/18 10:05 Dose: 5,000 units Insulin Human Regular (Novolin R) 0 unit SC ACHS [facility]; Protocol Last Admin: 01/25/19 13:15 Dose: 4 u Levothyroxine Sodium (Synthroid) 25 mcg PO DAILY@0630 [facility] Last Admin: 04/28/18 06:19 Dose: 25 mcg Polyethylene Glycol (Miralax) 17 gm PO DAILY [facility] Last Admin: 04/28/18 10:06 Dose: 17 gm Prednisone (Prednisone Tab) 40 mg PO Q12 [facility] Last Admin: 04/28/18 10:06 Dose: 40 mg - Labs Labs: 04/28/18 07:39 04/28/18 07:39 PT 12.8 SECONDS (9.7-12.2) H 04/18/18 09:55 INR 1.2 04/18/18 09:55 APTT 36 SECONDS (21-34) H 04/18/18 09:55 - Constitutional Appears: Well, Non-toxic - Head Exam Head Exam: ATRAUMATIC, NORMAL INSPECTION - Eye Exam Eye Exam: EOMI, Normal appearance - ENT Exam ENT Exam: Normal Exam - Neck Exam Neck Exam: Normal Inspection - Respiratory Exam Respiratory Exam: Clear to Ausculation Bilateral, Wheezes (mild expiratory scattered wheezing, improved from yesterday), NORMAL BREATHING PATTERN - Cardiovascular Exam Cardiovascular Exam: REGULAR RHYTHM - GI/Abdominal Exam GI & Abdominal Exam: Soft, Normal Bowel Sounds - Extremities Exam Extremities Exam: Normal Inspection - Neurological Exam Neurological Exam: Alert, Awake - Psychiatric Exam Psychiatric exam: Normal Affect, Normal Mood - Skin Skin Exam: Dry, Intact, Normal Color, Warm Assessment and Plan - Assessment and Plan (Free Text) Assessment: 77 y/o female w/ PMHx of COPD, HTN, hypothyroidism. Admitted due to sepsis 2/2 PNA, which has resolved. However patient actively being treated for COPD now, still here because of lack of insurance to send to rehab facility/obtain home oxygen. Chronic obstructive pulmonary disease - Less likely CHF exacerbation as EF wnl Mar 2018 and no s/sx of fluid overload. Solumedrol 125 mg x 1 in ED. - Solumedrol 40 mg PO q12 -> plan to taper: 30mg x 2 days, 20 mg x 2 days, and 10 mg x 2 days - Incentive spirometer - Duoneb Q4H - 04/27 Physical Therapy: oxygen desaturated to 88% with post activity on room air. Pulse oximeter read prior 91%. With those findings, home oxygen requirement needed. - Patient also w/o insurance so will not be able to go home with oxygen unless $300/week paid per SW. Consulted Dr. Mane, pulmonology work environment safety inspector, for further recommendations. Resident on his service spoke to him about the case. Dr. Mane also agrees she needs home oxygen and cannot be d/darlene without it. Sepsis 2/2 PNA - resolved - VSS, sepsis resolved. Likely 2/2 PNA; CXR on admission 04/18: right lung patchy per report. Afebrile since admission, leukocytosis resolved. - Mycoplasma+ - Flu, Legionella negative -s/p lasix 20 mg IV and CXR on 04/22 (compared to admission greater congestion). Consider stronger diuresis, bumex, and repeat CXR if no clinical improvement persists. - s/p 1 week course of Cefepime 2 g IV Q8H, azithromycin 500 mg also DCed - Duoneb Q4H - ID consulted (Cristy) Bacteremia - resolved - BCx (04/18): 1/2 positive for GPC - repeat BCx from 04/21 - negative - Vancomycin 1.5 g IV x1 on 04/21 - ID consulted (Cristy), suspected contamination Asymptomatic bacteriuria - resolved - UA: blood 2+, nitrate pos, LE 1+, WBC 7, RBC 12, neftali many - UCx: Klebsiella pneumoniae - Repeat UA shows 4 RBC - f/u repeat UCx negative Constipation - Colace 100 mg PO BID - Miralax 17 g PO daily Hypothyroidism - Levothyroxine 25 mg PO daily Hypertension - Vitals Q8H - currently not on HTN medications Type 2 diabetes mellitus - ISS - Hypoglycemia protocol Atherosclerotic cardiovascular disease - ASA 81 mg PO daily - Heart healthy diet Ppx: VTE: Heparin 5000 units sq Q12H, SCDs GI: Pepcid 20 PO daily PT: rec d/c home w/ services. restriction: insurance status. <Javier Herrera - Last Filed: 05/02/18 21:47> Objective - Vital Signs/Intake and Output Vital Signs (last 24 hours): Temp Pulse Resp BP Pulse Ox 99.2 F 82 20 112/67 94 L 05/02/18 10:44 05/02/18 10:44 05/02/18 10:44 05/02/18 10:44 05/02/18 10:44 - Labs Labs: 05/02/18 08:28 05/02/18 08:28 PT 12.8 SECONDS (9.7-12.2) H 04/18/18 09:55 INR 1.2 04/18/18 09:55 APTT 36 SECONDS (21-34) H 04/18/18 09:55 Attending/Attestation - Attestation I have personally seen and examined this patient.: Yes I have fully participated in the care of the patient.: Yes I have reviewed all pertinent clinical information, including history, physical exam and plan: Yes Notes (Text): 05/02/18 21:39 Acute on chronic hypoxic respiratory failure COPD PNA HTN DM 77 y/o female w/ PMHx of COPD, HTN, hypothyroidism. Admitted due to sepsis 2/2 PNA, which has resolved. Pt still requiring supplemental oxygen at rest c/w steroids and duo nebs f/u pulm recommendations c/w synthroid
[2018-04-29] MEDS: Albuterol-Ipratrop 3 mg / 0.5 (3 ml) UD INH SCH ×7 (01:06→19:49)
[2018-04-29] MEDS: Levothyroxine 25 MCG TAB PO SCH (05:34)
--- NOTE | 2018-04-29 05:36 | CP.PCM.PN ---
<Clotilde Thurman - Last Filed: 04/29/18 06:46> Subjective - Date & Time of Evaluation Date of Evaluation: 04/29/18 Time of Evaluation: 06:35 - Subjective Subjective: Patient examined at bedside. No acute overnight events. Patient reports occasional SOB and has a persistent cough. Denies chest pain, abdominal pain, vomiting, diarrhea. Objective - Vital Signs/Intake and Output Vital Signs (last 24 hours): Temp Pulse Resp BP Pulse Ox 98.3 F 73 20 116/67 98 04/28/18 23:37 04/28/18 23:37 04/28/18 23:37 04/28/18 23:37 04/28/18 23:37 - Medications Medications: Current Medications Acetaminophen (Tylenol 325mg Tab) 650 mg PO Q6 PRN PRN Reason: pain+fever Albuterol/Ipratropium (Duoneb 3 Mg/0.5 Mg (3 Ml) Ud) 3 ml INH RQ4 [facility] Last Admin: 04/29/18 04:22 Dose: Not Given Aspirin (Ecotrin) 81 mg PO DAILY [facility] Last Admin: 04/28/18 10:06 Dose: 81 mg Dextrose (Dextrose 50% Inj) 0 ml IV STAT PRN; Protocol PRN Reason: Hypoglycemia Protocol Dextrose (Dextrose 50% Inj) 0 ml IV STAT PRN; Protocol PRN Reason: Hypoglycemia Protocol Dextrose (Glutose 15) 0 gm PO ONCE PRN; Protocol PRN Reason: Hypoglycemia Protocol Docusate Sodium (Colace) 100 mg PO BID [facility] Last Admin: 04/28/18 17:06 Dose: 100 mg Famotidine (Pepcid) 20 mg PO DAILY [facility] Last Admin: 04/28/18 10:06 Dose: 20 mg Glucagon (Glucagen Diagnostic Kit) 0 mg IM STAT PRN; Protocol PRN Reason: Hypoglycemia Protocol Heparin Sodium (Porcine) (Heparin) 5,000 units SC Q12 [facility] Last Admin: 04/28/18 21:57 Dose: 5,000 units Insulin Human Regular (Novolin R) 0 unit SC ACHS [facility]; Protocol Last Admin: 04/28/18 21:56 Dose: 2 u Levothyroxine Sodium (Synthroid) 25 mcg PO DAILY@0630 [facility] Last Admin: 04/28/18 06:19 Dose: 25 mcg Polyethylene Glycol (Miralax) 17 gm PO DAILY [facility] Last Admin: 04/28/18 10:06 Dose: 17 gm Prednisone (Prednisone Tab) 40 mg PO DAILY [facility] Stop: 04/30/18 10:00 Prednisone (Prednisone Tab) 30 mg PO DAILY [facility] Stop: 05/02/18 10:00 Prednisone (Prednisone Tab) 20 mg PO DAILY [facility] Stop: 05/04/18 10:00 Prednisone (Prednisone Tab) 10 mg PO DAILY [facility] Stop: 05/06/18 10:00 - Labs Labs: 04/28/18 07:39 04/28/18 07:39 PT 12.8 SECONDS (9.7-12.2) H 04/18/18 09:55 INR 1.2 04/18/18 09:55 APTT 36 SECONDS (21-34) H 04/18/18 09:55 - Head Exam Head Exam: ATRAUMATIC, NORMAL INSPECTION, NORMOCEPHALIC - Eye Exam Eye Exam: EOMI, Normal appearance - ENT Exam ENT Exam: Mucous Membranes Moist, Normal Exam - Neck Exam Neck Exam: Normal Inspection - Respiratory Exam Respiratory Exam: Wheezes, NORMAL BREATHING PATTERN. absent: Rhonchi - Cardiovascular Exam Cardiovascular Exam: REGULAR RHYTHM, +S1, +S2 - GI/Abdominal Exam GI & Abdominal Exam: Soft, Normal Bowel Sounds. absent: Distended, Tenderness - Extremities Exam Extremities Exam: Normal Inspection. absent: Calf Tenderness - Neurological Exam Neurological Exam: Alert, Awake - Psychiatric Exam Psychiatric exam: Normal Affect, Normal Mood - Skin Skin Exam: Dry, Intact, Normal Color, Warm Assessment and Plan - Assessment and Plan (Free Text) Assessment: 77 year old female w/ PMHx of COPD, HTN, hypothyroidism admitted for treatment of sepsis 2/2 PNA Plan: Chronic obstructive pulmonary disease - prednisone taper -duonebs q4 - pt requires home O2, but does not qualify(uninsured); cannot maintain spO2 w/out HTN - off antihypertensives, BP stable and WNL - HHD DM2 - ISS ACHS - Hypoglycemia protocol CAD - ASA 81 mg PO daily - Heart healthy diet Hypothyroidism - Levothyroxine 25 mcg PO daily Constipation - Colace 100 mg PO BID - Miralax 17 g PO daily Ppx: VTE: Heparin 5000 units sq Q12H, SCDs GI: Pepcid 20 PO daily Dispo: holding pt as cannot be discharged without home O2 Will discuss with Dr. Santos -Clotilde Thurman, PGY-1 <Taco Santos H - Last Filed: 04/29/18 10:43> Objective - Vital Signs/Intake and Output Vital Signs (last 24 hours): Temp Pulse Resp BP Pulse Ox 98.2 F 68 20 109/63 97 04/29/18 07:47 04/29/18 07:47 04/29/18 07:47 04/29/18 07:47 04/29/18 07:47 - Medications Medications: Current Medications Acetaminophen (Tylenol 325mg Tab) 650 mg PO Q6 PRN PRN Reason: pain+fever Albuterol/Ipratropium (Duoneb 3 Mg/0.5 Mg (3 Ml) Ud) 3 ml INH RQ4 [facility] Last Admin: 04/29/18 07:35 Dose: 3 ml Aspirin (Ecotrin) 81 mg PO DAILY [facility] Last Admin: 04/29/18 09:50 Dose: 81 mg Dextrose (Dextrose 50% Inj) 0 ml IV STAT PRN; Protocol PRN Reason: Hypoglycemia Protocol Dextrose (Dextrose 50% Inj) 0 ml IV STAT PRN; Protocol PRN Reason: Hypoglycemia Protocol Dextrose (Glutose 15) 0 gm PO ONCE PRN; Protocol PRN Reason: Hypoglycemia Protocol Docusate Sodium (Colace) 100 mg PO BID [facility] Last Admin: 04/29/18 10:03 Dose: 100 mg Famotidine (Pepcid) 20 mg PO DAILY [facility] Last Admin: 04/29/18 09:50 Dose: 20 mg Glucagon (Glucagen Diagnostic Kit) 0 mg IM STAT PRN; Protocol PRN Reason: Hypoglycemia Protocol Heparin Sodium (Porcine) (Heparin) 5,000 units SC Q12 [facility] Last Admin: 04/29/18 09:51 Dose: 5,000 units Insulin Human Regular (Novolin R) 0 unit SC ACHS [facility]; Protocol Last Admin: 04/29/18 09:51 Dose: 2 u Levothyroxine Sodium (Synthroid) 25 mcg PO DAILY@0630 [facility] Last Admin: 04/29/18 05:34 Dose: 25 mcg Polyethylene Glycol (Miralax) 17 gm PO DAILY [facility] Last Admin: 04/29/18 09:51 Dose: 17 gm Prednisone (Prednisone Tab) 40 mg PO DAILY [facility] Stop: 04/30/18 10:00 Last Admin: 04/29/18 09:50 Dose: 40 mg Prednisone (Prednisone Tab) 30 mg PO DAILY [facility] Stop: 05/02/18 10:00 Prednisone (Prednisone Tab) 20 mg PO DAILY [facility] Stop: 05/04/18 10:00 Prednisone (Prednisone Tab) 10 mg PO DAILY [facility] Stop: 05/06/18 10:00 - Labs Labs: 04/29/18 07:14 04/29/18 07:14 PT 12.8 SECONDS (9.7-12.2) H 04/18/18 09:55 INR 1.2 04/18/18 09:55 APTT 36 SECONDS (21-34) H 04/18/18 09:55 Attending/Attestation - Attestation I have personally seen and examined this patient.: Yes I have fully participated in the care of the patient.: Yes I have reviewed all pertinent clinical information, including history, physical exam and plan: Yes Notes (Text): 04/29/18 10:42 Medical attending: Patient was seen and examined by me. Agree with the above note by the resident The patient was at rest when I saw her. She was not in any acute distress And with my basic Czech I understood that at rest she was fine However she has been here because of ongoing desaturations when she goes long distances Reviewed PT notes Currently she is on a tapering oral prednisone regimen Taco Santos
[2018-04-29 07:33] LABS: BASO % 0.1 % (0.0-2.0); EOS # 0.1 K/uL (0.0-0.7); EOS % 0.8 % (0.0-4.0); HEMOGLOBIN 12.1 g/dL (11.0-16.0); LYMPH % 26.5 % (20.0-40.0); MEAN CELL VOLUME 81.8 fL (81.0-99.0); MEAN CORPUSCULAR HEMOGLOBIN 26.7 pg (27.0-31.0); MEAN CORPUSCULAR HGB CONC 32.6 g/dL (33.0-37.0); MEAN PLATELET VOLUME 9.6 fL (7.2-11.7); MONO # 1.1 K/uL (0.0-0.8); MONO % 9.7 % (0.0-10.0); NEUT # 7.1 K/uL (1.8-7.0); NEUT % 62.9 % (50.0-75.0); RBC 4.53 Mil/uL (3.80-5.20); RED CELL DISTRIBUTION WIDTH 15.9 % (11.5-14.5); WHITE BLOOD COUNT 11.3 K/uL (4.8-10.8)
[2018-04-29 08:00] LABS: ALB/GLOB RATIO 1.4 (1.0-2.1); ALBUMIN 3.6 g/dL (3.5-5.0); ALT/SGPT 41 U/L (9-52); AST/SGOT 14 U/L (14-36); BLOOD UREA NITROGEN 26 mg/dL (7-17); CALCIUM 8.5 mg/dl (8.6-10.4); GFR NON-AFRICAN AMERICAN > 60
[2018-04-29] MEDS: POLYETHYLENE GLYCOL 3350 17 GM/Dose PACKET PO SCH (09:51)
[2018-04-29] MEDS: (Novolin R) Insulin Human Regular 100 units/ml vial SC SCH ×4 (09:51→22:59)
[2018-04-30] MEDS: Albuterol-Ipratrop 3 mg / 0.5 (3 ml) UD INH SCH ×7 (00:28→23:40)
[2018-04-30] MEDS: Levothyroxine 25 MCG TAB PO SCH (05:41)
--- NOTE | 2018-04-30 06:38 | CON ---
DATE: 04/29/2018 HISTORY OF PRESENT ILLNESS: The patient is a 77-year-old female, admitted to the hospital with a chief complaint of weakness, fatigue, tiredness, shortness of breath, pneumonia. The patient was found to have hypoxemia on exercise. PHYSICAL EXAMINATION: GENERAL: The patient is awake, alert, and oriented to time and place. VITAL SIGNS: Temperature 98, pulse 90, and blood pressure . HEENT: Within normal limits. NECK: Supple. CHEST: Symmetrical. Good air entry. Bilateral wheeze. HEART: Regular. ABDOMEN: Soft. EXTREMITIES: No edema. IMPRESSION AND PLAN: The patient suffers from pneumonia, rule out asthma. The patient is to get bed rest, supportive care. Follow up pulse oximeter. We will recommend home oxygen on discharge. Brooklynn Mane MD
[2018-04-30] MEDS: (Novolin R) Insulin Human Regular 100 units/ml vial SC SCH ×4 (08:50→21:49)
[2018-04-30 08:53] LABS: BASO # 0.1 K/uL (0.0-0.2); BASO % 0.6 % (0.0-2.0); EOS # 0.3 K/uL (0.0-0.7); EOS % 2.8 % (0.0-4.0); HEMOGLOBIN 12.1 g/dL (11.0-16.0); LYMPH # 2.1 K/uL (1.0-4.3); LYMPH % 19.3 % (20.0-40.0); MEAN CELL VOLUME 82.1 fL (81.0-99.0); MEAN CORPUSCULAR HEMOGLOBIN 26.4 pg (27.0-31.0); MEAN CORPUSCULAR HGB CONC 32.2 g/dL (33.0-37.0); MEAN PLATELET VOLUME 9.5 fL (7.2-11.7); MONO % 9.4 % (0.0-10.0); NEUT # 7.3 K/uL (1.8-7.0); NEUT % 67.9 % (50.0-75.0); RBC 4.57 Mil/uL (3.80-5.20); WHITE BLOOD COUNT 10.7 K/uL (4.8-10.8)
[2018-04-30 09:12] LABS: ALB/GLOB RATIO 1.4 (1.0-2.1); ALBUMIN 3.6 g/dL (3.5-5.0); ALT/SGPT 35 U/L (9-52); AST/SGOT 21 U/L (14-36); BLOOD UREA NITROGEN 28 mg/dL (7-17); CALCIUM 8.2 mg/dl (8.6-10.4); GFR NON-AFRICAN AMERICAN > 60
[2018-04-30] MEDS: POLYETHYLENE GLYCOL 3350 17 GM/Dose PACKET PO SCH (09:12)
--- NOTE | 2018-04-30 11:09 | CP.PCM.PN ---
Subjective - Date & Time of Evaluation Date of Evaluation: 04/30/18 Time of Evaluation: 11:00 - Subjective Subjective: Family member was at bedside and we had a long discussion. Probably the patient can go tomorrow - I explained to the daughter that the p atient's blood work has been stable and that when at rest the SpO2 saturation is ok however when she participates with PT the number drops precipitously. It is recommended she have home oxygen however family does not have insurance and also the family does not have the means to pay for the oxygen ut of pocket. Tommorrow if the patient cannot get home oxygen I explained to the family we would discharge however would need to be in wheelchair as well as bedside coomedoe Patient is currently on tapering prednisone and is doing well so far. Objective - Vital Signs/Intake and Output Vital Signs (last 24 hours): Temp Pulse Resp BP Pulse Ox 98.6 F 76 20 121/74 95 04/30/18 07:40 04/30/18 07:40 04/30/18 07:40 04/30/18 07:40 04/30/18 07:40 - Medications Medications: Current Medications Acetaminophen (Tylenol 325mg Tab) 650 mg PO Q6 PRN PRN Reason: pain+fever Albuterol/Ipratropium (Duoneb 3 Mg/0.5 Mg (3 Ml) Ud) 3 ml INH RQ4 [facility] Last Admin: 04/30/18 07:20 Dose: 3 ml Aspirin (Ecotrin) 81 mg PO DAILY [facility] Last Admin: 04/30/18 09:11 Dose: 81 mg Dextrose (Dextrose 50% Inj) 0 ml IV STAT PRN; Protocol PRN Reason: Hypoglycemia Protocol Dextrose (Dextrose 50% Inj) 0 ml IV STAT PRN; Protocol PRN Reason: Hypoglycemia Protocol Dextrose (Glutose 15) 0 gm PO ONCE PRN; Protocol PRN Reason: Hypoglycemia Protocol Docusate Sodium (Colace) 100 mg PO BID [facility] Last Admin: 04/30/18 09:11 Dose: 100 mg Famotidine (Pepcid) 20 mg PO DAILY [facility] Last Admin: 04/30/18 09:11 Dose: 20 mg Glucagon (Glucagen Diagnostic Kit) 0 mg IM STAT PRN; Protocol PRN Reason: Hypoglycemia Protocol Insulin Human Regular (Novolin R) 0 unit SC ACHS [facility]; Protocol Last Admin: 04/30/18 08:50 Dose: 2 u Levothyroxine Sodium (Synthroid) 25 mcg PO DAILY@0630 [facility] Last Admin: 04/30/18 05:41 Dose: 25 mcg Polyethylene Glycol (Miralax) 17 gm PO DAILY [facility] Last Admin: 04/30/18 09:12 Dose: Not Given Prednisone (Prednisone Tab) 30 mg PO DAILY [facility] Stop: 05/02/18 10:00 Prednisone (Prednisone Tab) 20 mg PO DAILY [facility] Stop: 05/04/18 10:00 Prednisone (Prednisone Tab) 10 mg PO DAILY [facility] Stop: 05/06/18 10:00 - Labs Labs: 04/30/18 08:38 04/30/18 08:38 PT 12.8 SECONDS (9.7-12.2) H 04/18/18 09:55 INR 1.2 04/18/18 09:55 APTT 36 SECONDS (21-34) H 04/18/18 09:55 Assessment and Plan - Assessment and Plan (Free Text) Assessment: 77 year old female w/ PMHx of COPD, HTN, hypothyroidism admitted for treatment of sepsis 2/2 PNA Plan: Chronic obstructive pulmonary disease 04/30: Waiting to see what the case workers say tomtyron - I explained to family that if home oxygen could not be found then we would discharge however patient is going to be wheelchair bound as well as bedside commode as she has destaurations when trying to work with PT. Currently on tapering oral prednisone and doing ok at rest Pt would benefit from home O2, but so far it looks like this might not be possible Sepsis 2/2 PNA - resolved 04/30: Afebrile, WBC is stable. - VSS, sepsis resolved. Likely 2/2 PNA; CXR on admission 04/18: right lung patchy per report. Afebrile since admission, leukocytosis resolved. - Mycoplasma+ - Flu, Legionella negative -s/p lasix 20 mg IV and CXR on 04/22 (compared to admission greater congestion). Consider stronger diuresis, bumex, and repeat CXR if no clinical improvement persists. - s/p 1 week course of Cefepime 2 g IV Q8H, azithromycin 500 mg also DCed - Duoneb Q4H - ID consulted (Cristy) HTN - off antihypertensives, BP stable and WNL - HHD DM2 - ISS ACHS - Hypoglycemia protocol CAD - ASA 81 mg PO daily - Heart healthy diet Hypothyroidism - Levothyroxine 25 mcg PO daily Constipation - Colace 100 mg PO BID - Miralax 17 g PO daily Ppx: VTE: Heparin 5000 units sq Q12H, SCDs GI: Pepcid 20 PO daily
[2018-05-01 01:42] VITALS: RESP 20
[2018-05-01] MEDS: Albuterol-Ipratrop 3 mg / 0.5 (3 ml) UD INH SCH ×5 (03:24→20:00)
[2018-05-01] MEDS: Levothyroxine 25 MCG TAB PO SCH (06:54)
[2018-05-01 07:29] LABS: BASO % 0.3 % (0.0-2.0); EOS # 0.1 K/uL (0.0-0.7); EOS % 0.9 % (0.0-4.0); HEMOGLOBIN 11.3 g/dL (11.0-16.0); LYMPH % 18.4 % (20.0-40.0); MEAN CELL VOLUME 82.8 fL (81.0-99.0); MEAN CORPUSCULAR HEMOGLOBIN 26.3 pg (27.0-31.0); MEAN CORPUSCULAR HGB CONC 31.8 g/dL (33.0-37.0); MEAN PLATELET VOLUME 9.5 fL (7.2-11.7); MONO % 9.4 % (0.0-10.0); NEUT # 7.8 K/uL (1.8-7.0); RBC 4.3 Mil/uL (3.80-5.20); RED CELL DISTRIBUTION WIDTH 15.6 % (11.5-14.5)
[2018-05-01 07:52] LABS: ALB/GLOB RATIO 1.5 (1.0-2.1); ALBUMIN 3.6 g/dL (3.5-5.0); ALT/SGPT 33 U/L (9-52); AST/SGOT 11 U/L (14-36); BLOOD UREA NITROGEN 24 mg/dL (7-17); CALCIUM 8.1 mg/dl (8.6-10.4); GFR NON-AFRICAN AMERICAN > 60
[2018-05-01] MEDS: (Novolin R) Insulin Human Regular 100 units/ml vial SC SCH ×4 (09:24→23:12)
[2018-05-01] MEDS: POLYETHYLENE GLYCOL 3350 17 GM/Dose PACKET PO SCH (10:19)
--- NOTE | 2018-05-01 20:07 | CP.PCM.PN ---
<Long Duenas - Last Filed: 05/01/18 22:05> Subjective - Date & Time of Evaluation Date of Evaluation: 05/01/18 Time of Evaluation: 20:07 - Subjective Subjective: HOSPITALIST SERVICE Pt s/e at bedside. Reports improved breathing, resolution of dyspnea and resolution of fatigue with current O2 nasal canula settings. Pt spoke with family and is able to acquire home o2 tank through out of pocket and voucher payment. Pt understands current status and agrees with plan. Pt denies CP/SOB/FC/NV. Objective - Vital Signs/Intake and Output Vital Signs (last 24 hours): Temp Pulse Resp BP Pulse Ox 99.1 F 77 20 110/69 95 05/01/18 17:24 05/01/18 17:24 05/01/18 17:24 05/01/18 17:24 05/01/18 17:24 Intake and Output: 05/01/18 05/02/18 18:59 06:59 Intake Total 800 Balance 800 - Medications Medications: Current Medications Acetaminophen (Tylenol 325mg Tab) 650 mg PO Q6 PRN PRN Reason: pain+fever Albuterol/Ipratropium (Duoneb 3 Mg/0.5 Mg (3 Ml) Ud) 3 ml INH RQ4 [facility] Last Admin: 05/01/18 16:15 Dose: 3 ml Aspirin (Ecotrin) 81 mg PO DAILY [facility] Last Admin: 05/01/18 09:24 Dose: 81 mg Dextrose (Dextrose 50% Inj) 0 ml IV STAT PRN; Protocol PRN Reason: Hypoglycemia Protocol Dextrose (Dextrose 50% Inj) 0 ml IV STAT PRN; Protocol PRN Reason: Hypoglycemia Protocol Dextrose (Glutose 15) 0 gm PO ONCE PRN; Protocol PRN Reason: Hypoglycemia Protocol Docusate Sodium (Colace) 100 mg PO BID [facility] Last Admin: 05/01/18 17:53 Dose: 100 mg Famotidine (Pepcid) 20 mg PO DAILY [facility] Last Admin: 05/01/18 09:24 Dose: 20 mg Glucagon (Glucagen Diagnostic Kit) 0 mg IM STAT PRN; Protocol PRN Reason: Hypoglycemia Protocol Insulin Human Regular (Novolin R) 0 unit SC ACHS [facility]; Protocol Last Admin: 05/01/18 17:53 Dose: 8 u Levothyroxine Sodium (Synthroid) 25 mcg PO DAILY@0630 [facility] Last Admin: 05/01/18 06:54 Dose: 25 mcg Polyethylene Glycol (Miralax) 17 gm PO DAILY [facility] Last Admin: 05/01/18 10:19 Dose: Not Given Prednisone (Prednisone Tab) 30 mg PO DAILY [facility] Stop: 05/02/18 10:00 Last Admin: 05/01/18 09:24 Dose: 30 mg Prednisone (Prednisone Tab) 20 mg PO DAILY [facility] Stop: 05/04/18 10:00 Prednisone (Prednisone Tab) 10 mg PO DAILY [facility] Stop: 05/06/18 10:00 - Labs Labs: 05/01/18 07:12 05/01/18 07:12 PT 12.8 SECONDS (9.7-12.2) H 04/18/18 09:55 INR 1.2 04/18/18 09:55 APTT 36 SECONDS (21-34) H 04/18/18 09:55 - Additional Findings Additional findings: - Head Exam Head Exam: ATRAUMATIC, NORMAL INSPECTION, NORMOCEPHALIC - Eye Exam Eye Exam: EOMI, Normal appearance - ENT Exam ENT Exam: Mucous Membranes Moist, Normal Exam - Neck Exam Neck Exam: Normal Inspection - Respiratory Exam Respiratory Exam: Wheezes, NORMAL BREATHING PATTERN. absent: Rhonchi - Cardiovascular Exam Cardiovascular Exam: REGULAR RHYTHM, +S1, +S2 - GI/Abdominal Exam GI & Abdominal Exam: Soft, Normal Bowel Sounds. absent: Distended, Tenderness - Extremities Exam Extremities Exam: Normal Inspection. absent: Calf Tenderness - Neurological Exam Neurological Exam: Alert, Awake - Psychiatric Exam Psychiatric exam: Normal Affect, Normal Mood - Skin Skin Exam: Dry, Intact, Normal Color, Warm Assessment and Plan - Assessment and Plan (Free Text) Assessment: 77 year old female w/ PMHx of COPD, HTN, hypothyroidism admitted for treatment of sepsis 2/2 PNA Plan: Chronic obstructive pulmonary disease - prednisone taper - duonebs q4 - pt requires home O2, but does not qualify(uninsured); cannot maintain spO2 w/out HTN - off antihypertensives, BP stable and WNL - HHD DM2 - ISS ACHS - Hypoglycemia protocol CAD - ASA 81 mg PO daily - Heart healthy diet Hypothyroidism - Levothyroxine 25 mcg PO daily Constipation - Colace 100 mg PO BID - Miralax 17 g PO daily Ppx: VTE: Heparin 5000 units sq Q12H, SCDs GI: Pepcid 20 PO daily Dispo: d/c tmrw <Renzo Elam - Last Filed: 05/03/18 20:04> Objective - Vital Signs/Intake and Output Vital Signs (last 24 hours): Temp Pulse Resp BP Pulse Ox 99.2 F 82 20 112/67 94 L 05/02/18 10:44 05/02/18 10:44 05/02/18 10:44 05/02/18 10:44 05/02/18 10:44 - Labs Labs: 05/02/18 08:28 05/02/18 08:28 PT 12.8 SECONDS (9.7-12.2) H 04/18/18 09:55 INR 1.2 04/18/18 09:55 APTT 36 SECONDS (21-34) H 04/18/18 09:55 Attending/Attestation - Attestation I have personally seen and examined this patient.: Yes I have fully participated in the care of the patient.: Yes I have reviewed all pertinent clinical information, including history, physical exam and plan: Yes Notes (Text): seen and examined by me,no complain,doing well on she will be discharged on home meds and oxygen
[2018-05-02] MEDS: Albuterol-Ipratrop 3 mg / 0.5 (3 ml) UD INH SCH ×4 (00:47→11:00)
[2018-05-02] MEDS: Levothyroxine 25 MCG TAB PO SCH (06:11)
--- NOTE | 2018-05-02 08:18 | CP.PCM.DIS ---
<Long Duenas - Last Filed: 05/02/18 18:12> Provider - Provider Date of Admission: 04/20/18 10:52 Attending physician: Dr Elam Consults: 04/18/18 14:45 Infectious Disease Consult Routine Comment: Consulting Provider: Garrick Muniz Consulting Physician: Garrick Muniz Reason for Consult: s/p code sepsis 04/18/18 16:55 Inpatient CALL CENTER TRAINER Core Measures Referral Routine Comment: Physician Instructions: Reason For Exam: hx copd; c/o of sob Social Work Referral Routine Comment: hx copd; c/o of sob Physician Instructions: Reason For Exam: hx copd; c/o of sob 04/24/18 13:09 Backend Java Developer [Case Management Referral] Routine Comment: Physician Instructions: Reason For Exam: pt w/o insurance and need for home o2 Reason for Referral: Discharge Planning 04/27/18 13:01 Pulmonology Consult Routine Comment: Consulting Provider: Brooklynn Mane Consulting Physician: Brooklynn Mane Reason for Consult: home oxygen eval Time Spent in preparation of Discharge (in minutes): 45 Diagnosis - Discharge Diagnosis (1) COPD exacerbation Status: Resolved (2) Diabetes mellitus Status: Chronic (3) Dyspnea Status: Resolved (4) Hypertension Status: Chronic (5) Hypothyroidism Status: Chronic Hospital Course - Lab Results Lab Results: Micro Results 04/21/18 17:50 Blood-Venous Blood Culture - Final NO GROWTH AFTER 5 DAYS 04/21/18 17:50 Blood-Venous Gram Stain - Final TEST NOT PERFORMED 04/21/18 17:57 Blood-Venous Blood Culture - Final NO GROWTH AFTER 5 DAYS 04/21/18 17:57 Blood-Venous Gram Stain - Final TEST NOT PERFORMED 04/18/18 09:50 Blood Blood Culture - Final NO GROWTH AFTER 5 DAYS 04/18/18 09:50 Blood Gram Stain - Final TEST NOT PERFORMED 04/21/18 21:49 Urine,Catheterized Urine Culture - Final No Growth (<1,000 CFU/ML) 04/18/18 09:30 Blood Blood Culture - Final Peptostreptococcus Species 04/18/18 09:30 Blood Gram Stain - Final 04/18/18 10:52 Urine,Catheterized Urine Culture - Final Klebsiella Pneumoniae Ssp Pneu Most Recent Lab Values WBC 11.0 K/uL (4.8-10.8) H 05/01/18 07:12 RBC 4.30 Mil/uL (3.80-5.20) 05/01/18 07:12 Hgb 11.3 g/dL (11.0-16.0) 05/01/18 07:12 Hct 35.6 % (34.0-47.0) 05/01/18 07:12 MCV 82.8 fL (81.0-99.0) 05/01/18 07:12 MCH 26.3 pg (27.0-31.0) L 05/01/18 07:12 MCHC 31.8 g/dL (33.0-37.0) L 05/01/18 07:12 RDW 15.6 % (11.5-14.5) H 05/01/18 07:12 Plt Count 230 K/uL (130-400) 05/01/18 07:12 MPV 9.5 fL (7.2-11.7) 05/01/18 07:12 Neut % (Auto) 71.0 % (50.0-75.0) 05/01/18 07:12 Lymph % (Auto) 18.4 % (20.0-40.0) L 05/01/18 07:12 Roane % (Auto) 9.4 % (0.0-10.0) 05/01/18 07:12 Eos % (Auto) 0.9 % (0.0-4.0) 05/01/18 07:12 Baso % (Auto) 0.3 % (0.0-2.0) 05/01/18 07:12 Neut # (Auto) 7.8 K/uL (1.8-7.0) H 05/01/18 07:12 Lymph # (Auto) 2.0 K/uL (1.0-4.3) 05/01/18 07:12 Roane # (Auto) 1.0 K/uL (0.0-0.8) H 05/01/18 07:12 Eos # (Auto) 0.1 K/uL (0.0-0.7) 05/01/18 07:12 Baso # (Auto) 0.0 K/uL (0.0-0.2) 05/01/18 07:12 PT 12.8 SECONDS (9.7-12.2) H 04/18/18 09:55 INR 1.2 04/18/18 09:55 APTT 36 SECONDS (21-34) H 04/18/18 09:55 pO2 42 mm/Hg (30-55) 04/18/18 16:00 VBG pH 7.33 (7.32-7.43) 04/18/18 16:00 VBG pCO2 50 mmHg (40-60) 04/18/18 16:00 VBG HCO3 24.1 mmol/L 04/18/18 16:00 VBG Total CO2 27.9 mmol/L (22-28) 04/18/18 16:00 VBG O2 Sat (Calc) 81.2 % (40-65) H 04/18/18 16:00 VBG Base Excess -0.2 mmol/L (0.0-2.0) L 04/18/18 16:00 VBG Potassium 4.8 mmol/L (3.6-5.2) 04/18/18 16:00 A-a O2 Difference 39.0 mm/Hg 04/18/18 10:00 Sodium 135.0 mmol/l (132-148) 04/18/18 16:00 Chloride 104.0 mmol/L (98-107) 04/18/18 16:00 Glucose 297 mg/dl (65-105) H 04/18/18 16:00 Lactate 2.9 mmol/L (0.7-2.1) H 04/18/18 16:00 FiO2 21.0 % 04/18/18 10:00 Sodium 127 mmol/L (132-148) L 05/01/18 07:12 Potassium 4.3 mmol/L (3.6-5.2) 05/01/18 07:12 Chloride 90 mmol/L (98-107) L 05/01/18 07:12 Carbon Dioxide 30 mmol/L (22-30) 05/01/18 07:12 Anion Gap 11 (10-20) 05/01/18 07:12 BUN 24 mg/dL (7-17) H 05/01/18 07:12 Creatinine 0.8 mg/dL (0.7-1.2) 05/01/18 07:12 Est GFR ( Amer) > 60 05/01/18 07:12 Est GFR (Non-Af Amer) > 60 05/01/18 07:12 POC Glucose (mg/dL) 150 mg/dL (65-110) H 05/02/18 06:20 Random Glucose 174 mg/dL (65-105) H 05/01/18 07:12 Calcium 8.1 mg/dl (8.6-10.4) L 05/01/18 07:12 Phosphorus 3.5 mg/dL (2.5-4.5) 05/01/18 07:12 Magnesium 1.9 mg/dL (1.6-2.3) 05/01/18 07:12 Total Bilirubin 0.7 mg/dL (0.2-1.3) 05/01/18 07:12 AST 11 U/L (14-36) L D 05/01/18 07:12 ALT 33 U/L (9-52) 05/01/18 07:12 Alkaline Phosphatase 60 U/L (38-126) 05/01/18 07:12 Troponin I < 0.0120 ng/mL (0.00-0.120) 04/18/18 09:55 NT-Pro-B Natriuret Pep 226 pg/mL (0-900) 04/18/18 09:55 Total Protein 6.0 g/dL (6.3-8.3) L 05/01/18 07:12 Albumin 3.6 g/dL (3.5-5.0) 05/01/18 07:12 Globulin 2.4 gm/dL (2.2-3.9) 05/01/18 07:12 Albumin/Globulin Ratio 1.5 (1.0-2.1) 05/01/18 07:12 Venous Blood Potassium 4.8 mmol/L (3.6-5.2) 04/18/18 16:00 Urine Color Straw (YELLOW) 04/21/18 21:49 Urine Clarity Clear (Clear) 04/21/18 21:49 Urine pH 6.0 (5.0-8.0) 04/21/18 21:49 Ur Specific Sharps 1.009 (1.003-1.030) 04/21/18 21:49 Urine Protein Negative mg/dL (NEGATIVE) 04/21/18 21:49 Urine Glucose (UA) Negative mg/dL (Normal) 01/18/19 21:49 Urine Ketones Negative mg/dL (NEGATIVE) 04/21/18 21:49 Urine Blood Negative (NEGATIVE) 04/21/18 21:49 Urine Nitrate Negative (NEGATIVE) 04/21/18 21:49 Urine Bilirubin Negative (NEGATIVE) 04/21/18 21:49 Urine Urobilinogen Normal mg/dL (0.2-1.0) 04/21/18 21:49 Ur Leukocyte Esterase Neg Daniella/uL (Negative) 04/21/18 21:49 Urine WBC (Auto) 2 /hpf (0-5) 04/21/18 21:49 Urine RBC (Auto) 4 /hpf (0-3) H 04/21/18 21:49 Ur Squamous Epith Cells 1 /hpf (0-5) 04/21/18 21:49 Urine Bacteria Rare (<OCC) 04/21/18 21:49 Influenza Typ A,B (EIA) Negative for flu a/b (NEGATIVE) 04/18/18 09:55 Ur L.pneumophila Ag Negative (NEGATIVE) 04/19/18 08:47 Mycoplasma pneumon IgG 1.63 (<=0.90) H 04/19/18 22:20 Mycoplasma pneumon IgM 66 U/mL (<770) 04/19/18 22:20 - Hospital Course Hospital Course: HPI: 77 y/o female with PMHx of COPD, HTN, hypothyroidism, DM and gastritis presents to the ED with fever (tmax in ED 101.3 rectal), generalized weakness, cough and fever. Admitted for PNA one other time 15 years ago at her home country in [facility]. Patient states she was unable to get out of bed this morning. Baseline walks with a walker but feels physically weak. Also with increased cough. Denies chest pain, palpitations, SOB, nausea, vomiting. Per daughter at bedside, patient only had a small sip of coffee this morning. Daughter states been losing appetite. Denies sick contacts or recent travels. Code sepsis called this morning. 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 [place]oved to the [place] 5 years ago. Lives w/ daughter. Denies EtOH, tob and illicit drug use now and in the past. Meds: famotidine, losartan, metformin, levothyroxine, ASA, ventolin twice a day, breo once a day All: NKDA Hospital Course Assessment and Plan 77 year old female w/ PMHx of COPD, HTN, hypothyroidism admitted for treatment of sepsis 2/2 PNA Chronic obstructive pulmonary disease - prednisone taper - duonebs q4 - pt requires home O2 HTN - off antihypertensives, BP stable and WNL - HHD DM2 - ISS ACHS - Hypoglycemia protocol CAD - ASA 81 mg PO daily - Heart healthy diet Hypothyroidism - Levothyroxine 25 mcg PO daily Constipation - Colace 100 mg PO BID - Miralax 17 g PO daily Ppx: VTE: Heparin 5000 units sq Q12H, SCDs GI: Pepcid 20 PO daily Pt improved with oxygen, duonebs and prednisone therapy, pt made arrangements to acquire home oxygen Consults Discharge Exam - Head Exam Head Exam: ATRAUMATIC, NORMAL INSPECTION, NORMOCEPHALIC - Additional Findings Additional findings: - Head Exam Head Exam: ATRAUMATIC, NORMAL INSPECTION, NORMOCEPHALIC - Eye Exam Eye Exam: EOMI, Normal appearance - ENT Exam ENT Exam: Mucous Membranes Moist, Normal Exam - Neck Exam Neck Exam: Normal Inspection - Respiratory Exam Respiratory Exam: Wheezes, NORMAL BREATHING PATTERN. absent: Rhonchi - Cardiovascular Exam Cardiovascular Exam: REGULAR RHYTHM, +S1, +S2 - GI/Abdominal Exam GI & Abdominal Exam: Soft, Normal Bowel Sounds. absent: Distended, Tenderness - Extremities Exam Extremities Exam: Normal Inspection. absent: Calf Tenderness - Neurological Exam Neurological Exam: Alert, Awake - Psychiatric Exam Psychiatric exam: Normal Affect, Normal Mood - Skin Skin Exam: Dry, Intact, Normal Color, Warm Discharge Plan - Discharge Medications Prescriptions: RX: Azithromycin 500 mg PO DAILY #3 tablet RX: Famotidine [Pepcid] 20 mg PO DAILY 3 Days #3 tab RX: Fluticasone/Vilanterol [Breo Ellipta 100-25 Mcg INH] 1 each IH DAILY 30 Days #1 blst.w.dev RX: Losartan [Cozaar] 50 mg PO DAILY #30 tab RX: metFORMIN [glucOPHAGE] 500 mg PO BID #60 tab Methylprednisolone [Medrol Dose Pack (21 tabs)] 4 mg PO DAILY #21 mg - Follow Up Plan Condition: FAIR Disposition: HOME/ ROUTINE Instructions: Heart Healthy Diet, Azithromycin (Systemic), Pneumonia, Adult (DC), Sepsis, Adult (DC), Exacerbation of COPD (DC), Medicines for Chronic Obstructive Pulmonary Disease (COPD) Additional Instructions: Patient is to be discharged home. Subacute rehabilitation was recommended but due to lack of insurance patient will need to be monitored closely at home. Patient is to set up primary care at [facility] and hospitalization follow up within 1 week of discharge Patient will need to setup referral to see a adding machine operator Please call during week day to make an appointment [phone] Patient will take medication as prescribed azithromycin 500 mg once daily for 3 days aspirin 81 mg daily levothyroxine 25 mcg daily famotidine 20 mg daily Medrol dose pack breo ellipta 1 inhalation daily colace 100 mg by mouth daily miralax 17 grams daily Home w/ PT services for deconditioning Ventolin 90 2 puffs PRN QID Go to the nearest ED if symptoms worsen or persist Referrals: Marcus Anderson DO [[facility]] - <Renzo Elam - Last Filed: 05/02/18 18:20> Provider - Provider Date of Admission: 04/20/18 10:52 Attending physician: Taco Santos DO Consults: 04/18/18 14:45 Infectious Disease Consult Routine Comment: Consulting Provider: Garrick Muniz Consulting Physician: Garrick Muniz Reason for Consult: s/p code sepsis 04/18/18 16:55 Inpatient CALL CENTER TRAINER Core Measures Referral Routine Comment: Physician Instructions: Reason For Exam: hx copd; c/o of sob Social Work Referral Routine Comment: hx copd; c/o of sob Physician Instructions: Reason For Exam: hx copd; c/o of sob 04/24/18 13:09 Backend Java Developer [Case Management Referral] Routine Comment: Physician Instructions: Reason For Exam: pt w/o insurance and need for home o2 Reason for Referral: Discharge Planning 04/27/18 13:01 Pulmonology Consult Routine Comment: Consulting Provider: Brooklynn Mane Consulting Physician: Brooklynn Mane Reason for Consult: home oxygen [facility] Hospital Course - Lab Results Lab Results: Micro Results 04/21/18 17:50 Blood-Venous Blood Culture - Final NO GROWTH AFTER 5 DAYS 04/21/18 17:50 Blood-Venous Gram Stain - Final TEST NOT PERFORMED 04/21/18 17:57 Blood-Venous Blood Culture - Final NO GROWTH AFTER 5 DAYS 04/21/18 17:57 Blood-Venous Gram Stain - Final TEST NOT PERFORMED 04/18/18 09:50 Blood Blood Culture - Final NO GROWTH AFTER 5 DAYS 04/18/18 09:50 Blood Gram Stain - Final TEST NOT PERFORMED 04/21/18 21:49 Urine,Catheterized Urine Culture - Final No Growth (<1,000 CFU/ML) 04/18/18 09:30 Blood Blood Culture - Final Peptostreptococcus Species 04/18/18 09:30 Blood Gram Stain - Final 04/18/18 10:52 Urine,Catheterized Urine Culture - Final Klebsiella Pneumoniae Ssp Pneu Most Recent Lab Values WBC 12.1 K/uL (4.8-10.8) H 05/02/18 08:28 RBC 4.35 Mil/uL (3.80-5.20) 05/02/18 08:28 Hgb 11.8 g/dL (11.0-16.0) 05/02/18 08:28 Hct 35.9 % (34.0-47.0) 05/02/18 08:28 MCV 82.5 fL (81.0-99.0) 05/02/18 08:28 MCH 27.1 pg (27.0-31.0) 05/02/18 08:28 MCHC 32.8 g/dL (33.0-37.0) L 05/02/18 08:28 RDW 15.9 % (11.5-14.5) H 05/02/18 08:28 Plt Count 238 K/uL (130-400) 05/02/18 08:28 MPV 9.2 fL (7.2-11.7) 05/02/18 08:28 Neut % (Auto) 68.1 % (50.0-75.0) 05/02/18 08:28 Lymph % (Auto) 21.0 % (20.0-40.0) 05/02/18 08:28 Roane % (Auto) 9.4 % (0.0-10.0) 05/02/18 08:28 Eos % (Auto) 1.0 % (0.0-4.0) 05/02/18 08:28 Baso % (Auto) 0.5 % (0.0-2.0) 05/02/18 08: Neut # (Auto) 8.2 K/uL (1.8-7.0) H 05/02/18 08:28 Lymph # (Auto) 2.6 K/uL (1.0-4.3) 05/02/18 08: Roane # (Auto) 1.1 K/uL (0.0-0.8) H 05/02/18 08:28 Eos # (Auto) 0.1 K/uL (0.0-0.7) 05/02/18 08: Baso # (Auto) 0.1 K/uL (0.0-0.2) 05/02/18 08:28 PT 12.8 SECONDS (9.7-12.2) H 04/18/18 09:55 INR 1.2 04/18/18 09:55 APTT 36 SECONDS (21-34) H 04/18/18 09:55 pO2 42 mm/Hg (30-55) 04/18/18 16:00 VBG pH 7.33 (7.32-7.43) 04/18/18 16:00 VBG pCO2 50 mmHg (40-60) 04/18/18 16:00 VBG HCO3 24.1 mmol/L 04/18/18 16:00 VBG Total CO2 27.9 mmol/L (22-28) 04/18/18 16:00 VBG O2 Sat (Calc) 81.2 % (40-65) H 04/18/18 16:00 VBG Base Excess -0.2 mmol/L (0.0-2.0) L 04/18/18 16:00 VBG Potassium 4.8 mmol/L (3.6-5.2) 04/18/18 16:00 A-a O2 Difference 39.0 mm/Hg 04/18/18 10:00 Sodium 135.0 mmol/l (132-148) 04/18/18 16:00 Chloride 104.0 mmol/L (98-107) 04/18/18 16:00 Glucose 297 mg/dl (65-105) H 04/18/18 16:00 Lactate 2.9 mmol/L (0.7-2.1) H 04/18/18 16:00 FiO2 21.0 % 04/18/18 10:00 Sodium 126 mmol/L (132-148) L 05/02/18 08:28 Potassium 4.4 mmol/L (3.6-5.2) 05/02/18 08:28 Chloride 91 mmol/L (98-107) L 05/02/18 08:28 Carbon Dioxide 30 mmol/L (22-30) 05/02/18 08:28 Anion Gap 9 (10-20) L 05/02/18 08:28 BUN 21 mg/dL (7-17) H 05/02/18 08:28 Creatinine 0.8 mg/dL (0.7-1.2) 05/02/18 08:28 Est GFR ( Amer) > 60 05/02/18 08:28 Est GFR (Non-Af Amer) > 60 05/02/18 08:28 POC Glucose (mg/dL) 308 mg/dL (65-110) H 05/02/18 11:36 Random Glucose 148 mg/dL (65-105) H 05/02/18 08:28 Calcium 8.2 mg/dl (8.6-10.4) L 05/02/18 08:28 Phosphorus 3.3 mg/dL (2.5-4.5) 05/02/18 08:28 Magnesium 1.8 mg/dL (1.6-2.3) 05/02/18 08:28 Total Bilirubin 0.8 mg/dL (0.2-1.3) 05/02/18 08:28 AST 20 U/L (14-36) 05/02/18 08:28 ALT 27 U/L (9-52) 05/02/18 08:28 Alkaline Phosphatase 62 U/L (38-126) 05/02/18 08:28 Troponin I < 0.0120 ng/mL (0.00-0.120) 04/18/18 09:55 NT-Pro-B Natriuret Pep 226 pg/mL (0-900) 04/18/18 09:55 Total Protein 6.1 g/dL (6.3-8.3) L 05/02/18 08:28 Albumin 3.5 g/dL (3.5-5.0) 05/02/18 08:28 Globulin 2.6 gm/dL (2.2-3.9) 05/02/18 08:28 Albumin/Globulin Ratio 1.4 (1.0-2.1) 05/02/18 08:28 Venous Blood Potassium 4.8 mmol/L (3.6-5.2) 04/18/18 16:00 Urine Color Straw (YELLOW) 04/21/18 21:49 Urine Clarity Clear (Clear) 04/21/18 21:49 Urine pH 6.0 (5.0-8.0) 04/21/18 21:49 Ur Specific Sharps 1.009 (1.003-1.030) 04/21/18 21:49 Urine Protein Negative mg/dL (NEGATIVE) 04/21/18 21:49 Urine Glucose (UA) Negative mg/dL (Normal) 04/21/18 21:49 Urine Ketones Negative mg/dL (NEGATIVE) 04/21/18 21:49 Urine Blood Negative (NEGATIVE) 04/21/18 21:49 Urine Nitrate Negative (NEGATIVE) 04/21/18 21:49 Urine Bilirubin Negative (NEGATIVE) 04/21/18 21:49 Urine Urobilinogen Normal mg/dL (0.2-1.0) 04/21/18 21:49 Ur Leukocyte Esterase Neg Daniella/uL (Negative) 04/21/18 21:49 Urine WBC (Auto) 2 /hpf (0-5) 04/21/18 21:49 Urine RBC (Auto) 4 /hpf (0-3) H 04/21/18 21:49 Ur Squamous Epith Cells 1 /hpf (0-5) 04/21/18 21:49 Urine Bacteria Rare (<OCC) 04/21/18 21:49 Influenza Typ A,B (EIA) Negative for flu a/b (NEGATIVE) 04/18/18 09:55 Ur L.pneumophila Ag Negative (NEGATIVE) 04/19/18 08:47 Mycoplasma pneumon IgG 1.63 (<=0.90) H 04/19/18 22:20 Mycoplasma pneumon IgM 66 U/mL (<770) 04/19/18 22:20 Attending/Attestation - Attestation I have personally seen and examined this patient.: Yes I have fully participated in the care of the patient.: Yes I have reviewed all pertinent clinical information, including history, physical exam and plan: Yes Notes (Text): ISCHARGE MEDICATION REVIEWED WITH THE RESIDENT ZITHROMAX took off from the list. Prescription for Ventolin inhaler was given
[2018-05-02 08:38] LABS: BASO # 0.1 K/uL (0.0-0.2); BASO % 0.5 % (0.0-2.0); EOS # 0.1 K/uL (0.0-0.7); HEMOGLOBIN 11.8 g/dL (11.0-16.0); LYMPH # 2.6 K/uL (1.0-4.3); MEAN CELL VOLUME 82.5 fL (81.0-99.0); MEAN CORPUSCULAR HEMOGLOBIN 27.1 pg (27.0-31.0); MEAN CORPUSCULAR HGB CONC 32.8 g/dL (33.0-37.0); MEAN PLATELET VOLUME 9.2 fL (7.2-11.7); MONO # 1.1 K/uL (0.0-0.8); MONO % 9.4 % (0.0-10.0); NEUT # 8.2 K/uL (1.8-7.0); NEUT % 68.1 % (50.0-75.0); RBC 4.35 Mil/uL (3.80-5.20); RED CELL DISTRIBUTION WIDTH 15.9 % (11.5-14.5); WHITE BLOOD COUNT 12.1 K/uL (4.8-10.8)
[2018-05-02 09:00] LABS: ALB/GLOB RATIO 1.4 (1.0-2.1); ALBUMIN 3.5 g/dL (3.5-5.0); ALT/SGPT 27 U/L (9-52); AST/SGOT 20 U/L (14-36); BLOOD UREA NITROGEN 21 mg/dL (7-17); CALCIUM 8.2 mg/dl (8.6-10.4); GFR NON-AFRICAN AMERICAN > 60
[2018-05-02] MEDS: (Novolin R) Insulin Human Regular 100 units/ml vial SC SCH ×2 (09:30→13:05)
[2018-05-02] MEDS: POLYETHYLENE GLYCOL 3350 17 GM/Dose PACKET PO SCH (10:09)
[2018-05-02 10:45] VITALS: BP 112/67; PULSE 82; TEMP 99.2; O2SAT 94
== END 2018-05-02 15:12 | disposition home or self-care (01) | DRG 720 ==
LOC: C.ER 08:49 → C.9E 10:56 → C.5S 18:07 → OBSVTOIN 04-20 10:52 → C.5S 04-21 01:00
PROVIDERS: ADMIT Hospitalist; ATTEND Hospitalist
DX: A41.9 Sepsis, unspecified organism (principal); J18.9 Pneumonia, unspecified organism; J96.21 Acute and chronic respiratory failure with hypoxia; J44.0 Chronic obstructive pulmonary disease with (acute) lower respiratory infection; J44.1 Chronic obstructive pulmonary disease with (acute) exacerbation; N39.0 Urinary tract infection, site not specified; G20 Parkinson's disease; E11.9 Type 2 diabetes mellitus without complications; E03.9 Hypothyroidism, unspecified; I10 Essential (primary) hypertension; I25.10 Atherosclerotic heart disease of native coronary artery without angina pectoris; K59.00 Constipation, unspecified; B96.1 Klebsiella pneumoniae [K. pneumoniae] as the cause of diseases classified elsewhere; M81.0 Age-related osteoporosis without current pathological fracture; Z96.653 Presence of artificial knee joint, bilateral; Z77.22 Contact with and (suspected) exposure to environmental tobacco smoke (acute) (chronic); Z79.82 Long term (current) use of aspirin; Z79.84 Long term (current) use of oral hypoglycemic drugs; Z79.890 Hormone replacement therapy; Z87.01 Personal history of pneumonia (recurrent); Z87.440 Personal history of urinary (tract) infections; Z90.49 Acquired absence of other specified parts of digestive tract; Z99.81 Dependence on supplemental oxygen; Z80.3 Family history of malignant neoplasm of breast